=== PATIENT | male | born 1940 | race Hispanic/Latino ===

== ENCOUNTER 2018-02-14 10:58 | Emergency (ER) | payer OTHER ==
--- OUTSIDE RECORDS SUMMARY | 2018-02-14 10:59 | XMS REPORT ---
:1940 Author Organization eClinicalWorks Care Team Providers Name Role Phone Armani Randell Provider Role Unavailable Allergies, Adverse Reactions, Alerts Substance Reaction Event Type N.K.D.A. 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 Problem Benign essential HTN I10 Active Assessment Acute otitis media, right H66.91 Active Problem 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 Active Problem H/O: CVA (cerebrovascular accident) Z86.73 Active Problem Arteriosclerosis I70.90 Active Medications Medication Code Code Instructions Start End Date Status Dosage System Date Losartan [facility] 42027480991 25 MG Orally Active 1 tablet Potassium Once a day Tresiba [facility] 88999218463 200 UNIT/ML Active not defined FlexTouch Subcutaneous Clopidogrel ND 54719193739 75 MG Orally Active 1 tablet Bisulfate Once a day Isosorbide ND 56225531850 30 MG Orally Active 1 tablet in Mononitrate ER Once a day the morning Crestor [facility] 77263263823 20 MG Orally Active 1 tablet Once a day Metoprolol ND 89779550942 50 MG Orally Active 1 tablet Succinate ER Once a day Furosemide ND 31966384136 20 MG Orally Active 1 tablet Once a day Nexium [facility] 20556934538 40 MG Orally Active 1 capsule Once a day Vitamin B [facility] 24744446788 - Orally Active not defined Complex-C Neomycin-Polymy [facility] 82229885785 3.5-64788-8 January Active 4 drops beatrice-HC Otic Three 2017 into times a day affected ear Amoxicillin ND 03261187430 500 MG Orally January Active 1 capsule every 12 hrs 2017 Results No Known Results Summary Purpose eClinicalWorks Submission
--- OUTSIDE RECORDS SUMMARY | 2018-02-14 10:59 | XMS REPORT ---
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 Active Problem H/O: CVA (cerebrovascular accident) Z86.73 Active Assessment Bilateral impacted cerumen H61.23 Active Problem Arteriosclerosis I70.90 Active Medications Medication Code Code Instructions Start End Status Dosage System Date Date Losartan ND 44580010219 25 MG Orally Active 1 tablet Potassium Once a day Tresiba ND 97200577906 200 UNIT/ML Active not defined FlexTouch Subcutaneous Clopidogrel ND 05472021158 75 MG Orally Active 1 tablet Bisulfate Once a day Neomycin-Polymy [facility] 68369360245 3.5-91790-1 January Active 4 drops beatrice-HC Otic Three 2017 into times a day affected ear Crestor ND 39124751593 20 MG Orally Active 1 tablet Once a day Metoprolol ND 41807741662 50 MG Orally Active 1 tablet Succinate ER Once a day Vitamin B ND 93592995361 - Orally Active not defined Complex-C Isosorbide ND 53949324529 30 MG Orally Active 1 tablet in Mononitrate ER Once a day the morning Nexium ND 22647541685 40 MG Orally Active 1 capsule Once a day Furosemide ND 89080340735 20 MG Orally Active 1 tablet Once a day Results No Known Results Summary Purpose eClinicalWorks Submission
--- NOTE | 2018-02-14 12:57 | RAD REPORT ---
EXAM DESCRIPTION: CT - Head Brain Wo Cont - 02/14/2018 12:42 pm CLINICAL HISTORY: Headache COMPARISON: 2016 TECHNIQUE: Computed axial tomography of the head was obtained. IV contrast was not requested. All CT scans are performed using dose optimization technique as appropriate and may include automated exposure control or mA/KV adjustment according to patient size. FINDINGS: An intracranial bleed is not seen . The ventricles are normal in caliber. No extra-axial fluid collection is noted. 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 . Fluid within the sinuses/ mastoids is not seen. IMPRESSION: No acute intracranial abnormality is seen. If patient's symptoms persist MRI of the bra in would be recommended.
[2018-02-14] MEDS ORDERED: LIDOCAINE VISCOUS 2% SOLN 15 ML UDC MM ONE (13:00)
--- NOTE | 2018-02-14 13:32 | EDPHYS ---
Physician Documentation [facility] Name: Sandoval Whitt Jr Age: 78 yrs Sex: Male : 1940 Arrival Date: 02/14/2018 Time: 10:58 Bed 14 Private MD: Randell Lomeli ED Physician Moises Sanchez HPI: 02/14 12:02 This 78 yrs old Male presents to ER via Ambulatory with complaints of Ear Pain.valerie 12:02 The patient presents with pain. The complaints affect the right ear. Onset: The valerie symptoms/episode began/occurred 3 day(s) ago. Modifying factors: The symptoms are alleviated by nothing, the symptoms are aggravated by nothing. Associated signs and symptoms: The patient has no apparent associated signs or symptoms. Severity of symptoms: At their worst the symptoms were mild moderate in the emergency department the symptoms are unchanged. The patient has experienced similar episodes in the past, a few times. Historical: - Allergies: 11:03 NKDA; hb 11:03 shrimp; hb - Home Meds: 11:03 Crestor 20 mg Oral tab 1 tab once daily [Active]; Levemir 100 unit/mL subcutaneous soln hb 42 unit [Active]; metoprolol tartrate 50 mg Oral tab 1 tab once daily [Active]; Plavix 75 mg Oral tab 1 tab once daily [Active]; Tresiba FlexTouch U-100 20 units subcutaneous inpn [Active]; - PMHx: 11:03 CVA; Diabetes - NIDDM; heart disease; Hypertension; hb - PSHx: 11:03 Heart Surgery; Heart stents; hb - Immunization history:: Adult Immunizations up to date. - Social history:: Smoking status: Patient/guardian denies using tobacco. ROS: 12:03 Constitutional: Negative for fever, chills, and weight loss, Eyes: Negative for injury, valerie pain, redness, and discharge, Neck: Negative for injury, pain, and swelling, Cardiovascular: Negative for chest pain, palpitations, and edema, Respiratory: Negative for shortness of breath, cough, wheezing, and pleuritic chest pain, Abdomen/GI: Negative for abdominal pain, nausea, vomiting, diarrhea, and constipation, Back: Negative for injury and pain, : Negative for injury, bleeding, discharge, and swelling, MS/Extremity: Negative for injury and deformity, Skin: Negative for injury, rash, and discoloration, Neuro: Negative for headache, weakness, numbness, tingling, and seizure, Psych: Negative for depression, anxiety, suicide ideation, homicidal ideation, and hallucinations, Allergy/Immunology: Negative for hives, rash, and allergies, Endocrine: Negative for neck swelling, polydipsia, polyuria, polyphagia, and marked weight changes, Hematologic/Lymphatic: Negative for swollen nodes, abnormal bleeding, and unusual bruising. 12:03 ENT: Positive for ear pain. Exam: 12:03 Constitutional: This is a well developed, well nourished patient who is awake, alert, valerie and in no acute distress. Head/Face: Normocephalic, atraumatic. Eyes: Pupils equal round and reactive to light, extra-ocular motions intact. Lids and lashes normal. Conjunctiva and sclera are non-icteric and not injected. Cornea within normal limits. Periorbital areas with no swelling, redness, or edema. Neck: Trachea midline, no thyromegaly or masses palpated, and no cervical lymphadenopathy. Supple, full range of motion without nuchal rigidity, or vertebral point tenderness. No Meningismus. Chest/axilla: Normal chest wall appearance and motion. Nontender with no deformity. No lesions are appreciated. Cardiovascular: Regular rate and rhythm with a normal S1 and S2. No gallops, murmurs, or rubs. Normal PMI, no JVD. No pulse deficits. Respiratory: Lungs have equal breath sounds bilaterally, clear to auscultation and percussion. No rales, rhonchi or wheezes noted. No increased work of breathing, no retractions or nasal flaring. Abdomen/GI: Soft, non-tender, with normal bowel sounds. No distension or tympany. No guarding or rebound. No evidence of tenderness throughout. Back: No spinal tenderness. No costovertebral tenderness. Full range of motion. Male : Normal genitalia with no discharge or lesions. Skin: Warm, dry with normal turgor. Normal color with no rashes, no lesions, and no evidence of cellulitis. MS/ Extremity: Pulses equal, no cyanosis. Neurovascular intact. Full, normal range of motion. Neuro: Awake and alert, GCS 15, oriented to person, place, time, and situation. Cranial nerves II-XII grossly intact. Motor strength 5/5 in all extremities. Sensory grossly intact. Cerebellar exam normal. Normal gait. Psych: Awake, alert, with orientation to person, place and time. Behavior, mood, and affect are within normal limits. 12:03 ENT: Ear canal(s): erythema, that is minimal, TM's: are normal, Posterior pharynx: is normal, no acute changes, Airway: normal, no evidence of obstruction. Vital Signs: 11:04 BP 136 / 59; Pulse 73; Resp 16; Temp 98.6; Pulse Ox 99% ; Weight 67.13 kg; Height 5 ft. hb 8 in. (172.72 cm); Pain 8/10; 12:00 BP 140 / 62; Pulse 64; Resp 17; Pulse Ox 99% on R/A; rb1 13:00 BP 138 / 63; Pulse 66; Resp 16; Pulse Ox 99% on R/A; rb1 14:00 BP 136 / 61; Pulse 69; Resp 17; Pulse Ox 99% on R/A; rb1 11:04 Body Mass Index 22.50 (67.13 kg, 172.72 cm) hb MDM: 11:14 Patient medically screened. [facility] 11:15 Patient medically screened. [facility] 13:33 Data reviewed: vital signs, nurses notes, lab test result(s), radiologic studies, CT valerie scan. 02/14 12:02 Order name: CT Head Brain wo Cont [facility] 02/14 12:58 Order name: CT; Complete Time: 13:31 [facility] 02/14 12:02 Order name: Blood Glucose Level; Complete Time: 12:22 [facility] 02/14 14:11 Order name: EKG; Complete Time: 14:12 [facility] 02/14 14:11 Order name: EKG - Nurse/Tech; Complete Time: 14:20 [facility] Administered Medications: 12:35 Drug: Viscous Lidocaine Liquid (4 %) 5 ml Route: Mucous Membrane; rb1 13:59 Drug: Zofran 4 mg Route: PO; rb1 14:25 Follow up: Response: Nausea is decreased ss Point of Care Testing: Blood Glucose: 12:21 Blood Glucose: 195 mg/dL; rb1 Ranges: Critical Glucose Levels:Adult <50 mg/dl or >400 mg/dl <40 mg/dl or >180 mg/dl Disposition: 02/14/18 13:32 Discharged to Home. Impression: Otitis externa in other diseases classified elsewhere, right ear, Type 2 diabetes mellitus, Vomiting. - Condition is Stable. - Discharge Instructions: Type 2 Diabetes Mellitus, Adult, Ear Drops, Adult, Otitis Externa, Otitis Externa, [id number], Type 2 Diabetes Mellitus, Adult, [id number]. - Prescriptions for Cortisporin- TC 3.3-3-10-0.5 mg/mL Otic Suspension - instill 4 drop by OTIC route every 6 hours; 1 bottle. Neurontin 300 mg Oral Capsule - take 1 capsule by ORAL route At bedtime; 20 capsule. Tylenol- Codeine #3 300-30 mg Oral Tablet - take 1 tablet by ORAL route every 4 hours As needed; 24 tablet. Zofran 4 mg Oral Tablet - take 1 tablet by ORAL route every 12 hours As needed; 14 tablet. - Medication Reconciliation Form, Thank You Letter, Antibiotic Education, Prescription Opioid Use form. - Follow up: Randell Lomeli; When: 2 - 3 days; Reason: Recheck today's complaints, Continuance of care, Re-evaluation by your physician. Follow up: Dyan Bain; When: 1 - 2 days; Reason: Recheck today's complaints, Re-evaluation by your physician. - Problem is new. - Symptoms have improved. Signatures: Dispatcher [employer] Moises Ross MD MD cha Smirch, Shelby, RN RN Josee Avila, ENEDINA RN [facility] Lynda Olivares RN RN
--- NOTE | 2018-02-14 13:32 | ER ---
Nurse's Notes [facility] Name: Sandoval Whitt Jr Age: 78 yrs Sex: Male : 1940 Arrival Date: 02/14/2018 Time: 10:58 Bed 14 Private MD: Randell Lomeli Diagnosis: Otitis externa in other diseases classified elsewhere, right ear;Type 2 diabetes mellitus;Vomiting Presentation: 02/14 11:01 Presenting complaint: Patient states: RIGHT ear pain x 2 weeks, N/V x 3 days. Not hb tolerating liquids. On Penicillin Day 4 for ear infection. Transition of care: patient was not received from another setting of care. Onset of symptoms is unknown. Care prior to arrival: None. 11:01 Method Of Arrival: Ambulatory hb 11: Acuity: FORREST 3 hb Historical: - Allergies: 11: NKDA; hb 11:03 shrimp; hb - Home Meds: 11:03 Crestor 20 mg Oral tab 1 tab once daily [Active]; Levemir 100 unit/mL subcutaneous soln hb 42 unit [Active]; metoprolol tartrate 50 mg Oral tab 1 tab once daily [Active]; Plavix 75 mg Oral tab 1 tab once daily [Active]; Tresiba FlexTouch U-100 20 units subcutaneous inpn [Active]; - PMHx: 11:03 CVA; Diabetes - NIDDM; heart disease; Hypertension; hb - PSHx: 11:03 Heart Surgery; Heart stents; hb - Immunization history:: Adult Immunizations up to date. - Social history:: Smoking status: Patient/guardian denies using tobacco. Screenin:09 Abuse screen: Denies threats or abuse. Nutritional screening: No deficits noted. rb1 Tuberculosis screening: No symptoms or risk factors identified. Fall Risk None identified. Assessment: 11:09 General: Appears uncomfortable, Behavior is calm, cooperative, Denies fever. Pain: rb1 Complains of pain in right ear Pain currently is 10 out of 10 on a pain scale. Pain began x 2 weeks. Pt. is currently taking PCN every 12 hours PO, started 4 days ago. Neuro: Level of Consciousness is awake, alert, obeys commands, Oriented to person, place, time, situation. Cardiovascular: Capillary refill < 3 seconds is brisk in bilateral fingers. Respiratory: Airway is patent Respiratory effort is even, unlabored, Respiratory pattern is regular, symmetrical. GI: Reports nausea, vomiting, since x 3 days. : No signs and/or symptoms were reported regarding the genitourinary system. EENT: Ear canal clear on right ear. Derm: Skin is pink, warm \T\ dry. 12:00 Reassessment: Patient appears in no apparent distress at this time. No changes from [facility] previously documented assessment. 13:00 Reassessment: Patient appears in no apparent distress at this time. Patient and/or rb1 family updated on plan of care and expected duration. Pain level reassessed. Patient is alert, oriented x 3, equal unlabored respirations, skin warm/dry/pink. 13:55 Reassessment: Discharge pending due to waiting for Dr. Bain to call Dr. Sanchez. rb1 14:20 Reassessment: Dr. Sanchez added EKG order. Alba, film technician obtaining test right now. Dr. milan Sanchez orders that after EKG is read by himself and cleared, pt may be discharged home. Vital Signs: 11:04 BP 136 / 59; Pulse 73; Resp 16; Temp 98.6; Pulse Ox 99% ; Weight 67.13 kg; Height 5 ft. hb 8 in. (172.72 cm); Pain 8/10; 12:00 BP 140 / 62; Pulse 64; Resp 17; Pulse Ox 99% on R/A; rb1 13:00 BP 138 / 63; Pulse 66; Resp 16; Pulse Ox 99% on R/A; rb1 14:00 BP 136 / 61; Pulse 69; Resp 17; Pulse Ox 99% on R/A; rb1 11:04 Body Mass Index 22.50 (67.13 kg, 172.72 cm) hb ED Course: 10:58 Patient arrived in ED. as 10:59 Randell Lomeli, is Private Physician. as 11:03 Triage completed. hb 11:04 Arm band placed on left wrist. hb 11:09 Patient has correct armband on for positive identification. Bed in low position. Call rb1 light in reach. Side rails up X 1. Pulse ox on. NIBP on. 11:14 Moises Sanhcez MD is Attending Physician. [facility] 11:26 Josee Avila, RN is Primary Nurse. rb1 12:[address] via wheelchair. 12:40 CT completed. Patient tolerated procedure well. Patient moved back from CT. 13:32 Randell Lomeli DO is Referral Physician. [facility] 13:32 Dyan Bain MD is Referral Physician. [facility] 14:24 No provider procedures requiring assistance completed. Patient did not have IV access ss during this emergency room visit. Administered Medications: 12:35 Drug: Viscous Lidocaine Liquid (4 %) 5 ml Route: Mucous Membrane; rb1 13:59 Drug: Zofran 4 mg Route: PO; rb1 14:25 Follow up: Response: Nausea is decreased Point of Care Testing: Blood Glucose: 12:21 Blood Glucose: 195 mg/dL; rb1 Ranges: Outcome: 13:32 Discharge ordered by MD. [facility] 14:24 Discharged to home ambulatory, with family. 14:24 Condition: good 14:24 Discharge instructions given to patient, family, Instructed on discharge instructions, follow up and referral plans. medication usage, Demonstrated understanding of instructions, follow-up care, medications, Prescriptions given X 4. 14:25 Patient left the ED. ss Signatures: Moises Sanchez MD MD cha Martinez, Amelia as Smirch, Shelby, RN RN Anahy Mijares Josee Avila RN RN [facility] Lynda Olivares RN RN Corrections: (The following items were deleted from the chart) 11:04 11:01 Presenting complaint: Patient states: RIGHT ear pain x 2 weeks, N/V x 3 days. On hb Penicillin Day 4 for ear infection hb
[2018-02-14] MEDS ORDERED: ONDANSETRON 4 MG (ODT) TAB ONE (14:18)
[2018-02-14 14:30] VITALS: TEMP 98.6; O2SAT 99
[2018-02-14 14:31] VITALS: BP 140/62
--- NOTE | 2018-02-15 10:48 | EKG ---
Test Date: 2018-02-14 Test Time: 14:20:28 Accounts Payable Lead: [employer]ACE[employer] MEASUREMENT RESULTS: Intervals: Rate: 66 KS: 144 QRSD: 166 QT: 480 QTc: 503 [place]: P: 79 KS: 144 QRS: -75 T: 87 INTERPRETIVE STATEMENTS: Atrial-sensed ventricular-paced rhythm Abnormal ECG Compared to ECG 08/25/2017 14:47:46 no significant change from previous ECG Electronically Signed On 02-15-18 10:48:11 CDT by Dwayne Aguirre
== END 2018-02-14 14:25 | disposition home or self-care (01) ==
LOC: ER 10:58
DX: H62.41 Otitis externa in other diseases classified elsewhere, right ear (principal); R11.10 Vomiting, unspecified; E11.9 Type 2 diabetes mellitus without complications; I10 Essential (primary) hypertension; Z86.73 Personal history of transient ischemic attack (TIA), and cerebral infarction without residual deficits; Z91.013 Allergy to seafood; Z79.4 Long term (current) use of insulin; Z95.818 Presence of other cardiac implants and grafts
CPT/HCPCS: 70450; 82962; 93005; 99284

== ENCOUNTER 2018-03-15 12:13 | Emergency (ER) | payer OTHER ==
--- OUTSIDE RECORDS SUMMARY | 2018-03-15 12:14 | XMS REPORT ---
[...] Status Dosage System Date Date Losartan ND 74657442562 25 MG Orally Active 1 tablet Potassium Once a day Tresiba ND 29785198957 200 UNIT/ML Active not defined FlexTouch Subcutaneous Clopidogrel ND 21547237013 75 MG Orally Active 1 tablet Bisulfate Once a day Neomycin-Polymy [facility] 95579653976 3.5-80341-0 January Active 4 drops beatrice-HC Otic Three 2017 into times a day affected ear Crestor ND 32980802107 20 MG Orally Active 1 tablet Once a day Metoprolol ND 71295729082 50 MG Orally Active 1 tablet Succinate ER Once a day Vitamin B ND 09262515096 - Orally Active not defined Complex-C Isosorbide ND 36233449719 30 MG Orally Active 1 tablet in Mononitrate ER Once a day the morning Nexium ND 67144179568 40 MG Orally Active 1 capsule Once a day Furosemide ND 77272001036 20 MG Orally Active 1 tablet Once a day Results No Known Results Summary Purpose eClinicalWorks Submission
--- OUTSIDE RECORDS SUMMARY | 2018-03-15 12:15 | XMS REPORT ---
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
--- OUTSIDE RECORDS SUMMARY | 2018-03-15 12:15 | XMS REPORT ---
[...] End Date Status Dosage System Date Losartan [facility] 70816298049 25 MG Orally Active 1 tablet Potassium Once a day Tresiba [facility] 47713578836 200 UNIT/ML Active not defined FlexTouch Subcutaneous Clopidogrel ND 73106356453 75 MG Orally Active 1 tablet Bisulfate Once a day Isosorbide ND 23182003766 30 MG Orally Active 1 tablet in Mononitrate ER Once a day the morning Crestor [facility] 61152303600 20 MG Orally Active 1 tablet Once a day Metoprolol ND 82251514012 50 MG Orally Active 1 tablet Succinate ER Once a day Furosemide ND 23833639740 20 MG Orally Active 1 tablet Once a day Nexium [facility] 33083205318 40 MG Orally Active 1 capsule Once a day Vitamin B [facility] 12511799367 - Orally Active not defined Complex-C Neomycin-Polymy [facility] 22505771749 3.5-37364-1 January Active 4 drops beatrice-HC Otic Three 2017 into times a day affected ear Amoxicillin ND 20960264496 500 MG Orally January Active 1 capsule every 12 hrs 2017 Results No Known Results Summary Purpose eClinicalWorks Submission
--- OUTSIDE RECORDS SUMMARY | 2018-03-15 12:15 | XMS REPORT ---
:1940 Author Organization eClinicalWorks Care Team Providers Name Role Phone Armani [facility] Provider Role Unavailable Allergies No Known Allergies [...] Medications Results No Known Results Summary Purpose [email or web address] Submission
[2018-03-15 13:00] LABS: Absolute Lymphocytes (CBC) 1.4 K/uL (0.7-4.9); Absolute Monocytes 0.5 K/uL (0.1-1.3); Absolute Neutrophil 4.6 K/uL (1.8-8.0); Basophils % 0.6 % (0-1.3); Eosinophils % 2.1 % (0-4.4); Lymphocytes % 20.3 % (15.3-44.8); MCH 32.4 pg (27.0-35.0); MCV 94.3 fL (80-100); MPV 8.8 fL (7.6-11.3); Monocytes % 7.7 % (3.3-12.3); RBC Red Blood Cell Count 3.92 M/uL (4.33-5.43)
[2018-03-15 13:06] LABS: Protime INR 1.08
[2018-03-15 13:14] LABS: Potassium 3.9 mEq/L (3.6-5.0)
[2018-03-15 13:20] LABS: Albumin 4.4 g/dL (3.2-5.5); Bilirubin Direct 0.1 mg/dL (0-0.2); Bilirubin Total 0.7 mg/dL (0.3-1.2); Magnesium 1.9 mg/dL (1.8-2.5); Protein, Total 7.8 g/dL (6.0-8.3)
--- NOTE | 2018-03-15 13:36 | RAD REPORT ---
EXAM DESCRIPTION: RAD - Chest Single View - 03/15/2018 1:15 pm CLINICAL HISTORY: Palpitations COMPARISON: 02/09/2017 FINDINGS: Portable technique limits examination quality. The lungs are grossly clear. The heart is normal in size. No displaced fractures.Postsurgical changes of a CABG are present with dual lead pacer/defibrillator device present. IMPRESSION: No acute intrathoracic process suspected.
--- NOTE | 2018-03-15 15:47 | ER ---
Nurse's Notes [facility] Name: Sandoval Whitt Jr Age: 78 yrs Sex: Male : 1940 Arrival Date: 03/15/2018 Time: 12:14 Bed 5 Private MD: Randell Lomeli; Babak Simons S Diagnosis: Palpitations Presentation: 03/15 12:18 Presenting complaint: Patient states: He has been having palpitations over last week la1 and this morning at 0300 he was woken up by his palpitations. He has a pacemaker/defib but it has not shocked him or anything. Pt reports taking an extra metoprolol this morning. Transition of care: patient was not received from another setting of care. Onset of symptoms was March 15, 2018. Initial Sepsis Screen: Does the patient meet any 2 criteria? No. Patient's initial sepsis screen is negative. Does the patient have a suspected source of infection? No. Patient's initial sepsis screen is negative. Care prior to arrival: None. 12:18 Method Of Arrival: Wheelchair la1 12:18 Acuity: FORREST 3 la1 Historical: - Allergies: 12:17 NKDA; la1 12:17 shrimp; la1 - PMHx: 12:17 CVA; Diabetes - NIDDM; heart disease; Hypertension; la1 - PSHx: 12:17 CABG; heart stents; la1 - Immunization history:: Adult Immunizations up to date. - Social history:: Smoking status: Patient/guardian denies using tobacco. Screenin:30 Abuse screen: Denies threats or abuse. Denies injuries from another. Nutritional sv screening: No deficits noted. Tuberculosis screening: No symptoms or risk factors identified. Fall Risk None identified. Assessment: 12:45 General: Appears in no apparent distress. comfortable, slender, Behavior is calm, sv cooperative, appropriate for age. Pain: Denies pain. Neuro: Level of Consciousness is awake, alert, obeys commands, Oriented to person, place, time, situation, Moves all extremities. Full function Gait is steady, Speech is normal. Cardiovascular: Patient's skin is warm and dry. Pulses are 3+ in right radial artery and left radial artery Rhythm is paced. Respiratory: Respiratory effort is even, unlabored, Respiratory pattern is regular, symmetrical. Derm: Skin is normal. Musculoskeletal: Range of motion: intact in all extremities. 15:39 Reassessment: Patient appears in no apparent distress at this time. No changes from sv previously documented assessment. Patient and/or family updated on plan of care and expected duration. Pain level reassessed. Patient is alert, oriented x 3, equal unlabored respirations, skin warm/dry/pink. 16:05 Reassessment: Patient appears in no apparent distress at this time. No changes from sv previously documented assessment. Patient and/or family updated on plan of care and expected duration. Pain level reassessed. Patient is alert, oriented x 3, equal unlabored respirations, skin warm/dry/pink. Vital Signs: 12:17 BP 131 / 57; Pulse 66; Resp 16; Temp 99.2(TE); Pulse Ox 98% on R/A; la1 13:00 BP 96 / 55; Pulse 61 MON; Resp 17; Pulse Ox 98% ; sv 14:38 BP 115 / 60; Pulse 60; Resp 16; Pulse Ox 98% on R/A; Pain 0/10; ss 15:00 BP 118 / 55; Pulse 60; Resp 16; Pulse Ox 98% on R/A; sv 16:05 BP 117 / 59; Pulse 62; Resp 16; Pulse Ox 98% ; sv 13:00 Paced sv 15:00 Paced sv ED Course: 12:14 Patient arrived in ED. as 12:14 Randell Lomeli DO is Private Physician. as 12:14 Babak Simons MD is Private Physician. as 12:18 Arm band placed on left wrist. la1 12:19 Triage completed. la1 12:30 silver designer on. Pulse ox on. NIBP on. sv 12:30 Patient has correct armband on for positive identification. Placed in gown. Bed in low sv position. Call light in reach. Side rails up X2. Adult w/ patient. Door closed. Warm blanket given. Head of bed elevated. 12:30 Patient maintains SpO2 saturation greater than 95% on room air. sv 12:36 Dyan Smith, ENEDINA is Primary Nurse. sv 12:39 Zeus Peterson PA is PHCP. jr8 12:39 Moises Sanchez MD is Attending Physician. jr8 12:45 Inserted saline lock: 20 gauge in right antecubital area, using aseptic technique. ss Blood collected. 13:07 X-ray completed. Portable x-ray completed in exam room. Patient tolerated procedure kp1 well. 13:15 XRAY Chest (1 view) In Process Unspecified. EDMS 16:05 No provider procedures requiring assistance completed. IV discontinued, intact, sv bleeding controlled, No redness/swelling at site. Pressure dressing applied. Administered Medications: No medications were administered Outcome: 15:45 Discharge ordered by MD. humphrey 16:06 Discharged to home via wheelchair, with family. sv 16:06 Condition: stable 16:06 Discharge instructions given to patient, family, Instructed on discharge instructions, follow up and referral plans. Demonstrated understanding of instructions, follow-up care, Pt's spouse stated that she was calling tomorrow to make a follow up appt. 16:06 Patient left the ED. sv Signatures: Dispatcher [employer] DAX[employer] Dyan Smith RN RN sv Martinez, Amelia as Smirch, Shelby, RN RN Zeus Peterson PA PA jr8 Orlando Kapadia RN RN la1 Haleigh Ribeiro kp1 Corrections: (The following items were deleted from the chart) 15:34 14:38 silver designer on. Pulse ox on. NIBP on. ss sv
--- NOTE | 2018-03-15 15:47 | EDPHYS ---
Physician Documentation [facility] Name: Sandoval Whitt Jr Age: 78 yrs Sex: Male : 1940 Arrival Date: 03/15/2018 Time: 12:14 Bed 5 Private MD: Randell Lomeli; Babak Simons S ED Physician Moises Sanchez HPI: 03/15 15:05 This 78 yrs old Male presents to ER via Wheelchair with complaints of jr8 Irregular Pulse. 15:05 The patient presents with a history of heart racing, heart skipping beats. Context: The jr8 symptoms occur at rest. Onset: The symptoms/episode began/occurred acutely, yesterday. Duration: The patient or guardian reports a single episode, that is still ongoing. Modifying factors: The symptoms are aggravated by light activity, The symptoms are alleviated by remaining still. Associated signs and symptoms: The patient has no apparent associated signs or symptoms. Severity of symptoms: At their worst the symptoms were mild in the emergency department the symptoms are unchanged. It is unknown whether or not the patient has had similar symptoms in the past. The patient has not recently seen a physician. Denies defibrillator going off . Historical: - Allergies: 12:17 NKDA; la1 12:17 shrimp; la1 - PMHx: 12:17 CVA; Diabetes - NIDDM; heart disease; Hypertension; la1 - PSHx: 12:17 CABG; heart stents; la1 - Immunization history:: Adult Immunizations up to date. - Social history:: Smoking status: Patient/guardian denies using tobacco. ROS: 15:05 Eyes: Negative for injury, pain, redness, and discharge, ENT: Negative for injury, jr8 pain, and discharge, Neck: Negative for injury, pain, and swelling, Respiratory: Negative for shortness of breath, cough, wheezing, and pleuritic chest pain, Abdomen/GI: Negative for abdominal pain, nausea, vomiting, diarrhea, and constipation, Back: Negative for injury and pain, MS/Extremity: Negative for injury and deformity, Skin: Negative for injury, rash, and discoloration, Neuro: Negative for headache, weakness, numbness, tingling, and seizure. 15:05 Cardiovascular: Positive for palpitations, Negative for chest pain, edema, orthopnea, paroxysmal nocturnal dyspnea. Exam: 15:05 Eyes: Pupils equal round and reactive to light, extra-ocular motions intact. Lids and jr8 lashes normal. Conjunctiva and sclera are non-icteric and not injected. Cornea within normal limits. Periorbital areas with no swelling, redness, or edema. ENT: Nares patent. No nasal discharge, no septal abnormalities noted. Tympanic membranes are normal and external auditory canals are clear. Oropharynx with no redness, swelling, or masses, exudates, or evidence of obstruction, uvula midline. Mucous membranes moist. Neck: Trachea midline, no thyromegaly or masses palpated, and no cervical lymphadenopathy. Supple, full range of motion without nuchal rigidity, or vertebral point tenderness. No Meningismus. Cardiovascular: Regular rate and rhythm with a normal S1 and S2. No gallops, murmurs, or rubs. Normal PMI, no JVD. No pulse deficits. Respiratory: Lungs have equal breath sounds bilaterally, clear to auscultation and percussion. No rales, rhonchi or wheezes noted. No increased work of breathing, no retractions or nasal flaring. Abdomen/GI: Soft, non-tender, with normal bowel sounds. No distension or tympany. No guarding or rebound. No evidence of tenderness throughout. Back: No spinal tenderness. No costovertebral tenderness. Full range of motion. Skin: Warm, dry with normal turgor. Normal color with no rashes, no lesions, and no evidence of cellulitis. MS/ Extremity: Pulses equal, no cyanosis. Neurovascular intact. Full, normal range of motion. Neuro: Awake and alert, GCS 15, oriented to person, place, time, and situation. Cranial nerves II-XII grossly intact. Motor strength 5/5 in all extremities. Sensory grossly intact. Cerebellar exam normal. Normal gait. Vital Signs: 12:17 BP 131 / 57; Pulse 66; Resp 16; Temp 99.2(TE); Pulse Ox 98% on R/A; la1 13:00 BP 96 / 55; Pulse 61 MON; Resp 17; Pulse Ox 98% ; sv 14:38 BP 115 / 60; Pulse 60; Resp 16; Pulse Ox 98% on R/A; Pain 0/10; ss 15:00 BP 118 / 55; Pulse 60; Resp 16; Pulse Ox 98% on R/A; sv 16:05 BP 117 / 59; Pulse 62; Resp 16; Pulse Ox 98% ; sv 13:00 Paced sv 15:00 Paced sv MDM: 12:39 Patient medically screened. [facility] 15:43 Data reviewed: vital signs, nurses notes, lab test result(s), EKG, radiologic studies, jr8 plain films, and as a result, I will discharge patient. Data interpreted: Pulse oximetry: on room air is 98 %. Interpretation: normal. 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 ED course: Called Patients EP physician. Will see him on Friday for evaluation for the palpitation like feeling. Patient has been stable here without any arrhythmia. Pacer spikes noted on ECG. No wire displacement noted on imaging. Family good to f/u tomorrow. If worse would come back . 03/15 12:39 Order name: Basic Metabolic Panel; Complete Time: 14: 03/15 12:39 Order name: BNP; Complete Time: 14: 03/15 12:39 Order name: CBC with Diff; Complete Time: 14:03/15 12:39 Order name: LFT's; Complete Time: 14:03/15 12:39 Order name: Magnesium; Complete Time: 14:29 03/15 12:39 Order name: PT-INR; Complete Time: 14: 03/15 12:39 Order name: Troponin (emerg Dept Use Only); Complete Time: 14:29 03/15 12:39 Order name: XRAY Chest (1 view); Complete Time: 14:29 03/15 12:39 Order name: EKG; Complete Time: 12:40 03/15 12:39 Order name: Cardiac monitoring; Complete Time: 14:03/15 12:39 Order name: EKG - Nurse/Tech; Complete Time: 14:03/15 12:39 Order name: IV Saline Lock; Complete Time: 14:03/15 12:39 Order name: Labs collected and sent; Complete Time: 14:03/15 12:39 Order name: O2 Per Protocol; Complete Time: 03/15 12:39 Order name: O2 Sat Monitoring; Complete Time: : Administered Medications: No medications were administered Disposition: 03/16 09:19 Co-signature as Attending Physician, Moises Sanchez MD I agree with the assessment and valerie plan of care. Disposition: 03/15/18 15:45 Discharged to Home. Impression: Palpitations. - Condition is Stable. - Discharge Instructions: Palpitations. - Medication Reconciliation Form, Thank You Letter, Antibiotic Education, Prescription Opioid Use form. - Follow up: Private Physician; When: Tomorrow; Reason: Recheck today's complaints, Continuance of care, Re-evaluation by your physician. - Problem is new. - Symptoms have improved. Signatures: Dispatcher [employer] Dyan Connors, Moises Amaro RN, MD MD cha Roszak, Josh, PA PA jr8 Orlando Kapadia RN RN la1
[2018-03-15 16:13] VITALS: TEMP 99.2; O2SAT 98
[2018-03-15 16:18] VITALS: BP 117/59
--- NOTE | 2018-03-15 18:26 | EKG ---
Test Date: 2018-03-15 Test Time: 12:47:22 Tree Farmer: TIA MEASUREMENT RESULTS: Intervals: Rate: 63 MD: 142 QRSD: 164 QT: 474 QTc: 485 [place]: P: 61 MD: 142 QRS: -83 T: 78 INTERPRETIVE STATEMENTS: Atrial-sensed ventricular-paced rhythm Abnormal ECG Compared to ECG 02/14/2018 14:20:28 No significant changes Electronically Signed On 03-15-18 18:25:54 CDT by Dwayne Aguirre
== END 2018-03-15 16:06 | disposition home or self-care (01) ==
LOC: ER 12:13
DX: R00.2 Palpitations (principal); E11.9 Type 2 diabetes mellitus without complications; I10 Essential (primary) hypertension; Z86.73 Personal history of transient ischemic attack (TIA), and cerebral infarction without residual deficits; Z95.0 Presence of cardiac pacemaker
CPT/HCPCS: 36415; 71045; 80048; 80076; 83735; 83880; 84484; 85025; 85610; 93005; 99285

== ENCOUNTER 2018-05-09 11:50 | Emergency (ER) | payer OTHER ==
--- OUTSIDE RECORDS SUMMARY | 2018-05-09 11:52 | XMS REPORT ---
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 Problem Venous insufficiency I87.2 Active Problem Diabetes type 2, controlled E11.9 Active Problem 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 Problem Benign essential HTN I10 Active Assessment Venous insufficiency I87.2 Active Assessment H/O: CVA (cerebrovascular accident) Z86.73 Active Assessment Gastro-esophageal reflux disease K21.9 Active without esophagitis Assessment 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 Assessment Diabetes type 2, controlled E11.9 Active Problem 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 Active Assessment Hyperlipidemia, mixed E78.2 Active Problem H/O: CVA (cerebrovascular accident) Z86.73 Active Assessment Benign essential HTN I10 Active Problem Arteriosclerosis I70.90 Active Medications Medication Code Code Instructions Start End Status Dosage System Date Crestor [facility] 95287606489 20 MG Orally Active 1 tablet Once a day Jardiance [facility] 99355075827 10 MG Orally April 06, Jul 05, Active 1 tablet Once a day 2017 2017 Clopidogrel ND 59297023217 75 MG Orally Active 1 tablet Bisulfate Once a day Nexium ND 77525496169 40 MG Orally Active 1 capsule Once a day Metoprolol ND 10175209517 50 MG Orally Active 1 tablet Succinate ER Once a day Losartan ND 14451071166 25 MG Orally Active 1 tablet Potassium Once a day Isosorbide ND 87906622366 30 MG Orally Active 1 tablet in Mononitrate ER Once a day the morning Neomycin-Polymy [facility] 17793069003 3.5-36176-2 January Active 4 drops beatrice-HC Otic Three 2017 into times a day affected ear Furosemide [facility] 17085737954 20 MG Orally Active 1 tablet Once a day Tresiba [facility] 93066307570 200 UNIT/ML Active not defined FlexTouch Subcutaneous Vitamin B [facility] 64921023938 - Orally Active not defined Complex-C Results No Known Results Summary Purpose eClinicalWorks Submission
--- OUTSIDE RECORDS SUMMARY | 2018-05-09 11:52 | XMS REPORT ---
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 Active Problem Pain in left wrist M25.532 Active Problem Constipation, unspecified K59.00 Active constipation type Problem Benign essential HTN I10 Active Problem Venous insufficiency I87.2 Active Problem Pain in left hand M79.642 Active Problem 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 Assessment Gastro-esophageal reflux disease K21.9 Active without esophagitis Problem 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 Active Problem H/O: CVA (cerebrovascular accident) Z86.73 Active Assessment Constipation, unspecified K59.00 Active constipation type Problem Arteriosclerosis I70.90 Active Assessment Nausea and vomiting, intractability R11.2 Active of vomiting not specified, unspecified vomiting type Problem History of fall Z91.81 Active Medications Medication Code Code Instructions Start End Status Dosage System Date Date Ondansetron HCl ND 60754074900 4 MG Orally April 23, Active Take 1 tab every 8 hours 2018 PRN Nausea/Vomiting Clopidogrel ND 22588171878 75 MG Orally Active 1 tablet Bisulfate Once a day Losartan ND 87833679963 25 MG Orally Active 1 tablet Potassium Once a day Metoprolol ND 77398817254 50 MG Orally Active 1 tablet Succinate ER Once a day Crestor ND 97312417479 20 MG Orally Active 1 tablet Once a day Isosorbide ND 31381533001 30 MG Orally Active 1 tablet in Mononitrate ER Once a day the morning Tresiba ND 55341039832 200 UNIT/ML Active not defined FlexTouch Subcutaneous Vitamin B ND 53878021742 - Orally Active not defined Complex-C Neomycin-Polymy [facility] 05325874281 3.5-31959-6 January Active 4 drops beatrice- Otic Three 2017 into times a day affected ear Nexium [facility] 16458619154 40 MG Orally Active 1 capsule Once a day Furosemide [facility] 85136099191 20 MG Orally Active 1 tablet Once a day Jardiance [facility] 08396405945 10 MG Orally April 06, Jul 05, Active 1 tablet Once a day 2017 2017 Results No Known Results Summary Purpose eClinicalWorks Submission
--- OUTSIDE RECORDS SUMMARY | 2018-05-09 11:52 | XMS REPORT ---
[...] End Date Status Dosage System Date Losartan [facility] 88374370484 25 MG Orally Active 1 tablet Potassium Once a day Tresiba [facility] 05472644443 200 UNIT/ML Active not defined FlexTouch Subcutaneous Clopidogrel ND 66491155056 75 MG Orally Active 1 tablet Bisulfate Once a day Isosorbide ND 02865306289 30 MG Orally Active 1 tablet in Mononitrate ER Once a day the morning Crestor [facility] 49089260646 20 MG Orally Active 1 tablet Once a day Metoprolol ND 09405533414 50 MG Orally Active 1 tablet Succinate ER Once a day Furosemide ND 52613827357 20 MG Orally Active 1 tablet Once a day Nexium [facility] 15574427552 40 MG Orally Active 1 capsule Once a day Vitamin B [facility] 90495684735 - Orally Active not defined Complex-C Neomycin-Polymy [facility] 77641919734 3.5-35664-5 January Active 4 drops beatrice-HC Otic Three 2017 into times a day affected ear Amoxicillin ND 98276006182 500 MG Orally January Active 1 capsule every 12 hrs 2017 Results No Known Results Summary Purpose eClinicalWorks Submission
--- OUTSIDE RECORDS SUMMARY | 2018-05-09 11:52 | XMS REPORT ---
:1940 Author Organization eClinicalWorks Care Team Providers Name Role Phone Armani [facility] Provider Role Unavailable Allergies No Known Allergies [...] Medications Results No Known Results Summary Purpose [employer] Submission
--- OUTSIDE RECORDS SUMMARY | 2018-05-09 11:52 | XMS REPORT ---
[...] Medications Results No Known Results Summary Purpose eClinicalWorks Submission
--- OUTSIDE RECORDS SUMMARY | 2018-05-09 11:52 | XMS REPORT ---
[...] Status Dosage System Date Date Losartan ND 58207697676 25 MG Orally Active 1 tablet Potassium Once a day Tresiba ND 29952047764 200 UNIT/ML Active not defined FlexTouch Subcutaneous Clopidogrel ND 24434905587 75 MG Orally Active 1 tablet Bisulfate Once a day Neomycin-Polymy [facility] 36441860861 3.5-43060-9 January Active 4 drops beatrice-HC Otic Three 2017 into times a day affected ear Crestor ND 87924481074 20 MG Orally Active 1 tablet Once a day Metoprolol ND 01191349744 50 MG Orally Active 1 tablet Succinate ER Once a day Vitamin B ND 70405767732 - Orally Active not defined Complex-C Isosorbide ND 84776972325 30 MG Orally Active 1 tablet in Mononitrate ER Once a day the morning Nexium ND 90543212148 40 MG Orally Active 1 capsule Once a day Furosemide ND 04642839687 20 MG Orally Active 1 tablet Once a day Results No Known Results Summary Purpose eClinicalWorks Submission
--- OUTSIDE RECORDS SUMMARY | 2018-05-09 11:52 | XMS REPORT ---
:1940 Author Organization eClinicalWorks Care Team Providers Name Role Phone Armani [facility] Provider Role Unavailable Allergies No Known Allergies [...] Medications Results No Known Results Summary Purpose [employer] Submission
--- OUTSIDE RECORDS SUMMARY | 2018-05-09 11:53 | XMS REPORT ---
[...] coronary artery bypass Z95.1 Active graft Problem 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 Active Problem H/O: CVA (cerebrovascular accident) Z86.73 Active Problem Arteriosclerosis I70.90 Active Assessment Gastro-esophageal reflux disease K21.9 Active without esophagitis Problem History of fall Z91.81 Active Medications Medication Code Code Instructions Start End Date Status Dosage System Date Omeprazole NDC 92866995471 40 MG Orally April 24, Active 1 capsule Once a day 2017 Nexium ND 86536475541 40 MG Orally Inactive 1 capsule Once a day Results No Known Results Summary Purpose eClinicalWorks Submission
[2018-05-09] MEDS ORDERED: NA CHLORIDE 0.9% 1,000 ML ONE (14:04)
[2018-05-09 14:31] LABS: Absolute Lymphocytes (CBC) 1.4 K/uL (0.7-4.9); Absolute Monocytes 0.5 K/uL (0.1-1.3); Absolute Neutrophil 4.4 K/uL (1.8-8.0); Basophils % 0.3 % (0-1.3); Eosinophils % 2.5 % (0-4.4); Hematocrit 34.2 % (39.6-49.0); Lymphocytes % 22.1 % (15.3-44.8); MCH 33.7 pg (27.0-35.0); MCV 94.9 fL (80-100); MPV 8.6 fL (7.6-11.3); Monocytes % 7.2 % (3.3-12.3)
[2018-05-09 14:41] LABS: Potassium 4.6 mEq/L (3.6-5.0)
--- NOTE | 2018-05-09 15:27 | ER ---
Nurse's Notes [facility] Name: Sandoval Whitt Jr Age: 78 yrs Sex: Male : 1940 Arrival Date: 05/09/2018 Time: 11:52 Bed 8 Private MD: Nando Linares H Diagnosis: Weakness;Dehydration Presentation: 05/09 11:58 Presenting complaint: states: Pt recently had an EGD on and was sent here to get a CT with contrast. Pt went home and started having diarrhea and diarrhea hasn't stopped since then. Pt is now weaker than normal. Transition of care: patient was not received from another setting of care. Onset of symptoms was May 07, 2018. Risk Assessment: Do you want to hurt yourself or someone else? Patient reports no desire to harm self or others. Care prior to arrival: None. 11:58 Method Of Arrival: Wheelchair sv 11:58 Acuity: FORREST 3 sv 14:00 Initial Sepsis Screen: Does the patient meet any 2 criteria? No. Patient's initial sg sepsis screen is negative. Does the patient have a suspected source of infection? No. Patient's initial sepsis screen is negative. Triage Assessment: 11:58 General: Appears in no apparent distress. uncomfortable, Behavior is calm, cooperative, sv appropriate for age. EENT: No signs and/or symptoms were reported regarding the EENT system. Neuro: Level of Consciousness is awake, alert, obeys commands, Oriented to person, place, time, situation, Moves all extremities. Full function Speech is normal, Reports weakness in "all over". Respiratory: Respiratory effort is even, unlabored, Respiratory pattern is regular, symmetrical. Derm: Skin is normal. Historical: - Allergies: 12:00 shrimp; sv - Home Meds: 12:00 Crestor 20 mg Oral tab 1 tab once daily [Active]; Levemir 100 unit/mL subcutaneous soln sv 42 unit [Active]; metoprolol tartrate 50 mg Oral tab 1 tab once daily [Active]; Plavix 75 mg Oral tab 1 tab once daily [Active]; Tresiba FlexTouch U-100 20 units subcutaneous inpn [Active]; - PMHx: 12:00 CVA; Diabetes - NIDDM; heart disease; Hypertension; sv - PSHx: 12:00 CABG; Heart stents; sv - Immunization history:: Adult Immunizations up to date. - Social history:: Smoking status: Patient/guardian denies using tobacco. - Ebola Screening: : No symptoms or risks identified at this time. Screenin:00 Abuse screen: Denies threats or abuse. Denies injuries from another. Nutritional sg screening: No deficits noted. Tuberculosis screening: No symptoms or risk factors identified. Never had TB. Fall Risk None identified. Assessment: 14:00 General: Appears in no apparent distress. comfortable, slender, well groomed, well sg developed, well nourished, Behavior is calm, cooperative, appropriate for age. Pain: Denies pain. Neuro: Level of Consciousness is awake, alert, obeys commands, Oriented to person, place, time, situation, Appropriate for age Scada Operator are equal bilaterally Speech is normal, Facial symmetry appears normal. Cardiovascular: Heart tones S1 S2 present Capillary refill is brisk in bilateral fingers Patient's skin is warm and dry. Chest pain is denied. Cardiovascular: Reports fatigue. Respiratory: Airway is patent Respiratory effort is even, unlabored, Respiratory pattern is regular, symmetrical, Breath sounds are clear. GI: No signs and/or symptoms were reported involving the gastrointestinal system. : No deficits noted. No signs and/or symptoms were reported regarding the genitourinary system. EENT: No signs and/or symptoms were reported regarding the EENT system. Derm: Skin is intact, is healthy with good turgor, Skin is pale. Musculoskeletal: No signs and/or symptoms reported regarding the musculoskeletal system. 15:30 Reassessment: orders to infuse bolus as ordered prior to d/c to home. sg Vital Signs: 12:00 BP 100 / 45; Pulse 60; Resp 18; Pulse Ox 98% ; Weight 65.32 kg; Height 5 ft. 8 in. sv (172.72 cm); 16:00 BP 141 / 59; Pulse 60; Resp 16; Pulse Ox 100% on R/A; sg 12:00 Body Mass Index 21.89 (65.32 kg, 172.72 cm) sv ED Course: 11:52 Patient arrived in ED. sb2 11:52 Nando Linares MD is Private Physician. sb2 11:59 Triage completed. sv 12:01 Arm band placed on right wrist. sv 13:32 Venkata Corbin MD is Attending Physician. gs 13:35 Patient placed in an exam room, on a stretcher. 14:00 Patient has correct armband on for positive identification. Bed in low position. Call sg light in reach. Side rails up X2. pipe caulker on. Pulse ox on. NIBP on. Door closed. Warm blanket given. Pillow given. Verbal reassurance given. Head of bed elevated. 14:08 Ezequiel Downey, RN is Primary Nurse. 14:22 Initial lab(s) drawn, by me, sent to lab. Inserted saline lock: 22 gauge in left dh3 forearm, using aseptic technique. Blood collected. 16:30 No provider procedures requiring assistance completed. IV discontinued, intact, sg bleeding controlled, No redness/swelling at site. Pressure dressing applied. Administered Medications: 14:35 Drug: NS 0.9% 750 ml Route: IV; Rate: 1 bolus; Site: left forearm; sg Outcome: 15:27 Discharge ordered by MD. 16:30 Discharged to home via wheelchair, with family. 16:30 Condition: good 16:30 Discharge instructions given to patient, Instructed on discharge instructions, follow up and referral plans. Demonstrated understanding of instructions, follow-up care. 16:31 Patient left the ED. Signatures: Dyan Smith RN RN Ezequiel Downey RN RN Dari Bain [facility] Venkata Corbin MD MD Lety Goff sb2
--- NOTE | 2018-05-09 15:27 | EDPHYS ---
Physician Documentation [facility] Name: Sandoval Whitt Jr Age: 78 yrs Sex: Male : 1940 Arrival Date: 05/09/2018 Time: 11:52 Bed 8 Private MD: Nando Linares H ED Physician Venkata Corbin HPI: 05/09 15:21 This 78 yrs old Male presents to ER via Wheelchair with complaints of General gs Weakness. 15:21 The patient presents to the emergency department with weakness of the entire body, gs generalized weakness. Onset: The symptoms/episode began/occurred 3 month(s) ago, and became persistent. Context: occurred at home. Associated signs and symptoms: Pertinent negatives: altered mental status, dizziness, fever, headache. Severity of symptoms: At their worst the symptoms were moderate in the emergency department the symptoms are unchanged. The patient has experienced similar episodes in the past, several times. The patient has been recently seen by a physician:. Historical: - Allergies: 12:00 shrimp; sv - Home Meds: 12:00 Crestor 20 mg Oral tab 1 tab once daily [Active]; Levemir 100 unit/mL subcutaneous soln sv 42 unit [Active]; metoprolol tartrate 50 mg Oral tab 1 tab once daily [Active]; Plavix 75 mg Oral tab 1 tab once daily [Active]; Tresiba FlexTouch U-100 20 units subcutaneous inpn [Active]; - PMHx: 12:00 CVA; Diabetes - NIDDM; heart disease; Hypertension; sv - PSHx: 12:00 CABG; Heart stents; sv - Immunization history:: Adult Immunizations up to date. - Social history:: Smoking status: Patient/guardian denies using tobacco. - Ebola Screening: : No symptoms or risks identified at this time. ROS: 15:21 Constitutional: Negative for fever. gs 15:21 Cardiovascular: Negative for chest pain. 15:21 Respiratory: Negative for shortness of breath. 15:21 Abdomen/GI: Negative for vomiting. 15:21 All other systems are negative. Exam: 15:21 Head/Face: Normocephalic, atraumatic. Eyes: Pupils equal round and reactive to light, gs extra-ocular motions intact. Lids and lashes normal. Conjunctiva and sclera are non-icteric and not injected. Cornea within normal limits. Periorbital areas with no swelling, redness, or edema. ENT: Nares patent. No nasal discharge, no septal abnormalities noted. Tympanic membranes are normal and external auditory canals are clear. Oropharynx with no redness, swelling, or masses, exudates, or evidence of obstruction, uvula midline. Mucous membranes moist. Neck: Trachea midline, no thyromegaly or masses palpated, and no cervical lymphadenopathy. Supple, full range of motion without nuchal rigidity, or vertebral point tenderness. No Meningismus. Chest/axilla: Normal chest wall appearance and motion. Nontender with no deformity. No lesions are appreciated. Cardiovascular: Regular rate and rhythm with a normal S1 and S2. No gallops, murmurs, or rubs. Normal PMI, no JVD. No pulse deficits. Respiratory: Lungs have equal breath sounds bilaterally, clear to auscultation and percussion. No rales, rhonchi or wheezes noted. No increased work of breathing, no retractions or nasal flaring. Abdomen/GI: Soft, non-tender, with normal bowel sounds. No distension or tympany. No guarding or rebound. No evidence of tenderness throughout. Back: No spinal tenderness. No costovertebral tenderness. Full range of motion. Skin: Warm, dry with normal turgor. Normal color with no rashes, no lesions, and no evidence of cellulitis. MS/ Extremity: Pulses equal, no cyanosis. Neurovascular intact. Full, normal range of motion. Neuro: Awake and alert, GCS 15, oriented to person, place, time, and situation. Cranial nerves II-XII grossly intact. Motor strength 5/5 in all extremities. Sensory grossly intact. Cerebellar exam normal. Normal gait. 15:21 Constitutional: The patient appears alert, awake, frail, pale. 15:21 ECG was reviewed by the Attending Physician. Vital Signs: 12:00 BP 100 / 45; Pulse 60; Resp 18; Pulse Ox 98% ; Weight 65.32 kg; Height 5 ft. 8 in. sv (172.72 cm); 16:00 BP 141 / 59; Pulse 60; Resp 16; Pulse Ox 100% on R/A; sg 12:00 Body Mass Index 21.89 (65.32 kg, 172.72 cm) sv MDM: 14:04 Patient medically screened. gs 15:21 Data reviewed: vital signs, nurses notes. Counseling: I had a detailed discussion with the patient and/or guardian regarding: the historical points, exam findings, and any diagnostic results supporting the discharge/admit diagnosis, lab results. Response to treatment: the patient's symptoms have markedly improved after treatment, and as a result, I will discharge patient. 05/09 13:58 Order name: CBC with Diff; Complete Time: 15:01 05/09 13:58 Order name: Basic Metabolic Panel; Complete Time: 15: 05/09 14:02 Order name: Troponin (emerg Dept Use Only); Complete Time: 15: 05/09 14:02 Order name: EKG - Nurse/Tech; Complete Time: 14:55 EC:21 Rate is 60 beats/min. Rhythm is regular, Paced. NC interval is normal. QRS interval is gs prolonged. T waves are Normal. No ST changes noted. Clinical impression: Abnormal EKG without significant change. Interpreted by me. Administered Medications: 14:35 Drug: NS 0.9% 750 ml Route: IV; Rate: 1 bolus; Site: left forearm; sg Disposition: 05/09/18 15:27 Discharged to Home. Impression: Weakness, Dehydration. - Condition is Stable. - Discharge Instructions: Dehydration, Elderly, Weakness, Fatigue. - Medication Reconciliation Form, Thank You Letter, Antibiotic Education, Prescription Opioid Use form. - Follow up: Private Physician; When: 2 - 3 days; Reason: Re-evaluation by your physician. Signatures: Dispatcher [employer] Dyan Connors RN RN Ezequiel Downey RN RN sg Starr, Gregory, MD MD Corrections: (The following items were deleted from the chart) 16:31 15:27 05/09/2018 15:27 Discharged to Home. Impression: Weakness; Dehydration. Condition sg is Stable. Forms are Medication Reconciliation Form, Thank You Letter, Antibiotic Education, Prescription Opioid Use. Follow up: Private Physician; When: 2 - 3 days; Reason: Re-evaluation by your physician.
[2018-05-09 17:03] VITALS: BP 141/59; O2SAT 100
--- NOTE | 2018-05-10 09:12 | EKG ---
Test Date: 2018-05-09 Test Time: 14:23:39 Medical Office Representative: SWG MEASUREMENT RESULTS: Intervals: Rate: 60 UT: 186 QRSD: 164 QT: 488 QTc: 488 [place]: P: 52 UT: 186 QRS: -82 T: 73 INTERPRETIVE STATEMENTS: AV dual-paced rhythm Abnormal ECG Compared to ECG 03/15/2018 12:47:22 Atrial-sensed ventricular-paced complex(es) or rhythm no longer present Electronically Signed On 05-10-18 09:11:47 CDT by Dwayne Aguirre
== END 2018-05-09 16:31 | disposition home or self-care (01) ==
LOC: ER 11:50
DX: E86.0 Dehydration (principal); I10 Essential (primary) hypertension; E11.9 Type 2 diabetes mellitus without complications; Z86.73 Personal history of transient ischemic attack (TIA), and cerebral infarction without residual deficits; Z79.4 Long term (current) use of insulin; Z95.1 Presence of aortocoronary bypass graft; Z91.013 Allergy to seafood; Z95.818 Presence of other cardiac implants and grafts
CPT/HCPCS: 36415; 80048; 84484; 85025; 93005; 99284; J7030

== ENCOUNTER 2018-05-19 06:56 | Day surgery (SDC) | payer OTHER ==
--- OUTSIDE RECORDS SUMMARY | 2018-05-19 06:59 | XMS REPORT ---
[...] Dosage System Date Date Ondansetron HCl ND 61361849247 4 MG Orally April 23, Active Take 1 tab every 8 hours 2018 PRN Nausea/Vomiting Clopidogrel ND 52892808311 75 MG Orally Active 1 tablet Bisulfate Once a day Losartan ND 41933928014 25 MG Orally Active 1 tablet Potassium Once a day Metoprolol ND 28400254616 50 MG Orally Active 1 tablet Succinate ER Once a day Crestor ND 82763828819 20 MG Orally Active 1 tablet Once a day Isosorbide ND 39170687166 30 MG Orally Active 1 tablet in Mononitrate ER Once a day the morning Tresiba ND 55886329525 200 UNIT/ML Active not defined FlexTouch Subcutaneous Vitamin B ND 11303389236 - Orally Active not defined Complex-C Neomycin-Polymy [facility] 34032695471 3.5-41326-2 January Active 4 drops beatrice- Otic Three 2017 into times a day affected ear Nexium [facility] 39490980551 40 MG Orally Active 1 capsule Once a day Furosemide [facility] 60137495055 20 MG Orally Active 1 tablet Once a day Jardiance [facility] 97131385833 10 MG Orally April 06, Jul 05, Active 1 tablet Once a day 2017 2017 Results No Known Results Summary Purpose eClinicalWorks Submission
--- OUTSIDE RECORDS SUMMARY | 2018-05-19 06:59 | XMS REPORT ---
[...] End Date Status Dosage System Date Losartan [facility] 87619290792 25 MG Orally Active 1 tablet Potassium Once a day Tresiba [facility] 50173670732 200 UNIT/ML Active not defined FlexTouch Subcutaneous Clopidogrel ND 31881032095 75 MG Orally Active 1 tablet Bisulfate Once a day Isosorbide ND 81917341814 30 MG Orally Active 1 tablet in Mononitrate ER Once a day the morning Crestor [facility] 86692432380 20 MG Orally Active 1 tablet Once a day Metoprolol ND 45579209914 50 MG Orally Active 1 tablet Succinate ER Once a day Furosemide ND 78910055095 20 MG Orally Active 1 tablet Once a day Nexium [facility] 71457745409 40 MG Orally Active 1 capsule Once a day Vitamin B [facility] 68979677758 - Orally Active not defined Complex-C Neomycin-Polymy [facility] 43302765832 3.5-42909-9 January Active 4 drops beatrice-HC Otic Three 2017 into times a day affected ear Amoxicillin ND 94152492172 500 MG Orally January Active 1 capsule every 12 hrs 2017 Results No Known Results Summary Purpose eClinicalWorks Submission
--- OUTSIDE RECORDS SUMMARY | 2018-05-19 06:59 | XMS REPORT ---
[...] Date Status Dosage System Date Omeprazole NDC 45126547035 40 MG Orally April 24, Active 1 capsule Once a day 2017 Nexium ND 53491776420 40 MG Orally Inactive 1 capsule Once a day Results No Known Results Summary Purpose eClinicalWorks Submission
--- OUTSIDE RECORDS SUMMARY | 2018-05-19 06:59 | XMS REPORT ---
[...] Start End Status Dosage System Date Crestor [facility] 95634438469 20 MG Orally Active 1 tablet Once a day Jardiance [facility] 03800876086 10 MG Orally April 06, Jul 05, Active 1 tablet Once a day 2017 2017 Clopidogrel ND 42704374855 75 MG Orally Active 1 tablet Bisulfate Once a day Nexium ND 13181170324 40 MG Orally Active 1 capsule Once a day Metoprolol ND 53453830700 50 MG Orally Active 1 tablet Succinate ER Once a day Losartan ND 12831261410 25 MG Orally Active 1 tablet Potassium Once a day Isosorbide ND 01000619886 30 MG Orally Active 1 tablet in Mononitrate ER Once a day the morning Neomycin-Polymy [facility] 11044142434 3.5-84794-4 January Active 4 drops beatrice-HC Otic Three 2017 into times a day affected ear Furosemide [facility] 71448000986 20 MG Orally Active 1 tablet Once a day Tresiba [facility] 81088173239 200 UNIT/ML Active not defined FlexTouch Subcutaneous Vitamin B [facility] 65514011151 - Orally Active not defined Complex-C Results No Known Results Summary Purpose eClinicalWorks Submission
--- OUTSIDE RECORDS SUMMARY | 2018-05-19 06:59 | XMS REPORT ---
:1940 Author Organization eClinicalWorks Care Team Providers Name Role Phone Armani [facility] Provider Role Unavailable Allergies No Known Allergies [...] Medications Results No Known Results Summary Purpose [employer] Submission
--- OUTSIDE RECORDS SUMMARY | 2018-05-19 06:59 | XMS REPORT ---
[...] Status Dosage System Date Date Losartan ND 33537152948 25 MG Orally Active 1 tablet Potassium Once a day Tresiba ND 10245431545 200 UNIT/ML Active not defined FlexTouch Subcutaneous Clopidogrel ND 79432824301 75 MG Orally Active 1 tablet Bisulfate Once a day Neomycin-Polymy [facility] 55782884941 3.5-52684-0 January Active 4 drops beatrice-HC Otic Three 2017 into times a day affected ear Crestor ND 39721271324 20 MG Orally Active 1 tablet Once a day Metoprolol ND 17592306274 50 MG Orally Active 1 tablet Succinate ER Once a day Vitamin B ND 91027330227 - Orally Active not defined Complex-C Isosorbide ND 96906165860 30 MG Orally Active 1 tablet in Mononitrate ER Once a day the morning Nexium ND 80634071958 40 MG Orally Active 1 capsule Once a day Furosemide ND 64883318107 20 MG Orally Active 1 tablet Once a day Results No Known Results Summary Purpose eClinicalWorks Submission
--- OUTSIDE RECORDS SUMMARY | 2018-05-19 06:59 | XMS REPORT ---
:1940 Author Organization eClinicalWorks Care Team Providers Name Role Phone Armani [facility] Provider Role Unavailable Allergies No Known Allergies [...] Medications Results No Known Results Summary Purpose [email or web address] Submission
--- OUTSIDE RECORDS SUMMARY | 2018-05-19 07:00 | XMS REPORT ---
:1940 Author Organization [employer] Care Team Providers Name Role Phone Randell [...] accident) Z86.73 Active Problem Arteriosclerosis I70.90 Active Problem History of fall Z91.81 Active Medications No Known Medications Results No Known Results Summary Purpose Ploonge Submission
[2018-05-19] MEDS ORDERED: NA CHLORIDE 0.9% 1,000 ML ONE (07:02)
[2018-05-19] MEDS ORDERED: PROPOFOL 200 MG/20 ML VIAL IV ONE ×3 (08:34→08:35)
[2018-05-19] MEDS ORDERED: LIDOCAINE 1% MPF 2 ML AMPULE ONE (08:35)
[2018-05-19 10:33] VITALS: TEMP 97.9; O2SAT 100
[2018-05-19 10:34] VITALS: BP 136/58
--- NOTE | 2018-05-19 11:26 | RAD REPORT ---
EXAM DESCRIPTION: RAD - Small Bowel Series - 05/19/2018 11:20 am CLINICAL HISTORY: Anemia, weakness, recent colonoscopy COMPARISON: CT study June 2016 FINDINGS: Typing Element Machine Operator film shows a nonspecific bowel gas pattern. No obstruction or free air. No suspiciou s calcifications. Mild to moderate bony degenerative change in the lumbar spine. Patient was not able to sit up during the examination during ingestion. Patient was semi-upright in s upine and right lateral positioning. No gastric dilatation, gastric wall thickening or mass identifiable. Reflux occurred during the exami nation. No delay in transit of contrast into the small bowel. Small bowel is normal in diameter with no mucosal fold thickening. No intrinsic or extrinsic mass identifiable. Terminal ileum has normal ap pearance. Transit time to the colon is 1 hour. IMPRESSION: Normal small bowel series. Transit time was 1 hour Reflux was observed during the examination. Patient was only semi upright during contrast ingestion.
== END 2018-05-19 11:21 | disposition home or self-care (01) ==
LOC: ENDO 06:56
PROVIDERS: ATTEND Internal Medicine Gastroenterology
PROC: 0DBM8ZX Excision of Descending Colon, Via Natural or Artificial Opening Endoscopic, Diagnostic (ICD-10-PCS; principal; 2018-05-19 09:30)
DX: D12.4 Benign neoplasm of descending colon (principal); D50.8 Other iron deficiency anemias; E11.9 Type 2 diabetes mellitus without complications; Z79.4 Long term (current) use of insulin; I25.2 Old myocardial infarction; I10 Essential (primary) hypertension; K21.9 Gastro-esophageal reflux disease without esophagitis; M19.90 Unspecified osteoarthritis, unspecified site; Z86.73 Personal history of transient ischemic attack (TIA), and cerebral infarction without residual deficits; Z95.810 Presence of automatic (implantable) cardiac defibrillator; E78.5 Hyperlipidemia, unspecified; I25.10 Atherosclerotic heart disease of native coronary artery without angina pectoris; Z79.02 Long term (current) use of antithrombotics/antiplatelets; R63.4 Abnormal weight loss; K59.00 Constipation, unspecified
CPT/HCPCS: 45385; 74250; 82962; 88305; J2001; J7030

== ENCOUNTER 2020-03-12 10:33 | Emergency (ER) | payer OTHER ==
--- OUTSIDE RECORDS SUMMARY | 2020-03-12 10:37 | XMS REPORT ---
:1940 Author Organization Formerly [facility] t Address [address] [place] [address] Care Team Providers Name Role Phone Unavailable Unavailable Unavailable Problems Condition Condition Condition Status Onset Resolution Last Treatin g Comments Name Details Category Date Date Treatment Clinician Date History of History of Problem Active fall fall Gastro-esop Gastro-esop Problem Active hageal hageal reflux reflux disease disease without without esophagitis esophagitis Hyperlipide Hyperlipide Problem Active bonnie, mixed bonnie, mixed Pain in Pain in Problem Active left wrist left wrist Pain in Pain in Problem Active left hand left hand Nevus, Nevus, Problem Active non-neoplas non-neoplas tic tic Venous Venous Problem Active insufficien insufficien cy cy Diabetes Diabetes Problem Active type 2, type 2, controlled controlled History of History of Problem 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 Benign Benign Problem Active essential essential HTN HTN Cardiac Cardiac Problem Active defibrillat defibrillat or in place or in place H/O: CVA H/O: CVA Problem Active (cerebrovas (cerebrovas cular cular accident) accident) Arterioscle Arterioscle Problem Active rosis rosis Constipatio Constipatio Problem Active n, n, unspecified unspecified constipatio constipatio n type n type Lung Lung Problem Active nodule, nodule, solitary solitary Anemia, Anemia, Problem Active unspecified unspecified type type 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 Generalized Generalized Problem Active weakness weakness Dementia Dementia Problem Active without without behavioral behavioral disturbance disturbance , , unspecified unspecified dementia dementia type type Alzheimer'' Alzheimer'' Problem Active s disease, s disease, unspecified unspecified Dementia in Dementia in Problem Active other other diseases diseases classified classified elsewhere elsewhere without without behavioral behavioral disturbance disturbance Current Current Problem Active 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 disorder without without prior prior episode episode Left knee Left knee Diagnosis Active pain, pain, unspecified unspecified chronicity chronicity Type 2 Type 2 Problem Active diabetes diabetes mellitus mellitus with other with other circulatory circulatory complicatio complicatio ns ns Peripheral Peripheral Problem Active polyneuropa 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 Medications Ordered Filled Start Stop Current Ordering Indication Dosage Frequency Signature Comments Components Medication Medication Date Date Medication? Clinician (SIG) Name Name Ondansetron Ondansetron Yes Randell Take 1 tab HCl HCl 5-31 Lomeli 00:00: 00 Metoprolol Metoprolol Yes Randell 1 tablet Succinate Succinate Lomeli ER ER Clopidogrel Clopidogrel Yes Randell 1 table t Bisulfate Bisulfate Lomeli Aspirin Aspirin Yes Randlel 1 tablet Lomeli BD Pen BD Pen Yes Randell USE Needle Mini Needle Mini Lomeli DIRECTED U/F U/F Tresiba Tresiba Yes Randell not FlexTouch FlexTouch Lomeli defined Crestor Crestor Yes Randell 1 tablet Lomeli Lumigan Lumigan Yes Randell 1 drop Lomeli into both eyes Vitamin B Vitamin B Yes Randell not Complex-C Complex-C Lomeli defined Vitamin D-3 Vitamin D-3 Yes Randell 1 table t Lomeli Melatonin Melatonin Yes Randell 1 tablet Lomeli at bedtime as needed with food Furosemide Furosemide Yes Randell 1 tablet Lomeli Losartan Losartan Yes Randell 1 tablet Potassium Potassium Lomeli Isosorbide Isosorbide Yes Randell 1 tablet Mononitrate Mononitrate Lomeli in the ER ER morning Omeprazole Omeprazole Yes Randell 1 capsule Lomeli Immunizations Ordered Immunization Name Filled Immunization Name Date Sta tus Comments FluAD FluAD 2019-09-06 Completed 00:00:00 Encounters Start End Encounter Admission Attending Care Care Encounter Date/Time Date/Time Type Type Clinicians Facility Department ID 2019-11-15 2019-11-15 Outpatient Jaclyn Florest 2 [id number] 13:51:00 13:51:00 [facility] [employer] [facility] 2019-11-11 2019-11-11 Outpatient Braz[facility]ot Markt 2 [id number] 08:30:00 08:30:00 [facility] [place] [facility] Medicine 2019-11-05 2019-11-05 Outpatient [facility] Markt 2 [id number] 15:43:00 15:43:[address] [facility] 2019-10-19 2019-10-19 [place] [place] [facility] [id number] 11:04:00 11:04:00 [facility] 2019-09-06 2019-09-06 [facility] [place] [id number] 13:45:00 13:45:00 [facility] [employer] [facility] [employer] 2019-08-05 2019-08-05 [facility] [place] [facility] [id number] 13:45:00 13:45:00 [facility] [employer] [facility] [employer] 2019-06-11 2019-06-11 [facility] [place] [facility] [id number] 10:30:00 10:30:00 [facility] [employer] [facility] 2019-05-31 2019-05-31 [facility] [place] [facility] [id number] 14:01:00 14:01:00 [facility] [employer] [facility] 2019-05-21 2019-05-21 [facility] [place] [facility] 2 [id number] 13:23:00 13:23:00 [facility] [employer] [facility] [employer] 2019-05-11 2019-05-11 [facility] [place] [id number] 09:44:00 09:44:00 [facility] [employer] [facility] 2019-03-16 2019-03-16 [facility] [place] [facility] 2 [id number] 10:45:00 10:45:00 [facility] [employer] [facility] [employer] 2019-02-18 2019-02-18 [facility] [place] [facility] [id number] 09:05:00 09:05:00 [facility] [employer] [facility] [employer] [employer] 2019-01-08 2019-01-08 [facility] [place] [facility] [id number] 14:40:00 14:40:00 [facility] [employer] [facility] [employer] [employer] 2018-12-16 2018-12-16 [facility] [place] [id number] 14:45:00 14:45:00 [facility] [employer] [facility] [employer] [employer] 2018-11-30 2018-11-30 [facility] [place] [facility] [id number] 09:04:00 09:04:00 [facility] [employer] [facility] [employer] [employer] 2018-11-25 2018-11-25 [facility] [id number] 08:37:00 08:37:[address] [facility] [facility] [employer] 2018-09-08 2018-09-08 [facility] [facility] [id number] 11:38:00 11:38:[address] [facility] [facility] [employer] 2018-07-28 2018-07-28 [facility] [facility] 1 [id number] 13:59:00 13:59:[address] [facility] [employer] [facility] [employer] 2018-07-20 2018-07-20 [facility] 1 [id number] 11:52:00 11:52:[address] [facility] [employer] 2018-07-08 2018-07-08 [facility] [id number] 09:26:00 09:26:00 [facility] [employer] [facility] [employer] [employer] 2018-07-07 2018-07-07 [facility] [id number] 10:35:00 10:35:00 [facility] [employer] [facility] [employer] [employer] 2018-06-29 2018-06-29 [facility] [id number] 09:15:00 09:15:[address] [facility] [employer] [facility] [employer] 2018-06-23 2018-06-23 [facility] 1 [id number] 10:28:00 10:28:[address] [facility] [employer] [facility] [employer] 2018-05-21 2018-05-21 [facility] [facility] 1 [id number] 08:21:00 08:21:00 [facility] [employer] [facility] [employer] [employer] 2018-05-20 2018-05-20 [facility] [id number] 08:00:00 08:00:[address] [facility] [employer] 2018-05-19 2018-05-19 [facility] [facility] [id number] 10:26:00 10:26:[address] [facility] [facility] [employer] 2018-05-09 2018-05-09 [facility] 1 [id number] 10:46:00 10:46:00 [facility] [employer] [facility] [employer] [employer] 2018-04-24 2018-04-24 [facility] [id number] 11:50:00 11:50:[address] [facility] [facility] [employer] 2018-04-23 2018-04-23 [facility] [id number] 13:00:00 13:00:[address] [facility] [employer] [facility] [employer] 2018-04-06 2018-04-06 [facility] 1 [id number] 10:00:00 10:00:00 [facility] [employer] [facility] [employer] [employer] 2018-03-30 2018-03-30 [facility] 1 [id number] 16:08:00 16:08:00 [facility] [employer] [facility] 2018-03-12 2018-03-12 [facility] 1 [id number] 12:11:00 12:11:00 [facility] [employer] [facility] [employer] [employer] 2018-02-13 2018-02-13 [facility] 1 [id number] 15:10:00 15:10:00 [facility] [employer] [facility] [employer] [employer] 2018-02-11 2018-02-11 [facility] [id number] 11:00:00 11:00:00 [facility] [employer] [facility] 2018-02-09 2018-02-09 [facility] [id number] 14:45:00 14:45:00 [facility] [employer] [facility] [employer] [employer]
--- OUTSIDE RECORDS SUMMARY | 2020-03-12 10:38 | XMS REPORT ---
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 Active Problem Alzheimer''s disease, unspecified G30.9 Active Problem H/O: CVA (cerebrovascular accident) Z86.73 Active Problem Dementia without behavioral F03.90 Active disturbance, unspecified dementia type Problem Dementia in other diseases F02.80 A ctive classified elsewhere without behavioral disturbance Problem Anemia, unspecified type D64.9 Act tevin Problem Starr''s esophagus without K22.70 Active dysplasia Problem Constipation, unspecified K59.00 Ac tive constipation type Problem Generalized weakness R53.1 Active Problem Hyperlipidemia, mixed E78.2 Active Problem Gastro-esophageal reflux disease K21.9 Active without esophagitis Problem Arteriosclerosis I70.90 Active Problem History of fall Z91.81 Active Problem Benign essential HTN I10 Active Problem 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 Problem Diabetes type 2, controlled E11.9 Active Problem 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 Active Problem Venous insufficiency I87.2 Active Problem Pain in left hand M79.642 Active Medications No Known Medications Results No Known Results Summary Purpose [employer]ClinicalWorks Submission
--- OUTSIDE RECORDS SUMMARY | 2020-03-12 10:38 | XMS REPORT ---
:1940 Author Organization [employer] Care Team Providers Name Role Phone Randell Lomeli Provider Role Unavailable Allergies, Adverse Reactions, Alerts Substance Reaction Event Type N.K.D.A. Info Not Available Non Drug Allergy Problems Problem Type Condition Code Onset Dates Condition Statu s Assessment Anemia, unspecified type D64.9 Act tevin Assessment Lung nodule, solitary R91.1 Active Assessment Benign essential HTN I10 Active Assessment Starr''s esophagus without K22.70 Active dysplasia Assessment Generalized weakness R53.1 Active Assessment Dementia without behavioral F03.90 Active disturbance, unspecified dementia type Assessment Left knee pain, unspecified M25.562 Active chronicity Assessment Current moderate episode of major F32.1 Active depressive disorder without prior episode Assessment Type 2 diabetes mellitus with other E11.59 Active circulatory complications Problem 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 Problem Generalized weakness R53.1 Active Problem Lung nodule, solitary R91.1 Active Problem H/O: CVA (cerebrovascular accident) Z86.73 Active Problem Starr''s esophagus without K22.70 Active dysplasia Problem Constipation, unspecified K59.00 Ac tive constipation type Problem Anemia, unspecified type D64.9 Act tevin Problem Peripheral polyneuropathy G62.9 Ac tive Problem Type 2 diabetes mellitus with other E11.59 Active circulatory complications Problem Hyperlipidemia, mixed E78.2 Active Problem History of fall Z91.81 Active Assessment 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 Active Problem Current moderate episode of major F32.1 Active depressive disorder without prior episode Problem Arteriosclerosis I70.90 Active Assessment History of fall Z91.81 Active Problem Alzheimer''s disease, unspecified G30.9 Active Assessment BMI 21.0-21.9, adult Z68.21 Active Problem Dementia without behavioral F03.90 Active disturbance, unspecified dementia type Assessment 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 Problem longterm (current) use of insulin Z79.4 Active Assessment Peripheral polyneuropathy G62.9 Ac tive Problem Dementia in other diseases F02.80 A ctive classified elsewhere without behavioral disturbance Assessment H/O: CVA (cerebrovascular accident) Z86.73 Active Problem Venous insufficiency I87.2 Active Assessment Hyperlipidemia, mixed E78.2 Active Problem Benign essential HTN I10 Active Assessment Venous insufficiency I87.2 Active Problem Gastro-esophageal reflux disease K21.9 Active without esophagitis Assessment Alzheimer''s disease, unspecified G30.9 Active Problem Diabetes type 2, controlled E11.9 Active Assessment Gastro-esophageal reflux disease K21.9 Active without esophagitis Problem Pain in left wrist M25.532 Active Assessment 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 Problem Nevus, 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 Active Problem 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 Active Problem Pain in left hand M79.642 Active Medications Medication Code Code Instructions Start End Status Dosage System Date Date Vitamin B [facility] 28284265741 - Orally Active not defin ed Complex-C Crestor [facility] 89191601368 20 MG Orally Active 1 table t Once a day Ondansetron HCl [facility] 44844537652 4 MG Orally April 23, Active Take 1 tab every 8 hours 2017 PRN Nausea/Vomiting Melatonin [facility] 27772329131 5 MG Orally Active 1 tabl et at Once a day bedtime as needed with food Omeprazole [facility] 88889644025 40 MG Orally Active 1 ca psule Once a day Losartan ND 23143352785 25 MG Orally Active 1 tabl et Potassium Once a day Lumigan [facility] 12641786460 0.01 % Active 1 drop into Ophthalmic Once both eye s a day at night Clopidogrel [facility] 62211858632 75 MG Orally Active 1 t ablet Bisulfate Once a day Aspirin [facility] 82039128654 81 MG Orally Active 1 table t Once a day BD Pen Needle [facility] 84445068855 31G X 5 MM Active USE Mini U/F DIRECTED Vitamin D-3 [facility] 87001432846 5000 UNIT Active 1 tabl et Orally Once a day Furosemide [facility] 37812216073 20 MG Orally Active 1 ta blet Once a day Metoprolol [facility] 32541890145 50 MG Orally Active 1 ta blet Succinate ER Once a day Tresiba [facility] 40546945714 200 UNIT/ML Active not defi nikkie FlexTouch Subcutaneous Isosorbide [facility] 40589304090 30 MG Orally Active 1 ta blet in Mononitrate ER Once a day the mo rning Results No Known Results Summary Purpose eClinicalWorks Submission
--- OUTSIDE RECORDS SUMMARY | 2020-03-12 10:38 | XMS REPORT ---
:1940 Author Organization [employer] Care Team Providers Name Role Phone Randell Lomeli Provider Role Unavailable Allergies No Known Allergies Problems Problem Type Condition Code Onset Dates Condition Statu s Assessment Pain of left hip joint M25.552 Activ e Assessment Left knee pain, unspecified M25.562 Active chronicity Problem History of coronary artery bypass Z95.1 [...] Problem History of fall Z91.81 Active Problem Current moderate episode of major F32.1 Active depressive disorder without prior episode Problem Arteriosclerosis I70.90 Active Problem Alzheimer''s disease, unspecified G30.9 Active Problem Dementia without behavioral F03.90 Active disturbance, unspecified dementia type 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
--- OUTSIDE RECORDS SUMMARY | 2020-03-12 10:38 | XMS REPORT ---
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 Active Problem Starr''s esophagus without K22.70 Active dysplasia Problem Lung nodule, solitary R91.1 Active Problem Alzheimer''s disease, unspecified G30.9 Active Problem Dementia in other diseases F02.80 A ctive classified elsewhere without behavioral disturbance Problem Arteriosclerosis I70.90 Active Problem H/O: CVA (cerebrovascular accident) Z86.73 Active Problem Current moderate episode of major F32.1 Active depressive disorder without prior episode Problem Generalized weakness R53.1 Active Problem Anemia, unspecified type D64.9 Act tevin Problem Dementia without behavioral F03.90 Active disturbance, unspecified dementia type Problem Constipation, unspecified K59.00 Ac tive constipation type Problem Gastro-esophageal reflux disease K21.9 Active without esophagitis Problem Diabetes type 2, controlled E11.9 Active Problem History of fall Z91.81 Active Problem Hyperlipidemia, mixed E78.2 Active Problem 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 Problem 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 Active Problem Venous insufficiency I87.2 Active Problem Benign essential HTN I10 Active Medications No Known Medications Results No Known Results Summary Purpose eClinicalWorks Submission
--- OUTSIDE RECORDS SUMMARY | 2020-03-12 10:38 | XMS REPORT ---
[...] F03.90 Active disturbance, unspecified dementia type Assessment Need for influenza vaccination Z23 Active Problem Dementia in other diseases F02.80 [...] Start End Status Dosage System Date Date BD Pen Needle [facility] 67089611711 31G X 5 MM Active USE DIRECTED Mini U/F Melatonin ND 66151762140 5 MG Orally Active 1 tabl et at Once a day bedtime as needed with food Clopidogrel ND 94272422435 75 MG Orally Active 1 t ablet Bisulfate Once a day Tresiba ND 63873163621 200 UNIT/ML Active INJECT 1 5 UNITS FlexTouch SUBCUTANOESLY EVERY MORNING Furosemide ND 89758581795 20 MG Orally Active 1 ta blet Once a day Metoprolol ND 99774959920 50 MG Orally Active 1 ta blet Succinate ER Once a day Vitamin B ND 11919578005 - Orally Active not defin ed Complex-C Vitamin D-3 ND 69609286201 5000 UNIT Active 1 tabl et Orally Once a day Aspirin ND 84760751107 81 MG Orally Active 1 table t Once a day Isosorbide ND 82316342012 30 MG Orally Active 1 ta blet in the Mononitrate ER Once a day mornin g Omeprazole ND 97373108586 40 MG Orally Active 1 ca psule Once a day Losartan ND 19674596054 25 MG Orally Active 1 tabl et Potassium Once a day Crestor ND 84338979648 20 MG Orally Active 1 table t Once a day Tresiba ND 69103554478 200 UNIT/ML Active not defi nikkie FlexTouch Subcutaneous Lumigan [facility] 68862375095 0.01 % Active 1 drop into Ophthalmic Once both eye s a day at night Ondansetron [facility] 34765693079 4 MG Orally April 23, Active Take 1 tab HCl every 8 hours 2018 PRN Nausea/Vomiting Results No Known Results Immunizations Vaccine Administration Date FluAD Sep 06, 2019 Summary Purpose eClinicalWorks Submission
[2020-03-12] MEDS ORDERED: NA CHLORIDE 0.9% 1,000 ML ONE (11:07)
[2020-03-12 11:16] LABS: Absolute Lymphocytes (CBC) 1.4 K/uL (0.7-4.9); Basophils % 0.7 % (0-1.3); Hematocrit 35.4 % (39.6-49.0); Lymphocytes % 19.7 % (15.3-44.8)
[2020-03-12 11:33] LABS: Albumin 3.6 g/dL (3.4-5.0); Bilirubin Direct 0.1 mg/dL (0-0.2); Bilirubin Total 0.5 mg/dL (0.2-1.0); Protein, Total 7.5 g/dL (6.4-8.2)
[2020-03-12] MEDS ORDERED: CIPROFLOXACIN 400mg IV 400 MG/200 ML BAG IV ONE (13:48)
--- NOTE | 2020-03-12 14:13 | ER ---
Nurse's Notes [facility] Name: Sandvoal Whitt Jr Age: 80 yrs Sex: Male : 1940 Arrival Date: 03/12/2020 Time: 10:37 Bed 5 Private MD: Randell Lomeli Diagnosis: Infectious gastroenteritis and colitis, unspecified Presentation: 03/12 10:56 Chief complaint: Patient states: Diarrhea 2 days ago then it stopped and started back jl7 up again at 0800 this morning. Denies N/V. Coronavirus screen: Proceed with normal triage. Patient denies a cough. Patient denies shortness of breath or difficulty breathing. Patient denies measured and/or subjective temperature greater than 100.4F prior to today's visit. Patient denies travel on a cruise ship or to a country the [facility] currently lists as an affected area. Patient denies contact with known and/or suspected case of COVID-19. Ebola Screen: No symptoms or risks identified at this time. Initial Sepsis Screen: Does the patient meet any 2 criteria? No. Patient's initial sepsis screen is negative. Does the patient have a suspected source of infection? No. Patient's initial sepsis screen is negative. Risk Assessment: Do you want to hurt yourself or someone else? Patient reports no desire to harm self or others. Onset of symptoms was March 12, 2020. Care prior to arrival: None. 10:56 Method Of Arrival: Ambulatory jl7 10:56 Acuity: FORREST 3 jl7 Triage Assessment: 10:40 General: Appears in no apparent distress. uncomfortable, Behavior is calm, cooperative, jl7 appropriate for age. Pain: Denies pain. Neuro: Level of Consciousness is awake, alert, obeys commands, Oriented to person, place, time, situation. Cardiovascular: Patient's skin is warm and dry. Respiratory: Airway is patent Respiratory effort is even, unlabored, Respiratory pattern is regular, symmetrical. GI: Abdomen is flat, non-distended, Reports diarrhea, Patient currently denies nausea, vomiting. : No signs and/or symptoms were reported regarding the genitourinary system. Derm: Skin is pink, warm \T\ dry. Historical: - Allergies: 10:58 NKDA; aa5 10:58 shrimp; aa5 - Home Meds: 12:14 Crestor 20 mg Oral tab 1 tab once daily [Active]; Levemir 100 unit/mL subcutaneous soln jl7 42 unit [Active]; metoprolol tartrate 50 mg Oral tab 1 tab once daily [Active]; Plavix 75 mg Oral tab 1 tab once daily [Active]; Tresiba FlexTouch U-100 20 units subcutaneous inpn [Active]; - PMHx: 10:58 CVA; Diabetes - NIDDM; heart disease; Hypertension; aa5 - PSHx: 10:58 CABG; Heart stents; aa5 10:59 Pacemaker; Tonsillectomy; aa5 - Immunization history:: Adult Immunizations up to date, Pneumococcal vaccine is up to date, Flu vaccine is up to date. - Social history:: Smoking status: Patient denies any tobacco usage or history of. Screenin:10 Abuse screen: Denies threats or abuse. Denies injuries from another. Nutritional [facility] screening: No deficits noted. Tuberculosis screening: No symptoms or risk factors identified. Fall Risk IV access (20 points). Total [place] Fall Scale indicates No Risk (0-24 pts). Assessment: 10:45 General: See triage assessment. [facility] 12:00 Reassessment: Patient appears in no apparent distress at this time. No changes from [facility] previously documented assessment. Patient and/or family updated on plan of care and expected duration. Pain level reassessed. Patient is alert, oriented x 3, equal unlabored respirations, skin warm/dry/pink. 13:15 Reassessment: Patient appears in no apparent distress at this time. No changes from [facility] previously documented assessment. Patient and/or family updated on plan of care and expected duration. Pain level reassessed. Patient is alert, oriented x 3, equal unlabored respirations, skin warm/dry/pink. 13:58 Reassessment: Pt reports he needs to have a BM, medication paused for pt to go to the [facility] bathroom. 14:07 Reassessment: Pt back in room and medication restarted. [facility] 14:13 Reassessment: Pt will be discharged once medication is done infusing. [facility] Vital Signs: 10:55 BP 136 / 68; Pulse 65; Resp 19 S; Temp 98.2(O); Pulse Ox 99% on R/A; Pain 0/10; jl7 12:05 BP 118 / 57; Pulse 64; Resp 15; Pulse Ox 100% ; jl7 13:15 BP 134 / 59; Pulse 64; Resp 19; Pulse Ox 100% ; jl7 14:18 BP 140 / 64; Pulse 60; Resp 17; Pulse Ox 100% ; Pain 0/10; jl7 15:15 BP 141 / 63; Pulse 65; Resp 16; Pulse Ox 100% ; jl7 ED Course: 10:37 Patient arrived in ED. ag5 10:37 Randell Lomeli DO is Private Physician. ag5 10:38 Patient placed in an exam room, on a stretcher. aa5 10:43 Sandy Rodriguez FNP-C is [facility]. snw 10:43 Joseph Brewer MD is Attending Physician. snw 10:49 Tara Trinidad RN is Primary Nurse. jl7 10:55 Arm band placed on right wrist. jl7 10:57 Triage completed. jl7 11:09 Initial lab(s) drawn, by nm, sent to lab. Inserted saline lock: 20 gauge in right jl7 forearm, using aseptic technique. Blood collected. 11:10 Patient has correct armband on for positive identification. Bed in low position. Call [facility] light in reach. Side rails up X 1. Pulse ox on. NIBP on. Warm blanket given. 12:15 stool sample collected. jp3 12:57 Fecal Leukocyte Stain Sent. jp3 12:57 Occult Blood Sent. jp3 12:57 Stool Culture Sent. jp3 14:13 Randell Lomeli DO is Referral Physician. snw 15:16 No provider procedures requiring assistance completed. IV discontinued, intact, jl7 bleeding controlled, No redness/swelling at site. Pressure dressing applied. Administered Medications: 11:09 Drug: NS 0.9% 500 ml Route: IV; Rate: bolus; Site: right forearm; jl7 11:45 Follow up: Response: No adverse reaction; IV Status: Completed infusion; IV Intake: jl7 500ml 13:15 Drug: NS 0.9% 1000 ml Route: IV; Rate: 125 ml/hr; Site: right forearm; jl7 15:16 Follow up: Response: No adverse reaction; IV Status: Completed infusion jl7 13:48 Drug: Cipro 400 mg Volume: 200 ml; Route: IVPB; Infused Over: 60 mins; Site: right jl7 forearm; 15:16 Follow up: Response: No adverse reaction; IV Status: Completed infusion 7 Intake: 11:45 IV: 500ml; Total: 500ml. jl7 Outcome: 14:13 Discharge ordered by MD. olivia 15:16 Discharged to home ambulatory. [facility] 15:16 Condition: stable 15:16 Discharge instructions given to patient, Instructed on discharge instructions, follow up and referral plans. medication usage, Demonstrated understanding of instructions, follow-up care, medications, Prescriptions given X 1. 15:17 Patient left the ED. jl7 Signatures: Sandy Rodriguez, TAR POT MAN-C TAR POT MAN-Csnw Kim Concepcion, RN RN aa5 Tara Trinidad RN RN jl7 Abhilash Laws jp3 Dionna Mullins5
--- NOTE | 2020-03-12 14:13 | EDPHYS ---
Physician Documentation [facility] Name: Sandoval Whitt Jr Age: 80 yrs Sex: Male : 1940 Arrival Date: 03/12/2020 Time: 10:37 Bed 5 Private MD: Randell Lomeli ED Physician Joseph Brewer HPI: 03/12 10:50 This 80 yrs old Male presents to ER via Unassigned with complaints of snw Abdominal Problem. 10:50 The patient presents with diarrhea, happened 3 days ago, resolved and then started snw again today. Onset: The symptoms/episode began/occurred suddenly. The symptoms do not radiate. Associated signs and symptoms: none. Pertinent negatives: blood in stools, fever, nausea, vomiting, denies abd pain. The symptoms are described as none. Severity of pain: At its worst the pain was none. The patient has not experienced similar symptoms in the past. The patient has not recently seen a physician. Historical: - Allergies: 10:58 NKDA; aa5 10:58 shrimp; aa5 - Home Meds: 12:14 Crestor 20 mg Oral tab 1 tab once daily [Active]; Levemir 100 unit/mL subcutaneous soln jl7 42 unit [Active]; metoprolol tartrate 50 mg Oral tab 1 tab once daily [Active]; Plavix 75 mg Oral tab 1 tab once daily [Active]; Tresiba FlexTouch U-100 20 units subcutaneous inpn [Active]; - PMHx: 10:58 CVA; Diabetes - NIDDM; heart disease; Hypertension; aa5 - PSHx: 10:58 CABG; Heart stents; aa5 10:59 Pacemaker; Tonsillectomy; aa5 - Immunization history:: Adult Immunizations up to date, Pneumococcal vaccine is up to date, Flu vaccine is up to date. - Social history:: Smoking status: Patient denies any tobacco usage or history of. ROS: 10:49 Constitutional: Negative for fever, chills, and weight loss, Eyes: Negative for injury, snw pain, redness, and discharge, ENT: Negative for injury, pain, and discharge, Neck: Negative for injury, pain, and swelling, Cardiovascular: Negative for chest pain, palpitations, and edema, Respiratory: Negative for shortness of breath, cough, wheezing, and pleuritic chest pain, Back: Negative for injury and pain, : Negative for injury, bleeding, discharge, and swelling, MS/Extremity: Negative for injury and deformity, Skin: Negative for injury, rash, and discoloration, Neuro: Negative for headache, weakness, numbness, tingling, and seizure, Psych: Negative for depression, anxiety, suicide ideation, homicidal ideation, and hallucinations. 10:49 Abdomen/GI: Positive for diarrhea, Negative for abdominal pain, nausea and vomiting. Exam: 10:49 Constitutional: This is a well developed, well nourished patient who is awake, alert, snw and in no acute distress. Head/Face: Normocephalic, atraumatic. Eyes: Pupils equal round and reactive to light, extra-ocular motions intact. Lids and lashes normal. Conjunctiva and sclera are non-icteric and not injected. Cornea within normal limits. Periorbital areas with no swelling, redness, or edema. ENT: Nares patent. No nasal discharge, no septal abnormalities noted. Tympanic membranes are normal and external auditory canals are clear. Oropharynx with no redness, swelling, or masses, exudates, or evidence of obstruction, uvula midline. Mucous membranes moist. Neck: Trachea midline, no thyromegaly or masses palpated, and no cervical lymphadenopathy. Supple, full range of motion without nuchal rigidity, or vertebral point tenderness. No Meningismus. Chest/axilla: Normal chest wall appearance and motion. Nontender with no deformity. No lesions are appreciated. Cardiovascular: Regular rate and rhythm with a normal S1 and S2. No gallops, murmurs, or rubs. Normal PMI, no JVD. No pulse deficits. Respiratory: Lungs have equal breath sounds bilaterally, clear to auscultation and percussion. No rales, rhonchi or wheezes noted. No increased work of breathing, no retractions or nasal flaring. Abdomen/GI: Soft, non-tender, with normal bowel sounds. No distension or tympany. No guarding or rebound. No evidence of tenderness throughout. Back: No spinal tenderness. No costovertebral tenderness. Full range of motion. Skin: Warm, dry with normal turgor. Normal color with no rashes, no lesions, and no evidence of cellulitis. MS/ Extremity: Pulses equal, no cyanosis. Neurovascular intact. Full, normal range of motion. Neuro: Awake and alert, GCS 15, oriented to person, place, time, and situation. Cranial nerves II-XII grossly intact. Motor strength 5/5 in all extremities. Sensory grossly intact. Cerebellar exam normal. Normal gait. Psych: Awake, alert, with orientation to person, place and time. Behavior, mood, and affect are within normal limits. Vital Signs: 10:55 BP 136 / 68; Pulse 65; Resp 19 S; Temp 98.2(O); Pulse Ox 99% on R/A; Pain 0/10; jl7 12:05 BP 118 / 57; Pulse 64; Resp 15; Pulse Ox 100% ; jl7 13:15 BP 134 / 59; Pulse 64; Resp 19; Pulse Ox 100% ; jl7 14:18 BP 140 / 64; Pulse 60; Resp 17; Pulse Ox 100% ; Pain 0/10; jl7 15:15 BP 141 / 63; Pulse 65; Resp 16; Pulse Ox 100% ; jl7 MDM: 10:43 Patient medically screened. snw 12:58 Data reviewed: vital signs, nurses notes. Data interpreted: Pulse oximetry: on room air snw is 100 %. Interpretation: normal. Counseling: I had a detailed discussion with the patient and/or guardian regarding: the historical points, exam findings, and any diagnostic results supporting the discharge/admit diagnosis, lab results. Response to treatment: the patient's symptoms have mildly improved after treatment, pt states he still feels a little weak, Pt with one mucoid stool. Sent to lab for occult blood, fecal leukocytes, culture. 13:57 Special discussion: Based on the patient's Hx, exam, and Dx evaluation, there is no snw indication for emergent surgery or inpatient Tx. It is understood by the patient/guardian that if the Sx's persist or worsen they need to return immediately for re-evaluation. Based on the history and exam findings, there is no indication for further emergent testing or inpatient evaluation. I discussed with the patient/guardian the need to see the process consultant for further evaluation of the symptoms. I discussed with the patient/guardian the need to see the primary care provider for further evaluation of the symptoms. 14:24 ED course: pt had second BM in dept. Occult blood +, no gross blood, denies abd pain, snw denies N/V, distention. CT deferred at this time as pt exhibits above. Stool culture pending. Pt instructed to return for fever, pain, vomiting. Pt understands discharge instructions and will return prn. 15:04 ED course: Pt has tolerated second glass of water, continues to deny pain, IV cipro snw infusing. Pt without c/o and agrees with plan of care.. 03/12 11:00 Order name: Basic Metabolic Panel; Complete Time: 11:37 snw 03/12 11:00 Order name: CBC with Diff; Complete Time: 11:22 snw 03/12 11:00 Order name: Creatinine for Radiology; Complete Time: 11:37 [facility] 03/12 11:00 Order name: Hepatic Function; Complete Time: 11:37 sn 03/12 11:00 Order name: Lipase; Complete Time: 11:37 sn 03/12 12:46 Order name: Fecal Leukocyte Stain [facility] 03/12 12:46 Order name: Occult Blood [facility] 03/12 12:46 Order name: Stool Culture [facility] 03/12 12:47 Order name: Fecal Leukocyte Stain [facility] 03/12 12:47 Order name: Occult Blood; Complete Time: 13:19 [facility] 03/12 12:47 Order name: Stool Culture [facility] 03/12 11:00 Order name: IV Saline Lock; Complete Time: 11:09 [facility] 03/12 11:00 Order name: Labs collected and sent; Complete Time: 11:09 [facility] 03/12 14:58 Order name: FSBS; Complete Time: 15:07 snw Administered Medications: 11:09 Drug: NS 0.9% 500 ml Route: IV; Rate: bolus; Site: right forearm; jl7 11:45 Follow up: Response: No adverse reaction; IV Status: Completed infusion; IV Intake: jl7 500ml 13:15 Drug: NS 0.9% 1000 ml Route: IV; Rate: 125 ml/hr; Site: right forearm; jl7 15:16 Follow up: Response: No adverse reaction; IV Status: Completed infusion jl7 13:48 Drug: Cipro 400 mg Volume: 200 ml; Route: IVPB; Infused Over: 60 mins; Site: right jl7 forearm; 15:16 Follow up: Response: No adverse reaction; IV Status: Completed infusion jl7 Disposition: 15:26 Co-signature as Attending Physician, Joseph Brewer MD. rn Disposition: 03/12/20 14:13 Discharged to Home. Impression: Infectious gastroenteritis and colitis, unspecified. - Condition is Stable. - Discharge Instructions: Food Choices to Help Relieve Diarrhea, Adult, Diarrhea, Adult, Rehydration, Elderly, Colitis. - Prescriptions for Cipro 500 mg Oral Tablet - take 1 tablet by ORAL route every 12 hours for 7 days; 14 tablet. - Medication Reconciliation Form, Thank You Letter, Antibiotic Education, Prescription Opioid Use form. - Follow up: Randell Lomeli; When: 2 - 3 days; Reason: Recheck today's complaints, Continuance of care, Re-evaluation by your physician. Follow up: Emergency Department; When: As needed; Reason: Worsening of condition. Signatures: Dispatcher [employer] EDMS Sandy Rodriguez, ACUTE CARE ASSISTANT-C ACUTE CARE ASSISTANT-Csnw Joseph Brewer MD MD rn Calderon, Audri, RN RN aa5 Tara Trinidad RN RN jl7 Corrections: (The following items were deleted from the chart) 15:17 14:13 03/12/2020 14:13 Discharged to Home. Impression: Infectious gastroenteritis and jl7 colitis, unspecified. Condition is Stable. Discharge Instructions: Food Choices to Help Relieve Diarrhea, Adult, Diarrhea, Adult, Rehydration, Elderly, Colitis. Prescriptions for Cipro 500 mg Oral Tablet - take 1 tablet by ORAL route every 12 hours for 7 days; 14 tablet. and Forms are Medication Reconciliation Form, Thank You Letter, Antibiotic Education, Prescription Opioid Use. Follow up: Randell Armani; When: 2 - 3 days; Reason: Recheck today's complaints, Continuance of care, Re-evaluation by your physician. Follow up: Emergency Department; When: As needed; Reason: Worsening of condition. snw
[2020-03-12 15:29] VITALS: TEMP 98.2
[2020-03-12 15:30] VITALS: O2SAT 100
[2020-03-12 15:34] VITALS: BP 141/63
== END 2020-03-12 15:17 | disposition home or self-care (01) ==
LOC: ER 10:33
DX: A09 Infectious gastroenteritis and colitis, unspecified (principal); I10 Essential (primary) hypertension; E11.9 Type 2 diabetes mellitus without complications; I51.9 Heart disease, unspecified; Z79.01 Long term (current) use of anticoagulants; Z86.73 Personal history of transient ischemic attack (TIA), and cerebral infarction without residual deficits; Z95.0 Presence of cardiac pacemaker; Z95.1 Presence of aortocoronary bypass graft; Z95.818 Presence of other cardiac implants and grafts; Z91.013 Allergy to seafood
CPT/HCPCS: 87045; 85025; 80048; 36415; 89055; 82274; 82947; 80076; 87046; 83690; J7030; J0744; 96361; 96365; 99284

== ENCOUNTER 2021-02-13 13:18 | Emergency (ER) | payer OTHER ==
--- OUTSIDE RECORDS SUMMARY | 2021-02-13 13:22 | XMS REPORT | Continuity of Care Document ---
:1940 Author Organization [facility] t Address [address] [place] [address] Dr. Alarcon. [address] [place] [address] Care Team Providers Name Role Phone Lomeli Sukhwinder NDIAYEh Pierce Primary Care Physician [phone] PACO Attending Clinician Unavailable Mitch WARD Attending Clinician Nestor Cummins MD Attending Clinician Doug WARD S Attending Clinician MITCH Attending Clinician Unavailable Melony WARD Attending Clinician PACO Admitting Clinician Unavailable NESTOR CUMMINS Admitting Clinician Unavailable Payers Payer Name Policy Type Policy Effective Date Expiration Date Sour ce Number [facility] - [id number] 2020 ROSALINDA Benitez MEDICARE MGD 00:00:00 - Medical CAREUNITED MEDICARE Cente r [id number] 2020-P resent MEDICAIDMEDICAID OF [id number] ROSALINDA Benitez [id number] 2020 00:00:00 [facility] Condition Condition Condition Status Onset Resolution Last Treating Co mments Source Name Details Category Date Date Treatment Clinician Date Left-sided Left-sided Disease Active [facility] chest pain chest pain - Jacqueline kes - 00:00: Medical 00 Center Allergies, Adverse Reactions, Alerts This patient has no known allergies or adverse reactions. Social History Social Habit Start Date Stop Date Quantity Comments Source Sex Assigned At [facility] Alcohol intake 2020-12-19 2020-12-19 Ex-drinker [facility] es - 00:00:00 00:00:00 (finding) [facility] Tobacco use and 2020-12-19 2020-12-19 Never used [facility] - exposure 00:00:00 00:00:00 [facility] Smoking Status Start Date Stop Date Source Never smoker [facility] edical [place] Medications Ordered Filled Start Stop Current Ordering Indication Dosage Frequency Signature Comments Components Source Medication Medication Date Date Medication? Clinician (SIG) Name Name isosorbide 2021- Yes 30mg QD Take [address] [facility] mononitrate 12-18 tablet (30 L ukes - (IMDUR) 30 00:00: 23:59 mg total) M edical MG 24 hr 00 :00 by mouth Center tablet daily. clopidogreL Yes 75mg QD Take [address] [facility] (PLAVIX) 75 -24 by mouth Luke s - mg tablet 11:51: daily. Medica l [address] [place] rosuvastati Yes 20mg QD Take [address] n (CRESTOR) 1-24 by mouth Luke s - 20 MG 11:51: daily. Medical tablet [address] [place] [address] omeprazole Yes 40mg QD Take [address] (PriLOSEC) 1-24 by mouth [facility] - 40 MG 11:51: daily. Medical capsule [address] [place] insulin Yes diabetes 10U Inject [address] degludec -24 mellitus Units [facility] - (TRESIBA 11:51: subcutaneo Med ical U-100 [facility] [place] INSULIN SUBQ) metoprolol 2020- No 50mg Q.5D Take [address] [address] tartrate -24 -24 by mouth 2 Luke s - (LOPRESSOR) 10:02: 00:00 (two) Medi kaylen 50 MG 15 :00 times Center tablet daily. bumetanide 2020- No 1mg QD Take [address] (BUMEX) 1 -24 by mouth [facility] - MG tablet 10:02: 00:00 daily. Medic al 15 :00 Center traZODone 2020- No 100mg QD Take [address] (DESYREL) -24 -24 mg by [facility] - 100 MG 10:02: 00:00 mouth Medical tablet 15 :00 nightly. Center traZODone Yes 50mg QD Take 0.[address] [facility] [facility] (DESYREL) -24 tablets [facility] - 100 MG 00:00: (50 mg Medical tablet 00 total) by Center mouth nightly. metoprolol Yes 25mg Q.5D Take 0.[address] [facility] tartrate -24 tablets [facility] - (LOPRESSOR) 00:00: (25 mg Medi kaylen 50 MG 00 total) by Center tablet mouth 2 (two) times daily. bumetanide Yes 1mg QD Take 1 [facility] (BUMEX) 1 12-17 tablet (1 [facility] - MG tablet 00:00: mg total) Med ical 00 by mouth Center daily Resume on 12/18. ranolazine 2021- Yes 500mg Q.5D Take [address] [facility] (RANEXA) 12-1724 tablet [facility]ukes - 500 MG 12 00:00: 23:59 (500 mg Medi kaylen hr tablet 00 :00 total) by Cente r mouth 2 (two) times daily. aspirin 81 2020- No 81mg QD Take [address] [facility] MG chewable 12-17 tablet (81 L ukes - tablet 00:00: 23:59 mg total) Medic al 00 :00 by mouth Center daily for 30 days. Ondansetron Ondansetron Yes Randell Take [address] [facility] HCl HCl 5-31 Lomeli [facility] - 00:00: [facility] Clopidogrel Clopidogrel Yes Randell [address] [facility] Bisulfate Bisulfate Lomeli Luke [facility] - [facility] Aspirin Aspirin Yes Randell [address] [facility] Lomeli [facility] BD Pen BD Pen Yes Randell USE [facility] Needle Mini Needle Mini Lomeli DIRECTED [facility]ukes - U/F U/F Memoria l [facility] Tresiba Tresiba Yes Randell not [facility] FlexTouch FlexTouch [facility]omeli defined [facility] Crestor Crestor Yes Randell [address] [facility] Lomeli [facility] - [facility] Lumigan Lumigan Yes Randell 1 drop [facility] Lomeli into both [facility] - eyes Memoria l [facility] Vitamin B Vitamin B Yes Randell not [facility] Complex-C Complex-C Lomeli defined [facility] l [facility] Vitamin D-3 Vitamin D-3 Yes Randell [address] [facility] Lomeli [facility] - [facility] l [facility] Melatonin Melatonin Yes Randell [address] [facility] Lomeli at bedtime Lukes - as needed Memoria with food l [facility] Furosemide Furosemide Yes Randell [address] [facility] [address] Lomeli [facility] - [facility] l [facility] Losartan Losartan Yes Randell [address] Potassium Potassium [place] - [facility] l [facility] Isosorbide Isosorbide Yes Randell [address] Mononitrate Mononitrate Lomeli in the [facility]ukes - ER ER morning [facility] l [facility] Rosuvastati Rosuvastati Yes Randell TAKE [address] [facility] n Calcium n Calcium Lomeli TABLET BY Lukes - MOUTH [facility] EVERY DAY l [facility] Metoprolol Metoprolol Yes Randell [address] Succinate Succinate Lomeli Luke s - ER ER [facility] Omeprazole Omeprazole Yes Randell TAKE [address] [facility] Lomeli CAPSULE BY Lukes - MOUTH [facility] EVERY DAY l [facility] Metoprolol Metoprolol Yes Randell [address] Succinate Succinate Lomeli Luke s - ER ER Memoria l [facility] Clinics Immunizations Ordered Filled Immunization Date Status Comments [facility] e Immunization Name Name Ketty Hdez 2019-09-[address] [facility] 00:[facility]00 [facility] Outpatient [facility] Vital Signs Vital Name Observation Time Observation Value Comments Source Systolic blood 2020-12-17 07:00:00 117 mm[Hg] [facility] Diastolic blood 2020-12-17 07:00:00 57 mm[Hg] [facility] Heart rate 2020-12-17 07:00:00 61 /min [facility] Body temperature 2020-12-17 07:00:00 36 Emmanuelle [facility] Respiratory rate 2020-12-17 07:00:00 18 /min [facility] Oxygen saturation in 2020-12-17 07:00:00 97 /min [facility] - Arterial blood by Medical Ce nter Pulse oximetry Body weight 2020-12-17 04:37:00 64.184 kg [facility] BMI 2020-12-17 04:37:00 21.52 kg/m2 [facility] Body height 2020-12-14 13:33:00 172.7 cm [facility] Procedures Procedure Date / Time Performing Clinician Source Performed POCT-GLUCOSE METER 2020-12-17 07:38:00 Laura Cummins [facility] BASIC METABOLIC PANEL (7) 2020-12-17 04:41:00 [facility] CBC (HEMOGRAM ONLY) 2020-12-17 04:41:00 Doug [facility] POCT-GLUCOSE METER 2020-12-16 22:02:00 Placido [facility] POCT-GLUCOSE METER 2020-12-16 17:24:00 Placido [facility] L CATH & PCI 2020-12-16 10:21:00 [facility] POCT-GLUCOSE METER 2020-12-16 07:41:00 Laura Cummins [facility] BASIC METABOLIC PANEL (7) 2020-12-16 04:38:00 [facility] CBC (HEMOGRAM ONLY) 2020-12-16 04:38:00 [facility] VITAMIN B12 AND FOLATE 2020-12-16 04:38:00 Eric Forbes [facility] TSH/FREE T4 IF INDICATED 2020-12-16 04:38:00 Eric Forbes [facility] VITAMIN D, 25-HYDROXY 2020-12-16 04:38:00 Ulisses Urias [facility] POCT-GLUCOSE METER 2020-12-15 21:32:00 Placido [facility] POCT-GLUCOSE METER 2020-12-15 17:35:00 Placido [facility] POCT-GLUCOSE METER 2020-12-15 12:53:00 Placido [facility] NM MYOCARDIAL PERFUSION 2020-12-15 10:04:00 Laura Cummins [facility] PET/CT (REST & STRESS) Medical C enter ECG 12-LEAD 2020-12-15 09:55:05 Unknown, Hl7 Doctor [facility] TREADMILL 2020-12-15 09:55:01 Unknown, Hl7 Doctor [facility](NON-NUCLEAR Medical Ce nter TREADMILL) POCT-GLUCOSE METER 2020-12-15 08:13:00 Placido [facility] TROPONIN I 2020-12-15 04:31:00 Placido [facility] BASIC METABOLIC PANEL (7) 2020-12-15 04:31:00 Kassy Camacho [facility] HEMOGLOBIN A1C 2020-12-15 04:31:00 Placido [facility] HEPATIC FUNCTION PANEL 2020-12-15 04:31:00 Placido [facility] LIPID PANEL 2020-12-15 04:31:00 Placido [facility] CBC (HEMOGRAM ONLY) 2020-12-15 04:31:00 Kassy Camacho [facility] 2D ECHO W/ DOPPLER 2020-12-14 23:13:46 Laura Cummins [facility] (CW/PW/COLOR) [facility] TROPONIN I 2020-12-14 23:10:00 Laura Cummins [facility] POCT-GLUCOSE METER 2020-12-14 20:40:00 Placido Laura [facility] SARS-COV2/RT-PCR ([facility] & 2020-12-14 14:22:00 Kassy Camacho [facility] - REF LABS) [facility] CBC W/PLT COUNT & AUTO 2020-12-14 14:21:00 Mitch, [facility] DIFFERENTIAL [facility] BASIC METABOLIC PANEL (7) 2020-12-14 14:21:00 Mitch, [facility] PT/APTT 2020-12-14 14:21:00 [facility] TROPONIN I 2020-12-14 14:21:00 [facility] B-TYPE NATRIURETIC FACTOR 2020-12-14 14:21:00 Mitch, [facility] (BNP) [facility] XR CHEST 2 VIEWS 2020-12-14 13:40:00 Mitch, [facility] ECG 12-LEAD 2020-12-14 13:25:46 Unknown, Hl7 Doctor [facility] ED ECG INTERPRETATION 2020-12-14 13:14:06 Mitch, [facility] CARDIAC CATH REPORT - SCAN 2020-12-14 00:00:00 Provider [facility] ARRYTHMIA IMPLANT REPORT - 2020-12-14 00:00:00 Provider, [facility] Plan of Care Planned Activity Planned Date Details Comments Source Future Scheduled Test 2020-11-24 [facility] (WELCOME TO [facility] MEDICARE) [code = Medicare IPPE (WELCOME TO MEDICARE)] Future Scheduled Test 1990-01-[address] [facility] - 00:00:00 (1 of 2) [code = Medical [place] ter SHINGLES VACCINES (1 of 2)] Future Scheduled Test 1959-01-24 DTAP/TDAP/TD [facility] - 00:[facility]00 VACCINES (1 - Tdap) [facility] [code = DTAP/TDAP/TD VACCINES (1 - Tdap)] Encounters Start End Encounter Admission Attending Care Care Encounter Source Date/Time Date/Time Type Type Clinicians Facility Department ID 2021-02-05 2021[facility]02-05 [id number] 2021-01-22 2021-01-22 Outpatient [place] [id number] [place] 00:00:00 00:00:00 PRAKASH [address] 2021-01-17 2021-01-[address] [facility] [id number] [place] 00:00:00 00:00:00 PRAKASH [address] 2020-12-19 2020-12-19 [facility] [id number] [facility] 2020-12-18 2020-12-18 [facility] [id number] [facility] 2020-12-15 2020-12-15 [facility] [id number] [facility] 2020-11-13 2020-11-13 Out[facility] [id number] [facility] 2020-10-30 2020-10-30 Outpatient [facility] [id number] [facility] 2020-10-24 2020-10-24 Out[facility] [id number] [facility] 2020-10-16 2020-10-16 Outpatient [facility] [id number] [facility] 2020-10-12 2020-10-12 Outpatient [facility]SE MHSE [id number] MH 06:00:00 06:00:00 Leslee lundberg [facility] 2020-09-25 2020-09-25 [facility] [id number] 2020-09-18 2020-09-18 [facility] [id number] [facility] 2020-09-05 2020-09-05 [facility] [id number] [facility] 2020-08-11 2020-08-11 [facility] [id number] 08:30:00 08:30:00 t [employer] [facility] Medicine l Medicine Outpati ent Clinics 2020-08-03 2020-08-03 [facility] [id number] 11:18:00 11:18:00 t [employer] [facility] l Medicine Outpati ent Clinics 2020-07-11 2020-07-11 [facility] [id number] 15:00:00 15:00:00 t [employer] [facility] Medicine l Medicine Outpati ent Clinics 2020-05-11 2020-05-11 [facility] [id number] 10:00:00 10:00:00 t [employer] [facility] l Medicine Outpati ent Clinics 2020-05-11 2020-05-11 [facility] [id number] 10:00:00 10:00:00 t [employer] [facility] Medicine l Medicine Outpati ent Clinics 2020-05-03 2020-05-03 [facility] [id number] 10:38:00 10:38:00 t [employer] [facility] l Medicine Outpati ent Clinics 2020-04-06 2020-04-06 [facility] [id number] 08:42:00 08:42:[address] [facility] [address] [employer] [facility] l Medicine Outpati ent Clinics 2020-03-15 2020-03-15 [facility] [id number] 08:38:00 08:38:00 t [employer] Luke s - Drive [facility] Medicine Outpati ent Clinics 2019-11-15 2019-11-15 [facility] [id number] 13:51:00 13:51:00 t [employer] Luke s - Drive [facility] Medicine Outpati ent Clinics 2019-11-11 2019-11-11 [facility] [id number] 08:30:00 08:30:00 t [employer] Luke s - Drive [facility] Medicine Outpati ent Clinics 2019-11-05 2019-11-05 [facility] [id number] 15:43:00 15:43:00 t [employer] s - Drive [facility] Medicine Outpati ent Clinics 2019-10-19 2019-10-19 [facility] [id number] 11:04:00 11:04:00 t [email or web address] s - Drive [facility] Medicine Outpati ent Clinics 2019-09-06 2019-09-06 [facility] [id number] 13:45:00 13:45:00 t [email or web address] s - Drive [facility] Medicine Outpati ent Clinics 2019-08-05 2019-08-05 [facility] [id number] 13:45:00 13:45:00 t [employer] [facility] Medicine Outpati ent Clinics 2019-07-12 2019-07-12 Office TyJulia [facility] [id number] 11:01:23 11:49:13 Visit AMBULATOR [id number] 2019-06-11 2019-06-11 [facility] [id number] 10:30:00 10:30:00 t [email or web address] s - Drive [facility] Medicine Outpati ent Clinics 2019-05-31 2019-05-31 [facility] [id number] 14:01:00 14:01:00 t [employer] [facility] Medicine Medicine Outpati ent Clinics 2019-05-21 2019-05-21 [facility] [id number] 13:23:00 13:23:[address] Luke s - Drive [facility] Medicine Outpati ent Clinics 2019-05-11 2019-05-11 [facility] [id number] 09:44:00 09:44:[address] Luke s - Drive [facility] Medicine Outpati ent Clinics 2019-03-16 2019-03-16 [facility] [id number] 10:45:00 10:45:00 t [employer] Luke s - Drive [facility] Medicine Outpati ent Clinics 2019-02-18 2019-02-18 [facility] [id number] 09:05:00 09:05:00 t [employer] Luke s - Drive [facility] Medicine Outpati ent Clinics 2019-01-08 2019-01-08 [facility] [id number] 14:40:00 14:40:00 t [employer] Luke s - Drive [facility] Medicine Outpati ent Clinics 2018-12-16 2018-12-16 [facility] [id number] 14:45:00 14:45:00 t [employer] Luke s - Drive [facility] Medicine Outpati ent Clinics 2018-11-30 2018-11-30 [facility] [id number] 09:04:00 09:04:00 t [employer] Luke s - Drive [facility] Medicine Outpati ent Clinics 2018-11-25 2018-11-25 [facility] [id number] 08:37:00 08:37:[address] Luke s - Drive [facility] Medicine Outpati ent Clinics 2018-09-08 2018-09-08 [facility] [id number] 11:38:00 11:38:[address] Luke s - Drive [facility] Medicine Outpati ent Clinics 2018-07-28 2018-07-28 [facility] [id number] 13:59:00 13:59:[address] Luke s - Drive [facility] Medicine l Medicine Outpati ent Clinics 2018-07-20 2018-07-20 [facility] [id number] 11:52:00 11:52:[address] Luke s - Drive [facility] Medicine l Medicine Outpati ent Clinics 2018-07-08 2018-07-08 [facility] [id number] 09:26:00 09:26:[address] Luke s - Drive [facility] Medicine l Medicine Outpati ent Clinics 2018-07-07 2018-07-07 [facility] [id number] 10:35:00 10:35:[address] Luke s - Drive [facility] l Medicine Outpati ent Clinics 2018-06-29 2018-06-29 [facility] [id number] 09:15:00 09:15:[address] Luke s - Drive [facility] Medicine Outpati ent Clinics 2018-06-23 2018-06-23 [facility] [id number] 10:28:00 10:28:[address] Luke s - Drive [facility] Medicine l Medicine Outpati ent Clinics 2018-05-21 2018-05-21 [facility] [id number] 08:21:00 08:21:[address] Luke s - Drive [facility] Medicine l Medicine Outpati ent Clinics 2018-05-20 2018-05-20 [facility] [id number] 08:00:00 08:00:[address] Luke s - Drive [facility] Medicine l Medicine Outpati ent Clinics 2018-05-19 2018-05-19 [facility] [id number] 10:26:00 10:26:[address] Luke s - Drive [facility] l Medicine Outpati ent Clinics 2018-05-09 2018-05-09 [facility] [id number] 10:46:00 10:46:[address] Luke s - Drive [facility] Medicine l Medicine Outpati ent Clinics 2018-04-24 2018-04-24 [facility] [id number] 11:50:00 11:50:00 t W[facility]ons [email or web address] s - Drive [facility] Medicine Medicine Outpati ent Clinics 2018-04-23 2018-04-23 [facility] [id number] 13:00:00 13:00:00 t [place] [employer] s - Drive [facility] Medicine Outpati ent Clinics 2018-04-06 2018-04-06 [facility] [id number] 10:00:00 10:00:00 t [place]ons [employer] s - Drive [facility] Medicine Outpati ent Clinics 2018-03-30 2018-03-30 [facility] [id number] 16:08:00 16:08:00 t [employer] s - Drive [facility] Medicine Outpati ent Clinics 2018-03-12 2018-03-12 [facility] [id number] 12:11:00 12:11:00 t [place] [employer] s - Drive [facility] Medicine Medicine Outpati ent Clinics 2018-02-13 2018-02-13 [facility] [id number] 15:10:00 15:10:00 t [employer] [employer] s - Drive [facility] Medicine Outpati ent Clinics 2018-02-11 2018-02-11 [facility] [id number] 11:00:00 11:00:00 t [employer] [employer] s - Drive [facility] Medicine Outpati ent Clinics 2018-02-09 2018-02-09 [facility] [id number] 14:45:00 14:45:00 t [place] [employer] s - Drive [facility] Medicine Outpati ent Clinics Results Test Description Test Time Test Comments Results Result Sour e Comments ARRYTHMIA IMPLANT 2020-12-25 Ordered by an ROSALINDA Villafana REPORT - SCAN 13:34:39 unspecified - Medical provider. Center CARDIAC CATH 2020-12-25 Ordered by an ROSALINDA Lundberg Jacqueline luiss REPORT - SCAN 13:34:38 unspecified - Medical provider. Center Treadmill 2020-12-18 Interface, External ROSALINDA Benitez tolerance(Non-Nuc 13:25:38 Ris In - 12/18/2020 - Medical lear Treadmill) 1:25 PM CSTProtocol Center Name Ronaldo Time In Exercise Phase 00:01:00 Max. Systolic BP 85 mmHgMax Diastolic BP 32 mmHgMax Heart Rate 60 BPMMax Predicted Heart Rate 140 BPMReason For Termination Predetermined end point Reason for Test Chest pain,generalized weakness,dizziness Target HR Formula (220 - Age)*100% Arrhythmias ventricular premature beats Resting ECG AV Pacing ST Changes No Significant Changes Overall Impression Indeterminate due to pharmacological stress Chest Pain none HR Response To Exercise BP Response To Exercise crestor,plavix,love noxmetoprolol,ranexa Confirmed by fellow Viot Mortensen ([id number]) on 12/15/2020 1:30:39 PMConfirmed by MD GARDUNO YOCHAI ([id number]) on 12/18/2020 1:25:19 PM POC-Glucose meter 2020-12-17 08:41:00 Test Item Value Reference Range Interpretation Comme nts POC-Glucose Meter (test code = 139 mg/dL 70-110 H : TESTED AT [facility] [address] [facility] 1538) [facility], [address]: Electric Melt Operator/Techni geraldo ID = [id number] for ANAM PIPER Lab Interpretation (test code = Abnormal 40588-5) [facility] [id number] 08:41:00 Test Item Value Reference Range Interpretation Comments POC-GLUCOSE METER 139 mg/dL 70-110 H : TESTED A T [facility] [address] (BEAKER) (test code = BERTNE R [facility], 1538) [address]: Electric Melt Operator/Techni geraldo ID = [id number] for ANAM COHEN Basic metabolic [id number] 06:25:00 Test Item Value Reference Range Interpretation Comments Sodium (test code = 139 meq/L 321-153 6057-2) Potassium (test code 4.5 meq/L 3.5-5.1 = 2823-3) Chloride (test code = 109 meq/L 98-107 H 2074-0) CO2 (test code = 26 meq/L 22-29 2027-9) BUN (test code = 26 mg/dL 7-21 H 3094-0) Creatinine (test code 0.93 mg/dL 0.57-1.25 = 2160-0) Glucose (test code = 140 mg/dL 70-105 H 2345-7) Calcium (test code = 8.3 mg/dL 8.4-10.2 L 09644-7) EGFR (test code = [place] [address]-2) CLINICAL DATA T O CALCULATE ESTIMATED GFR. ELVIN (test code = ELVIN) Electric Melt Operator ID - [id number] Lab Interpretation Abnormal (test code = 74512-7) [facility] METABOLIC [id number] 06:25:00 Test Item Value Reference Range Interpretation Comments SODIUM (BEAKER) (test 139 meq/L 136-145 code = 381) POTASSIUM (BEAKER) 4.5 meq/L 3.5-5.1 (test code = 379) CHLORIDE (BEAKER) 109 meq/L 98-107 H (test code = 382) CO2 (BEAKER) (test 26 meq/L 22-29 code = 355) BLOOD UREA NITROGEN 26 mg/dL 7-21 H (BEAKER) (test code = 354) CREATININE (BEAKER) 0.93 mg/dL 0.57-1.25 (test code = 358) GLUCOSE RANDOM 140 mg/dL 70-105 H (BEAKER) (test code = 652) CALCIUM (BEAKER) 8.3 mg/dL 8.4-10.2 L (test code = 697) EGFR (BEAKER) (test INSUFFIC IENT CLINICAL code = 1092) DATA TO CALCULA TE ESTIMATED GFR. Electric Melt Operator ID - [id number] (Hemogram only)2020-12-17 05:39:00 Test Item Value Reference Range Interpretation Comments WBC (test code = 6690-2) 5.7 See_Comment [A utomated message] The system [employer] generated this result transmitted ref erence range: 3.5 - 10 .5 K/L. The refe rence range was not u sed to interpret this result as normal/abnor mal. RBC (test code = 789-8) 3.18 See_Comment L [Au tomated message] The system [employer] generated this result transmitted ref erence range: 4.63 - 6 .08 M/L. The refe rence range was not u sed to interpret this result as normal/abnor mal. MCHC (test code = 786-4) 33.0 See_Comment L [A utomated message] The system [employer] generated this result transmitted ref erence range: 32.3 - 3 6.5 GM/DL. The refe rence range was not u sed to interpret this result as normal/abnor mal. Hematocrit (test code = 30.9 % 40.1-51 L 4544-3) MCV (test code = 787-2) 97.2 fL 79-92.2 H MCH (test code = 785-6) 32.1 pg 25.7-32.2 RDW (test code = 788-0) 11.8 % 11.6-14.4 Platelets (test code = 159 See_Comment [Aut omated message] 777-3) The system [employer] generated this result transmitted ref erence range: 150 - 45 0 K/CU MM. The referen ce range was not u sed to interpret this result as normal/abnor mal. MPV (test code = 10.3 fL 9.4-12.4 45757-3) nRBC (test code = 413) 0 See_Comment [Aut omated message] The system [employer] generated this result transmitted ref erence range: 0 - 0 /1 00 WBC. The refere nce range was not u sed to interpret this result as normal/abnor mal. Lab Interpretation (test Abnormal code = 53577-2) [facility] (HEMOGRAM ONLY)2020-12-17 05:39:00 Test Item Value Reference Range Interpretation Comments WHITE BLOOD CELL COUNT (BEAKER) 5.7 K/ L 3.5-10.5 (test code = 775) RED BLOOD CELL COUNT (BEAKER) 3.18 M/ L 4.63-6.08 L (test code = 761) HEMOGLOBIN (BEAKER) (test code = 10.2 GM/DL 13.7-17.5 L 410) HEMATOCRIT (BEAKER) (test code = 30.9 % 40.1-51.0 L 411) MEAN CORPUSCULAR VOLUME (BEAKER) 97.2 fL 79.0-92.2 H (test code = 753) MEAN CORPUSCULAR HEMOGLOBIN 32.1 pg 25.7-32.2 (BEAKER) (test code = 751) MEAN CORPUSCULAR HEMOGLOBIN CONC 33.0 GM/DL 32.3-36.5 (BEAKER) (test code = 752) RED CELL DISTRIBUTION WIDTH 11.8 % 11.6-14.4 (BEAKER) (test code = 412) PLATELET COUNT (BEAKER) (test 159 K/CU MM 150-450 code = 756) MEAN PLATELET VOLUME (BEAKER) 10.3 fL 9.4-12.4 (test code = 754) NUCLEATED RED BLOOD CELLS 0 /100 WBC 0-0 (BEAKER) (test code = 413) POCT-GLUCOSE [id number] 22:13:00 Test Item Value Reference Range Interpretation Comments POC-GLUCOSE METER 119 mg/dL 70-110 H : TESTED A T [facility] [address] (BEAKER) (test code = [facility], 1538) [address]: Electric Melt Operator/Techni geraldo ID = [id number] for Re antolin Nuria POCT-GLUCOSE [id number] 17:36:00 Test Item Value Reference Range Interpretation Comments POC-GLUCOSE METER 251 mg/dL 70-110 H : TESTED A T [facility] [address] (BEAKER) (test code = [facility], 1538) [address]: Electric Melt Operator/Techni geraldo ID = [id number] for ANAM COHEN Vitamin D, [id number] 09:24:00 Test Item Value Reference Range Interpretation Comments Vitamin D 25-Hydroxy 21.5 ng/mL 6.6-49.9 (test code = 2764) ELVIN (test code = ELVIN) Effective 09/03/2017: Reference Range ChangeNew: 6.6-49.9 ng/mL Previous: 13.0-47.8 ng/mL Recommended Vitamin D Target Range: 30.0-40.0 ng/mLOperator ID - CARINA Escalante Lab Interpretation (test Normal code = 42069-3) [facility]IT[facility]IN D, [id number] 09:24:00 Test Item Value Reference Range Interpretation Comments VITAMIN D 25-OH (BEAKER) (test 21.5 ng/mL 6.6-49.9 code = 2764) Effective 09/03/2017: Reference Range ChangeNew: 6.6-49.9 ng/mL Previous: 13.0-47.8 ng/mLRecommended Vitamin D Target Range: 30.0-40.0 ng/mLOperator ID - CARINA MPOCT-GLUCOSE [id number] 07:53:00 Test Item Value Reference Range Interpretation Comments POC-GLUCOSE METER 180 mg/dL 70-110 H : TESTED A T [facility] [address] (BEAKER) (test code = [place], 1538) [address]: Electric Melt Operator/Techni geraldo ID = [id number] for ANAM COHEN TSH/Free T4 If [id number] 06:58:00 Test Item Value Reference Range Interpretation Comments TSH (test code = 1.669 See_Comment [Automated 62568-5) message] The system which generated this result transmit bimal reference range : 0.350 - 4.940 uIU/mL. The reference range was not used to interpret this result as normal/abnormal . ELVIN (test code = ELVIN) Electric Melt Operator ID - ADMIN Lab Interpretation Normal (test code = 00978-2) [facility] HospitalVitamin B12 and [id number] 06:58:00 Test Item Value Reference Range Interpretation Comments Vitamin B12 (test 811 pg/mL 213-816 code = 2132-9) Folate (test code = 15.60 ng/mL See_Comment [Automa bimal 2284-8) message] The system which generated this result transmit bimal reference range : >=7.00. The reference range was not used to interpret this result as normal/abnormal . ELVIN (test code = ELVIN) Electric Melt Operator ID - ADMIN Lab Interpretation Normal (test code = 86508-8) [facility] HospitalTSH/FREE T4 IF [id number] 06:58:00 Test Item Value Reference Range Interpretation Comments THYROID STIMULATING HORMONE 1.669 uIU/mL 0.350-4.940 (BEAKER) (test code = 772) Electric Melt Operator ID - ADMINVITAMIN B12 AND [id number] 06:58:00 Test Item Value Reference Range Interpretation Comments VITAMIN B12 (BEAKER) (test code = 811 pg/mL 213-816 774) FOLATE (BEAKER) (test code = 362) 15.60 ng/mL >=7.00 Electric Melt Operator ID - ADMINBASIC METABOLIC [id number] 06:21:00 Test Item Value Reference Range Interpretation Comments SODIUM (BEAKER) (test 139 meq/L 136-145 code = 381) POTASSIUM (BEAKER) 3.9 meq/L 3.5-5.1 (test code = 379) CHLORIDE (BEAKER) 106 meq/L 98-107 (test code = 382) CO2 (BEAKER) (test 27 meq/L 22-29 code = 355) BLOOD UREA NITROGEN 32 mg/dL 7-21 H (BEAKER) (test code = 354) CREATININE (BEAKER) 1.07 mg/dL 0.57-1.25 (test code = 358) GLUCOSE RANDOM 203 mg/dL 70-105 H (BEAKER) (test code = 652) CALCIUM (BEAKER) 8.6 mg/dL 8.4-10.2 (test code = 697) EGFR (BEAKER) (test INSUFFIC IENT CLINICAL code = 1092) DATA TO CALCULA TE ESTIMATED GFR. Electric Melt Operator ID - ADMINCBC (HEMOGRAM ONLY)2020-12-16 05:30:00 Test Item Value Reference Range Interpretation Comments WHITE BLOOD CELL COUNT (BEAKER) 5.0 K/ L 3.5-10.5 (test code = 775) RED BLOOD CELL COUNT (BEAKER) 3.32 M/ L 4.63-6.08 L (test code = 761) HEMOGLOBIN (BEAKER) (test code = 10.7 GM/DL 13.7-17.5 L 410) HEMATOCRIT (BEAKER) (test code = 31.5 % 40.1-51.0 L 411) MEAN CORPUSCULAR VOLUME (BEAKER) 94.9 fL 79.0-92.2 H (test code = 753) MEAN CORPUSCULAR HEMOGLOBIN 32.2 pg 25.7-32.2 (BEAKER) (test code = 751) MEAN CORPUSCULAR HEMOGLOBIN CONC 34.0 GM/DL 32.3-36.5 (BEAKER) (test code = 752) RED CELL DISTRIBUTION WIDTH 11.7 % 11.6-14.4 (BEAKER) (test code = 412) PLATELET COUNT (BEAKER) (test 161 K/CU MM 150-450 code = 756) MEAN PLATELET VOLUME (BEAKER) 10.3 fL 9.4-12.4 (test code = 754) NUCLEATED RED BLOOD CELLS 0 /100 WBC 0-0 (BEAKER) (test code = 413) POCT-GLUCOSE [id number] 21:44:00 Test Item Value Reference Range Interpretation Comments POC-GLUCOSE METER 295 mg/dL 70-110 H : TESTED A T [facility] 6720 (NEFTALI) (test code [facility], = 1538) [address]: Electric Melt Operator/Techni geraldo ID = [id number] for Drea Bragg POCT-GLUCOSE [id number] 17:47:00 Test Item Value Reference Range Interpretation Comments POC-GLUCOSE METER 276 mg/dL 70-110 H : TESTED A T [facility] 67[address] (NEFTALI) (test code = ROYAL Olivera [facility], 1538) [address]: Electric Melt Operator/Techni geraldo ID = [id number] for Kristina Ayala ECG 12 [id number] 16:40:14Interface, External Ris In - 12/15/2020 4:40 PM CSTVentricular Rate 62 BPMAtrial Rate 62 BPMP-R Interval 152 msQRS Duration 168 msQ-T Interval 510 msQTC Calculation(Bazett) 517 msP [place] 93 degreesR [place] -80 degreesT [place] 84 degreesSinus rhythm with occasional Premature ventricular complexeslbbb with left axis versus electronic ventricular pacingProlonged QTAbnormal ECG Novtrial and ventricular electronic pacemaker spikes now seen.QRS axis has shifted from right superiorPVCs now seenNo significant change in the precordial leadsConfirmed by MD LAUREEN, BLANCA ([id number]) on 12/15/2020 4:40:09 [facility] PERF REST AND STRESS 2020-12-15 16:04:00Reason for exam:->GENERALIZED WEAKNESS, NOT ASSOCIATED WITH EXTREMITIESReason for exam:->DIZZINESSReason for exam:->CHEST PAIN [facility] : 1940 Sex: MAddendum BeginsREPORT STATUS:A 2. Abnormal myocardial perfusion. There is a large partially reversible perfusion defect involving the apex, apical inferior and basal anterolateral as well as basal inferolateral segments. Signed: Preston Hicks MDReport Verified Date/Time: 12/15/2020 16:04:49 Reading Location: [address] Reading RoomAddendum EndsFINAL REPORT PROCEDURE: MYOCARDIAL PERFUSION PET/CT IMAGING (Rest/Stress)CPT CODE: 62429WMPZGXOKVV: Evaluate chest pain CARDIOVASCULAR PROFILE:CAD History: Known CADSymptoms: Chest painRisk Factors: Diabetes, hypertension, hyperlipidemia, strokeBMI: 22.1Medications: Crestor, Plavix, metoprolol STRESS PROTOCOL:Pharmacologic stress was achieved with a 10-second intravenous infusion of regadenoson 0.4 mg. The radiopharmaceutical was administered 30 seconds after the start of the regadenoson infusion. IMAGING PROTOCOL:Limited low-dose CT imaging was performed for attenuation correction. 40.0 mCi of Rb-82 chloride was injected intravenously at rest, and gated PET images were obtained. Then, 40.2 mCi of Rb-82 chloride was injected intravenously at peak stress, and gated PET images were obtained. Image quality is good. REST FINDINGS:HR: 61/minBP: 90/72 mmHgPrelim. EKG: AV paced rhythm.Perfusion: There is a moderate severity perfusion defect of the basal infero-- lateral, basal anterolateral, apex and apical inferior segment(s).Wall Motion: Normal (LVEF 58%).LV Volume: Normal.RV Volume: Normal. STRESS FINDINGS:HR: 60/min (42% of MPHR)BP: 85/32 mmHgPrelim. EKG: No ischemic changes.Symptoms: None (treatment not required).Perfusion: There is a mild to moderate severity perfusion defect of the basal infero lateral, basal anterolateral, apex and apical inferior segment(s).Wall Motion: Normal (LVEF 64%).LV Volume: Not significantly changed from rest. IMPRESSION:1. Abnormal study.2. Abnormalmyocardial perfusion. There is a large partially reversible severe perfusion defect involving the apex, apical inferior and basal anterolateral as well as basal inferolateral segments. 3. Normal resting LVEF, which does not deteriorate with pharmacologic stress.4. Normal extracardiac tracer distribution.5. There is no prior study for comparison. Signed: Preston Hicks MDReport Verified Date/Time: 12/15/2020 15:38:59 Reading Location: [address] Med Reading Room [place] Myocardial Perfusion Pet/CT (Rest & Stress)2020-12-15 15:38:00Interface, External Ris In - 12/15/2020 4:07 PM CSTAddendum BeginsREPORT STATUS:A 2. Abnormal myocardial perfusion. There is a large partially reversible perfusion defect involving the apex, apical inferior and basal anterolateral as well as basal inferolateral segments. Signed: Preston Hicks MDReport Verified Date/Time: 12/15/2020 16:04:49 Reading Location: [address] Med Reading RoomAddendum EndsFINAL REPORT PROCEDURE: MYOCARDIAL PERFUSION PET/CT IMAGING (Rest/Stress)CPT CODE: 42318 INDICATION: Evaluate chest pain CARDIOVASCULAR PROFILE:CAD History: Known CADSymptoms: Chest painRisk Factors: Diabetes, hypertension, hyperlipidemia, strokeBMI: 22.1Medications: Crestor, Plavix, metoprolol STRESS PROTOCOL:Pharmacologic stress was achieved with a 10- second intravenous infusion of regadenoson 0.4 mg. The radiopharmaceutical was dczffbixnavh89 seconds after the start of the regadenoson infusion. IMAGING PROTOCOL:Limited low-dose CT imagingwas performed for attenuation correction. 40.0 mCi of Rb-82 chloride was injected intravenously at rest, and gated PET images were obtained. Then, 40.2 mCi of Rb-82 chloride was injected intravenously at peak stress, and gated PET images were obtained. Image quality is good. REST FINDINGS:HR: 61/minBP: 90/72 mmHgPrelim. EKG: AV paced rhythm.Perfusion: There is a moderate severity perfusion defect of the basal infero-- lateral, basal anterolateral, apex and apical inferior segment(s).Wall Motion: Normal (LVEF 58%).LV Volume: Normal.RV Volume: Normal. STRESS FINDINGS:HR: 60/min (42% of MPHR)BP: 85/32mmHgPrelim. EKG: No ischemic changes.Symptoms: None (treatment not required).Perfusion: There is a mild to moderate severity perfusion defect of the basal infero lateral, basal anterolateral, apex and apical inferior segment(s).Wall Motion: Normal (LVEF 64%).LV Volume: Not significantly changed from rest. IMPRESSION:1. Abnormal study.2. Abnormal myocardial perfusion. There is a large partially reversible severe perfusion defect involving the apex, apical inferior and basal anterolateral as well as basal inferolateral segments. 3. Normal resting LVEF, which does not deteriorate with pharmacologic stress.4. Normal extracardiac tracer distribution.5. There is no prior study for comparison. Signed: Preston Hicks MDReport Verified Date/Time: 12/15/2020 15:38:59 Reading Location: [address] Reading Room [facility] 2020-12-15 13:05:00 Test Item Value Reference Range Interpretation Comments POC-GLUCOSE METER 232 mg/dL 70-110 H : TESTED A T [facility] [address] ([facility] (test code = [place], 1538) [address]: Electric Melt Operator/Techni geraldo ID = [id number] for Kristina Ayala 2D Echo W/Doppler(CW/PW/Color)2020-12-15 10:59:43Ejection FractionSLEH ECHO HEARTLAB MKCKESSON CPACSInterface, External Ris In - 12/15/2020 11:00 AM C STTransthoracic Echocardiography Report (TTE) Demographics Patient Name SANDOVAL NEELY Date ofStudy 12/14/2020 Gender Male Visit Number [id number] Race Unknown RoomNumber 1161 Number Date of 1940 Referring Physician Doug Bailey Age 80 year(s) Data Entry Representative Yuniel Howell [employer] Engineering Manager Tonya Jose, Interpreting Sky Coyle [facility] Physician Procedure Type of Study TTE procedure:2DECHO W DOPPLER(CW/PW/COLOR) (Routine) Indications:Acute Chest Pain/ Suspected CAD.Clinical HistoryHGB 12.2HCT 34.9 %PPM/ICD, CAD, S/P SVG TO LAD (1999), UNSTABLE ANGINAHeight: 68 inches Weight: 65.77 kg (145 lbs) BSA: 1.78 m^2 BMI: 22.05 kg/m^2HR: 61 bpm BP: 131/60 mmHg Summary The left ventricle is chamber size (by vol index) is normal (male - LVED vol - 34-74ml/m2). All of the LV segments contract normally . Global LV systolic function normal . LVEF by Leach's method of disk assessment is normal (>60%) . Grade 1 diastolic dysfunction (impaired relaxation and low-normal LA pressure). Estimated peak systolic PA pressure is 16 mmHg + RA pressure. (RA pressure indeterminate on this exam) Previous Study No prior studies available for comparison. Signature Findings Technical Quality: Technically adequate exam. Left Ventricle The left ventricle is chamber size (by vol index) is normal (male - LVED vol - 34-74ml/m2). No evidence of LV hypertrophy. All of the LV segments contract normally . Global LV systolic function normal . LVEF by Leach's method of disk assessment is normal (>60%) . Grade 1 diastolic dysfunction (impaired relaxation and low-normal LA press ure). Left Atrium LA size is normal (16-34 ml/m2) . Right Ventricle RV pacing wire is visualized . Global RV systolic function is depressed . Right Atrium RA pacing wire is visualized . Aortic Valve Mild AoV cusp calcification. AoV calcification primarily involves the non- coronary cusp(s). No evidence of aortic regurgitation. No evidence of aortic stenosis. Mitral Valve Mild MV leaflet thickening. Trace mitralregurgitation. Tricuspid Valve TV structure is normal. Mild tricuspidregurgitation. Estimated peak systolic PA pressure is 16 mmHg + RA pressure. (RA pressure indeterminate on this exam) Pulmonic Valve Normal PV structure and function by limited views and Doppler. Aorta Aortic root size (SInus of Valsalva diameter) is normal . Pericardium No pericardial effusion is visualized. IVC/SVC/PA/PV/Pleural The inferior vena cava is not visualized. Chambers/Structures Left Atrium LA Volume: 52.04 ml LA Area: 14.19 cm^2 LA Vol. Index: 29 ml/m^2 Left Ventricle LVIDd: 4.59 cm LV Septum Diastolic: 1.03 cm LV PW Diastolic: 0.69 cm LVEDV Leach's:66.4 ml LVESV Leach's:24.88 ml LVEF Leach's: 62.5 % LVEDVI: 37 ml/m^2 LVESVI: 14 ml/m^2 LVOT Diameter: 2 cm Right Ventricle TAPSE: 1.14 cm Aorta Ao Root S of Viviane.: 2.97 cm Doppler/Quantitative Measurements Mitral Valve MV Peak E-Wave: 0.54 m/s MV Peak A-Wave: 0.56 m/s E/A Ratio: 0.96 Peak Gradient: 1.17 mmHg Deceleration Time: 248.4 msec MV Feroz. Peak: Tissue Doppler E' Lateral Velocity: 0.06 m/s E/E': 9.02 Aortic Valve Peak Velocity: 0.98 m/s Mean Velocity: 0.66 m/s Peak Gradient: 3.8 mmHg Mean Gradient: 2.02 mmHg AV Area (continuity): 2.52 cm^2 AV VTI: 22.28 cm AV DVI: 0.8 LVOT Peak Velocity: 0.7 m/s Peak Gradient: 1.97 mmHg Mean Velocity: 0.47 m/s Mean Gradient: 1.01 mmHg LVOT Diameter: 2 cm LVOT VTI: 17.89 cm LVOT Area: 3.14 cm^2 LVOT SV:56.17 ml LVOTCO: 3.43 l/min LVOT CI: 1.93 l/min/m^2 RVOT RVOT VTI (PW): 10.6 cm Tricuspid Valve TR Velocity: 2 m/s TR Gradient: 16.07 mmHgBarstow [facility] HospitalPOCT-GLUCOSE [id number] 08:26:00 Test Item Value Reference Range Interpretation Comments POC-GLUCOSE METER 155 mg/dL 70-110 H : TESTED A T [facility] 6720 (BEAKER) (test code = [place], 1538) [address]: Electric Melt Operator/Techni geraldo ID = [id number] for OR SELENE JHAVERI Hemoglobin [id number] 08:15:00 Test Item Value Reference Range Interpretation Comments Hemoglobin A1C (test code = 4548-4) 9.0 % 4.3-6.1 H Lab Interpretation (test code = Abnormal 52575-6) [facility] HospitalHEMOGLOBIN [id number] 08:15:00 Test Item Value Reference Range Interpretation Comments HEMOGLOBIN A1C (BEAKER) (test code = 9.0 % 4.3-6.1 H 368) SARS-CoV2/RT-PCR (Asymptomatic ONLY)2020-12-15 07:09:00 Test Item Value Reference Range Interpretation Comments SARS-COV2/RT-PCR Negative Not Detected, (test code = Negative, See 58982-8) external report for linked test SARS-COV-2 [facility] PERFORMING LAB (test code = 37846-1) ELVIN (test code = Negative result for this ELVIN) test determines that SARS-CoV-2 RNA was not present in the specimen above the Limit of Detection (LOD). However, Negative results do not preclude SARS-CoV-2 infection and should not be used as the sole basis for treatment or patient management decisions. Negative results must be combined with clinical observations, patient history, and epidemiological information. A false negative result may occur if a specimen is improperly collected, transported or handled. A false negative result should be considered if patient's recent exposures or clinical presentation indicate that COVID-19 (SARS-CoV-2) is likely and diagnostic tests for other causes of illness are negative. Re-testing should be considered in cases of suspected false negatives. The limit of detection for this assay is 100 copies/mL. This SARS CoV-2 test is a real-time RT-PCR test intended for the qualitative detection of nucleic acid from SARS-CoV-2 in a nasopharyngeal swab specimen collected from individuals suspected of COVID-19 by their healthcare provider. This test has not been Food and Drug Administration (FDA) cleared or approved. This is a modified version of an approved Emergency Use Authorization (EUA) and is in the process of review by the FDA. Once authorized by the FDA, the issued EUA will be effective until the declaration that circumstances exist justifying the authorization of the emergency use of in vitro diagnostic tests for detection and/or diagnosis of COVID-19 is terminated under Section 564(b)(2) of the Act or the EUA is revoked under Section 564(g) of the Act. Testing was performed using the Askem SARS-CoV-2 assay. Fact Sheet for Healthcare Providers:https://www.Athos/do/RT_SA KG-IhT-1_SUA_Namf_Qscne_ 51-794419.pdf Fact Sheet for Healthcare Patients:https://www.Grows Up/do/RT_SAR M-WpR-2_Dkjccvt_Nahk_Wpq et_EN_51-654215Y3.pdf Performing Laboratory:[place] [address] [address]ARS-COV2/RT-PCR ([facility])2020-12-15 07:09:00 Test Item Value Reference Range Interpretation Comments SARS-COV2/RT-PCR (test Negative Not Detected, Negative, code = 0235369) See external report for linked test SARS-COV-2 PERFORMING LAB [facility] (test code = 6885009) Negative result for this test determines that SARS-CoV-2 RNA was not present in the specimen above the Limit of Detection (LOD). However, Negative results do not preclude SARS-CoV-2 infection and should not be used as the sole basis for treatment or patient management decisions. Negative results mustbe combined with clinical observations, patient history, and epidemiological information. A false negative result may occur if a specimen is improperly collected, transported or handled. A false negative result should be considered if patient's recent exposures or clinical presentation indicate that COVID-19 (SARS-CoV-2) is likely and diagnostic tests for other causes of illness are negative. Re-testing should be considered in cases of suspected false negatives.The limit of detection for this assay is 100 copies/mL.This SARS CoV-2 test is a real-time RT-PCR test intended for the qualitative detection of nucleic acid from SARS-CoV-2 in a nasopharyngeal swab specimen collected from individuals susp ected of COVID-19 by their healthcare provider.This test has not been Food and Drug Administration (FDA) cleared or approved. This is a modified version of an approved Emergency Use Authorization (EUA) and is in the process of review by the FDA. Once authorized by the FDA, the issued EUA will be effective until the declaration that circumstances exist justifying the authorization of the emergency use of in vitro diagnostic tests for detection and/or diagnosis of COVID-19 is terminated under Section 564(b)(2) of the Act or the EUA is revoked under Section 564(g) of the Act.Testing was performed using the [employer] SARS-CoV-2 assay.Fact Sheet for Healthcare Providers:https://www.[employer].mancia/do/ GK_ZLAS-GzK-6_YYW_Nfqq_Uhipe_95-923080.pdfFact Sheet for Healthcare Patients:https://www.[employer] jayda/do/PK_EPPE-ZyO-1_Cianfpr_Ryfh_Qphrs_IG_54-256895G9.pdfPerforming Laboratory:[address] [place] [address] BASIC METABOLIC [id number] 05:58:00 Test Item Value Reference Range Interpretation Comments SODIUM (BEAKER) (test 137 meq/L 136-145 code = 381) POTASSIUM (BEAKER) 4.4 meq/L 3.5-5.1 (test code = 379) CHLORIDE (BEAKER) 100 meq/L 98-107 (test code = 382) CO2 (BEAKER) (test 30 meq/L 22-29 H code = 355) BLOOD UREA NITROGEN 35 mg/dL 7-21 H (BEAKER) (test code = 354) CREATININE (BEAKER) 1.19 mg/dL 0.57-1.25 (test code = 358) GLUCOSE RANDOM 179 mg/dL 70-105 H (MAGALIEAKER) (test code = 652) CALCIUM (MAGALIEAKER) 9.1 mg/dL 8.4-10.2 (test code = 697) EGFR (MAGALIEAKER) (test INSUFFIC IENT CLINICAL code = 1092) DATA TO CALCULA TE ESTIMATED GFR. Electric Melt Operator ROCKY GAMBOAipid [id number] 05:56:00 Test Item Value Reference Range Interpretation Comments Triglycerides (test 165 mg/dL code = 2571-8) Cholesterol (test code 154 mg/dL = 2093-3) HDL (test code = 38 mg/dL 2084-9) LDL Calculated (test 83 mg/dL code = 75293-3) ELVIN (test code = ELVIN) Triglyceride Reference Range: Low Risk <150 Borderline 150-199 High Risk 200-499 Very High Risk >=500 Cholesterol Reference Range: Low Risk <200 Borderline 200-239 High Risk >240 HDL Cholesterol Reference Range: Low Risk >=60 High Risk <40 LDL Cholesterol Reference Range: Optimal <100 Near Optimal 100-129 Borderline 130-159 High 160-189 Very High >=190 Electric Melt Operator ID Eve Jennings [facility] [id number] 05:56:00 Test Item Value Reference Range Interpretation Comments Protein, Total (test 6.6 See_Comment [Autom ated code = 2885-2) message] The system which generated this result transmit bimal reference range : 6.0 - 8.3 gm/dL . The reference range was not u sed to interpret th is result as normal/abnormal . Albumin (test code = 3.6 g/dL 3.5-5 04800-3) Total Bilirubin (test 0.4 mg/dL 0.2-1.2 code = 1974-2) Bilirubin, Direct 0.2 mg/dL 0.1-0.5 (test code = 1967-7) Alkaline Phosphatase 79 U/L 40-150 (test code = 6768-6) AST (test code = 21 U/L 5-34 1920-8) ALT (test code = 12 U/L 6-55 1742-6) ELVIN (test code = ELVIN) Electric Melt Operator ROCKY Jennings Lab Interpretation Normal (test code = 10093-8) [facility] HospitalLIP[facility] [id number] 05:56:00 Test Item Value Reference Range Interpretation Comments TRIGLYCERIDES (BEAKER) (test code = 165 mg/dL 540) CHOLESTEROL (BEAKER) (test code = 154 mg/dL 631) HDL CHOLESTEROL (BEAKER) (test code 38 mg/dL = 976) LDL CHOLESTEROL CALCULATED (BEAKER) 83 mg/dL (test code = 633) Triglyceride Reference Range: Low Risk <150 Borderline 150-199 High Risk 200-499 Very High Risk >=500Cholesterol Reference Range: Low Risk <200 Borderline 200-239 High Risk >240HDL Cholesterol Reference Range: Low Risk >=60 High Risk <40LDL Cholesterol Reference Range: Optimal <100 Near Optimal 100-129 Borderline 130-159 High 160-189 Very High >=190 Electric Melt Operator ID - PIAYALHEPATIC FUNCTION [id number] 05:56:00 Test Item Value Reference Range Interpretation Comments TOTAL PROTEIN (BEAKER) (test code = 6.6 gm/dL 6.0-8.3 770) ALBUMIN (BEAKER) (test code = 1145) 3.6 g/dL 3.5-5.0 BILIRUBIN TOTAL (BEAKER) (test code 0.4 mg/dL 0.2-1.2 = 377) BILIRUBIN DIRECT (BEAKER) (test 0.2 mg/dL 0.1-0.5 code = 706) ALKALINE PHOSPHATASE (BEAKER) (test 79 U/L 40-150 code = 346) AST (SGOT) (BEAKER) (test code = 21 U/L 5-34 353) ALT (SGPT) (BEAKER) (test code = 12 U/L 6-55 347) Electric Melt Operator ID - PIAYA Felisha [id number] 05:19:00 Test Item Value Reference Range Interpretation Comments Troponin I (test code = <0.01 0-0.03 37587-1) ELVIN (test code = ELVIN) Troponin I (TnI) levels must be interpreted in the context of the presenting symptoms and the clinical findings. Elevated TnI levels indicate myocardial damage, but are not specific for ischemic heart disease. Elevated TnI levels are seen in patients with other cardiac conditions (including myocarditis and congestive heart failure), and slight TnI elevations occur in patients with other conditions, including sepsis, renal failure, acidosis, acute neurological disease, and persistent tachyarrhythmia.Opera tor ID - PIAYA L Lab Interpretation (test Normal code = 12246-2) [facility] [id number] 05:19:00 Test Item Value Reference Range Interpretation Comments TROPONIN I (BEAKER) (test code = 397) < ng/mL 0.00-0.03 Troponin I (TnI) levels must be interpreted in the context of the presenting symptoms and the clinical findings. Elevated TnI levels indicate myocardial damage, but are not specific for ischemic heart disease. Elevated TnI levels are seen in patients with other cardiac conditions (including myocarditis and congestive heart failure), and slight TnI elevations occur in patients with other conditions, including sepsis, renal failure, acidosis, acute neurological disease, and persistent tachyarrhythmia.Electric Melt Operator ID - PIAYA LCBC (HEMOGRAM ONLY) 2020-12-15 04:55:00 Test Item Value Reference Range Interpretation Comments WHITE BLOOD CELL COUNT (BEAKER) 6.4 K/ L 3.5-10.5 (test code = 775) RED BLOOD CELL COUNT (BEAKER) 3.55 M/ L 4.63-6.08 L (test code = 761) HEMOGLOBIN (BEAKER) (test code = 11.5 GM/DL 13.7-17.5 L 410) HEMATOCRIT (BEAKER) (test code = 32.9 % 40.1-51.0 L 411) MEAN CORPUSCULAR VOLUME (BEAKER) 92.7 fL 79.0-92.2 H (test code = 753) MEAN CORPUSCULAR HEMOGLOBIN 32.4 pg 25.7-32.2 H (BEAKER) (test code = 751) MEAN CORPUSCULAR HEMOGLOBIN CONC 35.0 GM/DL 32.3-36.5 (BEAKER) (test code = 752) RED CELL DISTRIBUTION WIDTH 11.7 % 11.6-14.4 (BEAKER) (test code = 412) PLATELET COUNT (BEAKER) (test 177 K/CU MM 150-450 code = 756) MEAN PLATELET VOLUME (BEAKER) 10.2 fL 9.4-12.4 (test code = 754) NUCLEATED RED BLOOD CELLS 0 /100 WBC 0-0 (BEAKER) (test code = 413) TROPONIN [id number] 23:58:00 Test Item Value Reference Range Interpretation Comments TROPONIN I (BEAKER) (test code = 397) < ng/mL 0.00-0.03 Troponin I (TnI) levels must be interpreted in the context of the presenting symptoms and the clinical findings. Elevated TnI levels indicate myocardial damage, but are not specific for ischemic heart disease. Elevated TnI levels are seen in patients with other cardiac conditions (including myocarditis and congestive heart failure), and slight TnI elevations occur in patients with other conditions, including sepsis, renal failure, acidosis, acute neurological disease, and persistent tachyarrhythmia.Electric Melt Operator ID - KUNAL LPOCT-GLUCOSE METER 2020-12-14 20:52:00 Test Item Value Reference Range Interpretation Comments POC-GLUCOSE METER 312 mg/dL 70-110 H : TESTED A T [facility] 6720 (BEAKER) (test code = ROYAL Jarod QUINTEROS MS, 1538) [address]: Electric Melt Operator/Techni geraldo ID = [id number] for FABIO MARIN B-type Natriuretic Factor (BNP)2020-12-14 15:03:00 Test Item Value Reference Range Interpretation Comments BNP (test code = 06379-7) 128 pg/mL 0-100 H ELVIN (test code = ELVIN) Electric Melt Operator ID - CARINA M Lab Interpretation (test Abnormal code = 53943-4) [facility] HospitalB-[facility] NATRIURETIC FACTOR (BNP)2020-12-14 15:03:00 Test Item Value Reference Range Interpretation Comments B-TYPE NATRIURETIC PEPTIDE (BEAKER) 128 pg/mL 0-100 H (test code = 700) Electric Melt Operator ID - CARINA MTROPONIN [id number] 15:02:00 Test Item Value Reference Range Interpretation Comments TROPONIN I (BEAKER) (test code = 397) < ng/mL 0.00-0.03 Troponin I (TnI) levels must be interpreted in the context of the presenting symptoms and the clinical findings. Elevated TnI levels indicate myocardial damage, but are not specific for ischemic heart disease. Elevated TnI levels are seen in patients with other cardiac conditions (including myocarditis and congestive heart failure), and slight TnI elevations occur in patients with other conditions, including sepsis, renal failure, acidosis, acute neurological disease, and persistent tachyarrhythmia.Electric Melt Operator ID - CARINA MBASIC METABOLIC [id number] 14:56:00 Test Item Value Reference Range Interpretation Comments SODIUM (BEAKER) (test 136 meq/L 136-145 code = 381) POTASSIUM (BEAKER) 4.2 meq/L 3.5-5.1 (test code = 379) CHLORIDE (BEAKER) 97 meq/L 98-107 L (test code = 382) CO2 (BEAKER) (test 33 meq/L 22-29 H code = 355) BLOOD UREA NITROGEN 33 mg/dL 7-21 H (BEAKER) (test code = 354) CREATININE (BEAKER) 1.36 mg/dL 0.57-1.25 H (test code = 358) GLUCOSE RANDOM 261 mg/dL 70-105 H (BEAKER) (test code = 652) CALCIUM (BEAKER) 9.8 mg/dL 8.4-10.2 (test code = 697) EGFR (BEAKER) (test INSUFFIC IENT CLINICAL code = 1092) DATA TO CALCULA TE ESTIMATED GFR. Electric Melt Operator ID - CARINA MPT/[id number] 14:40:00 Test Item Value Reference Interpretation Comments Range Protime (test code = 13.5 See_Comment [Autom ated 5902-2) message] The system which generated this result transmitted reference range : 11.9 - 14.2 seconds. The reference range was not used to interpret this result as normal/abnormal . INR (test code = 1.06 See_Comment [Automated 6601-6) message] The system which generated this result transmitted reference range : <=5.90. The reference range was not used to interpret this result as normal/abnormal . PTT (test code = 28.6 See_Comment [Automated 88289-7) message] The system which generated this result transmitted reference range : 22.5 - 36.0 seconds. The reference range was not used to interpret this result as normal/abnormal . ELVIN (test code = Effective 04/21/2019: ELVIN) PT Reference Range ChangeNew: 11.9-14.2 Previous: 11.7-14.7 RECOMMENDED COUMADIN/WARFARIN INR THERAPY RANGESSTANDARD DOSE: 2.0-3.0 Includes: PROPHYLAXIS for venous thrombosis, systemic embolization; TREATMENT for venous thrombosis and/or pulmonary embolus.HIGH RISK: Target INR is 2.5-3.5 for patients wiht mechanical heart valves. Lab Interpretation Normal (test code = 50349-6) [facility] HospitalPT/[id number] 14:40:00 Test Item Value Reference Range Interpretation Comments PROTIME (BEAKER) (test code = 13.5 seconds 11.9-14.2 759) INR (BEAKER) (test code = 370) 1.06 <=5.90 PARTIAL THROMBOPLASTIN TIME 28.6 seconds 22.5-36.0 (BEAKER) (test code = 760) Effective 04/21/2019: PT Reference Range ChangeNew: 11.9-14.2 Previous: 11.7- 14.7RECOMMENDED COUMADIN/WARFARIN INR THERAPY RANGESSTANDARD DOSE: 2.0-3.0 Includes: PROPHYLAXIS for venous thrombosis, systemic embolization; TREATMENT for venous thrombosis and/or pulmonary embolus.HIGH RISK: Target INR is2.5-3.5 for patients wiht mechanical heart valves.CBC with platelet count + automated [id number] 14:35:00 Test Item Value Reference Range Interpretation Comments WBC (test code = 6690-2) 8.3 See_Comment [A utomated message] The system [employer] generated this result transmitted ref erence range: 3.5 - 10 .5 K/L. The refe rence range was not u sed to interpret this result as normal/abnor mal. RBC (test code = 789-8) 3.74 See_Comment L [Au tomated message] The system [employer] generated this result transmitted ref erence range: 4.63 - 6 .08 M/L. The refe rence range was not u sed to interpret this result as normal/abnor mal. MCHC (test code = 786-4) 35.0 See_Comment L [A utomated message] The system [employer] generated this result transmitted ref erence range: 32.3 - 3 6.5 GM/DL. The refe rence range was not u sed to interpret this result as normal/abnor mal. Hematocrit (test code = 34.9 % 40.1-51 L 4544-3) MCV (test code = 787-2) 93.3 fL 79-92.2 H MCH (test code = 785-6) 32.6 pg 25.7-32.2 H RDW (test code = 788-0) 11.9 % 11.6-14.4 Platelets (test code = 184 See_Comment [Aut omated message] 777-3) The system [employer] generated this result transmitted ref erence range: 150 - 45 0 K/CU MM. The referen ce range was not u sed to interpret this result as normal/abnor mal. MPV (test code = 9.9 fL 9.4-12.4 86665-7) nRBC (test code = 413) 0 See_Comment [Aut omated message] The system [employer] generated this result transmitted ref erence range: 0 - 0 /1 00 WBC. The refere nce range was not u sed to interpret this result as normal/abnor mal. % Neutros (test code = 72 % 429) % Lymphs (test code = 18 % 430) % Monos (test code = 7 % 431) % Eos (test code = 432) 2 % % Baso (test code = 437) 1 % # Neutros (test code = 5.96 See_Comment H [Aut omated message] 670) The system [employer] generated this result transmitted ref erence range: 1.78 - 5 .38 K/L. The refe rence range was not u sed to interpret this result as normal/abnor mal. # Lymphs (test code = 1.52 See_Comment [Auto mated message] 414) The system [employer] generated this result transmitted ref erence range: 1.32 - 3 .57 K/L. The refe rence range was not u sed to interpret this result as normal/abnor mal. # Monos (test code = 0.59 See_Comment [Autom ated message] 415) The system [employer] generated this result transmitted ref erence range: 0.30 - 0 .82 K/L. The refe rence range was not u sed to interpret this result as normal/abnor mal. # Eos (test code = 416) 0.13 See_Comment [Au tomated message] The system [employer] generated this result transmitted ref erence range: 0.04 - 0 .54 K/L. The refe rence range was not u sed to interpret this result as normal/abnor mal. # Baso (test code = 417) 0.05 See_Comment [A utomated message] The system [employer] generated this result transmitted ref erence range: 0.01 - 0 .08 K/L. The refe rence range was not u sed to interpret this result as normal/abnor mal. Immature 0 % 0-1 Granulocytes-Relative (test code = 2801) Lab Interpretation (test Abnormal code = 17663-6) [facility] W/PLT COUNT & AUTO [id number] 14:35:00 Test Item Value Reference Range Interpretation Comments WHITE BLOOD CELL COUNT (BEAKER) 8.3 K/ L 3.5-10.5 (test code = 775) RED BLOOD CELL COUNT (BEAKER) 3.74 M/ L 4.63-6.08 L (test code = 761) HEMOGLOBIN (BEAKER) (test code = 12.2 GM/DL 13.7-17.5 L 410) HEMATOCRIT (BEAKER) (test code = 34.9 % 40.1-51.0 L 411) MEAN CORPUSCULAR VOLUME (BEAKER) 93.3 fL 79.0-92.2 H (test code = 753) MEAN CORPUSCULAR HEMOGLOBIN 32.6 pg 25.7-32.2 H (BEAKER) (test code = 751) MEAN CORPUSCULAR HEMOGLOBIN CONC 35.0 GM/DL 32.3-36.5 (BEAKER) (test code = 752) RED CELL DISTRIBUTION WIDTH 11.9 % 11.6-14.4 (BEAKER) (test code = 412) PLATELET COUNT (BEAKER) (test 184 K/CU MM 150-450 code = 756) MEAN PLATELET VOLUME (BEAKER) 9.9 fL 9.4-12.4 (test code = 754) NUCLEATED RED BLOOD CELLS 0 /100 WBC 0-0 (BEAKER) (test code = 413) NEUTROPHILS RELATIVE PERCENT 72 % (BEAKER) (test code = 429) LYMPHOCYTES RELATIVE PERCENT 18 % (BEAKER) (test code = 430) MONOCYTES RELATIVE PERCENT 7 % (BEAKER) (test code = 431) EOSINOPHILS RELATIVE PERCENT 2 % (BEAKER) (test code = 432) BASOPHILS RELATIVE PERCENT 1 % (BEAKER) (test code = 437) NEUTROPHILS ABSOLUTE COUNT 5.96 K/ L 1.78-5.38 H (BEAKER) (test code = 670) LYMPHOCYTES ABSOLUTE COUNT 1.52 K/ L 1.32-3.57 (BEAKER) (test code = 414) MONOCYTES ABSOLUTE COUNT (BEAKER) 0.59 K/ L 0.30-0.82 (test code = 415) EOSINOPHILS ABSOLUTE COUNT 0.13 K/ L 0.04-0.54 (BEAKER) (test code = 416) BASOPHILS ABSOLUTE COUNT (BEAKER) 0.05 K/ L 0.01-0.08 (test code = 417) IMMATURE GRANULOCYTES-RELATIVE 0 % 0-1 PERCENT (BEAKER) (test code = 2801) RAD, CHEST, 2 [id number] 13:56:00Reason for exam:->chest pain [facility] CENTERName: CHIN ANDREWS : 1940 Sex: MFINAL REPORT RAD, CHEST, 2 VIEWS INDICATION: chest pain COMPARISON: None FINDINGS: Portable frontal view of the chest. IMPRESSION: Support Lines: Pacer device. Lungs and pleura: Lungs are clear No pneumothorax.Heart and mediastinum: Normal contours.Additional findings:None. Signed: Alma Bonds MDReport Verified Date/Time: 12/14/2020 13:56:48 Reading Location: [facility] Reading Room XR chest 2 [id number] 13:56:00Interface, External Ris In - 12/14/2020 1:59 PM CSTFINAL REPORT RAD, CHEST, 2 VIEWS INDICATION: chest pain COMPARISON: None FINDINGS: Portable frontal view of the chest. IMPRESSION: Support Lines: Pacer device. Lungs and pleura: Lungs are clear No pneumothorax.Heart and mediastinum: Normal contours.Additional findings: None. Signed: Alma Bonds Verified Date/Time: 12/14/2020 13:56:48 Reading Location: [facility] Reading [facility] [id number] 13:14:06Xavi Meyer MD 12/14/2020 3:46 PMECG/EKG Interpretation Date/Time: 12/14/2020 1:30 PMPerformed by: Xavi Meyer MDAuthorized by: Xavi Meyer MD The ECG was interpreted by ED physician. The ECG is interpreted as paced. Rate is normal rate. Heart rate is 60 BPM.ST segments normal. T waves normal. Clinical Impression: non-specific ECGECG reviewed and does not meet STEMI criteria. Patient tolerance: patient tolerated the procedure well with no immediate complicationsCHI [facility]
--- NOTE | 2021-02-13 15:42 | ER ---
Nurse's Notes [facility] Name: Sandoval Hoffman Jr Age: 81 yrs Sex: Male : 1940 Arrival Date: 02/13/2021 Time: :23 Bed Waiting Private MD: Diagnosis: Presentation: 02/13 13:30 Chief complaint: Patient states: Abrasion to Left leg for 1 week. Site is red, swollen, ll1 and painful now. <1 cm area of redness. No drainage at this time. No fever. Coronavirus screen: Client denies travel out of the [place] in the last 14 days. At this time, the client does not indicate any symptoms associated with coronavirus-19. Ebola Screen: Patient denies travel to an Ebola-affected area in the 21 days before illness onset. Initial Sepsis Screen: Does the patient meet any 2 criteria? No. Patient's initial sepsis screen is negative. Does the patient have a suspected source of infection? Yes: Skin breakdown/wound. Risk Assessment: Do you want to hurt yourself or someone else? Patient reports no desire to harm self or others. Onset of symptoms was February 06, 2021. 13:30 Method Of Arrival: Ambulatory ll1 13:30 Acuity: FORREST 4 ll1 Historical: - Allergies: 13:33 shrimp; ll1 - PMHx: 13:33 CVA; Diabetes - NIDDM; heart disease; Hypertension; GERD; ll1 - PSHx: 13:33 CABG; Heart stents; Pacemaker; Tonsillectomy; ll1 - Immunization history:: Client reports receiving the 2nd dose of the Covid vaccine, Flu vaccine is up to date. - Social history:: Smoking status: Patient denies any tobacco usage or history of. Vital Signs: 13:30 BP 137 / 64; Pulse 60; Resp 17; Temp 97.9; Pulse Ox 100% ; Weight 60.78 kg; Height 5 ll1 ft. 6 in. (167.64 cm); Pain 8/10; 13:30 Body Mass Index 21.63 (60.78 kg, 167.64 cm) ll1 ED Course: :23 Patient arrived in ED. am2 13:32 Triage completed. ll1 13:34 Arm band placed on. ll1 Administered Medications: No medications were administered Outcome: 15:41 Patient left the ED. ll1 Signatures: Lili Deleon am2 Blake Hinds, RN RN ll1
[2021-02-13 15:54] VITALS: BP 137/64; TEMP 97.9; O2SAT 100
== END 2021-02-13 15:41 | disposition left against medical advice (07) ==
LOC: ER 13:18
DX: Z02.9 Encounter for administrative examinations, unspecified (principal)
CPT/HCPCS: 99281

== ENCOUNTER 2021-05-02 14:16 | Emergency (ER) | payer OTHER ==
--- OUTSIDE RECORDS SUMMARY | 2021-05-02 14:21 | XMS REPORT | Continuity of Care Document ---
:1940 Author Organization [facility] t Address [address] [place] [address] Dr. Alarcon. [address] [place] [address] Care Team Providers Name Role Phone Armani Sukhwinder NDIAYECitizens Memorial HealthcarePierce Primary Care Physician [phone] Tom Mackey MD Attending Clinician Mitch WARD Attending Clinician Bladimir Cummins MD Attending Clinician Leo Camacho MD Attending Clinician MITCH Attending Clinician Unavailable Mychal Camacho MD Attending Clinician Melony WARD Attending Clinician PACO Admitting Clinician Unavailable BLADIMIR CUMMINS Admitting Clinician Unavailable Payers Payer Name Policy Type Policy Effective Date Expiration Date Sour ce Number UHC MEDICAREUHC DUAL [id number] 2020 [place] COMPLETE MCR 00:00:00 [place] [id number] 2020- PresentO MEDICAIDMEDICAIDxxxxx [id number] 2020 Cirilo srinath [id number] 2020-PresentM 00:00:00 Met elisabet paredesicaid [facility] - [id number] 2020 ROSALINDA Benitez MEDICARE MGD 00:00:00 - Medical CAREUNITED MEDICARE Rey gomez [id number] 2020- Present MEDICAIDMEDICAID OF [id number] 2020 ROSALINDA Benitez [id number] 00:00:00 - M edical 1-PresentMedicaid Center Problems Condition Condition Condition Status Onset Resolution Last Treating Co mments Source Name Details Category Date Date Treatment Clinician Date Status Status Disease Active [place] post post 01-22 [facility]i aorto-mack aorto-mack 00:00: st nary nary 00 artery artery bypass bypass graft graft History of History of Disease Active H sandip CVA CVA 01-22 Methodi (cerebrova (cerebrova 00:00: st scular scular 00 accident) accident) 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 01-22 Method i mellitus mellitus 00:00: st without without 00 complicati complicati on, on, without without long-term long-term current current use of use of insulin insulin Automatic Automatic Disease Active Cirilo ston implantabl implantabl 01-22 Me thodi e e 00:00: st cardiovert cardiovert 00 er-defibri er-defibri llator in llator in situ situ Left-sided Left-sided Disease Active C HI [facility] chest pain chest pain 12-14 Jacqueline kes - 00:00: Medical 00 [place] Other Other Disease Active [place] fatigue fatigue 7-10 Methodi 00:00: st 00 Lung Lung Disease Active [place] nodule nodule 7 Methodi 00:00: st 00 Allergies, Adverse Reactions, Alerts This patient has no known allergies or adverse reactions. Family History Family Member Diagnosis Comments Start Date Stop Date Source Natural brother Heart attack [place] Natural mother Lung cancer Fernandes Ava ethodist Social History Social Habit Start Date Stop Date Quantity Comments Source History [facility] Meth odist Alcohol Std Drinks History [facility] Meth odist Alcohol Binge Sex Assigned At [facility] History SDOH 2021-01-22 2021-01-22 1 [place] Meth odist Alcohol Frequency 00:00:00 00:00:00 Alcohol intake 2020-12-19 2020-12-19 Ex-drinker ROSALINDA Miller es - 00:00:00 00:00:00 (finding) [facility] Tobacco use and 2020-12-19 2020-12-19 Never used ROSALINDA Jacome kes - exposure 00:00:00 00:00:00 [facility] Smoking Status Start Date Stop Date Source Former smoker 2021-04-12 00:00:00 2021-04-12 00:00:00 Dom Mijares Never smoker [facility] Medications Ordered Filled Start Stop Current Ordering Indication Dosage Frequency Signature Comments Components Source Medication Medication Date Date Medication? Clinician (SIG) Name Name insulin Yes 10U QD Inject 10 [place] degludec 01-22 Units Methodi (Tresiba 13:45: under the st FlexTouch 59 skin U-100) 100 nightly. unit/mL (3 mL) insulin pen metoprolol Yes 25mg Q.5D Take 25 mg [place] succinate 01-22 by mouth 2 Meth franny XL 13:45: (two) st (TOPROL-XL) 59 times a 25 mg 24 hr day. tablet rosuvastati Yes 20mg QD Take 20 mg Fern[place]es n (CRESTOR) 01-22 by mouth Meth franny 20 mg 13:45: nightly. st tablet 59 clopidogreL Yes 75mg QD Take 75 mg [place] (PLAVIX) 75 01-22 by mouth Meth franny mg tablet 13:45: daily. st 59 omeprazole Yes 40mg QD Take 40 mg [place] (PriLOSEC) 01-22 by mouth Metho di 40 MG 13:45: daily. st capsule 59 BUMETanide Yes 1mg QD Take 1 mg [place] (BUMEX) 1 01-22 by mouth Method i MG tablet 13:45: daily. st 59 traZODone Yes 100mg QD Take 100 Cirilo ston (DESYREL) 3-01 mg by Methodi 100 MG 13:45: mouth st tablet 59 nightly. ranolazine Yes 500mg Q.5D Take 500 [place] (RANEXA) 3-01 mg by Methodi 500 MG 12 13:45: mouth 2 st hr ER 59 (two) tablet times a day. isosorbide Yes 30mg QD Take 30 mg [place] mononitrate 01-22 by mouth Meth franny (IMDUR) 30 13:45: daily. st MG 24 hr 59 tablet aspirin Yes 81mg QD Take 81 mg [place] (ECOTRIN) 01-22 by mouth Method i 81 MG 13:45: daily. st enteric 59 coated tablet UNABLE TO Yes Memories [place] FIND 01-22 with Methodi 13:45: FenolTakin st 57 g 2 with every meal minocycline 2020- No 100mg Q.5D Take 1 [place] (Minocin) 01-22 0308 capsule Method i 100 MG 00:00: 23:59 ([address] capsule 00 :00 total) by mouth 2 (two) times a day for 7 days. isosorbide 2021- No 30mg QD Take [address] mononitrate 125 tablet (30 L ukes - (IMDUR) 30 00:00: 23:59 mg total) M edical MG 24 hr 00 :00 by mouth Center tablet daily. clopidogreL Yes 75mg QD Take [address] (PLAVIX) 75 1-24 by mouth Luke s - mg tablet 11:51: daily. Medica l [address] [place] [address] rosuvastati Yes 20mg QD Take [address] n (CRESTOR) 1-24 by mouth Luke s - 20 MG 11:51: daily. Medical tablet [address] [place] [address] omeprazole Yes 40mg QD Take [address] (PriLOSEC) 1-24 by mouth [facility]ukes - 40 MG 11:51: daily. Medical capsule 51 [place] insulin Yes diabetes 10U Inject [address] degludec 1-24 mellitus Units Lukes - (TRESIBA 11:51: subcutaneo Med ical U-100 51 [facility]. Ayer INSULIN SUBQ) metoprolol 2020- No 50mg Q.5D Take [address] tartrate -24 -24 by mouth 2 Luke s - (LOPRESSOR) 10:02: 00:00 (two) Medi kaylen 50 MG 15 :00 times Center tablet daily. bumetanide 2020- No 1mg QD Take [address] (BUMEX) 1 12-1724 by mouth [facility]ukes - MG tablet 10:02: 00:00 daily. Medic al 15 :00 Center traZODone 2020- No 100mg QD Take [address] (DESYREL) 12-17-24 mg by [facility]ukes - 100 MG 10:02: [...] Center daily Resume on 12/18. ranolazine 2021- No 500mg Q.5D Take [address] (RANEXA) 12-17 tablet Lukes - 500 MG 12 00:00: 23:59 (500 mg Medi kaylen hr tablet 00 :00 total) by [facility] mouth 2 (two) times daily. aspirin 81 2020- No 81mg QD Take [address] MG chewable 12-17 tablet (81 L ukes - tablet 00:00: 23:59 mg total) Medic al 00 :00 by mouth Center daily for 30 days. omeprazole Yes 40mg QD Take 40 mg [place] (PriLOSEC) 1-10 by mouth Metho di 40 MG 14:21: daily. st capsule 39 losartan Yes 50mg QD Take 50 mg Cirilo ston (COZAAR) 50 1-10 by mouth Meth franny MG tablet 14:21: daily. st 39 potassium 2019-0 Yes 20meq Q.5D Take 20 [place] chloride 1-10 mEq by Methodi (KLOR-CON) 14:21: mouth 2 st 20 mEq 39 (two) packet times a day. metoprolol 20190 Yes 50mg Q.5D Take 50 mg [place] tartrate 1-10 by mouth 2 Metho di (LOPRESSOR) 14:21: (two) st 50 mg 39 times a tablet day. furosemide Yes 20mg Q.5D Take 20 mg [place] (LASIX) 20 1-10 by mouth 2 Met hodi mg tablet 14:21: (two) st 39 times a day. clopidogrel Yes 75mg QD Take 75 mg Fern[place]es (PLAVIX) 75 1-10 by mouth Meth franny mg tablet 14:21: daily. st 39 insulin Yes Inject Fernandes degludec 1-10 under the Method i (TRESIBA 14:21: skin. st FLEXTOUCH 39 U-100 SUBQ) bimatoprost Yes 1[drp] QD 1 drop [place] (LUMIGAN) 1-10 nightly. Method i 0.01 % 14:21: st ophthalmic 39 drops Ondansetron Ondansetron Yes Randell Take [address] HCl HCl 5-31 Lomeli [facility] - 00[facility] l [facility] ent Clinics Clopidogrel Clopidogrel Yes Randell [address] Bisulfate Bisulfate Lomeli [facility] Aspirin Aspirin Yes Randell [address] Lomeli [facility] BD Pen BD Pen Yes Randell USE [facility] Needle Mini Needle Mini Lomeli DIRECTED [facility] - U/F U/F [facility] Tresiba Tresiba Yes Randell not [facility] FlexTouch FlexTouch Lomeli defined L [facility]kes - [facility] Crestor Crestor Yes Randell [address] L[facility]eli [facility] Lumigan Lumigan Yes Randell 1 drop [facility] Lomeli into both [facility]ukes - eyes [facility] Clinics Vitamin B Vitamin B Yes Randell not [facility] Complex-C Complex-C Lomeli defined L ukes - [facility] Clinics Vitamin D-3 Vitamin D-3 Yes Randell [address] Lomeli [facility] l [facility] ent [facility] Melatonin Melatonin Yes Randell [address] Lomeli at bedtime Lukes - as needed Memoria with food l [facility] Furosemide Furosemide Yes Randell [address] Lomeli [facility] Losartan Losartan Yes Randell [address] Potassium Potassium Lomeli Luke s - Memoria l [facility] Isosorbide Isosorbide Yes Randell [address] Mononitrate Mononitrate Lomeli in the [facility] Rosuvastati Rosuvastati Yes Randell TAKE [address] [facility] n Calcium n Calcium Lomeli TABLET BY Lukes - MOUTH Memoria EVERY DAY l [facility] Metoprolol Metoprolol Yes Randell [address] Succinate Succinate Lomeli Luke s - ER ER Memoria l [facility] Omeprazole Omeprazole Yes Randell TAKE [address] [facility] Lomeli CAPSULE BY Lukes - MOUTH Memoria EVERY DAY l [facility] Metoprolol Metoprolol Yes Randell [address] Succinate Succinate Lomeli [facility] Immunizations Ordered Filled Immunization Date Status Comments Sour e Immunization Name Name FluAD FluAD 2019-09-[address] [facility] 00:[facility]00 [facility] Vital Signs Vital Name Observation Time Observation Value Comments Source Systolic blood 2021-01-22 11:15:00 122 mm[Hg] Michelle barrientos [facility] pressure Diastolic blood 2021-01-22 11:15:00 60 mm[Hg] Luan bagley [facility] pressure Heart rate 2021-01-22 11:15:00 71 /min Dom Mijares Respiratory rate 2021-01-22 11:15:00 18 /min Bryan Hendersonist Oxygen saturation in 2021-01-22 11:15:00 99 /min Dom Mijares Arterial blood by Pulse oximetry Body temperature 2021-01-22 05:31:00 36 Emmanuelle Bryan Mijares Body height 2021-01-22 05:31:00 167.6 cm Dom Mijares Body weight 2021-01-22 05:31:00 61.689 kg Dom Mijares BMI 2021-01-22 05:31:00 21.95 kg/m2 Dom Mijares Systolic blood 2020-12-17 07:00:00 117 mm[Hg] [facility] Diastolic blood 2020-12-17 07:00:00 57 mm[Hg] [facility] Heart rate 2020-12-17 07:00:00 61 /min [facility] Body temperature 2020-12-17 07:00:00 36 Emmanuelle [facility] Respiratory rate 2020-12-17 07:00:00 18 /min [facility] Oxygen saturation in 2020-12-17 07:00:00 97 /min [facility] - Arterial blood by Medical Ce nter Pulse oximetry Body weight 2020-12-17 04:37:00 64.184 kg [facility] BMI 2020-12-17 04:37:00 21.52 kg/m2 [facility] Body height 2020-12-14 13:33:00 172.7 cm [facility] Procedures Procedure Date / Time Performing Clinician Source Performed POC GLUCOSE 2021-01-22 09:33:00 Prakash Mackey EP PACEMAKER INSERTION 2021-01-22 08:53:26 Prakash Mackey NEW OR REPLACEMENT EP PPI GENERATOR CHANGE 2021-01-22 08:53:26 Prakash Mackey ECG PRE/POST OP 2021-01-22 05:46:22 Prakash Mackey POC GLUCOSE 2021-01-22 05:31:00 Prakash Mackey COVID-19 QUALITATIVE PCR 2021-01-17 11:57:00 Prakash Mackey COMPREHENSIVE METABOLIC 2021-01-17 11:55:00 Prakash Mackey PANEL HC COMPLETE BLD COUNT 2021-01-17 11:55:00 Prakash Mackey W/AUTO DIFF TYPE AND SCREEN 2021-01-17 11:55:00 Prakash Mackey ESTIMATED GFR 2021-01-17 11:55:00 Prakash Mackey POCT-GLUCOSE METER 2020-12-17 07:38:00 Placido, [facility] BASIC METABOLIC PANEL (7) 2020-12-17 04:41:00 [facility] CBC (HEMOGRAM ONLY) 2020-12-17 04:41:00 [facility] POCT-GLUCOSE METER 2020-12-16 22:02:00 Placido [facility] POCT-GLUCOSE METER 2020-12-16 17:24:00 Placido [facility] L CATH & PCI 2020-12-16 10:21:[address] [facility] POCT-GLUCOSE METER 2020-12-16 07:41:00 [facility] BASIC METABOLIC PANEL (7) 2020-12-16 04:38:00 [facility] CBC (HEMOGRAM ONLY) 2020-12-16 04:38:00 [facility] VITAMIN B12 AND FOLATE 2020-12-16 04:38:00 [facility] TSH/FREE T4 IF INDICATED 2020-12-16 04:38:00 [facility] VITAMIN D, 25-HYDROXY 2020-12-16 04:38:00 Ulisses Urias [facility] POCT-GLUCOSE METER 2020-12-15 21:32:00 [facility] POCT-GLUCOSE METER 2020-12-15 17:35:00 [facility] POCT-GLUCOSE METER 2020-12-15 12:53:00 [facility] NM MYOCARDIAL PERFUSION 2020-12-15 10:04:00 Placido [facility] - PET/CT (REST & STRESS) Medical C enter ECG 12-LEAD 2020-12-15 09:55:05 Unknown, Hl7 Doctor [facility] TREADMILL 2020-12-15 09:55:01 Unknown, Hl7 Doctor [facility] - TOLERANCE(NON-NUCLEAR Medical Ce nter TREADMILL) POCT-GLUCOSE METER 2020-12-15 08:13:00 [facility] 2020-12-15 04:31[facility]OLIC PANEL (7) 2020-12-15 04:31:00 Kassy Camacho [facility] HEMOGLOBIN A1C 2020-12-15 04:31:00 [facility] [place] [facility] HE[facility]IC FUNCTION PANEL 2020-12-15 04:31:00 Placido [facility] LIPID PANEL 2020-12-15 04:31:00 Placido [facility] CBC (HEMOGRAM ONLY) 2020-12-15 04:31:00 Kassy Camacho [facility] 2D ECHO W/ DOPPLER 2020-12-14 23:13:46 Placido [facility] (CW/PW/COLOR) [facility] TROPONIN I 2020-12-14 23:10:00 Placido [facility] POCT-GLUCOSE METER 2020-12-14 20:40:00 [facility] SARS-COV2/RT-PCR ([facility] & 2020-12-14 14:22:00 [facility] CBC W/PLT COUNT & AUTO 2020-12-14 14:21:00 Mitch [facility] BASIC METABOLIC PANEL (7) 2020-12-14 14:21:00 Mitch [facility] PT/APTT 2020-12-14 14:21:[facility] 2020-12-14 14:21:00 [facility] B-TYPE NATRIURETIC FACTOR 2020-12-14 14:21:[address] [facility] XR CHEST 2 VIEWS 2020-12-14 13:40:[address] [facility] ECG 12-LEAD 2020-12-14 13:25:46 Unknown, Hl7 [facility] ED ECG INTERPRETATION 2020-12-14 13:14:[address] [facility] - 2020-12-14 00:00:00 Provider, Default [facility] - SCAN Scanning [facility] ARRYTHMIA IMPLANT REPORT 2020-12-14 00:00:00 Provider, Default [facility] - SCAN Scanning [facility] VASCULAR DIAGRAM -SCAN 2020-12-14 00:00:00 Provider, Default [facility] - Scanning [facility] Plan of Care Planned Activity Planned Date Details Comments Source Future Scheduled 2021-06-24 INFLUENZA VACCINE [place] [facility] 00:00:00 [code = INFLUENZA VACCINE] Future Scheduled 2020-11-24 Medicare IPPE (WELCOME [facility] - Test 00[facility]00:00 TO MEDICARE) [code = Medical Center Medicare IPPE (WELCOME TO MEDICARE)] Future Scheduled 1990-01-24 SHINGLES VACCINES (#1) [place] [facility] Test 00:00:00 [code = SHINGLES VACCINES (#1)] Future Scheduled 1990-01-24 SHINGLES VACCINES ([address] [facility] - Test 00:00:00 of 2) [code = SHINGLES Medic al Center VACCINES (1 of 2)] Future Scheduled 1959-01-24 DTAP/TDAP/TD VACCINES [facility] Test 00:00:00 (1 - Tdap) [code = Medical C enter DTAP/TDAP/TD VACCINES (1 - Tdap)] Future Scheduled 1952 COVID-19 VACCINE (1) Cirilomicky yo [facility] Test 00:00:00 [code = COVID-19 VACCINE (1)] Future Scheduled 1950-01-24 DIABETES: RETINAL EYE [place] [facility] Test 00:00:00 EXAM [code = DIABETES: RETINAL EYE EXAM] Future Scheduled 1950-01-24 DIABETIC FOOT EXAM [place] [facility] Test 00:00:00 [code = DIABETIC FOOT EXAM] Future Scheduled 1950-01-24 URINE MICROALBUMIN [place] [facility] Test 00:00:00 [code = URINE MICROALBUMIN] Encounters Start End Encounter Admission Attending Care Care Encounter Source Date/Time Date/Time Type Type Clinicians Facility Department ID 2021-05-01 2021-05-01 Outpatient STLMLC [facility] [id number] [facility] 2021-04-20 2021-04-20 Outpatient STLMLC STLC [id number] [facility] 2021-04-18 2021-04-18 Outpatient [facility]LMLC ST[facility] [id number] [facility] 2021-02-27 2021-02-27 Outpatient STLMLC ST[facility] [id number] [facility] 2021-02-13 2021-02-13 Outpatient STLC ST[facility] [id number] [facility] 2021-02-05 2021-02-05 Outpatient [facility]LC [facility]LC [id number] [facility] 2021-01-22 2021-01-22 Outpatient [facility] [id number] [place] 00:00:00 00:00:00 PRAKASH [address] 2021-01-17 2021-01-17 Outpatient [facility] [id number] [place] 00:00:00 00:00:00 PRAKASH [address] 2020-12-19 2020-12-19 Outpatient [facility]LC [facility]LC [id number] [facility] 2020-12-18 2020-12-18 Outpatient [facility]LMLC ST[facility] [id number] [facility] 2020-12-15 2020-12-15 Outpatient [facility]LMLC [facility] [id number] [facility] 2020-11-13 2020-11-13 Outpatient STLMLC STLMLC [id number] [facility] 2020-10-30 2020-10-30 Outpatient STLMLC STLMLC [id number] [facility] 2020-10-24 2020-10-24 Outpatient STLMLC STLMLC [id number] [facility] 2020-10-16 2020-10-16 Outpatient STLMLC STLC [id number] [facility] 2020-10-12 2020-10-12 Outpatient MHSE [id number] 06:00:00 06:00:[address] [facility] 2020-09-25 2020-09-25 Outpatient STLMLC STLC [id number] [facility] 2020-09-18 2020-09-18 Outpatient STLMLC STLC [id number] [facility] 2020-09-05 2020-09-05 Outpatient STLMLC STLMLC [id number] [facility] 2020-08-11 2020-08-11 [facility] [id number] 08:30:00 08:30:00 [place] [employer] s - Drive [facility] l Medicine Outpati ent Clinics 2020-08-03 2020-08-03 [facility] [id number] 11:18:00 11:18:00 [place] [employer] s - Drive [facility] Medicine l Medicine Outpati ent Clinics 2020-07-11 2020-07-11 [facility] [id number] 15:00:00 15:00:[address] Luke s - [address] [facility] Medicine Medicine Outpati ent Clinics 2020-05-11 2020-05-11 [facility] [id number] 10:00:00 10:00:00 [place] [employer] Luke s - Drive [facility] l Medicine Outpati ent Clinics 2020-05-11 2020-05-11 [facility] [id number] 10:00:00 10:00:00 t [place] [employer] s - Drive [facility] l Medicine Outpati ent Clinics 2020-05-03 2020-05-03 [facility] [id number] 10:38:00 10:38:00 t [place] [employer] s - Drive [facility] Medicine Outpati ent Clinics 2020-04-06 2020-04-06 [facility] [id number] 08:42:00 08:42:00 t [place] [facility] Road [facility] Medicine Outpati ent Clinics 2020-03-15 2020-03-15 [facility] [id number] 08:38:00 08:38:00 [place] [employer] [facility] - Drive [facility] Medicine Outpati ent Clinics 2019-11-15 2019-11-15 [facility] [id number] 13:51:00 13:51:00 [place] [employer] s - Drive [facility] Medicine Outpati ent Clinics 2019-11-11 2019-11-11 [facility] [id number] 08:30:00 08:30:00 [place] [employer] Luke s - Drive [facility] Medicine Medicine Outpati ent Clinics 2019-11-05 2019-11-05 [facility] [id number] 15:43:00 15:43:00 t [place] [employer] s - Drive [facility] Medicine Outpati ent Clinics 2019-10-19 2019-10-19 [facility] [id number] 11:04:00 11:04:00 t [place] [employer] s - Drive [facility] Medicine Outpati ent Clinics 2019-09-06 2019-09-06 [facility] [id number] 13:45:00 13:45:[address] Luke [facility] - [address] [facility] Medicine Medicine Outpati ent Clinics 2019-08-05 2019-08-05 [facility] [id number] 13:45:00 13:45:[address] Luke s - [address] [facility] Medicine l Medicine Outpati ent Clinics 2019-07-12 2019-07-12 Office Julia Ty [facility] [id number] 11:01:23 11:49:13 Visit AMBULATOR [id number] 2019-06-11 2019-06-11 [facility] [id number] 10:30:00 10:30:00 t [place] [employer] Luke s - Drive [facility] Medicine Outpati ent Clinics 2019-05-31 2019-05-31 [facility] [id number] 14:01:00 14:01:00 [place] [employer] Luke s - Drive [facility] Medicine Outpati ent Clinics 2019-05-21 2019-05-21 [facility] [id number] 13:23:00 13:23:00 [place] [employer] Luke s - Drive [facility] Medicine Outpati ent Clinics 2019-05-11 2019-05-11 [facility] [id number] 09:44:00 09:44:00 [place] [employer] Luke s - Drive [facility] Medicine Medicine Outpati ent Clinics 2019-03-16 2019-03-16 [facility] [id number] 10:45:00 10:45:00 [place] [employer] Luke s - Drive [facility] Medicine Medicine Outpati ent Clinics 2019-02-18 2019-02-18 [facility] [id number] 09:05:00 09:05:00 [place] [employer] Luke s - Drive [facility] Medicine Outpati ent Clinics 2019-01-08 2019-01-08 [facility] [id number] 14:40:00 14:40:00 [place] [employer] Luke s - Drive [facility] Medicine Outpati ent Clinics 2018-12-16 2018-12-16 [facility] [id number] 14:45:00 14:45:[address] Luke s - [address] [facility] l Medicine Outpati ent Clinics 2018-11-30 2018-11-30 [facility] [id number] 09:04:00 09:04:[address] [facility] Medicine l Medicine Outpati ent Clinics 2018-11-25 2018-11-25 [facility] [id number] [address] 08:37:00 08:37:[address] [facility] Medicine l Medicine Outpati ent Clinics 2018-09-08 2018-09-08 [facility] [id number] 11:38:00 11:38:[address] [facility] Medicine l Medicine Outpati ent Clinics 2018-07-28 2018-07-28 [facility] [id number] [facility] 13:59:00 13:59:[address] [facility] Medicine l Medicine Outpati ent Clinics 2018-07-20 2018-07-20 [facility] [id number] 11:52:00 11:52:[address] [facility] Medicine l Medicine Outpati ent Clinics 2018-07-08 2018-07-08 [facility] [id number] [address] 09:26:00 09:26:[address] [facility] Medicine l Medicine Outpati ent Clinics 2018-07-07 2018-07-07 [facility] [id number] 10:35:00 10:35:[address] [facility] Medicine l Medicine Outpati ent Clinics 2018-06-29 2018-06-29 [facility] [id number] 09:15:00 09:15:[address] [facility] Medicine l Medicine Outpati ent Clinics 2018-06-23 2018-06-23 [facility] [id number] 10:28:00 10:28:[address] [facility] Medicine Outpati ent Clinics 2018-05-21 2018-05-21 [facility] [id number] 08:21:00 08:21:[address] [facility] Medicine l Medicine Outpati ent Clinics 2018-05-20 2018-05-20 [facility] [id number] 08:00:00 08:00:[address] [facility] Medicine l Medicine Outpati ent Clinics 2018-05-19 2018-05-19 [facility] [id number] 10:26:00 10:26:[address] [facility] Medicine l Medicine Outpati ent Clinics 2018-05-09 2018-05-09 [facility] [id number] 10:46:00 10:46:[address] [place] [address] [facility] Medicine l Medicine Outpati ent Clinics 2018-04-24 2018-04-24 [facility] [id number] 11:50:00 11:50:[address] [place] [address] [facility] Medicine l Medicine Outpati ent Clinics 2018-04-23 2018-04-23 [facility] [id number] 13:00:00 13:00:[address] [facility] Medicine l Medicine Outpati ent Clinics 2018-04-06 2018-04-06 [facility] [id number] 10:00:00 10:00:[address] [place] [address] [facility] Medicine l Medicine Outpati ent Clinics 2018-03-30 2018-03-30 [facility] [id number] 16:08:00 16:08:[address] [facility] Medicine Medicine Outpati ent Clinics 2018-03-12 2018-03-12 [facility] [id number] 12:11:00 12:11:[address] [facility] Medicine l Medicine Outpati ent Clinics 2018-02-13 2018-02-13 [facility] [id number] 15:10:00 15:10:00 [facility] 2018-02-11 2018-02-11 Outpatient Mark Anaya [id number] 11:00:00 11:00:00 [facility] 2018-02-09 2018-02-09 Outpatient Mark Anaya [id number] 14:45:00 14:45:00 [facility] Results Test Description Test Test Results Result Source Time Comments Comments Electrophysiology Device Generator Change [place] procedure 04-11 Procedure Note [place] 22:17: Red Cap: Prakash Mackey MD Referring Physician: Carlos Camacho MD Date of Procedure: 01/22/21Procedure Start Time: 0800Procedure End Time: 0845 Patient Name: Juliana Rogers Date of : 1940 Facility: [facility] Brief Clinical History: This is a 80yo M with h/o CAD s/p ACB 1999, CHB s/p DC-ICD 2016, now with significant mechanical irritation from ICD, no prior appropriate ICD tachytherapies, presenting for downgrade to DC-PPM. Implant Indication: Third Degree AV Block (I44.2)Ischemic Cardiomyopathy (I25.5) Procedure Performed:Removal of ICD generator without replacement (73750)Dual Chamber PPM Generator Replacement (28577) Procedure was performed utilizing moderate sedation with split doses of IV Versed and fentanyl administered by a nurse trained in conscious sedation under the direct supervision of the performing physician. TOTAL INTRA SERVICE TIME: 45 minutes.Throughout the procedure, the patient was monitored by radiology nurse. The patient's vital signs were stable throughout procedure, including cardiac rhythm and oxygen saturation. Neurological checks were also performed during the procedure. Anesthesia: versed/fentanyl, local lidocaine 2% Complications: NoneSpecimens Removed: NoneGrafts or Implants: NoneEstimated blood loss: MinimalBlood Administered: NoneCondition: Stable Procedure Details: The patient was brought to the electrophysiology suite in the fasting state and was prepped and draped in the usual sterile fashion. A Time Out was held and the following information was confirmed/verified: Patient NamePatient Date of BirthMedical Record NumberProcedure TypeLateralityPertinent Medical ComorbiditiesAllergiesRecent Laboratory ValuesRecent Imaging Results Following local anesthesia, an incision was made in this area inferior to the clavicle over the prior scar. Using a combination of sharp and blunt dissection with electrocautery the incision was carried down to the level pre-existing pocket. The device was freed from its chronic leads and scar tissue was removed. The pocket was irrigated with copious amount of antibiotics. The old generator was then disconnected and the new pacemaker generator was connected to the leads DF-1 RV pacing lead. The remaining high voltage leads were capped Adequate connections of all leads to the generator were confirmed. Appropriate sensing, pacing impedance, and pacing thresholds were tested and verified through the device. TYRX used in pocket. The pocket was revised medially, and closed with 2.0 Stratafix on the lateral aspect. Adequate hemostasis and lead placement were verified once again and then the pocket was closed with two layers of continuous 2.0 Vicryl sutures and 4.0 monocryl at the surface with dermabond at skin level. The patient tolerated the procedure well. A sterile pressure dressing was applied. The patient was transferred from the lab in stable condition to the holding area. Minocycline 100mg PO x 7dDischarge today after bedrest completeFollow-up in 2 weeks for site check Prakash Mackey, [facility]UM[facility] Electrophysiology VASCULAR DIAGRAM Ordered by an unspecified [facility] St -SCAN 4-12 provider. kes - 07:22: [address] ECG Pre/Post Op 2021-01-22 20:39:33 Test Item Value Reference Range Interpretation Comme nts Ventricular rate (test code = 253) 62 Atrial rate (test code = 255) 62 ID interval (test code = 266) 134 QRSD interval (test code = 260) 168 QT interval (test code = 264) 496 QTC interval (test code = 265) 503 P axis 1 (test code = 267) 93 QRS axis 1 (test code = 268) -86 T wave axis (test code = 270) 83 EKG impression (test code = 273) Electronic ventricular pacemaker-N o previous ECGs available- [facility] MethodistCOVID-19 qualitative [id number] 18:16:40 Test Item Value Reference Range Interpretation Comments Interpretation (test Negative results do code = 9441393) not preclude 2019-nCoV infection and should not be used as the sole basis for treatment or other patient management decisions. Negative results must be combined with clinical observations, patient history, and epidemiological information. COVID-19 qualitative Not-Detected Not-Detected PCR result (test code = 61956-3) COVID-19 qualitative See link below for C ase Number: PCR (test code = PDF Lab Report [id number]) [place] MethodistARRYTHMIA IMPLANT REPORT - [id number] 13:34:39Ordered by an unspecified provider.[facility] HospitalCARDI[facility] CATH REPORT - SCAN 2020-12-25 13:34:38Ordered by an unspecified provider.[facility] HospitalTreadmill tolerance(Non-Nuclear Treadmill)2020-12-18 13:25:38Interface, External Ris In - 12/18/2020 1:25 PM CSTProtocol Name Regadenoson Time In Exercise Phase00:01:00 Max. Systolic BP 85 mmHgMax Diastolic BP [...] Response To Exercise BP Response To Exercise crestor,plavix,lovenoxmetoprolol,ranexaConfirmed by fellow Vito Mortensen ([id number]) on 12/15/2020 1:30:39 PMConfirmed by MD GARDUNO YOCHAI ([id number]) on 12/18/2020 1:25:19 [facility]Glucose [id number] 08:41:00 Test Item Value Reference Range Interpretation Comments POC-Glucose Meter (test 139 mg/dL 70-110 H : TE STED AT [facility] code = 1538) [address] [place], [address]: [employer]/Techni geraldo ID = [id number] for ANAM PIPER Lab Interpretation (test Abnormal code = 55403-8) [facility] HospitalPOCT-GLUCOSE [id number] 08:41:00 Test Item Value Reference Range Interpretation Comments POC-GLUCOSE METER 139 mg/dL 70-110 H : TESTED A T [facility] 6720 (BEAKER) (test code = [place], 1538) [address]: [employer]/Techni geraldo ID = [id number] for ANAM COHEN Basic metabolic [id number] 06:25:00 Test Item Value Reference Range Interpretation Comments Sodium (test code = 139 meq/L 664-571 8681-2) Potassium (test code 4.5 meq/L 3.5-5.1 = 2823-3) Chloride (test code = 109 meq/L 98-107 H 2075-0) CO2 (test code = 26 meq/L 22-29 2028-9) BUN (test code = 26 mg/dL 7-21 H 3094-0) Creatinine (test code 0.93 mg/dL 0.57-1.25 = 2160-0) Glucose (test code = 140 mg/dL 70-105 H 2345-7) Calcium (test code = 8.3 mg/dL 8.4-10.2 L 80078-3) EGFR (test code = [place] [address]-4) CLINICAL DATA T O CALCULATE ESTIMATED GFR. ELVIN (test code = ELVIN) [employer] ID - EDASI Lab Interpretation Abnormal (test code = 27499-5) [facility] HospitalBASIC METABOLIC [id number] 06:25:00 Test Item Value Reference Range Interpretation [...] 1092) DATA TO CALCULA TE ESTIMATED GFR. [employer] ID - [id number] (Hemogram only)2020-12-17 05:39:00 Test Item Value Reference Range Interpretation Comments WBC (test code = 6690-2) 5.7 See_Comment [A utomated message] The system Absio generated this result transmitted ref erence range: 3.5 - 10 .5 K/L. The refe rence range was not u sed to interpret this result as normal/abnor mal. RBC (test code = 789-8) 3.18 See_Comment L [Au tomated message] The system Absio generated this result transmitted ref erence range: 4.63 - 6 .08 M/L. The refe rence range was not u sed to interpret this result as normal/abnor mal. MCHC (test code = 786-4) 33.0 See_Comment L [A utomated message] The system Absio generated this result transmitted ref erence range: [...] See_Comment [Aut omated message] 777-3) The system Absio generated this result transmitted ref erence range: 150 - 45 0 K/CU MM. The referen ce range was not u sed to interpret this result as normal/abnor mal. MPV (test code = 10.3 fL 9.4-12.4 86816-4) nRBC (test code = 413) 0 See_Comment [Aut omated message] The system Absio generated this result transmitted ref erence range: 0 - 0 /1 00 WBC. The refere nce range was not u sed to interpret this result as normal/abnor mal. Lab Interpretation (test Abnormal code = 30247-4) [facility] (HEMOGRAM ONLY)2020-12-17 05:39:00 Test Item Value [...] 0-0 (BEAKER) (test code = 413) POCT-GLUCOSE [id number] 22:13:00 Test Item Value Reference Range Interpretation Comments POC-GLUCOSE METER 119 mg/dL 70-110 H : TESTED A T [facility] 6720 (BEAKER) (test code = [address], 1538) [address]: [employer]/Techni geraldo ID = [id number] for Re yes, Sairy POCT-GLUCOSE [id number] 17:36:00 Test Item Value Reference Range Interpretation Comments POC-GLUCOSE METER 251 mg/dL 70-110 H : TESTED A T [facility] 6720 (BEAKER) (test code = [address] [place], 1538) [address]: [employer]/Techni geraldo ID = [id number] for ANAM COHEN Vitamin D, [id number] 09:24:00 Test Item Value Reference Range Interpretation Comments Vitamin D 25-Hydroxy 21.5 ng/mL 6.6-49.9 (test code = 2764) ELVIN (test code = ELVIN) Effective 09/03/2017: Reference Range ChangeNew: 6.6-49.9 ng/mL Previous: 13.0-47.8 ng/mL Recommended Vitamin D Target Range: 30.0-40.0 ng/mLOperator ID - CARINA M Lab Interpretation (test Normal code = 77295-1) [facility] HospitalVITAMIN D, [id number] 09:24:00 Test Item Value Reference Range Interpretation Comments VITAMIN D 25-OH (NEFTALI) (test 21.5 ng/mL 6.6-49.9 code = 2764) Effective 09/03/2017: Reference Range ChangeNew: 6.6-49.9 ng/mL Previous: 13.0-47.8 ng/mLRecommended Vitamin D Target Range: 30.0-40.0 ng/mLOperator ID - CARINA MPOCT-GLUCOSE [id number] 07:53:00 Test Item Value Reference Range Interpretation Comments POC-GLUCOSE METER 180 mg/dL 70-110 H : TESTED A T [facility] 6720 (NEFTALI) (test code = [place], [address]38) [address]: [employer]/Techni geraldo ID = [id number] for ANAM COHEN TSH/Free T4 If [id number] 06:58:00 Test Item Value Reference Range Interpretation Comments TSH (test code = 1.669 See_Comment [Automated 74434-5) message] The system which generated this result transmit bimal reference range : 0.350 - 4.940 uIU/mL. The reference range was not used to interpret this result as normal/abnormal . ELVIN (test code = ELVIN) [employer] ID - ADMIN Lab Interpretation Normal (test code = 08888-7) [facility] HospitalVitamin B12 and [id number] 06:58:00 Test Item Value Reference Range Interpretation Comments Vitamin B12 (test 811 pg/mL 213-816 code = 2132-9) Folate (test code = 15.60 ng/mL See_Comment [Automa bimal 2284-8) message] The system which generated this result transmit bimal reference range : >=7.00. The reference range was not used to interpret this result as normal/abnormal . ELVIN (test code = ELVIN) [employer] ID - ADMIN Lab Interpretation Normal (test code = 71984-9) [facility] HospitalTS/FREE T4 IF [id number] 06:58:00 Test Item Value Reference Range Interpretation Comments THYROID STIMULATING HORMONE 1.669 uIU/mL 0.350-4.940 (BEAKER) (test code = 772) [employer] ID - ADMINVITAMIN B12 AND [id number] 06:58:00 Test Item Value Reference Range Interpretation Comments VITAMIN B12 (BEAKER) (test code = 811 pg/mL 213-816 774) FOLATE (BEAKER) (test code = 362) 15.60 ng/mL >=7.00 [employer] ID - ADMINBASIC METABOLIC [id number] 06:21:00 Test Item Value Reference Range Interpretation [...] 1092) DATA TO CALCULA TE ESTIMATED GFR. [employer] ID - ADMINCBC (HEMOGRAM ONLY)2020-12-16 05:30:00 Test [...] 0-0 (BEAKER) (test code = 413) POCT-GLUCOSE [id number] 21:44:00 Test Item Value Reference Range Interpretation Comments POC-GLUCOSE METER 295 mg/dL 70-110 H : TESTED A T [facility] 6720 (BEAKER) (test code [facility], = 1538) [address]: [employer]/Techni geraldo ID = [id number] for Drea Bragg POCT-GLUCOSE [id number] 17:47:00 Test Item Value Reference Range Interpretation Comments POC-GLUCOSE METER 276 mg/dL 70-110 H : TESTED A T [facility] 6720 (BEAKER) (test code = [facility]) [address]: [employer]oom/Techni geraldo ID = [id number] for Kristina Ayala ECG 12 [id number] 16:40:14Interface, External Ris In - 12/15/2020 4:40 PM CSTVentricular Rate 62 BPMAtrial Rate 62 BPMP-R Interval 152 msQRS Duration 168 msQ-T Interval 510 msQTC Calculation(Bazett) 517 msP Crane 93 degreesR Crane -80 degreesT Crane 84 degreesSinus rhythm with occasional Premature ventricular complexeslbbb with left axis versus electronic ventricular pacingProlonged QTAbnormal ECG Novtrial and ventricular electronic pacemaker spikes now seen.QRS axis has shifted from right superiorPVCs now seenNo significant change in the precordial leadsConfirmed by MD LAUREEN, BLANCA ([id number]) on 12/15/2020 4:40:09 [facility] HospitalPET/CT, CARDIAC PERF REST AND STRESS 2020-12-15 16:04:00Reason for exam:->GENERALIZED WEAKNESS, NOT ASSOCIATED WITH EXTREMITIESReason for exam:->DIZZINESSReason for exam:->CHEST PAIN [facility] : 1940 Sex: MAddendum BeginsREPORT STATUS:A 2. Abnormal myocardial perfusion. There is a large partially reversible perfusion defect involving the apex, apical inferior and basal anterolateral as well as basal inferolateral segments. Signed: Faustino Hicks MDReport Verified Date/Time: 12/15/2020 16:04:49 Reading Location: [address] Reading RoomAddendum EndsFINAL REPORT PROCEDURE: MYOCARDIAL PERFUSION PET/CT IMAGING (Rest/Stress)CPT CODE: 20840QNDGMBMUOR: Evaluate chest pain CARDIOVASCULAR PROFILE:CAD History: Known [...] is no prior study for comparison. Signed: Faustino Hicksort Verified Date/Time: 12/15/2020 15:38:59 Reading Location: [address] Reading Room NM Myocardial Perfusion Pet/CT (Rest & Stress)2020-12-15 15:38:00Interface, External Ris In - 12/15/2020 4:07 PM CSTAddendum BeginsREPORT STATUS:A 2. Abnormal myocardial perfusion. There is a large partially reversible perfusion defect involving the apex, apical inferior and basal anterolateral as well as basal inferolateral segments. Signed: Faustino Hicks Verified Date/Time: 12/15/2020 16:04:49 Reading Location: [address] Reading RoomAddendum EndsFINAL REPORT PROCEDURE: MYOCARDIAL PERFUSION PET/CT IMAGING (Rest/Stress)CPT CODE: 00082 INDICATION: Evaluate chest pain CARDIOVASCULAR PROFILE:CAD History: Known CADSymptoms: Chest painRisk Factors: Diabetes, hypertension, hyperlipidemia, strokeBMI: 22.1Medications: Crestor, Plavix, metoprolol STRESS PROTOCOL:Pharmacologic stress was achieved with a 10- second intravenous infusion of regadenoson 0.4 mg. The radiopharmaceutical was uvmwvmfbiadp92 seconds after the start of the regadenoson [...] is no prior study for comparison. Signed: Faustino Hicks MDReport Verified Date/Time: 12/15/2020 15:38:59 Reading Location: [address] Reading Room [facility]PO[facility] METER 2020-12-15 13:05:00 Test Item Value Reference Range Interpretation Comments POC-GLUCOSE METER 232 mg/dL 70-110 H : TESTED A T [facility] 6720 (NEFTALI) (test code = [place], [address]38) [address]: [employer]oom/Techni geraldo ID = [id number] for Kristina Ayala 2D Echo W/Doppler(CW/PW/Color)2020-12-15 10:59:43Ejection FractionSLEH ECHO HEARTLAB MKCKESSON CPACSInterface, External Ris In - 12/15/2020 11:00 AM C STTransthoracic Echocardiography Report (TTE) Demographics Patient Name JULIANA NEELY Date ofStudy 12/14/2020 Gender Male Visit Number [id number] Race Unknown RoomNumber 1161 Number Date of 1940 Referring Physician Doug Bailey Age 80 year(s) Market Asset Protection Manager Yuniel Howell It Technical Specialist Tonya Garcia, Interpreting Sky Coyle [facility] Physician Procedure Type of Study TTE procedure:2DECHO [...] TR Velocity: 2 m/s TR Gradient: 16.07 mmHgEmanate Health/Inter-community HospitalPOCT-GLUCOSE [id number] 08:26:00 Test Item Value Reference Range Interpretation Comments POC-GLUCOSE METER 155 mg/dL 70-110 H : TESTED A T [facility] 6720 (WiWide) (test code = [place], 1538) [address]: [employer]/Techni geraldo ID = [id number] for OR SELENE JHAVERI Hemoglobin [id number] 08:15:00 Test Item Value Reference Range Interpretation Comments Hemoglobin A1C (test code = 4548-4) 9.0 % 4.3-6.1 H Lab Interpretation (test code = Abnormal 18717-1) [facility] HospitalHEMOGLOBIN [id number] 08:15:00 Test Item Value Reference Range Interpretation Comments HEMOGLOBIN A1C ([facility]) (test code = 9.0 % 4.3-6.1 H 368) SARS-CoV2/RT-PCR (Asymptomatic ONLY)2020-12-15 07:09:00 Test Item Value Reference Range Interpretation Comments SARS-COV2/RT-PCR Negative Not Detected, (test code = Negative, See 16062-6) external report for linked test SARS-COV-2 [facility] PERFORMING LAB (test code = 87162-8) ELVIN (test code = Negative result for [...] the Act. Testing was performed using the WITOI SARS-CoV-2 assay. Fact Sheet for Healthcare Providers:https://www.serena guevara.chun/do/RT_SA YG-QaM-5_XTX_Fnau_Csmnv_ 51-922228.pdf Fact Sheet for Healthcare Patients:https://www.melecio castro.chun/do/RT_SAR M-VpD-5_Wyvtsup_Pxkz_Mkq et_EN_51-615164Q2.pdf Performing Laboratory:[facility] [place] [address] [facility]ARS-COV2/[facility] ([facility])2020-12-15 07:09:00 Test Item Value Reference Range Interpretation Comments SARS-COV2/RT-PCR (test Negative Not Detected, Negative, code = 8928678) See external report for linked test SARS-COV-[address] [facility] (test code = 0027768) Negative result for this test determines that [...] of the Act.Testing was performed using the WITOI SARS-CoV-2 assay.Fact Sheet for Healthcare Providers:https://www.Actix.Studio Whale/do/ GB_WSUK-EsV-1_WQN_Gvao_Ungzv_00-700255.pdfFact Sheet for Healthcare Patients:https://www.Actix.ab jayda/do/XP_UCUY-CaB-4_Awatctv_Rfto_Fiqww_GQ_81-930856I8.pdfPerforming Laboratory:[facility] [place] [address] BASIC METABOLIC [id number] 05:58:00 Test Item Value Reference Range Interpretation [...] 358) GLUCOSE RANDOM 179 mg/dL 70-105 H (BEAKER) (test code = 652) CALCIUM (BEAKER) 9.1 mg/dL 8.4-10.2 (test code = 697) EGFR (BEAKER) (test INSUFFIC IENT CLINICAL code = 1092) DATA TO CALCULA TE ESTIMATED GFR. [employer] ROCKY Fortuneid [id number] 05:56:00 Test Item Value Reference Range Interpretation Comments Triglycerides (test 165 mg/dL code = 2571-8) Cholesterol (test code 154 mg/dL = 2093-3) HDL (test code = 38 mg/dL 2084-9) LDL Calculated (test 83 mg/dL code = 04859-1) ELVIN (test code = ELVIN) Triglyceride Reference Range: Low Risk <150 Borderline 150-199 High Risk 200-499 Very High Risk >=500 Cholesterol Reference Range: Low Risk <200 Borderline 200-239 High Risk >240 HDL Cholesterol Reference Range: Low Risk >=60 High Risk <40 LDL Cholesterol Reference Range: Optimal <100 Near Optimal 100-129 Borderline 130-159 High 160-189 Very High >=190 [employer] ROCKY Jennings [facility] HospitalHepatic function [id number] 05:56:00 Test Item Value Reference Range Interpretation Comments Protein, Total (test 6.6 See_Comment [Autom ated code = 2885-2) message] The system which generated this result transmit bimal reference range : 6.0 - 8.3 gm/dL . The reference range was not u sed to interpret th is result as normal/abnormal . Albumin (test code = 3.6 g/dL 3.5-5 38062-3) Total Bilirubin (test 0.4 mg/dL 0.2-1.2 code = 1975-2) Bilirubin, Direct 0.2 mg/dL 0.1-0.5 (test code = 1968-7) Alkaline Phosphatase 79 U/L 40-150 (test code = 6768-6) AST (test code = 21 U/L 5-34 1920-8) ALT (test code = 12 U/L 6-55 1742-6) ELVIN (test code = ELVIN) [employer] ID - PIAYA L Lab Interpretation Normal (test code = 02588-7) [facility] HospitalLIPID [id number] 05:56:00 Test Item Value Reference Range Interpretation [...] Borderline 130-159 High 160-189 Very High >=190 [employer] ID - PIAYALHEPATIC FUNCTION [id number] 05:56:00 Test Item Value Reference Range Interpretation [...] (test code = 12 U/L 6-55 347) [employer] ID - PIAYA LTroponin [id number] 05:19:00 Test Item Value Reference Range Interpretation Comments Troponin I (test code = <0.01 0-0.03 83335-3) ELVIN (test code = ELVIN) Troponin I [...] L Lab Interpretation (test Normal code = 99706-2) [facility] [id number] 05:19:00 Test Item Value Reference Range Interpretation [...] failure, acidosis, acute neurological disease, and persistent tachyarrhythmia.[employer] ID - PIAYA LCBC (HEMOGRAM ONLY) 2020-12-15 [...] 0-0 (BEAKER) (test code = 413) TROPONIN [id number] 23:58:00 Test Item Value Reference Range Interpretation [...] failure, acidosis, acute neurological disease, and persistent tachyarrhythmia.[employer] ID - PIAYA LPOCT-GLUCOSE METER 2020-12-14 20:52:00 Test Item Value Reference Range Interpretation Comments POC-GLUCOSE METER 312 mg/dL 70-110 H : TESTED A T BSC 6720 (BEAKER) (test code = [place], 1538) [address]: [employer]/Techni geraldo ID = [id number] for FABIO MARIN B-type Natriuretic Factor (BNP)2020-12-14 15:03:00 Test Item Value Reference Range Interpretation Comments BNP (test code = 38365-7) 128 pg/mL 0-100 H ELVIN (test code = ELVIN) [employer] ID - CARINA M Lab Interpretation (test Abnormal code = 34309-9) [facility] (BNP)2020-12-14 15:03:00 Test Item Value Reference Range Interpretation Comments B-TYPE NATRIURETIC PEPTIDE (BEAKER) 128 pg/mL 0-100 H (test code = 700) [employer] ID - CARINA MTROPONIN [id number] 15:02:00 Test Item Value Reference Range Interpretation [...] failure, acidosis, acute neurological disease, and persistent tachyarrhythmia.[employer] ID - CARINA MBASIC METABOLIC [id number] 14:56:00 Test Item Value Reference Range Interpretation [...] 1092) DATA TO CALCULA TE ESTIMATED GFR. [employer] ID - CARINA MPT/[id number] 14:40:00 Test Item Value Reference Interpretation Comments Range Protime (test code = 13.5 See_Comment [Autom ated 4952-2) message] The system which generated this result transmitted reference range : 11.9 - 14.2 seconds. The reference range was not used to interpret this result as normal/abnormal . INR (test code = 1.06 See_Comment [Automated 2882-6) message] The system which generated this result transmitted reference range : <=5.90. The reference range was not used to interpret this result as normal/abnormal . PTT (test code = 28.6 See_Comment [Automated 45903-4) message] The system which generated this result [...] valves. Lab Interpretation Normal (test code = 05322-8) [id number] 14:40:00 Test Item Value Reference Range Interpretation [...] heart valves.CBC with platelet count + automated [id number] 14:35:00 Test Item Value Reference Range Interpretation Comments WBC (test code = 6690-2) 8.3 See_Comment [A utomated message] The system [employer] generated this result transmitted ref erence range: 3.5 - 10 .5 K/L. The refe rence range was not u sed to interpret this result as normal/abnor mal. RBC (test code = 789-8) 3.74 See_Comment L [Au tomated message] The system [employer] generated this result transmitted ref erence range: 4.63 - 6 .08 M/L. The refe rence range was not u sed to interpret this result as normal/abnor mal. MCHC (test code = 786-4) 35.0 See_Comment L [A utomated message] The system [employer] generated this result transmitted ref erence range: [...] See_Comment [Aut omated message] 777-3) The system [employer] generated this result transmitted ref erence range: 150 - 45 0 K/CU MM. The referen ce range was not u sed to interpret this result as normal/abnor mal. MPV (test code = 9.9 fL 9.4-12.4 29040-5) nRBC (test code = 413) 0 See_Comment [Aut omated message] The system [employer] generated this result transmitted ref erence range: [...] H [Aut omated message] 670) The system [employer] generated this result transmitted ref erence range: 1.78 - 5 .38 K/L. The refe rence range was not u sed to interpret this result as normal/abnor mal. # Lymphs (test code = 1.52 See_Comment [Auto mated message] 414) The system [employer] generated this result transmitted ref erence range: 1.32 - 3 .57 K/L. The refe rence range was not u sed to interpret this result as normal/abnor mal. # Monos (test code = 0.59 See_Comment [Autom ated message] 415) The system [employer] generated this result transmitted ref erence range: 0.30 - 0 .82 K/L. The refe rence range was not u sed to interpret this result as normal/abnor mal. # Eos (test code = 416) 0.13 See_Comment [Au tomated message] The system [employer] generated this result transmitted ref erence range: 0.04 - 0 .54 K/L. The refe rence range was not u sed to interpret this result as normal/abnor mal. # Baso (test code = 417) 0.05 See_Comment [A utomated message] The system [employer] generated this result transmitted ref erence range: 0.01 - 0 .08 K/L. The refe rence range was not u sed to interpret this result as normal/abnor mal. Immature 0 % 0-1 Granulocytes-Relative (test code = 2801) Lab Interpretation (test Abnormal code = 23053-1) [facility] W/PLT COUNT & AUTO [id number] 14:35:00 Test Item Value Reference Range Interpretation [...] (test code = 2801) RAD, CHEST, 2 [id number] 13:56:00Reason for exam:->chest pain [facility] : 1940 Sex: MFINAL REPORT RAD, CHEST, 2 VIEWS INDICATION: chest pain COMPARISON: None FINDINGS: Portable frontal view of the chest. IMPRESSION: Support Lines: Pacer device. Lungs and pleura: Lungs are clear No pneumothorax.Heart and mediastinum: Normal contours.Additional findings:None. Signed: Herminia Bonds Verified Date/Time: 12/14/2020 13:56:48 Reading Location: [facility] Radiology Reading Room XR chest 2 [id number] 13:56:00Interface, External Ris In - 12/14/2020 1:59 PM CSTFINAL REPORT RAD, CHEST, 2 VIEWS INDICATION: chest pain COMPARISON: None FINDINGS: Portable frontal view of the chest. IMPRESSION: Support Lines: Pacer device. Lungs and pleura: Lungs are clear No pneumothorax.Heart and mediastinum: Normal contours.Additional findings: None. Signed: Herminia Bonds Verified Date/Time: 12/14/2020 13:56:48 Reading Location: [facility] Radiology Reading [facility] [id number] 13:14:06Xavi Meyer MD 12/14/2020 3:46 PMECG/EKG Interpretation [...] the procedure well with no immediate complications[facility]
[2021-05-02] MEDS ORDERED: NA CHLORIDE 0.9% 1,000 ML ONE (15:19)
[2021-05-02 15:25] LABS: Absolute Lymphocytes (CBC) 1.6 K/uL (0.7-4.9); Basophils % 0.6 % (0-1.3); Hematocrit 35.3 % (39.6-49.0); Lymphocytes % 23.7 % (15.3-44.8); MPV 8.6 fL (7.6-11.3); RBC Red Blood Cell Count 3.69 M/uL (4.33-5.43)
[2021-05-02 15:33] LABS: Albumin 3.7 g/dL (3.4-5.0); Bilirubin Direct 0.1 mg/dL (0-0.2); Bilirubin Total 0.5 mg/dL (0.2-1.0); Potassium 3.8 mmol/L (3.5-5.1); Protein, Total 7.5 g/dL (6.4-8.2)
[2021-05-02 15:53] LABS: Urine Blood Negative (Negative); Urine Glucose Negative (Negative); Urine Protein Negative (Negative); Urine pH 6.5 (5.0-7.0)
--- NOTE | 2021-05-02 15:59 | RAD REPORT ---
EXAM DESCRIPTION: CTAbdomen Pelvis W Contrast - 05/02/2021 3:52 pm CLINICAL HISTORY: Abdominal pain. RLQ abd pain/right groin pain COMPARISON: Abdomen Pelvis W Contrast dated 06/28/2016; CT ABD PELVIS W CONTRAST dated 08/18/2015 TECHNIQUE: Biphasic CT imaging of the abdomen and pelvis was performed with 100 ml non-ionic IV cont rast. All CT scans are performed using dose optimization technique as appropriate and may include automated exposure control or mA/KV adjustment according to patient size. FINDINGS: The lung bases are clear.Cholelithiasis The liver, spleen, pancreas, adrenal glands and kidneys are within normal limits. No bowel obstruction, free air, free fluid or abscess. Mild colonic diverticulosis. The appendix is n ormal. No evidence of significant lymphadenopathy. No suspicious bony findings. Small fat containing bilateral inguinal hernias. IMPRESSION: Cholelithiasis. Small fat containing bilateral inguinal hernias. Colonic diverticulosis.
--- NOTE | 2021-05-02 16:33 | ER ---
Nurse's Notes [facility] Name: Sandoval Hoffman Jr Age: 81 yrs Sex: Male : 1940 Arrival Date: 05/02/2021 Time: 14:24 Bed 18 Private MD: Diagnosis: Adjustment disorder with depressed mood;Dehydration Presentation: 05/02 14:35 Chief complaint: Patient's son or daughter states: Daughter reports he's been feeling jl7 weak for about a week now and reports RLQ abdominal pain, his doctor is out of town so I brought him here. Denies N/V/D, denies cough/congestion/fever. Coronavirus screen: Client denies travel out of the [place] in the last 14 days. At this time, the client does not indicate any symptoms associated with coronavirus-19. Ebola Screen: No symptoms or risks identified at this time. Initial Sepsis Screen: Does the patient meet any 2 criteria? No. Patient's initial sepsis screen is negative. Does the patient have a suspected source of infection? No. Patient's initial sepsis screen is negative. Risk Assessment: Do you want to hurt yourself or someone else? Patient reports no desire to harm self or others. Onset of symptoms was April 25, 2021. Care prior to arrival: None. 14:35 Method Of Arrival: Wheelchair [facility] 14:35 Acuity: FORREST 3 jl7 Historical: - Allergies: 14:38 NKDA; jl7 14:38 shrimp; jl7 - Home Meds: 14:40 Tresiba FlexTouch U-100 20 units subcutaneous inpn [Active]; metoprolol tartrate 50 mg jl7 Oral tab 1 tab once daily [Active]; Crestor 20 mg Oral tab 1 tab once daily [Active]; Omeprazole Oral [Active]; bumetanide 1 mg Oral tab [Active]; aspirin 81 mg oral TbEC [Active]; Ranexa 500 mg oral Tb12 1 tab 2 times per day [Active]; Imdur 30 mg Oral Tb24 1 tab once daily [Active]; Januvia oral oral [Active]; - PMHx: 14:38 CVA; Diabetes - NIDDM; GERD; heart disease; Hypertension; jl7 - PSHx: 14:38 CABG; Heart stents; Pacemaker; Tonsillectomy; jl7 - Immunization history:: Adult Immunizations up to date, Client reports receiving the 2nd dose of the Covid vaccine. - Social history:: Smoking status: Patient denies any tobacco usage or history of. - Family history:: not pertinent. - Hospitalizations: : No recent hospitalization is reported. Screenin:06 Abuse screen: Denies threats or abuse. Nutritional screening: No deficits noted. jd3 Tuberculosis screening: No symptoms or risk factors identified. Fall Risk Ambulatory Aid- None/Bed Rest/Nurse Assist (0 pts). Gait- Normal/Bed Rest/Wheelchair (0 pts) Mental Status- Oriented to own ability (0 pts). Total [place] Fall Scale indicates No Risk (0-24 pts). Assessment: 15:04 General: Appears in no apparent distress. comfortable, Behavior is calm, cooperative, jd3 appropriate for age, Reports fatigue for >3 days. Pain: Complains of pain in right lower quadrant Quality of pain is described as aching, tender. Neuro: Level of Consciousness is awake, alert, obeys commands, Oriented to person, place, time, situation. Cardiovascular: Capillary refill < 3 seconds Patient's skin is warm and dry. Respiratory: Airway is patent Respiratory effort is even, unlabored, Respiratory pattern is regular, symmetrical, Denies cough, shortness of breath. GI: Reports lower abdominal pain, constipation, loss of appetite. : No signs and/or symptoms were reported regarding the genitourinary system. EENT: No signs and/or symptoms were reported regarding the EENT system. Derm: Skin is intact, Skin is dry, Skin is normal, Skin temperature is warm. Musculoskeletal: Circulation, motion, and sensation intact. Range of motion: intact in all extremities. 16:08 Reassessment: Patient appears in no apparent distress at this time. No changes from jd3 previously documented assessment. Patient and/or family updated on plan of care and expected duration. Pain level reassessed. Patient is alert, oriented x 3, equal unlabored respirations, skin warm/dry/pink. 16:53 Reassessment: Patient appears in no apparent distress at this time. Patient and/or jd3 family updated on plan of care and expected duration. Pain level reassessed. Patient is alert, oriented x 3, equal unlabored respirations, skin warm/dry/pink. Patient states feeling better. Vital Signs: 14:35 BP 99 / 58; Pulse 60; Resp 17 S; Temp 98.6(O); Pulse Ox 99% on R/A; Weight 63.05 kg (R);jl7 16:09 BP 118 / 53; Pulse 60; Resp 16 S; Pulse Ox 100% on R/A; jd3 ED Course: 14:24 Patient arrived in ED. ds1 14:37 Triage completed. jl7 14:38 Arm band placed on right wrist. jl7 14:45 Joseph Brewer MD is Attending Physician. rn 14:54 Moo Abarca, ENEDINA is Primary Nurse. jd3 15:05 Inserted saline lock: 20 gauge in right forearm, using aseptic technique. Blood tw2 collected. 15:06 Patient has correct armband on for positive identification. Placed in gown. Bed in low jd3 position. Call light in reach. Side rails up X 1. Adult w/ patient. Pulse ox on. NIBP on. 15:52 CT Abd/Pelvis - IV Contrast Only In Process Unspecified. EDMS 16:53 No provider procedures requiring assistance completed. IV discontinued, intact, jd3 bleeding controlled, No redness/swelling at site. Pressure dressing applied. Administered Medications: 15:06 Drug: NS 0.9% 1000 ml Route: IV; Rate: 1000 ml; Site: right antecubital; jd3 16:00 Follow up: Response: No adverse reaction; IV Status: Completed infusion; IV Intake: jd3 1000ml Intake: 16:00 IV: 1000ml; Total: 1000ml. jd3 Outcome: 16:33 Discharge ordered by . rn 16:53 Discharged to home via wheelchair, with family. jd3 16:53 Condition: stable 16:53 Discharge instructions given to patient, Instructed on discharge instructions, follow up and referral plans. Demonstrated understanding of instructions, follow-up care. 16:53 Patient left the ED. jd3 Signatures: Dispatcher [employer] EDTX Sandra Goodman ds1 Joseph Brewer MD MD rn Wise, Tara, RN RN tw2 Tara Trinidad RN RN jl7 Moo Abarca, ENEDINA RN jd3 Corrections: (The following items were deleted from the chart) 16:10 16:09 BP 118 / 63; Pulse 60bpm; Resp 16bpm; Spontaneous; Pulse Ox 100% RA; jd3 jd3 17:40 16:09 BP 118 / 43; Pulse 60bpm; Resp 16bpm; Spontaneous; Pulse Ox 100% RA; jd3 jd3
--- NOTE | 2021-05-02 16:34 | EDPHYS ---
Physician Documentation [facility] Name: Sandoval Hoffman Jr Age: 81 yrs Sex: Male : 1940 Arrival Date: 05/02/2021 Time: 14:24 Bed 18 Private MD: ED Physician Joseph Brewer HPI: 05/02 15:11 This 81 yrs old Male presents to ER via Wheelchair with complaints of rn Weakness, Abdominal Pain. 15:11 The patient presents to the emergency department with weakness of the entire body, rn generalized weakness. Onset: The symptoms/episode began/occurred 5 day(s) ago. Context: occurred at home. Associated signs and symptoms: Pertinent positives: weakness, Pertinent negatives: altered mental status, chills, fever, headache, neck stiffness, seizure, syncope, blurred vision, double vision, visual field changes, loss of vision. Severity of symptoms: At their worst the symptoms were moderate in the emergency department the symptoms are unchanged. The patient has experienced a previous episode. Daughter reports 5 days worsening weakness, unable to to get up and walk earlier, not improved with gatorade and water, not eating or drinking much, + decreased appetite and energy since 's 9 months ago. No chest pain/sob. + intermittent RLQ abd pain, no diarrhea or blood in stool. Daughter reports chronic anemia but neg endoscopy and colonoscopy. . Historical: - Allergies: 14:38 NKDA; jl7 14:38 shrimp; jl7 - Home Meds: 14:40 Tresiba FlexTouch U-100 20 units subcutaneous inpn [Active]; metoprolol tartrate 50 mg jl7 Oral tab 1 tab once daily [Active]; Crestor 20 mg Oral tab 1 tab once daily [Active]; Omeprazole Oral [Active]; bumetanide 1 mg Oral tab [Active]; aspirin 81 mg oral TbEC [Active]; Ranexa 500 mg oral Tb12 1 tab 2 times per day [Active]; Imdur 30 mg Oral Tb24 1 tab once daily [Active]; Januvia oral oral [Active]; - PMHx: 14:38 CVA; Diabetes - NIDDM; GERD; heart disease; Hypertension; jl7 - PSHx: 14:38 CABG; Heart stents; Pacemaker; Tonsillectomy; jl7 - Immunization history:: Adult Immunizations up to date, Client reports receiving the 2nd dose of the Covid vaccine. - Social history:: Smoking status: Patient denies any tobacco usage or history of. - Family history:: not pertinent. - Hospitalizations: : No recent hospitalization is reported. ROS: 15:11 Constitutional: Negative for fever, chills Eyes: Negative for injury, pain, redness, rn and discharge, ENT: Negative for injury, pain, and discharge, Neck: Negative for injury, pain, and swelling, Cardiovascular: Negative for chest pain, palpitations, and edema, Respiratory: Negative for shortness of breath, cough, wheezing, and pleuritic chest pain, Abdomen/GI: Negative for nausea, vomiting, diarrhea, and constipation, Back: Negative for injury and pain, : Negative for injury, bleeding, discharge, and swelling, MS/Extremity: Negative for injury and deformity, Skin: Negative for injury, rash, and discoloration, Neuro: Negative for headache, numbness, tingling, and seizure. Exam: 15:11 Constitutional: This is a well developed, well nourished patient who is awake, alert, rn and in no acute distress. Head/Face: Normocephalic, atraumatic. ENT: dry MM Cardiovascular: Regular rate and rhythm. No pulse deficits. Respiratory: No increased work of breathing, no retractions or nasal flaring. Abdomen/GI: Soft, non-tender Skin: Warm, dry MS/ Extremity: Pulses equal, no cyanosis. Neurovascular intact. Full, normal range of motion. Equal circumference. Neuro: Awake and alert, GCS 15, oriented to person, place, time, and situation. Cranial nerves II-XII grossly intact. Motor strength 4/5 in all extremities. Sensory grossly intact. Cerebellar exam normal. Vital Signs: 14:35 BP 99 / 58; Pulse 60; Resp 17 S; Temp 98.6(O); Pulse Ox 99% on R/A; Weight 63.05 kg (R);jl7 16:09 BP 118 / 53; Pulse 60; Resp 16 S; Pulse Ox 100% on R/A; jd3 MDM: 14:45 Patient medically screened. rn 16:32 Data reviewed: vital signs, nurses notes, lab test result(s), radiologic studies, CT rn scan, and as a result, I will discharge patient. Counseling: I had a detailed discussion with the patient and/or guardian regarding: the historical points, exam findings, and any diagnostic results supporting the discharge/admit diagnosis, lab results, radiology results, the need for outpatient follow up, to return to the emergency department if symptoms worsen or persist or if there are any questions or concerns that arise at home. Response to treatment: the patient's symptoms have mildly improved after treatment, and as a result, I will discharge patient. Special discussion: I discussed with the patient/guardian in detail that at this point there is no indication for admission to the hospital. It is understood, however, that if the symptoms persist or worsen the patient needs to return immediately for re-evaluation. Based on the history and exam findings, there is no indication for further emergent testing or inpatient evaluation. I discussed with the patient/guardian the need to see the primary care provider for further evaluation of the symptoms. ED course: No acute findings in blood or urine, most likely depression after loss of and dehydration, will dc home with pcp f/u. feels better with fluids.. 05/02 14:53 Order name: Basic Metabolic Panel; Complete Time: 15:37 05/02 14:53 Order name: CBC with Diff; Complete Time: 15:37 05/02 14:53 Order name: Hepatic Function; Complete Time: 15:37 05/02 14:53 Order name: Lipase; Complete Time: 15:37 05/02 14:53 Order name: Urine Culture 05/02 14:53 Order name: Urine Microscopic Only 05/02 14:53 Order name: IV Saline Lock; Complete Time: 15:04 05/02 14:53 Order name: Labs collected and sent; Complete Time: 15:04 05/02 14:53 Order name: CT Abd/Pelvis - IV Contrast Only; Complete Time: 16:01 05/02 14:53 Order name: Urine Dipstick-Ancillary (obtain specimen); Complete Time: 15:54 05/02 15:53 Order name: Urine Dipstick-Ancillary; Complete Time: 16:01 EDMS Administered Medications: 15:06 Drug: NS 0.9% 1000 ml Route: IV; Rate: 1000 ml; Site: right antecubital; jd3 16:00 Follow up: Response: No adverse reaction; IV Status: Completed infusion; IV Intake: jd3 1000ml Disposition: 05/02/21 16:33 Discharged to Home. Impression: Adjustment disorder with depressed mood, Dehydration. - Condition is Stable. - Discharge Instructions: Adjustment Disorder, Adult, Dehydration, Adult, Major Depressive Disorder. - Medication Reconciliation Form, Thank You Letter, Antibiotic Education, Prescription Opioid Use form. - Follow up: Private Physician; When: As needed; Reason: Recheck today's complaints, Re-evaluation by your physician. - Problem is an ongoing problem. - Symptoms have improved. Signatures: Dispatcher [employer] EDMS Joseph Brewer MD MD rn Tara Trinidad RN RN jl7 Moo Abarca RN RN jd3 Corrections: (The following items were deleted from the chart) 15:18 15:11 Constitutional: This is a well developed, well nourished patient who is awake, rn alert, and in no acute distress. Head/Face: Normocephalic, atraumatic. ENT: dry MM Cardiovascular: Regular rate and rhythm. No pulse deficits. Respiratory: No increased work of breathing, no retractions or nasal flaring. Abdomen/GI: Soft, non-tender Skin: Warm, dry MS/ Extremity: Pulses equal, no cyanosis. Neurovascular intact. Full, normal range of motion. Equal circumference. Neuro: Awake and alert, GCS 15, oriented to person, place, time, and situation. Cranial nerves II-XII grossly intact. Motor strength 5/5 in all extremities. Sensory grossly intact. Cerebellar exam normal. Normal gait. rn 16:53 16:33 05/02/2021 16:33 Discharged to Home. Impression: Adjustment disorder with jd3 depressed mood; Dehydration. Condition is Stable. Forms are Medication Reconciliation Form, Thank You Letter, Antibiotic Education, Prescription Opioid Use. Follow up: Private Physician; When: As needed; Reason: Recheck today's complaints, Re-evaluation by your physician. Problem is an ongoing problem. Symptoms have improved. rn
[2021-05-02 16:40] LABS: Urine Bacteria <20 /HPF (NONE SEEN); Urine RBC <5 /HPF (NONE SEEN)
[2021-05-02 17:00] VITALS: TEMP 98.6
[2021-05-02 17:01] VITALS: BP 118/43; O2SAT 100
== END 2021-05-02 16:53 | disposition home or self-care (01) ==
LOC: ER 14:16
DX: E86.0 Dehydration (principal); I10 Essential (primary) hypertension; E11.9 Type 2 diabetes mellitus without complications; Z79.82 Long term (current) use of aspirin; Z79.4 Long term (current) use of insulin; Z95.1 Presence of aortocoronary bypass graft; Z95.0 Presence of cardiac pacemaker; Z91.013 Allergy to seafood; Z95.818 Presence of other cardiac implants and grafts
CPT/HCPCS: 87088; 85025; 87086; 80048; 36415; 80076; 83690; 74177; Q9967; J7030; 81003; 81015; 96360; 99284

== ENCOUNTER 2021-12-17 06:03 | Emergency (ER) | payer OTHER ==
--- OUTSIDE RECORDS SUMMARY | 2021-12-17 06:08 | XMS REPORT | Continuity of Care Document ---
:1940 Author Organization [facility] t Address [facility] [place] [address] Care Team Providers Name Role Phone DEREK LOMELI Primary Care Physician Unavailable Cassia Mackey Attending Clinician Unavailable UNKNOWN Attending Clinician Unavailable INDRA BARROS Attending Clinician Unavailable ROGELIO TELLEZ Attending Clinician Unavailable PACO Attending Clinician Unavailable TIKA Attending Clinician Unavailable YANIV NOWAK Attending Clinician Unavailable Melony WARD Attending Clinician Armani Admitting Clinician Unavailable INDRA BARROS Admitting Clinician Unavailable PACO Admitting Clinician Unavailable BLADIMIR BAIN Admitting Clinician Unavailable Payers Payer Name Policy Type Policy Number Effective Date Expiration Date S irene UNITED MEDICARE [id number] 2020 O 00:00:00 Problems Condition Condition Condition Status Onset Resolution Last Treating Co mments Source Name Details Category Date Date Treatment Clinician Date 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 12-06 [place] 00:[facility]: [facility] NO KNOWN Allergy [facility] Social History Social Habit Start Date Stop Date Quantity Comments Source History [facility] ge Alcohol Binge of Medicine Sex Assigned At [facility] llege of Medicine Alcohol intake [facility] Col lege of Medicine History [facility] ge Alcohol Std of Medicine Drinks History [facility] 2019-01-20 2019-01-20 1 [facility] Alcohol Frequency 00:00:00 00:00:00 of Medi cine Alcohol Comment 2019-01-20 2019-01-20 quit alcohol 40 [employer] 00:00:00 00:00:00 years ago, of Medicine previously heavy History of 1978-11-24 Current smoker [facility] Col lege tobacco use 00:00:00 of Medicine Smoking Status Start Date Stop Date Source Former smoker 2019-07-12 00:00:00 2019-07-12 00:00:00 [facility] ollege of Medicine Medications Ordered Filled Start Stop Current Ordering Indication Dosage Frequency Signature Comments Components Source Medication Medication Date Date Medication? Clinician (SIG) Name Name Insulin Yes Inject [facility] Degludec 07-12 into the [place] (TRESIBA 16:19: skin. of [place]) 55 Medicin e MELATONIN Yes Take by [employer] [facility] 07-12 mouth. College 16:19: of 55 Medicin e omeprazole Yes 40mg Take 40 mg [facility] (PRILOSEC) 07-12 by mouth. Rafal ege 40 MG 16:11: of capsule 33 Medicin e clopidogrel Yes 75mg Take 75 mg [facility] (PLAVIX) 75 07-12 by mouth. Col lege MG tablet 16:11: of 33 Medicin e losartan Yes 50mg Take 50 mg Climax dylan (COZAAR) 25 8-19 by mouth. Col lege MG tablet 16:11: of 33 Medicin e metoprolol Yes 50mg Take 50 mg [facility] (LOPRESSOR) 8-19 by mouth. Col lege 50 MG 16:11: of tablet 33 Medicin e donepezil Yes 5mg Take 1 Tab [facility] (ARICEPT) 5 8-19 by mouth Rafal ege MG tablet 00:00: nightly. of 00 Medicin e donepezil Yes 10mg Take 1 Tab [facility] (ARICEPT) 8-19 by mouth Colleg e 10 MG 00:00: nightly. of tablet 00 Medicin e B Complex Yes Take by [employer] [facility] (B 2 mouth. Colleg e COMPLEX 1 14:30: of OR) 04 Medicin e furosemide Yes 20mg Take 20 mg [facility] (LASIX) 20 01-20 by mouth Colle ge MG tablet 14:11: as needed. of 33 Medicin e bimatoprost Yes 1[drp] 1 Drop. [facility] (LUMIGAN) 01-20 College 0.01 % 14:11: of ophthalmic 33 Medicin solution e Rosuvastati Yes Take by [facility] n Calcium 2- mouth. College (CRESTOR 14:11: of OR) 33 Medicin e donepezil 2019- No 5mg Take 1 Tab [facility] (ARICEPT) 5 01-20- by mouth Col lege MG tablet 00:00: 00:00 nightly. of 00 :00 Medicin e donepezil 2018- No 10mg Take 1 Tab [facility] (ARICEPT) 2-20 07- by mouth Colle ge 10 MG 00:00: 00:00 nightly. of tablet 00 :00 Medicin e Ondansetron Ondansetron Yes Derek Take [address] [facility] HCl HCl 5-31 [facility] Clopidogrel Clopidogrel Yes Derek [address] [facility] Bisulfate Bisulfate [facility] Aspirin Aspirin Yes Derek [address] [facility] BD Pen BD Pen Yes Derek USE [facility] Needle Mini Needle Mini Lomeli DIRECTED [facility] - U/F U/F [facility]oria l [facility] ent Clinics Tresiba Tresiba Yes Derek not [facility] FlexTouch FlexTouch Lomeli defined L [facility] - Memoria l [facility] ent [facility] Crestor Crestor Yes Derek [address] [facility] Lumigan Lumigan Yes Derek 1 drop [facility] Lomeli into both [facility] - eyes [facility]oria l [facility] ent [facility] Vitamin B Vitamin B Yes Derek not [facility] Complex-C Complex-C Lomeli defined [facility] - [facility] ent [facility] Vitamin D-3 Vitamin D-3 Yes Derek [address] [facility] Melatonin Melatonin Yes Derek [address] [facility] Lomeli at bedtime [facility] - as needed Memoria with food l [facility] ent [facility] Furosemide Furosemide Yes Derek [address] [facility]eli [facility]ics Losartan Losartan Yes Derek [address] Potassium Potassium Lomeli [facility]ics Isosorbide Isosorbide Yes Derek [address] [facility] [facility] Mononitrate Mononitrate Lomeli in the [facility] - ER ER morning [facility] l [facility] ent Clinics Rosuvastati Rosuvastati Yes Derek TAKE [address] [facility] [facility] n Calcium n Calcium Lomeli TABLET BY [facility]ukes - MOUTH Memoria EVERY DAY l [facility] ent [facility] Metoprolol Metoprolol Yes Derek [address] [facility] Succinate Succinate Lomeli [facility] - ER ER Memoria l [facility] ent Clinics Omeprazole Omeprazole Yes Derek TAKE [address] [facility] [facility] Lomeli CAPSULE BY [facility] - MOUTH Memoria EVERY DAY l [facility] ent [facility] Metoprolol Metoprolol Yes Derek [address] [facility] [facility] Succinate Succinate Lomeli [facility] - ER ER [facility]oria l [facility] ent Clinics Immunizations Ordered Filled Immunization Date Status Comments [facility] e Immunization Name Name Ketty Hdez 2019-09-[address] [facility]00 [facility] Outpatient [facility] Vital Signs Vital Name Observation Time Observation Value Comments Source HEIGHT 2021-11-02 13:57:00 172.7 cm WEIGHT 2021-11-02 13:57:00 64.864 kg HEIGHT 2021-11-02 13:57:00 172.7 cm WEIGHT 2021-11-02 13:57:00 64.864 kg WEIGHT 2020-12-17 04:37:00 64.184 kg HEIGHT 2020-12-14 13:33:00 172.7 cm WEIGHT 2020-12-14 13:33:00 65.772 kg WEIGHT 2020-12-17 04:37:00 64.184 kg HEIGHT 2020-12-14 13:33:00 172.7 cm WEIGHT 2020-12-14 13:33:00 65.772 kg Systolic blood 2019-07-12 16:09:00 136 mm[Hg] [facility] pressure Medicine Diastolic blood 2019-07-12 16:09:00 65 mm[Hg] [facility] pressure Medicine Heart rate 2019-07-12 16:09:00 60 /min [facility] ollege of Medicine Body height 2019-07-12 16:06:00 172.7 cm [facility] ollege of [facility] Body weight 2019-07-12 16:06:00 [facility] BMI 2019-07-12 16:06:00 21.90 [facility]m2 [facility] Systolic blood 2019-07-12 16:09:00 136 mm[Hg] [facility] pressure Medicine Diastolic blood 2019-07-12 16:09:00 65 mm[Hg] [facility] pressure Medicine Heart rate 2019-07-12 16:09:00 60 /min [facility] ollege of Medicine Body height 2019-07-12 16:06:00 172.7 cm [facility] ollege of Medicine Body weight 2019-07-12 16:06:00 65.318 kg [facility] ollege of Medicine BMI 2019-07-12 16:06:00 21.90 kg/m2 [facility] Procedures This patient has no known procedures. Plan of Care Planned Activity Planned Date Details Comments Source Future Scheduled Test MEDICARE AWV [code = [facility] MEDICARE AWV] Medicine Future Scheduled Test TETANUS SHOT (ADULT) [facility] [code = TETANUS SHOT Medicin e (ADULT)] Future Scheduled Test FALL SCREEN [code = [facility] FALL SCREEN] Medicine Future Scheduled Test PNEUMOVAX >=65 [facility] (PPSV23) [code = Medicine PNEUMOVAX >=65 (PPSV23)] Future Scheduled Test PREVNAR >= 65 (PCV13) [facility] [code = PREVNAR >= 65 Medici ne (PCV13)] Future Scheduled Test FLU VACCINE > 6 [facility] [code = FLU Medicine VACCINE > 6 MONTHS] Encounters Start End Encounter Admission Attending Care Care Encounter Source Date/Time Date/Time Type Type Clinicians Facility Department ID 2021-12-10 2021-12-[address] [facility] DAYS [id number] [id number] [facility] 00:30:00 00:30:00 Prakash [id number] [facility] 2021-12-10 2021-12-10 Outpatient [facility] [id number] [facility] 00:30:00 00:30:00 Prakash Harrison [facility] 2021-12-06 2021-12-06 Outpatient UNKNOWN [facility] [id number] [facility] 17[facility]44:00 17:44:00 [id number] [facility] 2021-11-05 2021-11-05 [facility] [id number] 2021-11-02 2021-11-04 Inpatient ER BLADIMIR BARROS [facility] Emergency [id number] [facility] 14:01:00 13:27:00 2021-11-02 2021-11-02 Outpatient [facility] [id number] [facility] 00:00:00 23:59:00 Wendyin e 2021-10-31 2021-10-31 ambulatory [facility] [id number] [facility] 2021-09-28 2021-09-28 ambulatory [facility] [id number] [facility] 2021-08-31 2021-08-31 Outpatient [facility] [id number] [facility] 2021-05-25 2021-05-25 Outpatient [facility] [id number] [facility] 2021-05-16 2021-05-16 Outpatient [facility] [id number] [facility] 2021-05-02 2021-05-02 Outpatient [facility] [id number] [facility] 2021-05-01 2021-05-01 Outpatient [facility] [id number] [facility] 2021-04-20 2021-04-20 Outpatient [facility] [id number] [facility] 2021-04-18 2021-04-18 Outpatient [facility] [id number] [facility] 2021-02-27 2021-02-27 Outpatient [facility] [id number] [facility] 2021-02-13 2021-02-13 Outpatient [facility]C [facility] [id number] [facility] 2021-02-05 2021-02-05 Outpatient [facility]C [facility] [id number] [facility] 2021-01-22 2021-01-22 Outpatient [facility] [id number] [place] 00:00:00 00:00:00 PRAKASH [address] 2021-01-17 2021-01-17 Outpatient [facility] [id number] [place] 00:00:00 00:00:00 PRAKASH [address] 2020-12-19 2020-12-19 Outpatient [facility]MLC [facility] [id number] [facility] 2020-12-18 2020-12-18 Outpatient [facility] [id number] [facility] 2020-12-15 2020-12-15 Outpatient [facility] [id number] [facility] 2020-12-14 2020-12-14 Emergency ER [facility] Emergency [id number] [facility] 13:10:00 13:10:00 2020-11-13 2020-11-13 Outpatient [facility] [id number] [facility] 2020-10-30 2020-10-30 Outpatient [facility] [id number] [facility] 2020-10-24 2020-10-24 Outpatient [facility] [id number] [facility] 2020-10-16 2020-10-16 Outpatient [facility] [id number] [facility] 2020-10-12 2020-10-12 Outpatient ELIU, MHSE MHSE [id number] MH 06:00:00 09:08:00 [facility] 2020-09-25 2020-09-25 Outpatient [facility] [id number] [facility] 2020-09-18 2020-09-18 Outpatient [facility] [id number] [facility] 2020-09-05 2020-09-05 Outpatient [facility]LMLC [facility] [id number] [facility] 2020-08-11 2020-08-11 [facility] [id number] 08:30:00 08:30:00 t Anton [employer] Luke [facility] - Drive [facility] Medicine Medicine Outpati ent Clinics 2020-08-03 2020-08-03 [facility] [id number] 11:18:00 11:18:00 t Anton [employer] [facility] l Medicine Outpati ent Clinics 2020-07-11 2020-07-11 [facility] [id number] 15:00:00 15:00:00 t [employer] [facility] l Medicine Outpati ent Clinics 2020-05-11 2020-05-11 [facility] [id number] 10:00:00 10:00:00 t [employer] [facility] Medicine Outpati ent Clinics 2020-05-11 2020-05-11 [facility] [id number] 10:00:00 10:00:00 t [employer] [facility] Medicine Outpati ent Clinics 2020-05-03 2020-05-03 [facility] [id number] 10:38:00 10:38:00 t [employer] [facility] Medicine Outpati ent Clinics 2020-04-06 2020-04-06 [facility] [id number] 08:42:00 08:42:00 [facility] Medicine Outpati ent Clinics 2020-03-15 2020-03-15 [facility] [id number] 08:38:00 08:38:00 t [employer] [facility] Medicine Outpati ent Clinics 2019-11-15 2019-11-15 [facility] [id number] 13:51:00 13:51:00 t [employer] [facility] Medicine Outpati ent Clinics 2019-11-11 2019-11-11 [facility] [id number] 08:30:00 08:30:[address] [employer] [address] [facility] Medicine Outpati ent Clinics 2019-11-05 2019-11-05 [facility] [id number] 15:43:00 15:43:[address] Luke [facility] - [address] [facility] Medicine Outpati ent Clinics 2019-10-19 2019-10-19 [facility] [id number] 11:04:00 11:04:[address] Luke [facility] - [address] [facility] Medicine Outpati ent Clinics 2019-09-06 2019-09-06 [facility] [id number] 13:45:00 13:45:[address] Luke [facility] - [address] [facility] Medicine Outpati ent Clinics 2019-08-05 2019-08-05 [facility] [id number] 13:45:00 13:45:[address] [facility] - [address] [facility] Medicine Outpati ent Clinics 2019-07-12 2019-07-12 Office Julia Ty [id number] [facility] 11:01:23 11:49:13 Visit AMBULATOR [id number] College Y [id number] [facility] 850 e 2019-07-12 2019-07-12 Office Julia Ty [id number] 11:01:23 11:49:13 Visit AMBULATOR [id number] Y [id number] [facility] 2019-06-11 2019-06-11 [facility] [id number] 10:30:00 10:30:[address] [facility] - [address] [facility] Medicine Outpati ent Clinics 2019-05-31 2019-05-31 [facility] [id number] 14:01:00 14:01:[address] [facility] - [address] [facility] Medicine Outpati ent Clinics 2019-05-21 2019-05-21 [facility] [id number] 13:23:00 13:23:[address] [facility] - [address] [facility] Medicine Outpati ent Clinics 2019-05-11 2019-05-11 [facility] [id number] 09:44:00 09:44:[address] Luke [facility] - [address] [facility] Medicine Medicine Outpati ent Clinics 2019-03-16 2019-03-16 [facility] [id number] 10:45:00 10:45:[address] [facility] - Drive [facility] Medicine l Medicine Outpati ent Clinics 2019-02-18 2019-02-18 [facility] [id number] [facility] 09:05:00 09:05:[address] [facility] - Drive [facility] Medicine l Medicine Outpati ent Clinics 2019-01-08 2019-01-08 [facility] [id number] 14:40:00 14:40:[address] [facility] - [address] [facility] Medicine Outpati ent Clinics 2018-12-16 2018-12-16 [facility] [id number] 14:45:00 14:45:[address] [facility] - [address] [facility] Medicine Outpati ent Clinics 2018-11-30 2018-11-30 [facility] [id number] 09:04:00 09:04:[address] [facility] - Drive [facility] Medicine l Medicine Outpati ent Clinics 2018-11-25 2018-11-25 [facility] [id number] [facility] 08:37:00 08:37:00 t Anton [employer] Luke s - Drive [facility] Medicine Medicine Outpati ent Clinics 2018-09-08 2018-09-08 [facility] [id number] 11:38:00 11:38:[address] [facility] - [facility] Medicine Medicine Outpati ent Clinics 2018-07-28 2018-07-28 [facility] [id number] 13:59:00 13:59:[address] [facility] - Drive [facility] Medicine l Medicine Outpati ent Clinics 2018-07-20 2018-07-20 [facility] [id number] 11:52:00 11:52:[address] [facility] - [address] [facility] l Medicine Outpati ent Clinics 2018-07-08 2018-07-08 [facility] [id number] 09:26:00 09:26:[address] Luke [facility] - Drive [facility] Medicine l Medicine Outpati ent Clinics 2018-07-07 2018-07-07 [facility] [id number] 10:35:00 10:35:[address] [facility] - Drive [facility] Medicine l Medicine Outpati ent Clinics 2018-06-29 2018-06-29 [facility] [id number] 09:15:00 09:15:[address] [facility] - Drive [facility] Medicine l Medicine Outpati ent Clinics 2018-06-23 2018-06-23 [facility] [id number] 10:28:00 10:28:[address] [facility] - Drive [facility] Medicine l Medicine Outpati ent Clinics 2018-05-21 2018-05-21 [facility] [id number] 08:21:00 08:21:[address] Luke [facility] - Drive [facility] Medicine l Medicine Outpati ent Clinics 2018-05-20 2018-05-20 [facility] [id number] 08:00:00 08:00:[address] Luke [facility] - Drive [facility] Medicine l Medicine Outpati ent Clinics 2018-05-19 2018-05-19 [facility] [id number] 10:26:00 10:26:[address] [facility] - [facility] Medicine l Medicine Outpati ent Clinics 2018-05-09 2018-05-09 [facility] [id number] 10:46:00 10:46:[address] Luke [facility] - Drive [facility] Medicine l Medicine Outpati ent Clinics 2018-04-24 2018-04-24 [facility] [id number] 11:50:00 11:50:[address] Luke [facility] - Drive [facility] Medicine l Medicine Outpati ent Clinics 2018-04-23 2018-04-23 [facility] [id number] 13:00:00 13:00:[address] [facility] - Drive [facility] Medicine l Medicine Outpati ent Clinics 2018-04-06 2018-04-06 [facility] [id number] 10:00:00 10:00:00 t Anton [employer] [facility] Outpati ent Clinics 2018-03-30 2018-03-30 [facility] [id number] 16:08:00 16:08:00 t [employer] [facility] Outpati ent Clinics 2018-03-12 2018-03-12 [facility] [id number] [facility] 12:11:00 12:11:00 t Anton [employer] s - Drive [facility] Medicine Outpati ent Clinics 2018-02-13 2018-02-13 [facility] [id number] 15:10:00 15:10:00 t [employer] [facility] Medicine Outpati ent Clinics 2018-02-11 2018-02-11 [facility] [id number] 11:00:00 11:00:00 t [employer] [facility] Outpati ent Clinics 2018-02-09 2018-02-09 [facility] [id number] 14:45:00 14:45:00 t [employer] [facility] Outpati ent Clinics Results Test Description Test Time Test Comments Results Result Comments Source GLUBED 2021-12-10 13:47:00 Test Item Value Reference Range Interpretation Comme nts GLUBED (test code = GLUBED) 104 MG/DL 70-105 N [id number] 09:13:00 Test Item Value Reference Range Interpretation Comments GLUBED (test code = GLUBED) 92 MG/DL 70-105 N Novel Coronavirus 2018 [id number] 10:25:00 Test Item Value Reference Range Interpretation Comments Novel Coronavirus Negative Negative Positive r esults are 2019 Inhouse (test indicativ e of the presence code = COVNONPUI) ofSARS-CoV -2 RNA, clinical correlation wit h patient historyand othe r diagnostic info rmation is necessary to determinepatien t infection status. Positiv e results do not rule out bacterial infection or co -infection with other viru ses. Negative result s do not preclude SARS-C oV-2 infection andsh ould not be used as the paula e basis for patient managementdecis ions. Negative result s must be combined with otherclinical observations, p atient history, and epidemiological information . Detection of SARS-CoV-2 RNA may be affe cted bysample collec tion methods, storag e conditions, and /or stageof infection. [place] l RNA mutations, vacc inations, antiviraltherap eutics, antibiotics, chemotherapeuti c orimmunosuppres sae drugs have not been e valuated for effectson d etection. Results are for the identification of SARS-CoV-2 RNA usingreal-time (RT) polymerase moira n reaction (PCR) technolog yfor the qualitative det ection of nucleic acids f rom [id number] v irus and diagnosis of SA RS-CoV-2 virusinfection. It is an Emergency Use Authorization ( EUA) testauthorized by the U.S. FDA. First test? UnknownEmployed in Healthcare? UnknownSymptomatic as defined by CDC? UnknownHospitalizeddue to COVID? UnknownIn ICU due to COVID? UnknownResident in a congregate care setting? Unknown? NoAge at collection: EnriqueRustydora Coronavirus 2019 [id number] 10:24:00 Test Item Value Reference Range Interpretation Comments Novel Coronavirus Negative Negative Positive r esults are 2019 Inhouse (test indicativ e of the presence code = COVNONPUI) ofSARS-CoV -2 RNA, clinical correlation wit h patient historyand othe r diagnostic info rmation is necessary to determinepatien t infection status. Positiv e results do not rule out bacterial infection or co -infection with other viru ses. Negative result s do not preclude SARS-C oV-2 infection andsh ould not be used as the paula e basis for patient managementdecis ions. Negative result s must be combined with otherclinical observations, p atient history, and epidemiological information . Detection of SARS-CoV-2 RNA may be affe cted bysample collec tion methods, storag e conditions, and /or stageof infection. [place] l RNA mutations, vacc inations, antiviraltherap eutics, antibiotics, chemotherapeuti c orimmunosuppres sae drugs have not been e valuated for effectson d etection. Results are for the identification of SARS-CoV-2 RNA usingreal-time (RT) polymerase moira n reaction (PCR) technolog yfor the qualitative det ection of nucleic acids f rom [id number]-3 v irus and diagnosis of SA RS-CoV-2 virusinfection. It is an Emergency Use Authorization ( EUA) testauthorized by the U.S. FDA. First test? UnknownEmployed in Healthcare? UnknownSymptomatic as defined by CDC? UnknownHospitalizeddue to COVID? UnknownIn ICU due to COVID? UnknownResident in a congregate care setting? Unknown? NoAge at collection: YCOMPREHENSIVE METABOLIC [id number] 15:29:00 Test Item Value Reference Range Interpretation Comments SODIUM (test code = 139 mmol/L 136-145 N Please n ote: New NA) Reference Range Dec 2020 POTASSIUM (test 4.4 mmol/L 3.5-5.1 N code = K) CHLORIDE (test code 107 mmol/L 98-107 N Please n ote: New = CL) Reference Range Dec 2020 CARBON DIOXIDE 24 mmol/L 20-31 N Please note: New (test code = CO2) Reference Range Dec 2020 GLUCOSE (test code 134 mg/dL 74-106 H Please no te: New = GLU) Reference Range Dec 2020 BLOOD UREA NITROGEN 19 mg/dL 9-23 N Please n ote: New (test code = BUN) Reference Range Dec 2020 GLOMERULAR >=60 max >60 Units are FILTRATION RATE estimate mL/min mL/min/1. 73m2 The (test code = GFR) estimated glomerular filtration rate is computed usingpatient ra ce, age (>18), sex, and serum creatinin e. If anyof the ne eded data elements a re missing the Laboratory tracey ot compute an estimation of t he glomerular filtration rate . CREATININE (test 1.20 mg/dL 0.70-1.30 N Please note : New code = CREAT) Reference Rang e Dec 2020 TOTAL PROTEIN (test 6.6 g/dL 5.7-8.2 N Please n ote: New code = PROT) Reference Range Dec 2020 ALBUMIN (test code 3.9 g/dL 3.2-4.8 N Please no te: New = ALB) Reference Range Dec 2020 CALCIUM (test code 9.1 mg/dL 8.7-10.4 N Please no te: New = CA) Reference Range Dec 2020 BILIRUBIN TOTAL 0.5 mg/dL 0.3-1.2 N Please note: New (test code = BILT) Reference Range Dec 2020 SGOT/AST (test code 23 U/L <34 N Please n ote: New = AST) Reference Range Dec 2020 SGPT/ALT (test code 16 U/L 10-49 N Please n ote: New = ALT) Reference Range Dec 2020 ALKALINE 86 U/L 46-116 N Please note: Ne w PHOSPHATASE (test Reference Range Feb code = ALKP) 2020 CBC W/AUTO [id number] 15:04:00 Test Item Value Reference Range Interpretation Comments WHITE BLOOD CELL (test code = 6.4 x10 3/uL 4.8-10.8 N WBC) RED BLOOD CELL (test code = 3.49 x10 6/uL 4.70-6.10 L RBC) HEMOGLOBIN (test code = HGB) 11.6 g/dL 14.0-18.0 L HEMATOCRIT (test code = HCT) 34.5 % 42.0-52.0 L MEAN CELL VOLUME (test code = 98.9 fL 80.0-94.0 H MCV) MEAN CELL HGB (test code = MCH) 33.2 pg 27-31 H MEAN CELL HGB CONCENTRATION 33.6 G/DL 33-36.5 N (test code = MCHC) RED CELL DISTRIBUTION WIDTH 13.1 % 12.9-16.9 N (test code = RDW) PLATELET COUNT (test code = 173 x10 3/uL 150-440 N PLT) MEAN PLATELET VOLUME (test code 10.3 fL 8.9-12.4 N = MPV) NEUTROPHIL % (test code = NT%) 70.5 % 42.2-75.2 N LYMPHOCYTE % (test code = LY%) 16.5 % 20.5-51.1 L MONOCYTE % (test code = MO%) 8.0 % 1.7-9.3 N EOSINOPHIL % (test code = EO%) 4.1 % 0.0-7.0 N BASOPHIL % (test code = BA%) 0.6 % 0-2.5 N NEUTROPHIL # (test code = NT#) 4.49 x10 3/uL 1.80-7.70 N LYMPHOCYTE # (test code = LY#) 1.05 x10 3/uL 1.00-4.80 N MONOCYTE # (test code = MO#) 0.51 x10 3/uL 0.00-0.80 N EOSINOPHIL # (test code = EO#) 0.26 x10 3/uL 0.00-0.45 N BASOPHIL # (test code = BA#) 0.04 x10 3/uL 0.0-0.20 N POCT-GLUCOSE [id number] 08:39:09 Test Item Value Reference Range Interpretation Comments POC-GLUCOSE METER 128 mg/dL 70-110 H : Notified RN/MD: (NEFTALI) (test code = TESTED AT [facility] [address] 15[address]) [place], [address]: Chief Console Operator/Techni geraldo ID = [id number] for Gilbert (contract)Jorge L BASIC METABOLIC [id number] 08:35:28 Test Item Value Reference Range Interpretation Comments SODIUM (BEAKER) 136 meq/L 136-145 (test code = 381) POTASSIUM (BEAKER) 4.7 meq/L 3.5-5.1 (test code = 379) CHLORIDE (BEAKER) 108 meq/L 98-107 H (test code = 382) CO2 (BEAKER) (test 22 meq/L 22-29 code = 355) BLOOD UREA NITROGEN 17 mg/dL 7-21 (BEAKER) (test code = 354) CREATININE (BEAKER) 1.01 mg/dL 0.57-1.25 (test code = 358) GLUCOSE RANDOM 137 mg/dL 70-105 H (BEAKER) (test code = 652) CALCIUM (BEAKER) 8.8 mg/dL 8.4-10.2 (test code = 697) EGFR (BEAKER) (test 71 mL/min/1.73 ESTIMA NAOMIE GFR IS code = 1092) sq m NOT ACCURATE CREATININE CLEARANCE IN PREDICTING GLOMERULAR FILTRATION RATE . ESTIMATED GFR I S NOT APPLICABLE FOR DIALYSIS PATIEN TS. Chief Console Operator ID - VELMA WCBC W/PLT COUNT & AUTO [id number] 06:01:57 Test Item Value Reference Range Interpretation Comments WHITE BLOOD CELL COUNT (BEAKER) 6.9 K/ L 3.5-10.5 (test code = 775) RED BLOOD CELL COUNT (BEAKER) 3.05 M/ L 4.63-6.08 L (test code = 761) HEMOGLOBIN (BEAKER) (test code = 10.2 GM/DL 13.7-17.5 L 410) HEMATOCRIT (BEAKER) (test code = 29.7 % 40.1-51.0 L 411) MEAN CORPUSCULAR VOLUME (BEAKER) 97.4 fL 79.0-92.2 H (test code = 753) MEAN CORPUSCULAR HEMOGLOBIN 33.4 pg 25.7-32.2 H (BEAKER) (test code = 751) MEAN CORPUSCULAR HEMOGLOBIN CONC 34.3 GM/DL 32.3-36.5 (BEAKER) (test code = 752) RED CELL DISTRIBUTION WIDTH 12.8 % 11.6-14.4 (BEAKER) (test code = 412) PLATELET COUNT (BEAKER) (test 177 K/CU MM 150-450 code = 756) MEAN PLATELET VOLUME (BEAKER) 10.0 fL 9.4-12.4 (test code = 754) NUCLEATED RED BLOOD CELLS 0 /100 WBC 0-0 (BEAKER) (test code = 413) NEUTROPHILS RELATIVE PERCENT 72 % (BEAKER) (test code = 429) LYMPHOCYTES RELATIVE PERCENT 16 % (BEAKER) (test code = 430) MONOCYTES RELATIVE PERCENT 9 % (BEAKER) (test code = 431) EOSINOPHILS RELATIVE PERCENT 3 % (BEAKER) (test code = 432) BASOPHILS RELATIVE PERCENT 0 % (BEAKER) (test code = 437) NEUTROPHILS ABSOLUTE COUNT 4.96 K/ L 1.78-5.38 (BEAKER) (test code = 670) LYMPHOCYTES ABSOLUTE COUNT 1.09 K/ L 1.32-3.57 L (BEAKER) (test code = 414) MONOCYTES ABSOLUTE COUNT (BEAKER) 0.63 K/ L 0.30-0.82 (test code = 415) EOSINOPHILS ABSOLUTE COUNT 0.17 K/ L 0.04-0.54 (BEAKER) (test code = 416) BASOPHILS ABSOLUTE COUNT (BEAKER) 0.03 K/ L 0.01-0.08 (test code = 417) IMMATURE GRANULOCYTES-RELATIVE 0 % 0-1 PERCENT (BEAKER) (test code = 2801) POCT-GLUCOSE [id number] 20:35:08 Test Item Value Reference Range Interpretation Comments POC-GLUCOSE METER 194 mg/dL 70-110 H : TESTED A T [facility] [address] (BEAKER) (test code = [facility], [employer]) [address]: Chief Console Operator/Techni geraldo ID = [id number] for CR ISWELL, TIA POCT-GLUCOSE [id number] 17:47:33 Test Item Value Reference Range Interpretation Comments POC-GLUCOSE METER 166 mg/dL 70-110 H : TESTED A T [facility] [address] (BEAKER) (test code = [facility], [employer]) [address]: Chief Console Operator/Techni geraldo ID = [id number] for WI LLIS, MICKEY POCT-GLUCOSE [id number] 13:13:06 Test Item Value Reference Range Interpretation Comments POC-GLUCOSE METER 121 mg/dL 70-110 H : TESTED A T [facility] [address] (BEAKER) (test code = [facility], [employer]) [address]: Chief Console Operator/Techni geraldo ID = [id number] for WI LLIS, MICKEY POCT-GLUCOSE [id number] 08:54:04 Test Item Value Reference Range Interpretation Comments POC-GLUCOSE METER 106 mg/dL 70-110 : TESTED A T [facility] [address] (BEAKER) (test code = [facility], [employer]) [address]: Chief Console Operator/Techni geraldo ID = [id number] for WI LLIS, MICKEY CBC W/PLT COUNT & AUTO [id number] 07:33:32 Test Item Value Reference Range Interpretation Comments WHITE BLOOD CELL COUNT 5.9 K/ L 3.5-10.5 (BEAKER) (test code = 775) RED BLOOD CELL COUNT 3.14 M/ L 4.63-6.08 L (BEAKER) (test code = 761) HEMOGLOBIN (BEAKER) 10.5 GM/DL 13.7-17.5 L (test code = 410) HEMATOCRIT (BEAKER) 29.8 % 40.1-51.0 L (test code = 411) MEAN CORPUSCULAR 94.9 fL 79.0-92.2 H Discordant results VOLUME (BEAKER) (test compar ed to code = 753) previous, clini kaylen correlation required. MEAN CORPUSCULAR 33.4 pg 25.7-32.2 H HEMOGLOBIN (BEAKER) (test code = 751) MEAN CORPUSCULAR 35.2 GM/DL 32.3-36.5 HEMOGLOBIN CONC (BEAKER) (test code = 752) RED CELL DISTRIBUTION 12.8 % 11.6-14.4 WIDTH (BEAKER) (test code = 412) PLATELET COUNT 189 K/CU MM 150-450 (BEAKER) (test code = 756) MEAN PLATELET VOLUME 10.4 fL 9.4-12.4 (BEAKER) (test code = 754) NUCLEATED RED BLOOD 0 /100 WBC 0-0 CELLS (BEAKER) (test code = 413) NEUTROPHILS RELATIVE 66 % PERCENT (BEAKER) (test code = 429) LYMPHOCYTES RELATIVE 21 % PERCENT (BEAKER) (test code = 430) MONOCYTES RELATIVE 10 % PERCENT (BEAKER) (test code = 431) EOSINOPHILS RELATIVE 4 % PERCENT (BEAKER) (test code = 432) BASOPHILS RELATIVE 0 % PERCENT (BEAKER) (test code = 437) NEUTROPHILS ABSOLUTE 3.88 K/ L 1.78-5.38 COUNT (BEAKER) (test code = 670) LYMPHOCYTES ABSOLUTE 1.23 K/ L 1.32-3.57 L COUNT (BEAKER) (test code = 414) MONOCYTES ABSOLUTE 0.56 K/ L 0.30-0.82 COUNT (BEAKER) (test code = 415) EOSINOPHILS ABSOLUTE 0.21 K/ L 0.04-0.54 COUNT (BEAKER) (test code = 416) BASOPHILS ABSOLUTE 0.02 K/ L 0.01-0.08 COUNT (BEAKER) (test code = 417) IMMATURE 0 % 0-1 GRANULOCYTES-RELATIVE PERCENT (BEAKER) (test code = 2801) BASIC METABOLIC [id number] 06:54:12 Test Item Value Reference Range Interpretation Comments SODIUM (BEAKER) 136 meq/L 136-145 (test code = 381) POTASSIUM (BEAKER) 3.9 meq/L 3.5-5.1 (test code = 379) CHLORIDE (BEAKER) 106 meq/L 98-107 (test code = 382) CO2 (BEAKER) (test 25 meq/L 22-29 code = 355) BLOOD UREA NITROGEN 19 mg/dL 7-21 (BEAKER) (test code = 354) CREATININE (BEAKER) 1.01 mg/dL 0.57-1.25 (test code = 358) GLUCOSE RANDOM 131 mg/dL 70-105 H (BEAKER) (test code = 652) CALCIUM (BEAKER) 8.9 mg/dL 8.4-10.2 (test code = 697) EGFR (BEAKER) (test 71 mL/min/1.73 ESTIMA NAOMIE GFR IS code = 1092) sq m NOT ACCURATE CREATININE CLEARANCE IN PREDICTING GLOMERULAR FILTRATION RATE . ESTIMATED GFR I S NOT APPLICABLE FOR DIALYSIS PATIEN TS. Chief Console Operator ID - CARINA MPOCT-GLUCOSE [id number] 01:25:30 Test Item Value Reference Range Interpretation Comments POC-GLUCOSE METER 159 mg/dL 70-110 H : TESTED A T [facility] [address] ([facility]) (test code = [facility], 1538) [address]: Chief Console Operator/Techni geraldo ID = [id number] for Vi lla (contract), Cam a CT, BRAIN, WITHOUT [id number] 20:21:00Unlisted Reason for Exam - Click Yes and Enter Reason Below->No [facility] : 1940 Sex: MFINAL REPORT CT, BRAIN, WITHOUT CONTRAST INDICATION: Dizziness, persistent/recurrent, cardiac or vascular cause suspected TECHNIQUE: Noncontrast axial imaging was obtainedfrom the vertex to the skull base. Axial images were reconstructed using a bone algorithm. DOSE REDUCTION: Dose modulation, iterative reconstruction, and/or weight-based adjustment of the mA/kV was utilized to reduce the radiation dose to as low as reasonably achievable. COMPARISON: None. 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 Small focus of encephalomalacia in the left inferior frontal lobe. Mild generalized cerebral volume loss. There is ex vacuo dilatation of the left greater than right lateral ventricles. No intracra nial hemorrhage or abnormal extra-axial collection. No evidence of acute territorial infarct. No mass effect. No hydrocephalus. Osseous structures: No fracture. No suspicious lesion. Paranasal sinuses and mastoid air cells: No evidence of sinusitis. Mastoids are clear. Orbital contents: Globes are intact. 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 If there is persistent clinical concern for intracranial pathology, MR examination is recommended for further characterization. Signed: Beba Campuzano Verified Date/Time: 11/02/2021 20:21:46 SARS-COV2/RT-PCR ([facility])2021-11-02 17:14:44 Test Item Value Reference Range Interpretation Comments SARS-COV2/RT-PCR Negative Negative The SARS-Co V-2 target (test code = nucleic acids a re not 7695725) detected in thi s specimen. Negative result s do not preclude SARS-C oV-2 infection and s hould not be used as the paula e basis for patient managem ent decisions. Nega tive results must be combine d with clinical observ ations, patient history , and epidemiological information. A false negativ e result may occur if a spec imen is improperly rafal ected, transported or handled. This SARS CoV-2 test is a rapid, real-dilshad e RT-PCR test intended for th e qualitative detection of nu cleic acid from SARS-CoV-2 in a nasopharyngeal swab specimen collected from individuals suspected of CO VID-19 by their healthcar e provider. This test has been authorized by FDA under an EUA for use by authorized laboratories. This test is only authorized for the duration of the declaration that circumstances exist justifying the authorization of emergency use of in vitro diagnostic tests for detection and/or diagnosis of COVID-19 under Section 564(b)(1) of the Federal Food, Drug and Cosmetic Act, 21 U.S.C. 360bbb- 3(b)(1), unless the authorization is terminated or revoked sooner. Fact Sheet for Healthcare Providers: https://www.eoSemi/Documents/Xpert%20Xpress%20SARS%20CoV-2/Fact%20Sheets/302-3802%20SARS-COV -2%20HEALTHCARE%20PROVIDERS%20FACT%20SHEET.pdf Fact Sheet for Healthcare Patients: https://www.Hostmonster/Documents/Xpert %20Xpress%20SARS%20CoV-2/Fact%20Sheets/302-3801%73WEUE-FOZ-5%20PATIENT%20FACT%20 SHEET.pdfHIGH SENSITIVITY TROPONIN [id number] 16:26:23 Test Item Value Reference Range Interpretation Comments HIGH SENSITIVITY 5 pg/ml See_Comment [Automated message] TROPONIN I (test code = The system which [id number]) generated this result transmitted ref erence range: <=35. Th e reference range was not used to interpr et this result as normal/abnormal . Chief Console Operator ID - ZOHREH GThe [employer] STAT High Sensitivity Troponin-I results should be used in conjunction with other diagnostic information such as ECG, clinical observations and information, and patient symptoms to aid in the diagnosis of [facility].BASIC METABOLIC [id number] 16:18:56 Test Item Value Reference Range Interpretation Comments SODIUM (BEAKER) 134 meq/L 136-145 L (test code = 381) POTASSIUM (BEAKER) 4.5 meq/L 3.5-5.1 (test code = 379) CHLORIDE (BEAKER) 103 meq/L 98-107 (test code = 382) CO2 (BEAKER) (test 21 meq/L 22-29 L code = 355) BLOOD UREA NITROGEN 22 mg/dL 7-21 H (BEAKER) (test code = 354) CREATININE (BEAKER) 1.20 mg/dL 0.57-1.25 (test code = 358) GLUCOSE RANDOM 134 mg/dL 70-105 H (BEAKER) (test code = 652) CALCIUM (BEAKER) 9.3 mg/dL 8.4-10.2 (test code = 697) EGFR (BEAKER) (test 58 mL/min/1.73 ESTIMA NAOMIE GFR IS code = 1092) sq m NOT ACCURATE CREATININE CLEARANCE IN PREDICTING GLOMERULAR FILTRATION RATE . ESTIMATED GFR I S NOT APPLICABLE FOR DIALYSIS PATIEN TS. Chief Console Operator ID - ZOHREH GCBC W/PLT COUNT & AUTO [id number] 15:59:35 Test Item Value Reference Range Interpretation Comments WHITE BLOOD CELL COUNT (BEAKER) 6.5 K/ L 3.5-10.5 (test code = 775) RED BLOOD CELL COUNT (BEAKER) 3.43 M/ L 4.63-6.08 L (test code = 761) HEMOGLOBIN (BEAKER) (test code = 11.3 GM/DL 13.7-17.5 L 410) HEMATOCRIT (BEAKER) (test code = 34.0 % 40.1-51.0 L 411) MEAN CORPUSCULAR VOLUME (BEAKER) 99.1 fL 79.0-92.2 H (test code = 753) MEAN CORPUSCULAR HEMOGLOBIN 32.9 pg 25.7-32.2 H (BEAKER) (test code = 751) MEAN CORPUSCULAR HEMOGLOBIN CONC 33.2 GM/DL 32.3-36.5 (BEAKER) (test code = 752) RED CELL DISTRIBUTION WIDTH 13.0 % 11.6-14.4 (BEAKER) (test code = 412) PLATELET COUNT (BEAKER) (test 187 K/CU MM 150-450 code = 756) MEAN PLATELET VOLUME (BEAKER) 9.5 fL 9.4-12.4 (test code = 754) NUCLEATED RED BLOOD CELLS 0 /100 WBC 0-0 (BEAKER) (test code = 413) NEUTROPHILS RELATIVE PERCENT 70 % (BEAKER) (test code = 429) LYMPHOCYTES RELATIVE PERCENT 19 % (BEAKER) (test code = 430) MONOCYTES RELATIVE PERCENT 8 % (BEAKER) (test code = 431) EOSINOPHILS RELATIVE PERCENT 2 % (BEAKER) (test code = 432) BASOPHILS RELATIVE PERCENT 1 % (BEAKER) (test code = 437) NEUTROPHILS ABSOLUTE COUNT 4.55 K/ L 1.78-5.38 (BEAKER) (test code = 670) LYMPHOCYTES ABSOLUTE COUNT 1.20 K/ L 1.32-3.57 L (BEAKER) (test code = 414) MONOCYTES ABSOLUTE COUNT (BEAKER) 0.50 K/ L 0.30-0.82 (test code = 415) EOSINOPHILS ABSOLUTE COUNT 0.15 K/ L 0.04-0.54 (BEAKER) (test code = 416) BASOPHILS ABSOLUTE COUNT (BEAKER) 0.04 K/ L 0.01-0.08 (test code = 417) IMMATURE GRANULOCYTES-RELATIVE 1 % 0-1 PERCENT (BEAKER) (test code = 2801) RAD, CHEST, 1 VIEW, NON [id number] 14:38:00Reason for exam:- >DIZZINESSShould this be performed at the bedside?->Yes [facility] : 1940 Sex: MFINAL REPORT INDICATION: DIZZINESS COMPARISON: December 14, 2020 TECHNIQUE: Single frontal view of the chest. FINDINGS: Lungs and pleura: Clear lungs. No effusion.Heart andmediastinum: Normal heart size. Stable surgical changes. Stable pacer apparatus.Osseous structures: No acute abnormality.Other: None. IMPRESSION: No acute intrathoracic abnormality. Signed: JR Newman Robert MDReport Verified Date/Time: 11/02/2021 14:38:09 Reading Location: [facility] Radiology Reading Room POCT-GLUCOSE [id number] 08:41:00 Test Item Value Reference Range Interpretation Comments POC-GLUCOSE METER 139 mg/dL 70-110 H : TESTED A T [facility] [address] (BEAKER) (test code = [facility] [place], 1538) [address]: Chief Console Operator/Techni geraldo ID = [id number] for ANAM COHEN BASIC METABOLIC [id number] 06:25:00 Test Item Value Reference Range Interpretation [...] 1092) DATA TO CALCULA TE ESTIMATED GFR. Chief Console Operator ID - EDASICBC (HEMOGRAM ONLY)2020-12-17 05:39:00 Test Item Value Reference [...] 0-0 (BEAKER) (test code = 413) POCT-GLUCOSE [id number] 22:13:00 Test Item Value Reference Range Interpretation Comments POC-GLUCOSE METER 119 mg/dL 70-110 H : TESTED A T [facility] 67[address] (CanopiAKER) (test code = [facility], 1538) [address]: Chief Console Operator/Techni geraldo ID = [id number] for Re yes, Sairy POCT-GLUCOSE [id number] 17:36:00 Test Item Value Reference Range Interpretation Comments POC-GLUCOSE METER 251 mg/dL 70-110 H : TESTED A T [facility] [address] (CanopiAKER) (test code = [facility], 1538) [address]: Chief Console Operator/Techni geraldo ID = [id number] for SULMA HN, ANAM VITAMIN D, [id number] 09:24:00 Test Item Value Reference Range Interpretation Comments VITAMIN D 25-OH (BEAKER) (test 21.5 ng/mL 6.6-49.9 code = 2764) Effective 09/03/2017: Reference Range ChangeNew: 6.6-49.9 ng/mL Previous: 13.0-47.8 ng/mLRecommended Vitamin D Target Range: 30.0-40.0 ng/mLOperator ID - CARINA MPOCT-GLUCOSE [id number] 07:53:00 Test Item Value Reference Range Interpretation Comments POC-GLUCOSE METER 180 mg/dL 70-110 H : TESTED A T [facility] [address] (BEAKER) (test code = [facility], 1538) [address]: Chief Console Operator/Techni geraldo ID = [id number] for SULMA HN, ANAM TSH/FREE T4 IF [id number] 06:58:00 Test Item Value Reference Range Interpretation Comments THYROID STIMULATING HORMONE 1.669 uIU/mL 0.350-4.940 (BEAKER) (test code = 772) Chief Console Operator ID - ADMINVITAMIN B12 AND [id number] 06:58:00 Test Item Value Reference Range Interpretation Comments VITAMIN B12 (BEAKER) (test code = 811 pg/mL 213-816 774) FOLATE (BEAKER) (test code = 362) 15.60 ng/mL >=7.00 Chief Console Operator ID - ADMINBASIC METABOLIC [id number] 06:21:00 Test Item Value Reference Range Interpretation [...] 1092) DATA TO CALCULA TE ESTIMATED GFR. Chief Console Operator ID - ADMINCBC (HEMOGRAM ONLY)2020-12-16 05:30:00 [...] 0-0 (BEAKER) (test code = 413) POCT-GLUCOSE [id number] 21:44:00 Test Item Value Reference Range Interpretation Comments POC-GLUCOSE METER 295 mg/dL 70-110 H : TESTED A T [facility] 6720 (BEAKER) (test code [place], = 1538) [address]: Chief Console Operator/Techni geraldo ID = [id number] for Drea Bragg POCT-GLUCOSE [id number] 17:47:00 Test Item Value Reference Range Interpretation Comments POC-GLUCOSE METER 276 mg/dL 70-110 H : TESTED A T [facility] 6720 (BEAKER) (test code = [facility], 1538) [address]: Chief Console Operator/Techni geraldo ID = [id number] for Kristina Ayala PET/CT, CARDIAC PERF REST AND [id number] 16:04:00Reason for exam:- >GENERALIZED WEAKNESS, NOT ASSOCIATED WITH EXTREMITIESReason for exam:->DIZZINESSReason for exam:->CHEST PAIN [facility] : 1940 Sex: MAddendum BeginsREPORT STATUS:A 2. Abnormal myocardial perfusion. There is a large partially reversible perfusion defect involving the apex, apical inferior and basal anterolateral as well as basal inferolateral segments. Signed: Preston Hicks MDReport Verified Date/Time: 12/15/2020 16:04:49 Reading Location: [address] [facility] Reading RoomAddendum EndsFINAL REPORT PROCEDURE: MYOCARDIAL PERFUSION PET/CT IMAGING (Rest/Stress)CPT CODE: [id number]: Evaluate chest pain CARDIOVASCULAR PROFILE:CAD History: Known [...] is no prior study for comparison. Signed: KurtPreston MDReport Verified Date/Time: 12/15/2020 15:38:59 Reading Location: [address] [facility] Reading Room POCT-GLUCOSE [id number] 13:05:00 Test Item Value Reference Range Interpretation Comments POC-GLUCOSE METER 232 mg/dL 70-110 H : TESTED A T [facility] (BEAKER) (test code = [facility], 1538) [address]: Chief Console Operator/Techni geraldo ID = [id number] for Kristina Ayala POCT-GLUCOSE [id number] 08:26:00 Test Item Value Reference Range Interpretation Comments POC-GLUCOSE METER 155 mg/dL 70-110 H : TESTED A T [facility] [address] (BEAKER) (test code = [facility], 1538) [address]: Chief Console Operator/Techni geraldo ID = [id number] for SELENE ARRINGTON HEMOGLOBIN [id number] 08:15:00 Test Item Value Reference Range Interpretation Comments HEMOGLOBIN A1C (BEAKER) (test code = 9.0 % 4.3-6.1 H 368) SARS-COV2/RT-PCR ([facility])2020-12-15 07:09:00 Test Item Value Reference Range Interpretation Comments SARS-COV2/RT-PCR (test Negative Not Detected, Negative, code = 9405700) See external report for linked test SARS-COV-2 PERFORMING LAB [facility] (test code = 7356557) Negative result for this test determines that [...] the [place] SARS-CoV-2 assay.Fact Sheet for Healthcare Providers:https://www.[employer].mancia/do/ IB_MEXR-IgN-7_TUB_Kvnz_Hxrgm_49-313089.pdfFact Sheet for Healthcare Patients:https://www.[employer].dough jayda/do/IG_KOGK-BuZ-3_Iplxzqs_Hzzn_Ywfse_FC_20-033535I9.pdfPerforming Laboratory:[address] [address] BASIC METABOLIC [id number] 05:58:00 Test Item Value Reference Range Interpretation [...] 1092) DATA TO CALCULA TE ESTIMATED GFR. Chief Console Operator ID - KUNAL LLIPID [id number] 05:56:00 Test Item Value Reference Range Interpretation [...] Borderline 130-159 High 160-189 Very High >=190 Chief Console Operator ID - IVANHEPATIC FUNCTION [id number] 05:56:00 Test Item Value Reference Range Interpretation [...] (test code = 12 U/L 6-55 347) Chief Console Operator ID - KUNAL LTRERINN [id number] 05:19:00 Test Item Value Reference Range Interpretation [...] failure, acidosis, acute neurological disease, and persistent tachyarrhythmia.Chief Console Operator ID - PIAYA LCBC (HEMOGRAM ONLY) [...] 0-0 (BEAKER) (test code = 413) TROPONIN [id number] 23:58:00 Test Item Value Reference Range Interpretation [...] failure, acidosis, acute neurological disease, and persistent tachyarrhythmia.Chief Console Operator ID - PIAYA LPOCT-GLUCOSE METER 2020-12-14 20:52:00 Test Item Value Reference Range Interpretation Comments POC-GLUCOSE METER 312 mg/dL 70-110 H : TESTED A T BSC 6720 (BEAKER) (test code = [place], 1538) [address]: Chief Console Operator/Techni geraldo ID = [id number] for FABIO MARIN B-TYPE NATRIURETIC FACTOR (BNP)2020-12-14 15:03:00 Test Item Value Reference Range Interpretation Comments B-TYPE NATRIURETIC PEPTIDE (BEAKER) 128 pg/mL 0-100 H (test code = 700) Chief Console Operator ID - CARINA MTROPONIN [id number] 15:02:00 Test Item Value Reference Range Interpretation [...] failure, acidosis, acute neurological disease, and persistent tachyarrhythmia.Chief Console Operator ID - CARINA MBASIC METABOLIC [id number] 14:56:00 Test Item Value Reference Range Interpretation [...] 1092) DATA TO CALCULA TE ESTIMATED GFR. Chief Console Operator ID - CARINA [id number] 14:40:00 Test Item Value Reference Range Interpretation [...] is2.5-3.5 for patients wiht mechanical heart valves.CBC W/PLT COUNT & AUTO [id number] 14:35:00 Test Item Value Reference Range Interpretation [...] (test code = 2801) RAD, CHEST, 2 [id number] 13:56:00Reason for exam:->[facility]st pain [facility] 1940 Sex: MFINAL REPORT RAD, CHEST, 2 VIEWS INDICATION: chest pain COMPARISON: None FINDINGS: Portable frontal view of the chest. IMPRESSION: Support Lines: Pacer device. Lungs and pleura: Lungs are clear No pneumothorax.Heart and mediastinum: Normal contours.Additional findings:None. Signed: Alma Bonds MDReport Verified Date/Time: 12/14/2020 13:56:48 Reading Location: [facility] Radiology Reading Room
[2021-12-17 06:39] LABS: Hematocrit 32.3 % (39.6-49.0); Lymphocytes % 16.2 % (15.3-44.8); MPV 7.6 fL (7.6-11.3); RBC Red Blood Cell Count 3.28 M/uL (4.33-5.43)
[2021-12-17 06:40] LABS: Protime INR 1.82
[2021-12-17 07:02] LABS: Albumin 2.9 g/dL (3.4-5.0); Bilirubin Direct 0.2 mg/dL (0-0.2); Bilirubin Total 0.5 mg/dL (0.2-1.0); Magnesium 2.2 mg/dL (1.8-2.4); Potassium 3.8 mmol/L (3.5-5.1); Protein, Total 6.4 g/dL (6.4-8.2); Troponin High Sensitivity 17.2 pg/mL (<58.9)
[2021-12-17 07:22] LABS: SARS-COV-2 RT PCR NEGATIVE (NEGATIVE)
--- NOTE | 2021-12-17 08:05 | RAD REPORT ---
EXAM DESCRIPTION: RAD - Chest Single View - 12/17/2021 6:33 am CLINICAL HISTORY: weaknes COMPARISON: Chest Pa And Lat (2 Views) dated 04/27/2020; Chest Single View dated 03/15/2018; Chest Sing le View dated 02/09/2017; CHEST SINGLE VIEW dated 01/05/2016 FINDINGS: Lines: Pacemaker/ICD. Lungs: No evidence of edema or pneumonia. Pleural: No significant pleural effusions or pneumothorax. Cardiac: Mild cardiomegaly. Bones: No acute fractures. Other: Sternotomy IMPRESSION: No acute cardiopulmonary disease.
[2021-12-17] MEDS ORDERED: NA CHLORIDE 0.9% 500 ML ONE (08:55)
[2021-12-17 09:01] LABS: Urine Blood Negative (Negative); Urine Glucose Negative (Negative); Urine Protein Negative (Negative)
[2021-12-17 10:36] LABS: Urine Blood 2+ (Negative); Urine Glucose 2+ (Negative); Urine Protein 3+ (Negative); Urine pH 5.5 (5.0-7.0)
--- NOTE | 2021-12-17 11:17 | RAD REPORT ---
EXAM DESCRIPTION: CT - Head Brain Wo Cont - 12/17/2021 11:04 am CLINICAL HISTORY: WEAKNESS COMPARISON: Head Brain Wo Cont dated 08/11/2018; Head Brain Wo Cont dated 05/21/2018 TECHNIQUE: All CT scans are performed using dose optimization technique as appropriate and may inclu de automated exposure control or mA/KV adjustment according to patient size. FINDINGS: No intracranial hemorrhage, hydrocephalus or extra-axial fluid collection.No areas of brai n edema or evidence of midline shift. Left parietooccipital lobe encephalomalacia. Left frontal lobe encephalomalacia. Cerebral atrophy. Mild chronic small vessel ischemic changes. The paranasal sinuses and mastoids are clear. The calvarium is intact. IMPRESSION: No acute intracranial abnormality. No significant change compared with 08/11/2018.
--- NOTE | 2021-12-17 12:11 | EDPHYS ---
Physician Documentation [facility] Name: Sandoval Hoffman Jr Age: 81 yrs Sex: Male : 1940 Arrival Date: 12/17/2021 Time: 06:06 Bed 2 Private MD: ED Physician Forrest Pretty HPI: 12/17 06:11 This 81 yrs old Male presents to ER via EMS with complaints of General jmm Weakness. 06:11 This is an 81-year-old male that presents emerged department with complaints of jmm weakness and fatigue that began early this morning. Patient states that he awoke around 4AM to use the restroom and began to sweat feel really weak. Patient denies chest pain, shortness of breath, abdominal pain, nausea, vomiting, diarrhea.. Onset: The symptoms/episode began/occurred acutely, this morning. The patient has experienced a previous episode, and the symptoms today are exactly the same, when diagnosed with dehydration. Historical: - Allergies: 06:15 NKDA; st1 06:15 shrimp; st1 - Home Meds: 06:15 aspirin 81 mg Oral TbEC [Active]; bumetanide 1 mg Oral tab [Active]; Ranexa 500 mg Oral st1 Tb12 1 tab 2 times per day [Active]; Januvia Oral [Active]; Omeprazole Oral [Active]; metoprolol tartrate 50 mg Oral tab 1 tab once daily [Active]; Eliquis 2.5 mg oral tab 2 times per day [Active]; rosuvastatin 20 mg oral tab once daily [Active]; trazodone 100 mg Oral tab once daily [Active]; - Immunization history:: Adult Immunizations up to date, Last tetanus immunization: up to date Pneumococcal vaccine is up to date, Flu vaccine is up to date. - Social history:: Smoking status: Patient denies any tobacco usage or history of. Patient/guardian denies using alcohol, street drugs, IV drugs. ROS: 06:11 Respiratory: Negative for shortness of breath, cough, wheezing, and pleuritic chest jmm pain, Abdomen/GI: Negative for abdominal pain, nausea, vomiting, diarrhea, and constipation, Back: Negative for injury and pain. 06:11 Constitutional: Positive for fatigue. 06:11 Neuro: Positive for weakness. 06:11 All other systems are negative. Exam: 06:11 Constitutional: This is a well developed, well nourished patient who is awake, alert, jmm and in no acute distress. Head/Face: atraumatic. Eyes: EOMI, no conjunctival erythema appreciated ENT: Moist Mucus Membranes Neck: Trachea midline, Supple Chest/axilla: Normal chest wall appearance and motion. Cardiovascular: Regular rate and rhythm. No edema appreciated Respiratory: Normal respirations, no respiratory distress appreciated Abdomen/GI: Non distended, soft Back: Normal ROM Skin: General appearance color normal MS/ Extremity: Moves all extremities, no obvious deformities appreciated, no edema noted to the lower extremities Neuro: Awake and alert, normal gait Psych: Behavior is normal, Mood is normal, Patient is cooperative and pleasant Vital Signs: 06:20 BP 143 / 67; Pulse 60; Resp 15; Temp 97.7; Pulse Ox 100% on R/A; Weight 56.7 kg; Height st1 5 ft. 8 in. (172.72 cm); Pain 0/10; 07:36 BP 134 / 64; Pulse 60; Resp 18; Pulse Ox 99% on R/A; ph 09:16 BP 139 / 61; Pulse 60; Resp 16; Pulse Ox 99% on R/A; ph 10:16 BP 127 / 58; Pulse 60; Resp 14; Pulse Ox 97% on R/A; ph 11:35 BP 139 / 60; Pulse 60; Resp 18; Pulse Ox 98% on R/A; ph 12:30 BP 138 / 59; Pulse 60; Resp 18; Temp 97.4; Pulse Ox 99% on R/A; ph 06:20 Body Mass Index 19.01 (56.70 kg, 172.72 cm) st1 MDM: 06:26 Patient medically screened. [facility] 11:52 Data reviewed: vital signs, nurses notes. Counseling: I had a detailed discussion with [facility] the patient and/or guardian regarding: the historical points, exam findings, and any diagnostic results supporting the discharge/admit diagnosis. 12:09 Counseling: I had a detailed discussion with the patient and/or guardian regarding: lab [facility] results, radiology results, the need for outpatient follow up, to return to the emergency department if symptoms worsen or persist or if there are any questions or concerns that arise at home. Refusal of service: The patient/guardian displays adequate decision making capability and despite a detailed discussion of alternatives, benefits, risks, and consequences refuses: Admission to the hospital for further work-up and treatment. 12/17 06:11 Order name: Basic Metabolic Panel [facility] 12/17 06:11 Order name: CBC with Diff; Complete Time: 06:44 [facility] 12/17 06:11 Order name: LFT's; Complete Time: 07:53 [facility] 12/17 06:11 Order name: Magnesium; Complete Time: 07:53 [facility] 12/17 06:11 Order name: NT PRO-BNP; Complete Time: 07:53 [facility] 12/17 06:11 Order name: PT-INR; Complete Time: 06:44 [facility] 12/17 06:11 Order name: Troponin HS; Complete Time: 07:53 [facility] 12/17 06:11 Order name: XRAY Chest (1 view); Complete Time: 08:12 [facility] 12/17 06:11 Order name: COVID-19/FLU A+B (Document "Date of Onset" if Symptomatic); Complete Time: [facility] 07:12/17 06:12 Order name: Basic Metabolic Panel; Complete Time: 07:53 [facility] 12/17 06:12 Order name: Urine Culture [facility] 12/17 09:00 Order name: Urine Dipstick-Ancillary; Complete Time: 09:13 [facility] 12/17 10:35 Order name: Urine Dipstick-Ancillary; Complete Time: 10:38 [facility] 12/17 06:11 Order name: Cardiac monitoring; Complete Time: 07:30 [facility] 12/17 06:11 Order name: EKG - Nurse/Tech; Complete Time: 06:25 [facility] 12/17 06:11 Order name: IV Saline Lock; Complete Time: 06:25 [facility] 12/17 06:11 Order name: Labs collected and sent; Complete Time: 07:30 [facility] 12/17 06:11 Order name: O2 Per Protocol; Complete Time: 06:25 [facility] 12/17 06:11 Order name: O2 Sat Monitoring; Complete Time: 06:25 [facility] 12/17 06:12 Order name: Urine Dipstick-Ancillary (obtain specimen); Complete Time: 09:16 [facility] 12/17 10:51 Order name: CT Head Brain wo Cont; Complete Time: 11:29 jm Administered Medications: 09:16 Drug: NS 0.9% 500 ml Route: IV; Rate: bolus; Site: right forearm; ph 11:30 Follow up: Response: No adverse reaction; IV Status: Completed infusion; IV Intake: ph 500ml Disposition Summary: 12/17/21 12:10 Discharge Ordered Location: Home jm Condition: Stable jmm Diagnosis - Weakness jmm - Dysphagia, unspecified jmm Followup: jm - With: Private Physician - When: 2 - 3 days - Reason: Recheck today's complaints, Continuance of care, Re-evaluation by your physician Discharge Instructions: - Discharge Summary Sheet jmm - Dysphagia jmm - Weakness jmm - Fatigue jm Forms: - Medication Reconciliation Form [facility] - Thank You Letter [facility] - Antibiotic Education m - Prescription Opioid Use [facility] Signatures: Dispatcher [employer] EDMS Frandy Pierre PA PA jmm Hall, Patricia, RN RN Rsoalinda Cardoso RN RN st1 Corrections: (The following items were deleted from the chart) 11:45 10:51 Brain Wo Cont+MRI.RAD.BRZ ordered. EDMS EDMS
--- NOTE | 2021-12-17 12:11 | ER ---
Nurse's Notes [facility] Name: Sandoval Hoffman Jr Age: 81 yrs Sex: Male : 1940 Arrival Date: 12/17/2021 Time: 06:06 Bed 2 Private MD: Diagnosis: Weakness;Dysphagia, unspecified Presentation: 12/17 06:13 Chief complaint: EMS states: The patient became weak after going to the bathroom. st1 according to his daughter he has been weak and dehydrated. Coronavirus screen: Vaccine status: Patient reports receiving the 2nd dose of the covid vaccine. patient states his is fully vaccinated for COVID Client denies travel out of the [place] in the last 14 days. Risk Assessment: Do you want to hurt yourself or someone else? Patient reports no desire to harm self or others. Onset of symptoms. Onset of symptoms was December 17, 2021. 06:13 Method Of Arrival: EMS: Animated Speech EMS st1 06:13 Acuity: FORREST 3 st1 07:35 Ebola Screen: No symptoms or risks identified at this time. Initial Sepsis Screen: Does ph the patient meet any 2 criteria? No. Patient's initial sepsis screen is negative. Does the patient have a suspected source of infection? No. Patient's initial sepsis screen is negative. Triage Assessment: 06:20 General: Appears in no apparent distress. comfortable, slender, Behavior is calm, st1 cooperative. Pain: Denies pain. Historical: - Allergies: 06:15 NKDA; st1 06:15 shrimp; st1 - Home Meds: 06:15 aspirin 81 mg Oral TbEC [Active]; bumetanide 1 mg Oral tab [Active]; Ranexa 500 mg Oral st1 Tb12 1 tab 2 times per day [Active]; Januvia Oral [Active]; Omeprazole Oral [Active]; metoprolol tartrate 50 mg Oral tab 1 tab once daily [Active]; Eliquis 2.5 mg oral tab 2 times per day [Active]; rosuvastatin 20 mg oral tab once daily [Active]; trazodone 100 mg Oral tab once daily [Active]; - Immunization history:: Adult Immunizations up to date, Last tetanus immunization: up to date Pneumococcal vaccine is up to date, Flu vaccine is up to date. - Social history:: Smoking status: Patient denies any tobacco usage or history of. Patient/guardian denies using alcohol, street drugs, IV drugs. Screenin:22 Abuse screen: Denies threats or abuse. Nutritional screening: No deficits noted. st1 Tuberculosis screening: No symptoms or risk factors identified. Fall Risk None identified. No fall in past 12 months (0 pts). No secondary diagnosis (0 pts). IV access (20 points). Ambulatory Aid- None/Bed Rest/Nurse Assist (0 pts). Gait- Weak (10 pts.). Mental Status- Oriented to own ability (0 pts). Total [place] Fall Scale indicates Low Risk Score (25-44 pts). Fall prevention measures have been instituted. Side Rails Up X 2 Placed close to Nursing Station Frequent Obs/Assesments occuring As available Patient and Family Educated on Fall Prevention Program and strategies. Assessment: 08:30 General: Appears in no apparent distress. comfortable, Behavior is calm, cooperative, ph appropriate for age, Reports daughter reports frequent "night sweats", denies fever or chills. Pain: Denies pain. Neuro: Level of Consciousness is awake, alert, obeys commands, Oriented to person, place, time, situation. Cardiovascular: Denies chest pain, shortness of breath, Capillary refill < 3 seconds in bilateral fingers Patient's skin is warm and dry. Rhythm is Respiratory: No deficits noted. GI: No signs and/or symptoms were reported involving the gastrointestinal system. : No signs and/or symptoms were reported regarding the genitourinary system. Derm: Skin is intact, is fragile, is thin, Skin is pink, warm \\T\\ dry. Musculoskeletal: Circulation, motion, and sensation intact. Range of motion: intact in all extremities. 11:35 Reassessment: Patient appears in no apparent distress at this time. Patient and/or ph family updated on plan of care and expected duration. Pain level reassessed. Patient is alert, oriented x 3, equal unlabored respirations, skin warm/dry/pink. 12:30 Reassessment: Patient appears in no apparent distress at this time. Patient and/or ph family updated on plan of care and expected duration. Pain level reassessed. Patient is alert, oriented x 3, equal unlabored respirations, skin warm/dry/pink. Vital Signs: 06:20 BP 143 / 67; Pulse 60; Resp 15; Temp 97.7; Pulse Ox 100% on R/A; Weight 56.7 kg; Height st1 5 ft. 8 in. (172.72 cm); Pain 0/10; 07:36 BP 134 / 64; Pulse 60; Resp 18; Pulse Ox 99% on R/A; ph 09:16 BP 139 / 61; Pulse 60; Resp 16; Pulse Ox 99% on R/A; ph 10:16 BP 127 / 58; Pulse 60; Resp 14; Pulse Ox 97% on R/A; ph 11:35 BP 139 / 60; Pulse 60; Resp 18; Pulse Ox 98% on R/A; ph 12:30 BP 138 / 59; Pulse 60; Resp 18; Temp 97.4; Pulse Ox 99% on R/A; ph 06:20 Body Mass Index 19.01 (56.70 kg, 172.72 cm) st1 Vitals: 07:36 Cardiac Rhythm Assessment Paced. ph ED Course: 06:06 Patient arrived in ED. lp1 06:10 Frandy Pierre PA is PHCP. jmm 06:10 Forrest Pretty MD is Attending Physician. jmm 06:15 Triage completed. st1 06:20 EKG completed in triage. Results shown to MD. st1 06:23 Maintain EMS IV. Dressing intact. Site clean \\T\\ dry. Gauge \\T\\ site: 20 ga right forearm . st 1 06:29 CBC with Diff Sent. st1 06:29 LFT's Sent. st1 06:29 Magnesium Sent. st1 06:29 NT PRO-BNP Sent. st1 06:29 PT-INR Sent. st1 06:29 Troponin HS Sent. st1 06:29 Basic Metabolic Panel Sent. st1 06:29 COVID-19/FLU A+B (Document "Date of Onset" if Symptomatic) Sent. st1 06:29 Basic Metabolic Panel Sent. st1 06:33 XRAY Chest (1 view) In Process Unspecified. EDMS 06:56 Patient has correct armband on for positive identification. Placed in gown. Bed in low st1 position. Call light in reach. Side rails up X2. 07:35 Minna Quevedo, RN is Primary Nurse. ph 07:35 Arm band placed on Patient placed in an exam room. ph 11:03 CT Head Brain wo Cont In Process Unspecified. EDMS 13:30 No provider procedures requiring assistance completed. IV discontinued, intact, ph bleeding controlled, No redness/swelling at site. Pressure dressing applied. Administered Medications: 09:16 Drug: NS 0.9% 500 ml Route: IV; Rate: bolus; Site: right forearm; ph 11:30 Follow up: Response: No adverse reaction; IV Status: Completed infusion; IV Intake: ph 500ml Intake: 11:30 IV: 500ml; Total: 500ml. ph Outcome: 12:10 Discharge ordered by MD. jmm 13:29 Patient left the ED. bp 13:29 Discharged to home via wheelchair, with family. ph 13:29 Condition: good 13:29 Discharge instructions given to patient, family, Instructed on discharge instructions, follow up and referral plans. Demonstrated understanding of instructions, follow-up care. Signatures: Dispatcher [employer] EDMS Frandy Pierre PA PA jmm Pena, Laura RN RN lp1 Minna Quevedo RN RN Sunny Storm RN RN bp Rosalinda Smith, RN RN st1
[2021-12-17 21:41] VITALS: TEMP 97.7
[2021-12-17 21:50] VITALS: BP 139/60; O2SAT 98
== END 2021-12-17 13:29 | disposition home or self-care (01) ==
LOC: ER 06:03
DX: R53.1 Weakness (principal); R13.10 Dysphagia, unspecified; Z91.013 Allergy to seafood; Z79.01 Long term (current) use of anticoagulants; Z79.82 Long term (current) use of aspirin; Z20.822 Contact with and (suspected) exposure to COVID-19
CPT/HCPCS: 87088; 85025; 87086; 80048; 36415; 83735; 85610; 80076; 81003 ×2; 84484; 83880; 0240U; 70450; 71045; J7040; 96360; 96361; 99284

== ENCOUNTER 2023-01-15 16:57 | Emergency (ER) | payer OTHER ==
--- OUTSIDE RECORDS SUMMARY | 2023-01-15 17:03 | XMS REPORT | Continuity of Care Document ---
:1940 Author Organization [facility] t Address [address] [place] [address] Care Team Providers Name Role Phone DEREK LOMELI Primary Care Physician Unavailable Derek Lomeli Attending Clinician Unavailable ATILIO BYERS Attending Clinician Unavailable Atilio Byers MD Attending Clinician OSITO CRUZ Attending Clinician Unavailable Osito Cruz DO Attending Clinician ADRIANA Attending Clinician Unavailable Prakash Antonio Attending Clinician Unavailable UNKNOWN Attending Clinician Unavailable BLADIMIR BARROS Attending Clinician Unavailable TYRELL TELLEZ Attending Clinician Unavailable PRAKASH ANTONIO Attending Clinician Unavailable PIERRE VILLELA Attending Clinician Unavailable SHAMA NOWAK Attending Clinician Unavailable Julia Ty MD Attending Clinician ADRIANA Admitting Clinician Unavailable Derek Lomeli Admitting Clinician Unavailable BLADIMIR BARROS Admitting Clinician Unavailable PRAKASH ANTONIO Admitting Clinician Unavailable SHARIF BAIN Admitting Clinician Unavailable Payers Payer Name Policy Type Policy Number Effective Date Expiration Date Leo bonilla [employer] DUAL [id number] 2022 ACCESS OPEN PPO 00:00:00 [place]ICA[place] [id number] 2022 MAINE 00:00:00 [facility] Dual 53 [id number] 2022 Common Complete MCR 00:00:00 [facility] MEDICARE [id number] 2020 HMO 00:00:00 MEDICAID MC [id number] 2020 Common 00:00:00 [place] [id number] [place] [id number] Common [facility] MEDICAID MC [id number] 2020 Common 00:00:00 [place] [id number] Common HEALTHCARE [facility] MEDICAID MC [id number] 2020 Common 00:00:00 [facility] Problems Condition Condition Condition Status Onset Resolution Last Treating Co mments Source Name Details Category Date Date Treatment Clinician Date Dizziness Dizziness Disease Active 2020-11 [facility] 01-03 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 01-22 st mellitus mellitus 00:00: Hospit a without without 00 l complicati complicati on, on, without without long-term long-term current current use of use of insulin insulin Automatic Automatic Disease Active Met hodi implantabl implantabl 01-22 e e 00:00: Hospita cardiovert cardiovert 00 l er-defibri er-defibri llator in llator in situ situ Left-sided Left-sided Disease Active C HI St chest pain chest pain 1-21 Jacqueline kes 00:00: Medical 00 Center 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 Arterioscl Arterioscl Problem Active C ommon erosis erosis [facility] Gastro-eso Gastro-eso Problem Active C ommon phageal phageal Spirit reflux reflux - CHI disease disease [facility] esophagiti esophagiti Me dical s [place] Mixed Hyperlipid Problem Active Commo n hyperlipid emia, Spirit emia mixed [facility] Peripheral Venous Problem Active Commo n venous insufficie Spirit insufficie ncy - CHI ncy [facility] Type II Diabetes Problem Active Common diabetes type 2, Spirit mellitus controlled - CH I well [facility] [id number] Alzheimer' Problem Active Com mon 's Spirit disease, - [facility]I unspecifie [facility] [id number] Dementia Problem Active Comm on in other Spirit diseases - [facility] classified [facility] disturbanc e Non-neopla Nevus, Problem Active Commo n stic nevus non-neopla Sp oralia stic [facility] Pain in Pain in Problem Active Common wrist left wrist Spirit 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 [id number] Anemia, Problem Active Commo n unspecifie Spirit d type - [facility] [id number] Dementia Problem Active Commo n without Spirit behavioral - [facility] disturbanc [facility] unspecifie Medica l d dementia Center type [id number] Constipati Problem Active Com mon on, Spirit unspecifie - CHI d constipati 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 disorder Medical without Center prior episode [id number] Primary Problem Active Common insomnia Spirit - [facility] [id number] Paresthesi Problem Active Com mon a of skin Spirit [facility] [id number] Vascular Problem Active Com mon [id number] Spirit without - CHI behavioral disturbanc [facility] Allergies, Adverse Reactions, Alerts Allergy Allergy Status Severity Reaction(s) Onset Inactive Treating Comm ents Source Name Type Date Date Clinician No Known DA Active U [facility] Allergie 12-06 [facility] 00:00: Health 00 [facility] NEOSPORI DA Active U RASH [facility] N OINT. 12-06 [place] 00:00: [facility] 00 [facility] NO KNOWN Allergy Active [facility] NO KNOWN Drug Active Univers ALLERGIE Class ity of S [facility] Family History Family Member Diagnosis Comments Start Date Stop Date Source Natural brother Heart attack [facility] Natural mother [facility] Social History Social Habit Start Date Stop Date Quantity Comments Source History SDOH [facility] History SDOH [facility] Drinks History of Common Spirit - Tobacco Use [facility] Exposure to 2022-11-07 2022-11-17 Not sure University SARS-CoV-2 00:00:00 11:09:00 [facility] (event) Branch Alcohol intake 2021-11-02 2021-11-02 Ex-drinker ROSALINDA St Lydia es 00:00:00 00:00:00 (finding) Medical Center History SDOH 2021-01-22 2021-01-22 1 [facility] Frequency 00:00:00 00:00:00 Hospita l Tobacco use and 2020-12-14 2020-12-14 Never used [facility] exposure 00:00:00 00:00:00 [facility] Alcohol Comment 2019-01-20 2019-01-20 quit alcohol 40 [facility] or [place] of 00:00:00 00:00:00 years ago, Medicine previously heavy Sex Assigned At [birth year] [facility] 00:00:00 00:00:00 [facility] Smoking Status Start Date Stop Date Source Tobacco smoking [place] consumption unknown Medical Bran ch Never Smoker Common [facility] Ce nter Former smoker 2019-07-12 00:00:00 2019-07-12 [employer] [facility] Colle ge of 00:00:00 Medicine Medications Ordered Filled Start Stop Current Ordering Indication Dosage Frequency Signature Comments Components Source Medication Medication Date Date Medication? Clinician (SIG) Name Name insulin 2021-11 Yes 8U inject 8 Univer s degludec 2-25 Units ity of (TRESIBA 12:41: under the [facility] U-100 27 skin at Medical INSULIN OR) bedtime. Bran ch rosuvastati 2021-11 Yes 20mg Take 20 mg Univers n 20 mg 2-25 by mouth ity of tablet 12:41: at [place] [address] bedtime. Medical Branch omeprazole 2021-11 Yes 40mg Take 40 mg U nivers 40 mg 2-25 by mouth ity of capsule 12:41: in the [place] [address] morning. Medical Branch aspirin 81 2021-11 Yes 81mg Take 81 mg U nivers mg Cap 2-25 by mouth ity of 12:41: daily. [place] [address] Medical Branch bimatoprost 2021-11 Yes 1[drp] Place 1 U nivers (LUMIGAN) 2-25 Drop in ity of 0.01 % 12:41: both eyes [place] ophthalmic 27 at Medical drops bedtime. Branch cycloSPORIN 2021-11 Yes 1[drp] Place 1 U nivers E 2-25 Drop in ity of (RESTASIS) 12:41: [place] 0.05 % 27 every 12 Medical drops (twelve) Branch hours. lactulose 2021-11 Yes 15mL Take 15 mL Un antonella 10 gram/15 2-25 by mouth ity o f mL solution 12:41: [place] 27 morning Medical and 15 mL Branch in the evening. metFORMIN metFORMIN No 1{table QD metFORMIN HCl ER 500 HCl ER 500 05-02 t_with_ HCl ER 500 MG MG 00:00: evening MG 00 _meal} metFORMIN metFORMIN No 1{table QD metFORMIN HCl ER 500 HCl ER 500 - t_with_ HCl ER 500 MG MG 00:00: evening MG 00 _meal} rosuvastati 2020-11 Yes 20mg QD Take [address] n (CRESTOR) 2-12 by mouth Luke s 20 MG 13:27: daily. Medical tablet 11 Center omeprazole 2020-11 Yes 40mg QD Take [address] (PriLOSEC) 2-12 by mouth Lukes 40 MG 13:27: daily. Medical capsule 11 Center insulin 2020-11 Yes diabetes 10U Inject [address] degludec 2-12 mellitus Units Lukes (TRESIBA 13:27: subcutaneo Med ical U-100 11 us. [place] INSULIN SUBQ) aspirin 81 2020-11 Yes 81mg QD Take [address] MG EC 2-12 by mouth Lukes tablet 13:27: daily. Medical 11 Center SITagliptin 2020-11 Yes 50mg QD Take [address] (JANUVIA) 2-12 by mouth Lukes 50 MG 13:27: daily. 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 insulin Yes 10U QD Inject 10 Metho di degludec 3-[address] (Tresiba 13:45: under the Hosp korin FlexTouch 59 skin l U-100) 100 nightly. unit/mL (3 mL) insulin pen metoprolol 0 Yes 25mg Q.5D Take 25 mg M ethodi succinate 3-[address] XL 13:45: (two) Hospita (TOPROL-XL) 59 times a l 25 mg 24 hr day. tablet rosuvastati 0 Yes 20mg QD Take 20 mg Methodi n (CRESTOR) 3-[address] 20 mg 13:45: nightly. Hospita tablet 59 l clopidogreL 2020-0 Yes 75mg QD Take 75 mg Methodi (PLAVIX) 75 3-[address] mg tablet 13:45: daily. Hospit a 59 l omeprazole 0 Yes 40mg QD Take 40 mg M ethodi (PriLOSEC) 3-[address] 40 MG 13:45: daily. Hospita capsule 59 l BUMETanide 0 Yes 1mg QD Take 1 mg Me thodi (BUMEX) 1 01-[address] MG tablet 13:45: daily. Hospit a 59 l traZODone 0 Yes 100mg QD Take 100 Met hodi (DESYREL) 3-[address] 100 MG 13:45: mouth Hospita tablet 59 nightly. l ranolazine 0 Yes 500mg Q.5D Take 500 Me thodi (RANEXA) 3-[address] 500 MG 12 13:45: mouth 2 Hospi ta hr ER 59 (two) l tablet times a day. isosorbide 0 Yes 30mg QD Take 30 mg M ethodi mononitrate 3-[address] (IMDUR) 30 13:45: daily. Hospi ta MG 24 hr 59 l tablet aspirin 0 Yes 81mg QD Take 81 mg Meth franny (ECOTRIN) 3-[address] 81 MG 13:45: daily. Hospita enteric 59 l coated tablet UNABLE TO 2020-0 Yes Memories Meth franny FIND 3-[address] 13:45: FenolTakin Hospita 57 g 2 with l every meal metoprolol 2020-0 Yes 25mg Q.5D Take 0.[address] tartrate 1-24 tablets Lukes (LOPRESSOR) 00:00: (25 mg Medi kaylen 50 MG 00 total) by [place] tablet mouth 2 (two) times daily. Insulin Yes Inject [employer] [facility] Degludec 07-12 into the College (TRESIBA 16:19: skin. of [place]) 55 Medicin e MELATONIN Yes Take by [facility] OR 07-12 mouth. [place] 16:19: of 55 Medicin e omeprazole Yes 40mg Take 40 mg B aylor (PRILOSEC) 07-12 by mouth. Gilda ege 40 MG 16:11: of capsule 33 Medicin e clopidogrel Yes 75mg Take 75 mg [facility] (PLAVIX) 75 07-12 by mouth. Col lege MG tablet 16:11: of 33 Medicin e losartan Yes 50mg Take 50 mg Larue dylan (COZAAR) 25 07-12 by mouth. Col lege MG tablet 16:11: of 33 Medicin e metoprolol Yes 50mg Take 50 mg B [facility] (LOPRESSOR) 07-12 by mouth. Col lege 50 MG 16:11: of tablet 33 Medicin e donepezil Yes 5mg Take 1 Tab Ba ylor (ARICEPT) 5 07-12 by mouth Gilda ege MG tablet 00:00: nightly. of 00 Medicin e donepezil Yes 10mg Take 1 Tab Ba ylor (ARICEPT) 07-12 by mouth Colleg e 10 MG 00:00: nightly. of tablet 00 Medicin e B Complex Yes Take by [facility] Vitamins (B 01-20 mouth. Colleg e COMPLEX 1 14:30: of OR) 04 Medicin e furosemide Yes 20mg Take 20 mg B a[facility] (LASIX) 20 01-20 by mouth Colle ge MG tablet 14:11: as needed. of 33 Medicin e bimatoprost Yes 1[drp] 1 Drop. B a[place]or (LUMIGAN) 01-20 [place] 0.01 % 14:11: of ophthalmic 33 Medicin solution e Rosuvastati Yes Take by Larue dylan n Calcium 01-20 mouth. [place] (CRESTOR 14:11: of OR) 33 Medicin e donepezil 2019- No 5mg Take 1 Tab B a[place] (ARICEPT) 5 01-20 by mouth Col lege MG tablet 00:00: 00:00 nightly. of 00 :00 Medicin e donepezil 2019- No 10mg Take 1 Tab B a[place] (ARICEPT) 01-20 by mouth Colle ge 10 MG 00:00: 00:00 nightly. of tablet 00 :00 Medicin e omeprazole Yes 40mg QD Take 40 mg M ethodi (PriLOSEC) 1-[address] 40 MG 14:21: daily. Hospita capsule 39 l losartan 0 Yes 50mg QD Take 50 mg Met hodi (COZAAR) 50 1-[address] MG tablet 14:21: daily. Hospit a 39 l potassium 2018- Yes 20meq Q.5D Take 20 Meth franny chloride 1-[address] (KLOR-CON) 14:21: mouth 2 Hosp korin 20 mEq 39 (two) l packet times a day. metoprolol Yes 50mg Q.5D Take 50 mg M ethodi tartrate 1-[address] (LOPRESSOR) 14:21: (two) Hospi ta 50 mg 39 times a l tablet day. furosemide Yes 20mg Q.5D Take 20 mg M ethodi (LASIX) 20 1-[address] mg tablet 14:21: (two) Hospita 39 times a l day. clopidogrel 2018- Yes 75mg QD Take 75 mg Methodi (PLAVIX) 75 1-[address] mg tablet 14:21: daily. Hospit a 39 l insulin Yes Inject Methodi degludec 1-[address] (TRESIBA 14:21: skin. Hospita FLEXTOUCH 39 l U-100 SUBQ) bimatoprost Yes 1[drp] QD 1 drop Me thodi (LUMIGAN) 1-[address] 0.01 % 14:21: Hospita ophthalmic 39 l drops Ondansetron Ondansetron Yes Derek Take 1 tab Common HCl HCl 5-31 Lomeli Spirit 00:00: - [facility] 00 [facility] Ondansetron Ondansetron 0 No Ondansetro HCl 4 MG HCl 4 MG 5-31 n HCl 4 MG 00:00: 00 Ondansetron Ondansetron No Ondansetro HCl 4 MG HCl 4 MG 5-31 n HCl 4 MG 00:00: 00 Ondansetron Ondansetron No HCl 4 MG HCl 4 MG 5-31 00:00: 00 Ondansetron Ondansetron No Ondansetro HCl 4 MG HCl 4 MG 5-31 n HCl 4 MG 00:00: 00 Ondansetron Ondansetron No Ondansetro HCl 4 MG HCl 4 MG 5-31 n HCl 4 MG 00:00: 00 Ondansetron Ondansetron No Ondansetro HCl 4 MG HCl 4 MG 5-31 n HCl 4 MG 00:00: 00 Ondansetron Ondansetron No Ondansetro HCl 4 MG HCl 4 MG 5-31 n HCl 4 MG 00:00: 00 Clopidogrel Clopidogrel Yes Derek 1 tablet Common Bisulfate Bisulfate Lomeli [facility] Aspirin Aspirin Yes Derek 1 tablet Com mon Lomeli [facility] BD Pen BD Pen Yes Derek USE Common Needle Mini Needle Mini Lomeli DIRECTED Spirit U/F U/F [facility] Tresiba Tresiba Yes Derek not Common FlexTouch FlexTouch Lomeli defined [facility] Crestor Crestor Yes Derek 1 tablet Com mon Lomeli [facility] Lumigan Lumigan Yes Derek 1 drop Commo n Lomeli into both [facility] eyes [facility] Vitamin B Vitamin B Yes Derek not Com mon Complex-C Complex-C Lomeli defined [facility] Vitamin D-3 Vitamin D-3 Yes Derek 1 tablet Common Lomeli [facility] Melatonin Melatonin Yes Derek 1 tablet Common Lomeli at bedtime [facility] as needed [facility] with food [facility] Furosemide Furosemide Yes Derek 1 tablet Common Lomeli [facility] Losartan Losartan Yes Derek 1 tablet C ommon Potassium Potassium Lomeli [facility] Isosorbide Isosorbide Yes Derek 1 tablet Common Mononitrate Mononitrate Lomeli in the Spirit ER ER morning [facility] Rosuvastati Rosuvastati Yes Derek TAKE 1 Common n Calcium n Calcium Lomeli TABLET BY Spirit MOUTH - CHI EVERY DAY [facility] Metoprolol Metoprolol Yes Derek 1 tablet Common Succinate Succinate Lomeli Spir it ER ER - CHI [facility] Omeprazole Omeprazole Yes Derek TAKE 1 Common Lomeli CAPSULE BY Spirit MOUTH - CHI EVERY DAY [facility] Metoprolol Metoprolol Yes Derek 1 tablet Common Succinate Succinate Lomeli Spir it ER ER - CHI [facility] Vitamin B Vitamin B No Vitamin B Complex-C - Complex-C - Complex-C - Furosemide Furosemide No 1{table QD Furosemide 20 MG 20 MG t} 20 MG Tresiba Tresiba No Tresiba FlexTouch FlexTouch FlexTouch 200 UNIT/ML 200 UNIT/ML 200 UNIT/ML Lumigan Lumigan No Lumigan 0.01 % 0.01 % 0.01 % traZODone traZODone No 1{table QD traZODone HCl 100 MG HCl 100 MG t_at_be HCl 100 MG dtime} Metoprolol Metoprolol No 1{table QD Metoprolol Succinate Succinate t} Succinate ER 50 MG ER 50 MG ER 50 MG Clopidogrel Clopidogrel No 1{table QD Clopidogre Bisulfate Bisulfate t} l 75 MG 75 MG Bisulfate 75 MG Melatonin 5 Melatonin 5 No 1{table QD Melatonin MG MG t_at_be 5 MG dtime_a s_neede d_with_ food} BD Pen BD Pen No BD Pen Needle Mini Needle Mini Needle U/F 31G X 5 U/F 31G X 5 Mini U/F MM MM 31G X 5 MM Tresiba Tresiba No Tresiba FlexTouch FlexTouch FlexTouch 200 UNIT/ML 200 UNIT/ML 200 UNIT/ML Isosorbide Isosorbide No 1{table QD Isosorbide Mononitrate Mononitrate t_in_th Mononitrat ER 30 MG ER 30 MG e_morni e ER 30 MG ng} Vitamin D-3 Vitamin D-3 No 1{table QD Vitamin 5000 UNIT 5000 UNIT t} D-3 5000 UNIT Clopidogrel Clopidogrel No 1{table QD Clopidogre Bisulfate Bisulfate t} l 75 MG 75 MG Bisulfate 75 MG Aspirin 81 Aspirin 81 No 1{table QD Aspirin 81 81 MG 81 MG t} 81 MG Ranexa 500 Ranexa 500 No 1{table BID Ranexa 500 MG MG t} MG Crestor 20 Crestor 20 No 1{table QD Crestor 20 MG MG t} MG Rosuvastati Rosuvastati No Rosuvastat n Calcium n Calcium in Calcium 20 MG 20 MG 20 MG Januvia Januvia No Januvia Omeprazole Omeprazole No Omeprazole 40 MG 40 MG 40 MG Aspirin 81 Aspirin 81 No 1{table QD Aspirin 81 MG MG t} MG Metoprolol Metoprolol No 1{table QD Metoprolol Succinate Succinate t} Succinate ER 100 MG ER 100 MG ER 100 MG Rosuvastati Rosuvastati No Rosuvastat n Calcium n Calcium in Calcium 20 MG 20 MG 20 MG Crestor 20 Crestor 20 No 1{table QD Crestor 20 MG MG t} MG Aspirin 81 Aspirin 81 No 1{table QD Aspirin 81 81 MG 81 MG t} 81 MG Metoprolol Metoprolol No 1{table QD Metoprolol Succinate Succinate t} Succinate ER 50 MG ER 50 MG ER 50 MG Metoprolol Metoprolol No 1{table QD Metoprolol Succinate Succinate t} Succinate ER 100 MG ER 100 MG ER 100 MG Melatonin 5 Melatonin 5 No 1{table QD Melatonin MG MG t_at_be 5 MG dtime_a s_neede d_with_ food} Clopidogrel Clopidogrel No 1{table QD Clopidogre Bisulfate Bisulfate t} l 75 MG 75 MG Bisulfate 75 MG Aspirin 81 Aspirin 81 No 1{table QD Aspirin 81 MG MG t} MG Clopidogrel Clopidogrel No 1{table QD Clopidogre Bisulfate Bisulfate t} l 75 MG 75 MG Bisulfate 75 MG Omeprazole Omeprazole No Omeprazole 40 MG 40 MG 40 MG Lumigan Lumigan No Lumigan 0.01 % 0.01 % 0.01 % Vitamin B Vitamin B No Vitamin B Complex-C - Complex-C - Complex-C - Ranexa 500 Ranexa 500 No 1{table BID Ranexa 500 MG MG t} MG Januvia Januvia No Januvia Isosorbide Isosorbide No 1{table QD Isosorbide Mononitrate Mononitrate t_in_th Mononitrat ER 30 MG ER 30 MG e_morni e ER 30 MG ng} traZODone traZODone No 1{table QD traZODone HCl 100 MG HCl 100 MG t_at_be HCl 100 MG dtime} Tresiba Tresiba No Tresiba FlexTouch FlexTouch FlexTouch 200 UNIT/ML 200 UNIT/ML 200 UNIT/ML Vitamin D-3 Vitamin D-3 No 1{table QD Vitamin 5000 UNIT 5000 UNIT t} D-3 5000 UNIT Tresiba Tresiba No Tresiba FlexTouch FlexTouch FlexTouch 200 UNIT/ML 200 UNIT/ML 200 UNIT/ML BD Pen BD Pen No BD Pen Needle Mini Needle Mini Needle U/F 31G X 5 U/F 31G X 5 Mini U/F MM MM 31G X 5 MM Metoprolol Metoprolol No 1{table QD Succinate Succinate t} ER 100 MG ER 100 MG Januvia Januvia No Isosorbide Isosorbide No 1{table QD Mononitrate Mononitrate t_in_th ER 30 MG ER 30 MG e_morni ng} Rosuvastati Rosuvastati No n Calcium n Calcium 20 MG 20 MG BD Pen BD Pen No Needle Mini Needle Mini U/F 31G X 5 U/F 31G X 5 MM MM Omeprazole Omeprazole No 40 MG 40 MG Clopidogrel Clopidogrel No 1{table QD Bisulfate Bisulfate t} 75 MG 75 MG Metoprolol Metoprolol No 1{table QD Succinate Succinate t} ER 50 MG ER 50 MG Lumigan Lumigan No 0.01 % 0.01 % Tresiba Tresiba No FlexTouch FlexTouch 200 UNIT/ML 200 UNIT/ML Vitamin B Vitamin B No Complex-C - Complex-C - Ranexa 500 Ranexa 500 No 1{table BID MG MG t} Melatonin 5 Melatonin 5 No 1{table QD MG MG t_at_be dtime_a s_neede d_with_ food} Vitamin D-3 Vitamin D-3 No 1{table QD 5000 UNIT 5000 UNIT t} Clopidogrel Clopidogrel No 1{table QD Bisulfate Bisulfate t} 75 MG 75 MG Aspirin 81 Aspirin 81 No 1{table QD 81 MG 81 MG t} traZODone traZODone No 1{table QD HCl 100 MG HCl 100 MG t_at_be dtime} Aspirin 81 Aspirin 81 No 1{table QD MG MG t} Crestor 20 Crestor 20 No 1{table QD MG MG t} Januvia Januvia No Januvia Crestor 20 Crestor 20 No 1{table QD Crestor 20 MG MG t} MG Isosorbide Isosorbide No 1{table QD Isosorbide Mononitrate Mononitrate t_in_th Mononitrat ER 30 MG ER 30 MG e_morni e ER 30 MG ng} Vitamin D-3 Vitamin D-3 No 1{table QD Vitamin 5000 UNIT 5000 UNIT t} D-3 5000 UNIT Metoprolol Metoprolol No 1{table QD Metoprolol Succinate Succinate t} Succinate ER 100 MG ER 100 MG ER 100 MG BD Pen BD Pen No BD Pen Needle Mini Needle Mini Needle U/F 31G X 5 U/F 31G X 5 Mini U/F MM MM 31G X 5 MM Clopidogrel Clopidogrel No 1{table QD Clopidogre Bisulfate Bisulfate t} l 75 MG 75 MG Bisulfate 75 MG Metoprolol Metoprolol No 1{table QD Metoprolol Succinate Succinate t} Succinate ER 50 MG ER 50 MG ER 50 MG traZODone traZODone No 1{table QD traZODone HCl 100 MG HCl 100 MG t_at_be HCl 100 MG dtime} Vitamin B Vitamin B No Vitamin B Complex-C - Complex-C - Complex-C - Rosuvastati Rosuvastati No Rosuvastat n Calcium n Calcium in Calcium 20 MG 20 MG 20 MG Lumigan Lumigan No Lumigan 0.01 % 0.01 % 0.01 % Clopidogrel Clopidogrel No 1{table QD Clopidogre Bisulfate Bisulfate t} l 75 MG 75 MG Bisulfate 75 MG Aspirin 81 Aspirin 81 No 1{table QD Aspirin 81 MG MG t} MG Tresiba Tresiba No Tresiba FlexTouch FlexTouch FlexTouch 200 UNIT/ML 200 UNIT/ML 200 UNIT/ML Aspirin 81 Aspirin 81 No 1{table QD Aspirin 81 81 MG 81 MG t} 81 MG Omeprazole Omeprazole No Omeprazole 40 MG 40 MG 40 MG Ranexa 500 Ranexa 500 No 1{table BID Ranexa 500 MG MG t} MG Melatonin 5 Melatonin 5 No 1{table QD Melatonin MG MG t_at_be 5 MG dtime_a s_neede d_with_ food} Januvia Januvia No Januvia Crestor 20 Crestor 20 No 1{table QD Crestor 20 MG MG t} MG Isosorbide Isosorbide No 1{table QD Isosorbide Mononitrate Mononitrate t_in_th Mononitrat ER 30 MG ER 30 MG e_morni e ER 30 MG ng} Vitamin D-3 Vitamin D-3 No 1{table QD Vitamin 5000 UNIT 5000 UNIT t} D-3 5000 UNIT Metoprolol Metoprolol No 1{table QD Metoprolol Succinate Succinate t} Succinate ER 100 MG ER 100 MG ER 100 MG BD Pen BD Pen No BD Pen Needle Mini Needle Mini Needle U/F 31G X 5 U/F 31G X 5 Mini U/F MM MM 31G X 5 MM Clopidogrel Clopidogrel No 1{table QD Clopidogre Bisulfate Bisulfate t} l 75 MG 75 MG Bisulfate 75 MG Metoprolol Metoprolol No 1{table QD Metoprolol Succinate Succinate t} Succinate ER 50 MG ER 50 MG ER 50 MG traZODone traZODone No 1{table QD traZODone HCl 100 MG HCl 100 MG t_at_be HCl 100 MG dtime} Vitamin B Vitamin B No Vitamin B Complex-C - Complex-C - Complex-C - Rosuvastati Rosuvastati No Rosuvastat n Calcium n Calcium in Calcium 20 MG 20 MG 20 MG Lumigan Lumigan No Lumigan 0.01 % 0.01 % 0.01 % Clopidogrel Clopidogrel No 1{table QD Clopidogre Bisulfate Bisulfate t} l 75 MG 75 MG Bisulfate 75 MG Aspirin 81 Aspirin 81 No 1{table QD Aspirin 81 MG MG t} MG Tresiba Tresiba No Tresiba FlexTouch FlexTouch FlexTouch 200 UNIT/ML 200 UNIT/ML 200 UNIT/ML Aspirin 81 Aspirin 81 No 1{table QD Aspirin 81 81 MG 81 MG t} 81 MG Omeprazole Omeprazole No Omeprazole 40 MG 40 MG 40 MG Ranexa 500 Ranexa 500 No 1{table BID Ranexa 500 MG MG t} MG Melatonin 5 Melatonin 5 No 1{table QD Melatonin MG MG t_at_be 5 MG dtime_a s_neede d_with_ food} Ranexa 500 Ranexa 500 No 1{table BID Ranexa 500 MG MG t} MG BD Pen BD Pen No BD Pen Needle Mini Needle Mini Needle U/F 31G X 5 U/F 31G X 5 Mini U/F MM MM 31G X 5 MM Tresiba Tresiba No Tresiba FlexTouch FlexTouch FlexTouch 200 UNIT/ML 200 UNIT/ML 200 UNIT/ML traZODone traZODone No 1{table QD traZODone HCl 100 MG HCl 100 MG t_at_be HCl 100 MG dtime} Lumigan Lumigan No Lumigan 0.01 % 0.01 % 0.01 % Isosorbide Isosorbide No 1{table QD Isosorbide Mononitrate Mononitrate t_in_th Mononitrat ER 30 MG ER 30 MG e_morni e ER 30 MG ng} Aspirin 81 Aspirin 81 No 1{table QD Aspirin 81 81 MG 81 MG t} 81 MG Januvia Januvia No Januvia Melatonin 5 Melatonin 5 No 1{table QD Melatonin MG MG t_at_be 5 MG dtime_a s_neede d_with_ food} Rosuvastati Rosuvastati No Rosuvastat n Calcium n Calcium in Calcium 20 MG 20 MG 20 MG Vitamin B Vitamin B No Vitamin B Complex-C - Complex-C - Complex-C - Metoprolol Metoprolol No 1{table QD Metoprolol Succinate Succinate t} Succinate ER 50 MG ER 50 MG ER 50 MG Vitamin D-3 Vitamin D-3 No 1{table QD Vitamin 5000 UNIT 5000 UNIT t} D-3 5000 UNIT Crestor 20 Crestor 20 No 1{table QD Crestor 20 MG MG t} MG Aspirin 81 Aspirin 81 No 1{table QD Aspirin 81 MG MG t} MG Tresiba Tresiba No Tresiba FlexTouch FlexTouch FlexTouch 200 UNIT/ML 200 UNIT/ML 200 UNIT/ML Clopidogrel Clopidogrel No 1{table QD Clopidogre Bisulfate Bisulfate t} l 75 MG 75 MG Bisulfate 75 MG Clopidogrel Clopidogrel No 1{table QD Clopidogre Bisulfate Bisulfate t} l 75 MG 75 MG Bisulfate 75 MG Metoprolol Metoprolol No 1{table QD Metoprolol Succinate Succinate t} Succinate ER 100 MG ER 100 MG ER 100 MG Omeprazole Omeprazole No Omeprazole 40 MG 40 MG 40 MG Ranexa 500 Ranexa 500 No 1{table BID Ranexa 500 MG MG t} MG BD Pen BD Pen No BD Pen Needle Mini Needle Mini Needle U/F 31G X 5 U/F 31G X 5 Mini U/F MM MM 31G X 5 MM Tresiba Tresiba No Tresiba FlexTouch FlexTouch FlexTouch 200 UNIT/ML 200 UNIT/ML 200 UNIT/ML traZODone traZODone No 1{table QD traZODone HCl 100 MG HCl 100 MG t_at_be HCl 100 MG dtime} Lumigan Lumigan No Lumigan 0.01 % 0.01 % 0.01 % Isosorbide Isosorbide No 1{table QD Isosorbide Mononitrate Mononitrate t_in_th Mononitrat ER 30 MG ER 30 MG e_morni e ER 30 MG ng} Aspirin 81 Aspirin 81 No 1{table QD Aspirin 81 81 MG 81 MG t} 81 MG Januvia Januvia No Januvia Melatonin 5 Melatonin 5 No 1{table QD Melatonin MG MG t_at_be 5 MG dtime_a s_neede d_with_ food} Rosuvastati Rosuvastati No Rosuvastat n Calcium n Calcium in Calcium 20 MG 20 MG 20 MG Vitamin B Vitamin B No Vitamin B Complex-C - Complex-C - Complex-C - Metoprolol Metoprolol No 1{table QD Metoprolol Succinate Succinate t} Succinate ER 50 MG ER 50 MG ER 50 MG Vitamin D-3 Vitamin D-3 No 1{table QD Vitamin 5000 UNIT 5000 UNIT t} D-3 5000 UNIT Crestor 20 Crestor 20 No 1{table QD Crestor 20 MG MG t} MG Aspirin 81 Aspirin 81 No 1{table QD Aspirin 81 MG MG t} MG Tresiba Tresiba No Tresiba FlexTouch FlexTouch FlexTouch 200 UNIT/ML 200 UNIT/ML 200 UNIT/ML Clopidogrel Clopidogrel No 1{table QD Clopidogre Bisulfate Bisulfate t} l 75 MG 75 MG Bisulfate 75 MG Clopidogrel Clopidogrel No 1{table QD Clopidogre Bisulfate Bisulfate t} l 75 MG 75 MG Bisulfate 75 MG Metoprolol Metoprolol No 1{table QD Metoprolol Succinate Succinate t} Succinate ER 100 MG ER 100 MG ER 100 MG Omeprazole Omeprazole No Omeprazole 40 MG 40 MG 40 MG Lumigan Lumigan No 0.01 % 0.01 % Ranexa 500 Ranexa 500 No 1{table BID MG MG t} Isosorbide Isosorbide No 1{table QD Mononitrate Mononitrate t_in_th ER 30 MG ER 30 MG e_morni ng} Melatonin 5 Melatonin 5 No 1{table QD MG MG t_at_be dtime_a s_neede d_with_ food} Aspirin 81 Aspirin 81 No 1{table QD 81 MG 81 MG t} Januvia Januvia No Metoprolol Metoprolol No 1{table QD Succinate Succinate t} ER 25 MG ER 25 MG Clopidogrel Clopidogrel No 1{table QD Bisulfate Bisulfate t} 75 MG 75 MG BD Pen BD Pen No Needle Mini Needle Mini U/F 31G X 5 U/F 31G X 5 MM MM traZODone traZODone No 1{table QD HCl 100 MG HCl 100 MG t_at_be dtime} Vitamin D-3 Vitamin D-3 No 1{table QD 5000 UNIT 5000 UNIT t} Omeprazole Omeprazole No 40 MG 40 MG Rosuvastati Rosuvastati No n Calcium n Calcium 20 MG 20 MG Crestor 20 Crestor 20 No 1{table QD MG MG t} Eliquis 2.5 Eliquis 2.5 No MG MG Vitamin B Vitamin B No Complex-C - Complex-C - Lumigan Lumigan No Lumigan 0.01 % 0.01 % 0.01 % Ranexa 500 Ranexa 500 No 1{table BID Ranexa 500 MG MG t} MG BD Pen BD Pen No BD Pen Needle Mini Needle Mini Needle U/F 31G X 5 U/F 31G X 5 Mini U/F MM MM 31G X 5 MM Melatonin 5 Melatonin 5 No 1{table QD Melatonin MG MG t_at_be 5 MG dtime_a s_neede d_with_ food} Aspirin 81 Aspirin 81 No 1{table QD Aspirin 81 81 MG 81 MG t} 81 MG Januvia Januvia No Januvia Metoprolol Metoprolol No 1{table QD Metoprolol Succinate Succinate t} Succinate ER 25 MG ER 25 MG ER 25 MG Rosuvastati Rosuvastati No Rosuvastat n Calcium n Calcium in Calcium 20 MG 20 MG 20 MG Clopidogrel Clopidogrel No 1{table QD Clopidogre Bisulfate Bisulfate t} l 75 MG 75 MG Bisulfate 75 MG traZODone traZODone No 1{table QD traZODone HCl 100 MG HCl 100 MG t_at_be HCl 100 MG dtime} Omeprazole Omeprazole No Omeprazole 40 MG 40 MG 40 MG Isosorbide Isosorbide No 1{table QD Isosorbide Mononitrate Mononitrate t_in_th Mononitrat ER 30 MG ER 30 MG e_morni e ER 30 MG ng} Vitamin D-3 Vitamin D-3 No 1{table QD Vitamin 5000 UNIT 5000 UNIT t} D-3 5000 UNIT Crestor 20 Crestor 20 No 1{table QD Crestor 20 MG MG t} MG Eliquis 2.5 Eliquis 2.5 No Eliquis MG MG 2.5 MG Vitamin B Vitamin B No Vitamin B Complex-C - Complex-C - Complex-C - Lumigan Lumigan No Lumigan 0.01 % 0.01 % 0.01 % Ranexa 500 Ranexa 500 No 1{table BID Ranexa 500 MG MG t} MG BD Pen BD Pen No BD Pen Needle Mini Needle Mini Needle U/F 31G X 5 U/F 31G X 5 Mini U/F MM MM 31G X 5 MM Melatonin 5 Melatonin 5 No 1{table QD Melatonin MG MG t_at_be 5 MG dtime_a s_neede d_with_ food} Aspirin 81 Aspirin 81 No 1{table QD Aspirin 81 81 MG 81 MG t} 81 MG Januvia Januvia No Januvia Metoprolol Metoprolol No 1{table QD Metoprolol Succinate Succinate t} Succinate ER 25 MG ER 25 MG ER 25 MG Rosuvastati Rosuvastati No Rosuvastat n Calcium n Calcium in Calcium 20 MG 20 MG 20 MG Clopidogrel Clopidogrel No 1{table QD Clopidogre Bisulfate Bisulfate t} l 75 MG 75 MG Bisulfate 75 MG traZODone traZODone No 1{table QD traZODone HCl 100 MG HCl 100 MG t_at_be HCl 100 MG dtime} Omeprazole Omeprazole No Omeprazole 40 MG 40 MG 40 MG Isosorbide Isosorbide No 1{table QD Isosorbide Mononitrate Mononitrate t_in_th Mononitrat ER 30 MG ER 30 MG e_morni e ER 30 MG ng} Vitamin D-3 Vitamin D-3 No 1{table QD Vitamin 5000 UNIT 5000 UNIT t} D-3 5000 UNIT Crestor 20 Crestor 20 No 1{table QD Crestor 20 MG MG t} MG Eliquis 2.5 Eliquis 2.5 No Eliquis MG MG 2.5 MG Vitamin B Vitamin B No Vitamin B Complex-C - Complex-C - Complex-C - Vitamin B Vitamin B No Vitamin B Complex-C - Complex-C - Complex-C - Sulfamethox Sulfamethox No Sulfametho azole-TMP azole-TMP xazole-TMP DS DS DS Vitamin D-3 Vitamin D-3 No 1{table QD Vitamin 5000 UNIT 5000 UNIT t} D-3 5000 UNIT Aspirin 81 Aspirin 81 No 1{table QD Aspirin 81 81 MG 81 MG t} 81 MG Mupirocin 2 Mupirocin 2 No 1{appli BID Mupirocin % % cation} 2 % BD Pen BD Pen No BD Pen Needle Mini Needle Mini Needle U/F 31G X 5 U/F 31G X 5 Mini U/F MM MM 31G X 5 MM Rosuvastati Rosuvastati No Rosuvastat n Calcium n Calcium in Calcium 20 MG 20 MG 20 MG Isosorbide Isosorbide No 1{table QD Isosorbide Mononitrate Mononitrate t_in_th Mononitrat ER 30 MG ER 30 MG e_morni e ER 30 MG ng} Clopidogrel Clopidogrel No 1{table QD Clopidogre Bisulfate Bisulfate t} l 75 MG 75 MG Bisulfate 75 MG Lumigan Lumigan No Lumigan 0.01 % 0.01 % 0.01 % Eliquis 2.5 Eliquis 2.5 No Eliquis MG MG 2.5 MG Metoprolol Metoprolol No 1{table QD Metoprolol Succinate Succinate t} Succinate ER 25 MG ER 25 MG ER 25 MG Omeprazole Omeprazole No Omeprazole 40 MG 40 MG 40 MG Crestor 20 Crestor 20 No 1{table QD Crestor 20 MG MG t} MG traZODone traZODone No 1{table QD traZODone HCl 100 MG HCl 100 MG t_at_be HCl 100 MG dtime} Melatonin 5 Melatonin 5 No 1{table QD Melatonin MG MG t_at_be 5 MG dtime_a s_neede d_with_ food} Januvia Januvia No Januvia Ranexa 500 Ranexa 500 No 1{table BID Ranexa 500 MG MG t} MG Vitamin B Vitamin B No Vitamin B Complex-C - Complex-C - Complex-C - Sulfamethox Sulfamethox No Sulfametho azole-TMP azole-TMP xazole-TMP DS DS DS Vitamin D-3 Vitamin D-3 No 1{table QD Vitamin 5000 UNIT 5000 UNIT t} D-3 5000 UNIT Aspirin 81 Aspirin 81 No 1{table QD Aspirin 81 81 MG 81 MG t} 81 MG Mupirocin 2 Mupirocin 2 No 1{appli BID Mupirocin % % cation} 2 % BD Pen BD Pen No BD Pen Needle Mini Needle Mini Needle U/F 31G X 5 U/F 31G X 5 Mini U/F MM MM 31G X 5 MM Rosuvastati Rosuvastati No Rosuvastat n Calcium n Calcium in Calcium 20 MG 20 MG 20 MG Isosorbide Isosorbide No 1{table QD Isosorbide Mononitrate Mononitrate t_in_th Mononitrat ER 30 MG ER 30 MG e_morni e ER 30 MG ng} Clopidogrel Clopidogrel No 1{table QD Clopidogre Bisulfate Bisulfate t} l 75 MG 75 MG Bisulfate 75 MG Lumigan Lumigan No Lumigan 0.01 % 0.01 % 0.01 % Eliquis 2.5 Eliquis 2.5 No Eliquis MG MG 2.5 MG Metoprolol Metoprolol No 1{table QD Metoprolol Succinate Succinate t} Succinate ER 25 MG ER 25 MG ER 25 MG Omeprazole Omeprazole No Omeprazole 40 MG 40 MG 40 MG Crestor 20 Crestor 20 No 1{table QD Crestor 20 MG MG t} MG traZODone traZODone No 1{table QD traZODone HCl 100 MG HCl 100 MG t_at_be HCl 100 MG dtime} Melatonin 5 Melatonin 5 No 1{table QD Melatonin MG MG t_at_be 5 MG dtime_a s_neede d_with_ food} Januvia Januvia No Januvia Ranexa 500 Ranexa 500 No 1{table BID Ranexa 500 MG MG t} MG traZODone traZODone No 1{table QD traZODone HCl 100 MG HCl 100 MG t_at_be HCl 100 MG dtime} BD Pen BD Pen No BD Pen Needle Mini Needle Mini Needle U/F 31G X 5 U/F 31G X 5 Mini U/F MM MM 31G X 5 MM Omeprazole Omeprazole No Omeprazole 40 MG 40 MG 40 MG Metoprolol Metoprolol No 1{table QD Metoprolol Succinate Succinate t} Succinate ER 100 MG ER 100 MG ER 100 MG Januvia Januvia No Januvia Lumigan Lumigan No Lumigan 0.01 % 0.01 % 0.01 % Aspirin 81 Aspirin 81 No 1{table QD Aspirin 81 81 MG 81 MG t} 81 MG Sulfamethox Sulfamethox No Sulfametho azole-TMP azole-TMP xazole-TMP DS DS DS Melatonin 5 Melatonin 5 No 1{table QD Melatonin MG MG t_at_be 5 MG dtime_a s_neede d_with_ food} Vitamin D-3 Vitamin D-3 No 1{table QD Vitamin 5000 UNIT 5000 UNIT t} D-3 5000 UNIT Crestor 20 Crestor 20 No 1{table QD Crestor 20 MG MG t} MG Clopidogrel Clopidogrel No 1{table QD Clopidogre Bisulfate Bisulfate t} l 75 MG 75 MG Bisulfate 75 MG Januvia 100 Januvia 100 No Januvia MG MG 100 MG Isosorbide Isosorbide No 1{table QD Isosorbide Mononitrate Mononitrate t_in_th Mononitrat ER 30 MG ER 30 MG e_morni e ER 30 MG ng} Rosuvastati Rosuvastati No Rosuvastat n Calcium n Calcium in Calcium 20 MG 20 MG 20 MG Vitamin B Vitamin B No Vitamin B Complex-C - Complex-C - Complex-C - Tresiba Tresiba No QD Tresiba FlexTouch FlexTouch FlexTouch 200 UNIT/ML 200 UNIT/ML 200 UNIT/ML Eliquis 2.5 Eliquis 2.5 No Eliquis MG MG 2.5 MG Mupirocin 2 Mupirocin 2 No 1{appli BID Mupirocin % % cation} 2 % Vitamin B12 Vitamin B12 No Vitamin B12 Ranexa 500 Ranexa 500 No 1{table BID Ranexa 500 MG MG t} MG Mupirocin 2 Mupirocin 2 No 1{appli BID Mupirocin % % cation} 2 % Sulfamethox Sulfamethox No Sulfametho azole-TMP azole-TMP xazole-TMP DS DS DS Lumigan Lumigan No Lumigan 0.01 % 0.01 % 0.01 % Crestor 20 Crestor 20 No 1{table QD Crestor 20 MG MG t} MG Metoprolol Metoprolol No 1{table QD Metoprolol Succinate Succinate t} Succinate ER 100 MG ER 100 MG ER 100 MG BD Pen BD Pen No BD Pen Needle Mini Needle Mini Needle U/F 31G X 5 U/F 31G X 5 Mini U/F MM MM 31G X 5 MM Eliquis 2.5 Eliquis 2.5 No Eliquis MG MG 2.5 MG Rosuvastati Rosuvastati No Rosuvastat n Calcium n Calcium in Calcium 20 MG 20 MG 20 MG Aspirin 81 Aspirin 81 No 1{table QD Aspirin 81 81 MG 81 MG t} 81 MG Omeprazole Omeprazole No Omeprazole 40 MG 40 MG 40 MG Tresiba Tresiba No QD Tresiba FlexTouch FlexTouch FlexTouch 200 UNIT/ML 200 UNIT/ML 200 UNIT/ML Vitamin B Vitamin B No Vitamin B Complex-C - Complex-C - Complex-C - Januvia 100 Januvia 100 No Januvia MG MG 100 MG Isosorbide Isosorbide No 1{table QD Isosorbide Mononitrate Mononitrate t_in_th Mononitrat ER 30 MG ER 30 MG e_morni e ER 30 MG ng} Vitamin B12 Vitamin B12 No Vitamin B12 Vitamin D-3 Vitamin D-3 No 1{table QD Vitamin 5000 UNIT 5000 UNIT t} D-3 5000 UNIT Januvia Januvia No Januvia traZODone traZODone No 1{table QD traZODone HCl 100 MG HCl 100 MG t_at_be HCl 100 MG dtime} Ranexa 500 Ranexa 500 No 1{table BID Ranexa 500 MG MG t} MG Clopidogrel Clopidogrel No 1{table QD Clopidogre Bisulfate Bisulfate t} l 75 MG 75 MG Bisulfate 75 MG Melatonin 5 Melatonin 5 No 1{table QD Melatonin MG MG t_at_be 5 MG dtime_a s_neede d_with_ food} Mupirocin 2 Mupirocin 2 No 1{appli BID Mupirocin % % cation} 2 % Sulfamethox Sulfamethox No Sulfametho azole-TMP azole-TMP xazole-TMP DS DS DS Lumigan Lumigan No Lumigan 0.01 % 0.01 % 0.01 % Crestor 20 Crestor 20 No 1{table QD Crestor 20 MG MG t} MG Metoprolol Metoprolol No 1{table QD Metoprolol Succinate Succinate t} Succinate ER 100 MG ER 100 MG ER 100 MG BD Pen BD Pen No BD Pen Needle Mini Needle Mini Needle U/F 31G X 5 U/F 31G X 5 Mini U/F MM MM 31G X 5 MM Eliquis 2.5 Eliquis 2.5 No Eliquis MG MG 2.5 MG Rosuvastati Rosuvastati No Rosuvastat n Calcium n Calcium in Calcium 20 MG 20 MG 20 MG Aspirin 81 Aspirin 81 No 1{table QD Aspirin 81 81 MG 81 MG t} 81 MG Omeprazole Omeprazole No Omeprazole 40 MG 40 MG 40 MG Tresiba Tresiba No QD Tresiba FlexTouch FlexTouch FlexTouch 200 UNIT/ML 200 UNIT/ML 200 UNIT/ML Vitamin B Vitamin B No Vitamin B Complex-C - Complex-C - Complex-C - Januvia 100 Januvia 100 No Januvia MG MG 100 MG Isosorbide Isosorbide No 1{table QD Isosorbide Mononitrate Mononitrate t_in_th Mononitrat ER 30 MG ER 30 MG e_morni e ER 30 MG ng} Vitamin B12 Vitamin B12 No Vitamin B12 Vitamin D-3 Vitamin D-3 No 1{table QD Vitamin 5000 UNIT 5000 UNIT t} D-3 5000 UNIT Januvia Januvia No Januvia traZODone traZODone No 1{table QD traZODone HCl 100 MG HCl 100 MG t_at_be HCl 100 MG dtime} Ranexa 500 Ranexa 500 No 1{table BID Ranexa 500 MG MG t} MG Clopidogrel Clopidogrel No 1{table QD Clopidogre Bisulfate Bisulfate t} l 75 MG 75 MG Bisulfate 75 MG Melatonin 5 Melatonin 5 No 1{table QD Melatonin MG MG t_at_be 5 MG dtime_a s_neede d_with_ food} Immunizations Ordered Immunization Filled Immunization Date Status Commen ts Source Name Name Mayur Merchant 2021-11-06 Completed [facility]:15:00 - [facility] 2021-11-06 Completed [facility] 14:15:00 - [facility] 2021-11-06 Completed [facility] 14:15:00 - [facility] 2021-11-06 Completed [facility] 14[facility]15:00 - [facility] 2021-11-06 Completed [facility] 14[facility]15:00 - [facility] 2021-11-06 Completed [facility] 14[facility]15:00 - [facility] Sh[facility] 2021-11-06 Completed [facility] 14[facility]15:00 - [facility] 2021-11-06 Completed [facility] 14[facility]15:00 - [facility] Sh[facility] 2021-11-06 Completed [facility] 14[facility]15:00 - [facility] 2021-11-06 Completed [facility] 14[facility]15:00 - [facility] FluAD FluAD 2021-09-28 Completed [facility] 11[facility]24:00 - [facility] FluAD FluAD 2021-09-28 Completed [facility] 11:24:00 - [facility] FluAD FluAD 2021-09-28 Completed [facility] 11[facility]24:00 - [facility] FluAD FluAD 2021-09-28 Completed [facility] 11:24:00 - [facility] FluAD FluAD 2021-09-28 Completed [facility] 11[facility]24:00 - [facility] FluAD FluAD 2021-09-28 Completed [facility] 11:24:00 - [facility] FluAD FluAD 2021-09-28 Completed [facility] 11:24:00 - [facility] FluAD FluAD 2021-09-28 Completed [facility] 11:24:00 - [facility] FluAD FluAD 2021-09-28 Completed [facility] 11[facility]24:00 - [facility] FluAD FluAD 2021-09-28 Completed [facility] 11:24:00 - [facility] FluAD FluAD 2021-09-28 Completed [facility] 11:24:00 - [facility] FluAD FluAD 2021-09-28 Completed [facility] 11:24:00 - [facility] FluAD FluAD 2021-09-28 Completed [facility] 11:24:00 - [facility] FluAD FluAD 2020-09-05 Completed [facility] 10[facility]19:00 - [facility] FluAD FluAD 2020-09-05 Completed [facility] 10[facility]19:00 - [facility] FluAD FluAD 2020-09-05 Completed [facility] 10[facility]19:00 - [facility] FluAD FluAD 2020-09-05 Completed [facility] 10:19:00 - [facility] FluAD FluAD 2020-09-05 Completed [facility] 10[facility]19:00 - [facility] FluAD FluAD 2020-09-05 Completed [facility] 10:19:00 - [facility] FluAD FluAD 2020-09-05 Completed [facility] 10[facility]19:00 - [facility] FluAD FluAD 2020-09-05 Completed [facility] 10:19:00 - [facility] FluAD FluAD 2020-09-05 Completed [facility] 10[facility]19:00 - [facility] FluAD FluAD 2020-09-05 Completed [facility] 10:19:00 - [facility] FluAD FluAD 2020-09-05 Completed [facility] 10[facility]19:00 - [facility] FluAD FluAD 2020-09-05 Completed [facility] 10:19:00 - [facility] FluAD FluAD 2020-09-05 Completed [facility] 10:19:00 - [facility] FluAD FluAD 2020-09-05 Completed [facility] 10:19:00 - [facility] FluAD FluAD 2020-09-05 Completed [facility] 10[facility]19:00 - [facility] FluAD FluAD 2019-09-06 Completed [facility] 14:00:00 - [facility] FluAD FluAD 2019-09-06 Completed [facility] 14[facility]00:00 - [facility] FluAD FluAD 2019-09-06 Completed [facility] 14[facility]00:00 - [facility] FluAD FluAD 2019-09-06 Completed [facility] 14:00:00 - [facility] FluAD FluAD 2019-09-06 Completed [facility] 14[facility]00:00 - [facility] FluAD FluAD 2019-09-06 Completed [facility] 14:00:00 - [facility] FluAD FluAD 2019-09-06 Completed [facility] 14:00:00 - [facility] FluAD FluAD 2019-09-06 Completed [facility] 14:00:00 - [facility] FluAD FluAD 2019-09-06 Completed [facility] 14[facility]00:00 - [facility] FluAD FluAD 2019-09-06 Completed [facility] 14:00:00 - [facility] FluAD FluAD 2019-09-06 Completed [facility] 14:00:00 - [facility] FluAD FluAD 2019-09-06 Completed [facility] 14:00:00 - [facility] FluAD FluAD 2019-09-06 Completed [facility] 14:00:00 - [facility] FluAD FluAD 2019-09-06 Completed [facility] 14[facility]00:00 - [facility] FluAD FluAD 2019-09-06 Completed [facility] 14:00:00 - [facility] FluAD FluAD 2019-09-06 Completed [facility] 00:00:00 - [facility] Pneumovax (PPSV23) Pneumovax (PPSV23) 2018-09-15 Completed [facility] 11:17:00 - [facility] Pneumovax (PPSV23) Pneumovax (PPSV23) 2018-09-15 Completed [facility] 11:17:00 - [facility] Pneumovax (PPSV23) Pneumovax (PPSV23) 2018-09-15 Completed [facility] 11:17:00 - [facility] Pneumovax (PPSV23) Pneumovax (PPSV23) 2018-09-15 Completed [facility] 11:17:00 - [facility] Pneumovax (PPSV23) Pneumovax (PPSV23) 2018-09-15 Completed [facility] 11:17:00 - [facility] Pneumovax (PPSV23) Pneumovax (PPSV23) 2018-09-15 Completed [facility] 11:17:00 - [facility] Pneumovax (PPSV23) Pneumovax (PPSV23) 2018-09-15 Completed [facility] 11:17:00 - [facility] Pneumovax (PPSV23) Pneumovax (PPSV23) 2018-09-15 Completed [facility] 11:17:00 - [facility] Pneumovax (PPSV23) Pneumovax (PPSV23) 2018-09-15 Completed [facility] 11:17:00 - [facility] Pneumovax (PPSV23) Pneumovax (PPSV23) 2018-09-15 Completed [facility] 11:17:00 - [facility] Pneumovax (PPSV23) Pneumovax (PPSV23) 2018-09-15 Completed [facility] 11:17:00 - [facility] Pneumovax (PPSV23) Pneumovax (PPSV23) 2018-09-15 Completed [facility] 11:17:00 - [facility] Pneumovax (PPSV23) Pneumovax (PPSV23) 2018-09-15 Completed [facility] 11:17:00 - [facility] Pneumovax (PPSV23) Pneumovax (PPSV23) 2018-09-15 Completed [facility] 11:17:00 - [facility] Pneumovax (PPSV23) Pneumovax (PPSV23) 2018-09-15 Completed [facility] 11:17:00 - [facility] FluAD FluAD 2018-09-15 Completed [facility] 11:16:00 - [facility] FluAD FluAD 2018-09-15 Completed [facility] 11:16:00 - [facility] FluAD FluAD 2018-09-15 Completed [facility] 11:16:00 - [facility] FluAD FluAD 2018-09-15 Completed [facility] 11:16:00 - [facility] FluAD FluAD 2018-09-15 Completed [facility] 11:16:00 - [facility] FluAD FluAD 2018-09-15 Completed [facility] 11:16:00 - [facility] FluAD FluAD 2018-09-15 Completed [facility] 11:16:00 - [facility] FluAD FluAD 2018-09-15 Completed [facility] 11:16:00 - [facility] FluAD FluAD 2018-09-15 Completed [facility] 11:16:00 - [facility] FluAD FluAD 2018-09-15 Completed [facility] 11[facility]16:00 - [facility] [facility] FluAD FluAD 2018-09-15 Completed [facility] 11:16:00 - [facility] FluAD FluAD 2018-09-15 Completed [facility] 11[facility]16:00 - [facility] FluAD FluAD 2018-09-15 Completed [facility] 11:16:00 - [facility] FluAD FluAD 2018-09-15 Completed [facility] 11:16:00 - [facility] FluAD FluAD 2018-09-15 Completed [facility] 11:16:00 - [facility] Vital Signs Vital Name Observation Time Observation Value Comments Source Systolic blood 2022-11-17 18:30:00 104 mm[Hg] Univer sity of pressure [facility] Diastolic blood 2022-11-17 18:30:00 79 mm[Hg] [facility] 2022-11-17 18:30:00 71 /min [facility] Respiratory rate 2022-11-17 18:30:00 18 /min [facility] Oxygen saturation in 2022-11-17 18:30:00 99 /min [facility] Arterial blood by [facility] Pulse oximetry Branch Body temperature 2022-11-17 17:04:00 36.89 Emmanuelle [facility] Body weight 2022-11-17 17:04:00 61.236 kg [facility] height 2022-04-18 14:50:00 68 [in_i] [facility] weight 2022-04-18 14:50:00 140.2 [lb_av] [facility] temperature 2022-04-18 14:50:00 98.4 [degF] [facility] bmi 2022-04-18 14:50:00 21.32 kg/m2 [facility] oximetry 2022-04-18 14:50:00 98 % [facility] respiratory rate 2022-04-18 14:50:00 18 /min Comm on [facility] blood pressure 2022-04-18 14:50:00 134 mm[Hg] Common [facility] - systolic [facility] blood pressure 2022-04-18 14:50:00 65 mm[Hg] Common [facility] - diastolic [facility] height 2022-03-14 15:40:00 68 [in_i] [facility] weight 2022-03-14 15:40:00 135.9 [lb_av] [facility] temperature 2022-03-14 15:40:00 98.2 [degF] Common [facility] bmi 2022-03-14 15:40:00 20.66 kg/m2 [facility] oximetry 2022-03-14 15:40:00 99 % Common [facility] respiratory rate 2022-03-14 15:40:00 18 /min Comm on [facility] blood pressure 2022-03-14 15:40:00 135 mm[Hg] Common [facility] - systolic [facility] blood pressure 2022-03-14 15:40:00 67 mm[Hg] Common [facility] - diastolic [facility] height 2021-12-26 13:00:00 68 [in_i] [facility] weight 2021-12-26 13:00:00 137.7 [lb_av] [facility] temperature 2021-12-26 13:00:00 97.0 [degF] [facility] bmi 2021-12-26 13:00:00 20.93 kg/m2 [facility] oximetry 2021-12-26 13:00:00 99 % [facility] respiratory rate 2021-12-26 13:00:00 18 /min Comm on [facility] blood pressure 2021-12-26 13:00:00 132 mm[Hg] Common [facility] - systolic [facility] blood pressure 2021-12-26 13:00:00 67 mm[Hg] [facility] - diastolic [facility] HEIGHT 2021-11-02 13:57:00 172.7 cm WEIGHT 2021-11-02 13:57:00 64.864 kg HEIGHT 2021-11-02 13:57:00 172.7 cm WEIGHT 2021-11-02 13:57:00 64.864 kg height 2021-08-31 10:20:00 68 [in_i] [facility] weight 2021-08-31 10:20:00 131 [lb_av] [facility] temperature 2021-08-31 10:20:00 97.5 [degF] Common [facility] bmi 2021-08-31 10:20:00 19.92 kg/m2 [facility] blood pressure 2021-08-31 10:20:00 121 mm[Hg] Common [facility] - systolic [facility] blood pressure 2021-08-31 10:20:00 70 mm[Hg] Common [facility] - diastolic [facility] height 2021-05-25 08:20:00 68 [in_i] Common [facility] weight 2021-05-25 08:20:00 139.2 [lb_av] Common [facility] temperature 2021-05-25 08:20:00 97.9 [degF] Common [facility] bmi 2021-05-25 08:20:00 21.16 kg/m2 [facility] oximetry 2021-05-25 08:20:00 98 % [facility] respiratory rate 2021-05-25 08:20:00 16 /min Comm on [facility] blood pressure 2021-05-25 08:20:00 117 mm[Hg] [facility] - systolic [facility] blood pressure 2021-05-25 08:20:00 56 mm[Hg] [facility] - diastolic [facility] WEIGHT 2020-12-17 04:37:00 64.184 kg HEIGHT 2020-12-14 13:33:00 172.7 cm WEIGHT 2020-12-14 13:33:00 65.772 kg WEIGHT 2020-12-17 04:37:00 64.184 kg HEIGHT 2020-12-14 13:33:00 172.7 cm WEIGHT 2020-12-14 13:33:00 65.772 kg Systolic blood 2019-07-12 16:09:00 136 mm[Hg] [facility] pressure Medicine Diastolic blood 2019-07-12 16:09:00 65 mm[Hg] [facility] pressure Medicine Heart rate 2019-07-12 16:09:00 60 /min [facility] of Medicine Body height 2019-07-12 16:06:00 172.7 cm [facility] Body weight 2019-07-12 16:06:00 65.318 kg [facility] BMI 2019-07-12 16:06:00 21.90 kg/m2 [facility] Heart Systolic blood 2019-07-12 16:09:00 136 mm[Hg] [facility] of pressure Medicine Diastolic blood 2019-07-12 16:09:00 65 mm[Hg] [facility] pressure Medicine Heart rate 2019-07-12 16:09:00 60 /min [facility] Body height 2019-07-12 16:06:00 172.7 cm [facility] Body weight 2019-07-12 16:06:00 65.318 kg [facility] BMI 2019-07-12 16:06:00 21.90 kg/m2 [facility] Procedures Procedure Date / Time Performing Clinician Source Performed CBC WITH DIFF 2022-11-17 17:41:00 Atilio Byers o [facility] PROTHROMBIN TIME / INR 2022-11-17 17:41:00 Atilio Byers [facility] ACTIVATED PARTIAL THRMPLAS 2022-11-17 17:41:00 Atilio Byers [facility] NOTICE OF PRIVACY 2022-11-17 17:01:38 Doctor Unassigned, [facility] PRACTICES [facility] CONSENT/REFUSAL FOR 2022-11-17 17:00:19 Doctor Jenniferssharper, [facility] DIAGNOSIS AND TREATMENT [facility] XR CHEST 2 VW 2022-09-06 16:50:[address] [facility] NOTICE OF BILLING 2022-09-06 16:32:25 Doctor Unassigned, [facility] PRACTICES FOR MEDICARE [facility] PATIENTS [facility] PATIENT FINANCIAL 2022-09-06 16:31:57 Doctor Unassigned, [facility] POLICY [facility] NO SHOW OR MISSED 2022-09-06 16:31:43 Doctor Unassigned, [facility] APPOINTMENT POLICY [facility] ACKNOWLEDGEMENT CONSENT/REFUSAL FOR 2022-09-06 16:31:24 Doctor Unaezequiel, [facility] DIAGNOSIS AND TREATMENT [facility] ASSIGNMENT OF BENEFITS 2022-09-06 16:31:09 Doctor Unassigned, [facility] Plan of Care Planned Activity Planned Date Details Comments Source Future Scheduled 2023-01-15 COVID-19 VACCINE (#1) [facility] Test 16:59:12 [code = COVID-19 VACCINE (#1)] Future Scheduled 2023-01-15 DIABETES: RETINAL EYE [facility] Test 16:59:12 EXAM [code = DIABETES: RETINAL EYE EXAM] Future Scheduled 2023-01-15 DIABETIC FOOT EXAM [facility] Test 16:59:12 [code = DIABETIC FOOT EXAM] Future Scheduled 2023-01-15 URINE MICROALBUMIN [facility] Test 16:59:12 [code = URINE MICROALBUMIN] Future Scheduled 2023-01-15 SHINGLES VACCINES (1 Met [facility] Test 16:59:12 of 2) [code = SHINGLES VACCINES (1 of 2)] Future Scheduled 2023-01-15 65+ [facility]AL [facility] 16:59:12 VACCINE (2 - PCV) [code = 65+ PNEUMOCOCCAL VACCINE (2 - PCV)] Future Scheduled 2023-01-15 INFLUENZA VACCINE [facility] Test 16:59:12 [code = INFLUENZA VACCINE] Future Scheduled 2022-11-24 FALLS RISK SCREENING [facility] Test 00:00:00 [code = FALLS RISK Medical C enter SCREENING] Future Scheduled 2022-11-[address] [facility] Test 00:00:00 Counseling and Medical Cente r Screening (12+) [code = Tobacco Cessation Counseling and Screening (12+)] Future Scheduled 2022-07-25 INFLUENZA VACCINE (#1) [facility] Test 00:00:00 [code = INFLUENZA Medical Ce nter VACCINE (#1)] Future Scheduled 2021-11-[address] [facility] [facility] Test 00:00:00 WELLNESS (YEAR 2 or Medical Center FIRST YEAR if no IPPE) [code = MEDICARE ANNUAL WELLNESS (YEAR 2 or FIRST YEAR if no IPPE)] Future Scheduled 2019-09-15 PNEUMOCOCCAL 65+ YRS [facility] Test 00:00:00 (2 - PCV) [code = Medical Ce nter PNEUMOCOCCAL 65+ YRS (2 - PCV)] Future Scheduled 1990-01-24 SHINGLES VACCINES ([address] [facility] Test 00:00:00 of 2) [code = SHINGLES Medic al Center VACCINES (1 of 2)] Future Scheduled 1959-01-24 DTAP/TDAP/TD VACCINES [facility] Test 00:00:00 (1 - Tdap) [code = Medical C enter DTAP/TDAP/TD VACCINES (1 - Tdap)] Future Scheduled 1940 COVID-19 VACCINE (#1) [facility] Test 00:00:00 [code = COVID-[address] VACCINE (#1)] Future Scheduled MEDICARE AWV [code = [facility] Test MEDICARE AWV] Medicine Future Scheduled TETANUS SHOT (ADULT) [facility] Test [code = TETANUS SHOT Medicin e (ADULT)] Future Scheduled FALL SCREEN [code = [facility] Test FALL SCREEN] Medicine Future Scheduled P[facility]OVAX >=65 [facility] [code = Medicine PNEUMOVAX >=65 (PPSV23)] Future Scheduled PREVNAR >= 65 (PCV13) [facility] Test [code = PREVNAR >= 65 Medici ne (PCV13)] Future Scheduled FLU VACCINE > 6 MONTHS B [facility] [code = FLU VACCINE > Medici ne 6 MONTHS] Encounters Start End Encounter Admission Attending Care Care Encounter Source Date/Time Date/Time Type Type Clinicians Facility Department ID 2021-12-19 Out[facility] Common 14:25:29 Derek [id number] [facility] 2021-12-19 Outpatient Lomeli, [facility] Common 13:36:19 Derek [id number] [facility] 2021-12-19 [facility] Common 13:12:39 Derek [id number] [facility] 2021-12-19 [facility] Common 12:25:20 Derek [id number] [facility] 2021-12-19 [facility] Common 12:24:42 Derek [id number] [facility] 2021-12-19 Outpatient [facility], [facility] Common 12:16:57 Derek [id number] [facility] 2021-12-19 Outpatient [facility], [facility] Common 12:09:08 Derek [id number] [facility] 2021-12-19 Outpatient Lomeli, [facility] Common 12:08:24 Derek [id number] [facility] 2021-12-19 Outpatient Lomeli, [facility] Common 12:06:02 Derek [id number] [facility] 2021-12-19 [facility] Common 12:04:58 Derek [id number] [facility] 2021-12-19 Outpatient Lomeli, [facility] Common 11:48:11 Derek [id number] [facility] 2021-12-19 Outpatient Lomeli, [facility] Common 11:46:53 Derek [id number] [facility] 2021-12-19 Outpatient Lomeli, [facility] Common 11:44:59 Derek [id number] [facility] 2021-12-19 Outpatient Lomeli, [facility] Common 11:38:59 Derek [id number] [facility] 2021-12-19 Outpatient Lomeli, [facility] Common 11:27:13 Derek [id number] [facility] 2021-12-19 Outpatient Lomeli, [facility] Common 11:25:55 Derek [id number] [facility] 2021-12-19 Outpatient Lomeli, [facility] Common 11:21:49 Derek [id number] [facility] 2021-12-19 Outpatient Lomeli, [facility] Common 11:19:00 Derek [id number] [facility] 2022-11-17 2022-11-17 Emergency [facility] [id number] Univers 11:05:00 12:43:00 [facility] 2022-11-17 2022-11-17 Emergency [facility] [id number] Univers 11:05:00 12:43:00 Atilio HANNA [id number] i ty [facility] [id number] [facility] [id number] [facility] 084 Branch 2022-09-06 2022-09-06 [id number] Univers 11:35:08 23:59:00 [facility] 2022-09-06 2022-09-06 [facility] [id number] Univers 11:31:04 11:34:00 Encounter Osito HANNA [id number] ity [facility] [id number] [facility] [id number] [facility] 807 Branch 2022-09-06 2022-09-06 Outpatient Jarod CRUZ, [facility] RAD [id number] Univers 00:00:00 00:00:00 [facility] 2022-06-04 2022-06-04 Outpatient TAI MENDEZ ARHOP 120 [place] 02:33:00 02:33:00 [place] [id number] da [facility] Outre h Program 2022-05-22 2022-05-22 (TEL) STLMLC STLMLC [id number] Co mmon 00:00:00 00:00:00 [facility] 2022-04-29 2022-04-29 (TEL) STLMLC STLMLC [id number] Co mmon 00:00:00 00:00:00 [facility] 2022-04-18 2022-04-18 OFFICE STLMLC STLMLC [id number] Co mmon 00:00:00 00:00:00 [facility] ESTAB PT - CHI LEVEL 4 [facility] 2022-03-14 2022-03-14 (TEL) STLMLC STLMLC [id number] Co mmon 00:00:00 00:00:00 [facility] 2022-03-14 2022-03-14 OFFICE STLMLC STLMLC [id number] Co mmon 00:00:00 00:00:00 VISIT EST Spir it PT LEVEL 3 - CHI [facility] 2022-03-12 2022-03-12 (TEL) STLMLC STLMLC [id number] Co mmon 00:00:00 00:00:00 [facility] 2022-01-21 2022-01-21 (TEL) STLMLC STLMLC [id number] Co mmon 00:00:00 00:00:00 [facility] 2021-12-26 2021-12-26 (WELLNESS) STLMLC STLMLC [id number] Common 00:00:00 00:00:00 Wellness Spiri t [facility] 2021-12-21 2021-12-21 (TEL) STLMLC STLMLC [id number] Co mmon 00:00:00 00:00:00 [facility] 2021-12-20 2021-12-20 (TEL) STLMLC STLMLC [id number] Co mmon 00:00:00 00:00:00 [facility] 2021-12-10 2021-12-10 Outpatient DORA Antonio, [facility] DAYS [id number] [facility] 00:30:00 00:30:00 Prakash Harrison [facility] 2021-12-06 2021-12-06 Outpatient UNKNOWN HCACL LABO [id number] [facility] 17:44:00 17:44:00 14 [facility] 2021-11-05 2021-11-05 (TEL) STLMLC STLMLC [id number] Co mmon 00:00:00 00:00:00 [facility] 2021-11-02 2021-11-04 Inpatient ER BLADIMIR BARROS [facility] Emergency [id number] SLE 14:01:00 13:27:00 2021-11-02 2021-11-02 Outpatient [facility] [id number] [employer] 00:00:00 23:59:00 [facility] 2021-10-31 2021-10-31 (TEL) STLMLC STLMLC [id number] Co mmon 00:00:00 00:00:00 [facility] 2021-09-28 2021-09-28 (INJ) STLMLC STLMLC [id number] Co mmon 00:00:00 00:00:[address] [facility] 2021-08-31 2021-08-31 OFFICE STLMLC STLMLC [id number] Co mmon 00:00:00 00:00:00 [facility] ESTAB PT - CHI LEVEL 4 [facility] 2021-05-25 2021-05-25 OFFICE STLMLC STLMLC [id number] Co mmon 00:00:00 00:00:00 [facility] ESTAB PT - CHI LEVEL 4 [facility] 2021-05-16 2021-05-16 Outpatient STLMLC STLMLC [id number] Common 00:00:00 00:00:00 [facility] 2021-05-02 2021-05-02 Outpatient STLMLC STLMLC [id number] Common 00:00:00 00:00:00 [facility] 2021-05-01 2021-05-01 Outpatient STLMLC STLMLC [id number] Common 00:00:00 00:00:00 [facility] 2021-04-20 2021-04-20 Outpatient STLMLC STLMLC [id number] Common 00:00:00 00:00:00 [facility] 2021-04-18 2021-04-18 Outpatient STLMLC STLMLC [id number] Common 00:00:00 00:00:00 [facility] 2021-02-27 2021-02-27 Outpatient STLMLC STLMLC [id number] Common 00:00:00 00:00:00 [facility] 2021-02-13 2021-02-13 Outpatient STLMLC STLMLC [id number] Common 00:00:00 00:00:00 [facility] 2021-02-05 2021-02-05 Outpatient STLMLC STLMLC [id number] Common 00:00:00 00:00:00 [facility] 2021-01-22 2021-01-22 Outpatient [facility] [id number] [place] 00:00:00 00:00:00 PRAKASH [address] 2021-01-17 2021-01-17 Outpatient [facility] [id number] [place] 00:00:00 00:00:00 PRAKASH [address] 2020-12-19 2020-12-19 Outpatient STLMLC STLMLC [id number] Common 00:00:00 00:00:00 [facility] 2020-12-18 2020-12-18 Outpatient STLMLC STLMLC [id number] Common 00:00:00 00:00:00 [facility] 2020-12-15 2020-12-15 Outpatient STLMLC STLMLC [id number] Common 00:00:00 00:00:00 [facility] 2020-12-14 2020-12-14 Emergency ER [facility] Emergency [id number] SLE 13:10:00 13:10:00 2020-11-13 2020-11-13 Outpatient STLMLC STLMLC [id number] Common 00:00:00 00:00:00 [facility] 2020-10-30 2020-10-30 Outpatient STLMLC STLMLC [id number] Common 00:00:00 00:00:00 [facility] 2020-10-24 2020-10-24 Outpatient STLMLC STLMLC [id number] Common 00:00:00 00:00:00 [facility] 2020-10-16 2020-10-16 Outpatient STLMLC STLMLC [id number] Common 00:00:00 00:00:00 [facility] 2020-10-12 2020-10-12 Outpatient ELIU, MHSE MHSE [id number] MH 06:00:00 09:08:00 [facility] 2020-09-25 2020-09-25 Outpatient STLMLC STLMLC [id number] Common 00:00:00 00:00:00 [facility] 2020-09-18 2020-09-18 Outpatient STLMLC STLMLC [id number] Common 00:00:00 00:00:00 [facility] 2020-09-05 2020-09-05 Outpatient STLMLC STLMLC [id number] Common 00:00:00 00:00:00 [facility] 2020-08-11 2020-08-11 [facility] [id number] Common 08:30:00 08:30:[address] [facility] 2020-08-03 2020-08-03 Out[facility] [id number] Common 11:18:00 11:18:[address] [facility] 2020-07-11 2020-07-11 Out[facility] [id number] Common 15:00:00 15:00:[address] [facility] 2020-05-11 2020-05-11 [facility] [id number] Common 10:00:00 10:00:[address] [facility] 2020-05-11 2020-05-11 [facility] [id number] Common 10:00:00 10:00:[address] [facility] 2020-05-03 2020-05-03 [facility] [id number] Common 10:38:00 10:38:[address] [facility] 2020-04-06 2020-04-06 Out[facility] [id number] Common 08:42:00 08:42:[address] [facility] [address] [facility] 2020-03-15 2020-03-15 [facility] [id number] Common 08:38:00 08:38:[address] [facility] 2019-11-15 2019-11-15 Out[facility] [id number] Common 13:51:00 13:51:[address] [facility] 2019-11-11 2019-11-11 [facility] [id number] Common 08:30:00 08:30:[address] [facility] 2019-11-05 2019-11-05 [facility] [id number] Common 15:43:00 15:43:[address] [facility] 2019-10-19 2019-10-19 Out[facility] [id number] Common 11:04:00 11:04:[address] [facility] 2019-09-06 2019-09-06 Out[facility] [id number] Common 13:45:00 13:45:[address] [facility] 2019-08-05 2019-08-05 Out[facility] [id number] Common 13:45:00 13:45:[address] [facility] 2019-07-12 2019-07-12 Office Julia Ty [id number] 11:01:23 11:49:13 Visit AMBULATOR [id number] Y [id number] 2019-07-12 2019-07-12 Office Julia Ty [id number] [employer] [facility] [employer] 11:01:23 11:49:13 Visit AMBULATOR [id number] College Y [id number] of [id number] [facility] 850 e 2019-06-11 2019-06-11 [facility] [id number] Common 10:30:00 10:30:[address] [facility] 2019-05-31 2019-05-31 Out[facility] [id number] Common 14:01:00 14:01:[address] [facility] 2019-05-21 2019-05-21 Out[facility] [id number] Common 13:23:00 13:23:[address] [facility] 2019-05-11 2019-05-11 [facility] [id number] Common 09:44:00 09:44:[address] [facility] 2019-03-16 2019-03-16 [facility] [id number] Common 10:45:00 10:45:[address] [facility] 2019-02-18 2019-02-18 Out[facility] [id number] Common 09:05:00 09:05:[address] [facility] 2019-01-08 2019-01-08 Out[facility] [id number] Common 14:40:00 14:40:[address] [facility] 2018-12-16 2018-12-16 [facility] [id number] Common 14:45:00 14:45:[address] [facility] 2018-11-30 2018-11-30 [facility] [id number] Common 09:04:00 09:04:[address] [facility] 2018-11-25 2018-11-25 Out[facility] [id number] Common 08:37:00 08:37:[address] [facility] 2018-09-08 2018-09-08 Out[facility] [id number] Common 11:38:00 11:38:[address] [facility] 2018-07-28 2018-07-28 Out[facility] [id number] Common 13:59:00 13:59:[address] [facility] 2018-07-20 2018-07-20 Out[facility] [id number] Common 11:52:00 11:52:[address] [facility] 2018-07-08 2018-07-08 [facility] [id number] Common 09:26:00 09:26:[address] [facility] 2018-07-07 2018-07-07 [facility] [id number] Common 10:35:00 10:35:[address] [facility] 2018-06-29 2018-06-29 Out[facility] [id number] Common 09:15:00 09:15:[address] [facility] 2018-06-23 2018-06-23 Outpatient [facility] [id number] Common 10:28:00 10:28:[address] [facility] 2018-05-21 2018-05-21 [facility] [id number] Common 08:21:00 08:21:[address] [facility] 2018-05-20 2018-05-20 [facility] 13 [id number] Common 08:00:00 08:00:[address] [facility] 2018-05-19 2018-05-19 [facility] 14 [id number] Common 10:26:00 10:26:[address] [facility] 2018-05-09 2018-05-09 [facility] 14 [id number] Common 10:46:00 10:46:[address] [facility] 2018-04-24 2018-04-24 [facility] 14 [id number] Common 11:50:00 11:50:[address] [facility] 2018-04-23 2018-04-23 [facility] 14 [id number] Common 13:00:00 13:00:[address] [facility] 2018-04-06 2018-04-06 [facility] 12 [id number] Common 10:00:00 10:00:[address] [facility] 2018-03-30 2018-03-30 [facility] 13 [id number] Common 16:08:00 16:08:[address] [facility] 2018-03-12 2018-03-12 [facility] 13 [id number] Common 12:11:00 12:11:[address] [facility] 2018-02-13 2018-02-13 [facility] 13 [id number] Common 15:10:00 15:10:[address] [facility] 2018-02-11 2018-02-11 [facility] 13 [id number] Common 11:00:00 11:00:[address] [facility] 2018-02-09 2018-02-09 Outpatient [facility] 13 [id number] Common 14:45:00 14:45:[address] [facility] 2008-02-04 2008-02-[address] [facility] [id number] [facility] 00:00:00 16:52:01 [facility] Results Test Description Test Time Test Comments Results Result Comments Source ACTIV[facility]IAL [facility]RM[facility] 2022-11-17 18:00:19 Test Item Value Reference Range Interpretation Comme nts APTT Patient (test code = See_Comment [ Automated message] The 3173-2) system which ge nerated this result tra nsmitted reference range : 23 - 38 Seconds. The re ference range was not u sed to interpret this result as normal/abnormal . ELVIN (test code = ELVIN) The [facility] patient population mean normal value for aPTT is 30 seconds. Lab Interpretation (test Normal code = 06013-7) [facility] / [id number] 17:58:18 Test Item Value Reference Range Interpretation Comments PROTIME PATIENT (test See_Comment [Auto mated message] code = 5964-2) The system wh ich generated this result transmitted ref erence range: 12.0 - 1 4.7 Seconds. The re ference range was not u sed to interpret this result as normal/abnor mal. INR (test code = 6301-6) Nor mal INR <1.1; Warfarin Therap eutic range 2.0 to 3. 0 or 2.5 to 3.5, dep ending upon the indica tions. Lab Interpretation (test Normal code = 43777-4) [facility] WITH [id number] 17:49:59 Test Item Value Reference Range Interpretation Comments WBC (test code = See_Comment [Automated 3790-2) message] The sy stem which generated this result transmitted reference range : 4.20 - 10.70 10*3/?L. The reference range was not used to interpret this result as normal/abnormal . RBC (test code = See_Comment L [Automated 379-8) message] The sy stem which generated this result transmitted reference range : 4.26 - 5.52 10*6/?L. The reference range was not used to interpret this result as normal/abnormal . HGB (test code = 11.4 g/dL 12.2-16.4 L 718-7) HCT (test code = 33.0 % 38.4-49.3 L 4544-3) MCV (test code = 93.2 fL 81.7-95.6 787-2) MCH (test code = 32.2 pg 26.1-32.7 785-6) MCHC (test code = 34.5 g/dL 31.2-35.0 786-4) RDW-SD (test code = 40.6 fL 38.5-51.6 82763-9) RDW-CV (test code = 11.8 % 12.1-15.4 L 788-0) PLT (test code = See_Comment [Automated 777-3) message] The sy stem which generated this result transmitted reference range : 150 - 328 10*3/ ?L. The reference r frantz was not used to interpret this result as normal/abnormal . MPV (test code = 9.6 fL 9.8-13.0 L 58097-2) NRBC/100 WBC (test See_Comment [Automat ed code = 7056311348) message] The system which generated this result transmitted reference range : 0.0 - 10.0 /100 WBCs. The refer ence range was not u sed to interpret th is result as normal/abnormal . NRBC x10^3 (test code See_Comment [Auto mated = [id number]) message] The s ystem which generated this result transmitted reference range : 10*3/?L. The reference range was not used to interpret this result as normal/abnormal . GRAN MAT (NEUT) % 66.0 % (test code = 770-8) IMM GRAN % (test code 0.30 % = 3104711219) LYMPH % (test code = 19.7 % 736-9) MONO % (test code = 8.3 % 5905-5) EOS % (test code = 5.0 % 713-8) BASO % (test code = 0.7 % 706-2) GRAN MAT x10^3(ANC) 4.81 10*3/uL 1.99-6.95 (test code = 0312204939) IMM GRAN x10^3 (test 0.00-0.06 code = 4088227616) LYMPH x10^3 (test code 1.43 10*3/uL 1.09-3.23 = 731-0) MONO x10^3 (test code 0.60 10*3/uL 0.36-1.02 = 742-7) EOS x10^3 (test code = 0.36 10*3/uL 0.06-0.53 711-2) BASO x10^3 (test code 0.05 10*3/uL 0.01-0.09 = 704-7) Lab Interpretation Abnormal (test code = 55998-5) [facility] 13:47:00 Test Item Value Reference Range Interpretation Comments GLUBED (test code = GLUBED) 104 MG/DL 70-105 N [id number] 09:13:00 Test Item Value Reference Range Interpretation Comments GLUBED (test code = GLUBED) 92 MG/DL 70-105 N Novel Coronavirus 2018 [id number] 10:25:00 Test Item Value Reference Range Interpretation [...] det ection of nucleic acids f rom ereJDXT-SnP-5 v irus and diagnosis of SA RS-CoV-2 virusinfection. It is an Emergency Use Authorization ( EUA) testauthorized by the U.S. FDA. First test? UnknownEmployed in Healthcare? UnknownSymptomatic as defined by CDC? UnknownHospitalizeddue to COVID? UnknownIn ICU due to COVID? UnknownResident in a congregate care setting? Unknown? NoAge at collection: Kacie Coronavirus 2019 [id number] 10:24:00 Test Item Value Reference Range Interpretation [...] det ection of nucleic acids f rom hnfELYO-RtW-3 v irus and diagnosis of SA RS-CoV-2 virusinfection. It is an Emergency Use Authorization ( EUA) testauthorized by the U.S. FDA. First test? UnknownEmployed in Healthcare? UnknownSymptomatic as defined by CDC? UnknownHospitalizeddue to COVID? UnknownIn ICU due to COVID? UnknownResident in a congregate care setting? Unknown? NoAge at collection: YCOMPREHENSIVE METABOLIC [id number] 15:29:00 Test Item Value Reference Range Interpretation [...] Feb code = ALKP) 2020 CBC W/AUTO [id number] 15:04:00 Test Item Value Reference Range Interpretation [...] BA#) 0.04 x10 3/uL 0.0-0.20 N POCT-GLUCOSE [id number] 08:39:09 Test Item Value Reference Range Interpretation Comments POC-GLUCOSE METER 128 mg/dL 70-110 H : Notified RN/MD: (BEAKER) (test code = TESTED AT [facility] 6696 8973) [place]ISELE [facility], [address]: Statement Services Representative/Techni geraldo ID = [id number] for Gilbert (contract)Jorge L BASIC METABOLIC [id number] 08:35:28 Test Item Value Reference Range Interpretation [...] S NOT APPLICABLE FOR DIALYSIS PATIEN TS. Statement Services Representative ID - VELMA WCBC W/PLT COUNT & AUTO [id number] 06:01:57 Test Item Value Reference Range Interpretation [...] PERCENT (BEAKER) (test code = 2801) POCT-GLUCOSE [id number] 20:35:08 Test Item Value Reference Range Interpretation Comments POC-GLUCOSE METER 194 mg/dL 70-110 H : TESTED A T [facility] 6720 (BEAKER) (test code = [facility], 1538) [address]: Statement Services Representative/Techni geraldo ID = [id number] for WENDI FREEMAN POCT-GLUCOSE [id number] 17:47:33 Test Item Value Reference Range Interpretation Comments POC-GLUCOSE METER 166 mg/dL 70-110 H : TESTED A T [facility] 6720 (BEAKER) (test code = [facility], 1538) 517[address]: Statement Services Representative/Techni geraldo ID = [id number] for [place] LLIS, MICKEY POCT-GLUCOSE [id number] 13:13:06 Test Item Value Reference Range Interpretation Comments POC-GLUCOSE METER 121 mg/dL 70-110 H : TESTED A T [facility] 6720 (BEAKER) (test code = [facility], 1538) 20609: Statement Services Representative/Techni geraldo ID = [id number] for [place] LLIS, MICKEY POCT-GLUCOSE [id number] 08:54:04 Test Item Value Reference Range Interpretation Comments POC-GLUCOSE METER 106 mg/dL 70-110 : TESTED A T [facility] 6720 (BEAKER) (test code = [facility], 1538) 13436: Statement Services Representative/Techni geraldo ID = [id number] for [place] LLIS, MICKEY CBC W/PLT COUNT & AUTO [id number] 07:33:32 Test Item Value Reference Range Interpretation [...] (BEAKER) (test code = 2801) BASIC METABOLIC [id number] 06:54:12 Test Item Value Reference Range Interpretation [...] S NOT APPLICABLE FOR DIALYSIS PATIEN TS. Statement Services Representative ID - CARINA MPOCT-GLUCOSE [id number] 01:25:30 Test Item Value Reference Range Interpretation Comments POC-GLUCOSE METER 159 mg/dL 70-110 H : TESTED A T [facility] 6720 (NEFTALI) (test code = [place], 1538) [address]: Statement Services Representative/Techni geraldo ID = [id number] for Vi lla (contract), Cam a CT, BRAIN, WITHOUT [id number] 20:21:00Unlisted Reason for Exam - Click Yes and Enter Reason Below->No [facility] 1940 Sex: MFINAL REPORT CT, BRAIN, WITHOUT CONTRAST INDICATION: Dizziness, persistent/recurrent, cardiac or vascular cause suspected TECHNIQUE: Noncontrast axial imaging was obtained from the vertex to the skull base. Axial images were reconstructed using a bone algorithm. DOSE REDUCTION: Dose modulation, iterative reconstruction, and/or weight-based adjustment of the mA/kV was utilized to reduce the radiation dose to as low as reasonably achievable. COMPARISON: None. 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 Small focus of encephalomalacia in the left inferior frontal lobe. Mild generalized cerebral volume loss. There is ex vacuo dilatation of the left greater than right lateral ventricles. No intracranial hemorrhage or abnormal extra-axial collection. No evidence [...] examination is recommended for further characterization. Signed: Roslyn Campuzano MDReport Verified Date/Time: 11/02/2021 20:21:46 SARS-COV2/RT-PCR ([facility])2021-11-02 17:14:44 Test Item Value Reference Range Interpretation Comments SARS-COV2/RT-PCR Negative Negative The SARS-Co V-2 target (test code = nucleic acids a re not 8866463) detected in thi s specimen. Negative result s do not preclude SARS-C oV-2 infection and s hould not be used as the paula e basis for patient managem ent decisions. Nega tive results must be combine d with clinical observ ations, patient history , and epidemiological information. A false negativ e result may occur if a spec imen is improperly gilda ected, transported or handled. This SARS CoV-2 test is a rapid, real-time RT-PC R test intended for th e qualitative detection [...] Food, Drug and Cosmetic Act, 21 U.S.C. 360bbb-3(b)(1), unless the authorization is terminated or revoked sooner. Fact Sheet for Healthcare Providers: https://www.Edmodo.co m/Documents/Xpert%20Xpress%20SARS%20CoV-2/Fact%20Sheets/483-6422%19EMCN-CHZ-4%20 HEALTHCARE%20PROVIDERS%20FACT%20SHEET.pdf Fact Sheet for Healthcare Patients: https://www.[employer]/Documents/Xpert%20Xp ress%20SARS%20CoV-2/Fact%20Sheets/302-3801%35NNIX-VWX-4%20PATIENT%20FACT%20SHEET .pdfHIGH SENSITIVITY TROPONIN [id number] 16:26:23 Test Item Value Reference Range Interpretation Comments HIGH SENSITIVITY 5 pg/ml See_Comment [Automated message] TROPONIN I (test code = The system which 5470402) generated this result transmitted ref erence range: <=35. Th e reference range was not used to interpr et this result as normal/abnormal . Statement Services Representative ID - ZOHREH GThe [employer] STAT High Sensitivity Troponin-I results should be used in conjunction with other diagnostic information such as ECG, clinical observations and information, and patient symptoms to aid in the diagnosis of MS.BASIC METABOLIC [id number] 16:18:56 Test Item Value Reference Range Interpretation [...] S NOT APPLICABLE FOR DIALYSIS PATIEN TS. Statement Services Representative ID - ZOHREH GCBC W/PLT COUNT & AUTO [id number] 15:59:35 Test Item Value Reference Range Interpretation [...] = 2801) RAD, CHEST, 1 VIEW, NON [id number] 14:38:00Reason for exam:- >DIZZINESSShould this be performed at the bedside?->Yes [facility] 1940 Sex: MFINAL REPORT INDICATION: DIZZINESS COMPARISON: December 14, 2020 TECHNIQUE: Single frontal view of the chest. FINDINGS: Lungs and pleura: Clear lungs. No effusion.Heart and mediastinum: Normal heart size. Stable surgical changes. Stable pacer apparatus.Osseous structures: No acute abnormality.Other: None. IMPRESSION: No acute intrathoracic abnormality. Signed: JR Newman Robert MDReport Verified Date/Time: 11/02/2021 14:38:09 Reading Location: [facility] Radiology Reading Room POCT-GLUCOSE [id number] 08:41:00 Test Item Value Reference Range Interpretation Comments POC-GLUCOSE METER 139 mg/dL 70-110 H : TESTED A T [facility] 6720 (BEAKER) (test code = ROYAL Olivera [facility], 1538) [address]: Statement Services Representative/Techni geraldo ID = [id number] for SULMA BROWNANAM BASIC METABOLIC [id number] 06:25:00 Test Item Value Reference Range Interpretation [...] 1092) DATA TO CALCULA TE ESTIMATED GFR. Statement Services Representative ID - EDASICBC (HEMOGRAM ONLY)2020-12-17 05:39:00 Test [...] 0-0 (BEAKER) (test code = 413) POCT-GLUCOSE [id number] 22:13:00 Test Item Value Reference Range Interpretation Comments POC-GLUCOSE METER 119 mg/dL 70-110 H : TESTED Gera Hinton [facility] 6720 (BEAKER) (test code = [place], 1538) [address]: Statement Services Representative/Techni geraldo ID = [id number] for Re yes, Sairy POCT-GLUCOSE [id number] 17:36:00 Test Item Value Reference Range Interpretation Comments POC-GLUCOSE METER 251 mg/dL 70-110 H : TESTED A T [facility] 6720 (BEAKER) (test code = ROYAL Olivera [facility], 1538) [address]: Statement Services Representative/Techni geraldo ID = [id number] for ANAM COHEN VITAMIN D, 28-[id number] 09:24:00 Test Item Value Reference Range Interpretation Comments VITAMIN D 25-OH (BEAKER) (test 21.5 ng/mL 6.6-49.9 code = 2764) Effective 09/03/2017: Reference Range ChangeNew: 6.6-49.9 ng/mL Previous: 13.0- 47.8 ng/mLRecommendedVitamin D Target Range: 30.0-40.0 ng/mLOperator ID - CARINA Escalante POCT-GLUCOSE [id number] 07:53:00 Test Item Value Reference Range Interpretation Comments POC-GLUCOSE METER 180 mg/dL 70-110 H : TESTED A T [facility] 6720 (BEAKER) (test code = [facility] Jarod [facility], 1538) [address]: Statement Services Representative/Techni geraldo ID = [id number] for ANAM COHEN TSH/FREE T4 IF [id number] 06:58:00 Test Item Value Reference Range Interpretation Comments THYROID STIMULATING HORMONE 1.669 uIU/mL 0.350-4.940 (BEAKER) (test code = 772) Statement Services Representative ID - ADMINVITAMIN B12 AND [id number] 06:58:00 Test Item Value Reference Range Interpretation Comments VITAMIN B12 (BEAKER) (test code = 811 pg/mL 213-816 774) FOLATE (BEAKER) (test code = 362) 15.60 ng/mL >=7.00 Statement Services Representative ID - ADMINBASIC METABOLIC [id number] 06:21:00 Test Item Value Reference Range Interpretation [...] 1092) DATA TO CALCULA TE ESTIMATED GFR. Statement Services Representative ID - ADMINCBC (HEMOGRAM ONLY)2020-12-16 05:30:00 Test [...] 0-0 (BEAKER) (test code = 413) POCT-GLUCOSE [id number] 21:44:00 Test Item Value Reference Range Interpretation Comments POC-GLUCOSE METER 295 mg/dL 70-110 H : TESTED A T [facility] 6720 (BEAKER) (test code [facility], = 1538) [address]: Statement Services Representative/Techni geraldo ID = [id number] for Drea Bragg POCT-GLUCOSE [id number] 17:47:00 Test Item Value Reference Range Interpretation Comments POC-GLUCOSE METER 276 mg/dL 70-110 H : TESTED Gera Hinton [facility] 6720 (NEFTALI) (test code = [place], 1538) [address]: Statement Services Representative/Techni geraldo ID = [id number] for Kristina Ayala PET/CT, CARDIAC PERF REST AND [id number] 16:04:00Reason for exam:- >GENERALIZED WEAKNESS, NOT ASSOCIATED WITH EXTREMITIESReason for exam:->DIZZINESSReason for exam:->CHEST PAIN [facility] 1940 Sex: MAddendum BeginsREPORT STATUS:A 2. Abnormal myocardial perfusion. There is a large partially reversible perfusion defect involving the apex, apical inferior and basal anterolateral as well as basal inferolateral segments. Signed: Preston Hicks MDReport Verified Date/Time: 12/15/2020 16:04:49 Reading Location: [address] Med Reading RoomAddendum EndsFINAL REPORT PROCEDURE: MYOCARDIAL PERFUSION PET/CT IMAGING (Rest/Stress)CPT CODE: 01554 INDICATION: Evaluatechest pain CARDIOVASCULAR PROFILE:CAD History: Known CADSymptoms: Chest painRisk Factors: Diabetes, h ypertension, hyperlipidemia, strokeBMI: 22.1Medications: Crestor, Plavix, metoprolol STRESS PROTOCOL:Pharmacologic stress was achieved with a 10-second intravenous infusion of regadenoson 0.4 mg. The radiopharmaceutical was administered 30 seconds after the start of the regadenoson infusion. IMAGING [place] OTOCOL:Limited low-dose CT imaging was performed for attenuation [...] (LVEF 58%).LV Volume: Normal.RV Volume: Normal. STRESS FINDINGS :HR: 60/min (42% of MPHR)BP: 85/32 mmHgPrelim. EKG: [...] prior study for comparison. Signed: Preston Hicks Verified Date/Time: 12/15/2020 15:38:59 Reading Location: [address] Reading Room Electronically signed by: Mack GARCIA 12/15/2020 04:04 PMPOCT-GLUCOSE [id number] 13:05:00 Test Item Value Reference Range Interpretation Comments POC-GLUCOSE METER 232 mg/dL 70-110 H : TESTED A T [facility] 6720 ([employer]) (test code = [place], 1538) [address]: Statement Services Representative/Techni geraldo ID = [id number] for Chanell cheung Kristina POCT-GLUCOSE [id number] 08:26:00 Test Item Value Reference Range Interpretation Comments POC-GLUCOSE METER 155 mg/dL 70-110 H : TESTED A T [facility] 6720 (NEFTALI) (test code = ORYAL Olivera [facility], 1538) [address]: Statement Services Representative/Techni geraldo ID = [id number] for OR SELENE JHAVERI HEMOGLOBIN [id number] 08:15:00 Test Item Value Reference Range Interpretation Comments HEMOGLOBIN A1C (NEFTALI) (test code = 9.0 % 4.3-6.1 H 368) SARS-COV2/RT-PCR ([facility])2020-12-15 07:09:00 Test Item Value Reference Range Interpretation Comments SARS-COV2/RT-PCR (test Negative Not Detected, Negative, code = 9418436) See external report for linked test SARS-COV-2 PERFORMING LAB [facility] (test code = 4271400) Negative result for this test determines that [...] individuals suspected of COVID-19 by their healthcare provider.This test [...] justifying the authorization of the emergency use ofin vitro diagnostic tests for detection and/or diagnosis of COVID-19 is terminated under Section 564(b)(2) of the Act or the EUA is revoked under Section 564(g) of the Act.Testing was performed using the Mancia SARS-CoV-2 assay.Fact Sheet for Healthcare Providers:https://www.ZoomTilt.[employer]/do/RT_SAR W-BpS-7_PNT_Uxep_Ncnyj_30-146107.pdfFact Sheet for Healthcare Patients:https://www.ZoomTilt.mancia/s al/SM_XDSP-CdG-0_Xdqfwpo_Zbnv_Uzksn_ZY_33-835825R7.pdfPerforming Laboratory:[place] [address] [place] [address] BASIC METABOLIC [id number] 05:58:00 Test Item Value Reference Range Interpretation [...] 1092) DATA TO CALCULA TE ESTIMATED GFR. Statement Services Representative ID - PIAYA LLIPID [id number] 05:56:00 Test Item Value Reference Range Interpretation Comments TRIGLYCERIDES (BEAKER) (test code = 165 mg/dL 540) CHOLESTEROL (BEAKER) (test code = 154 mg/dL 631) HDL CHOLESTEROL (BEAKER) (test code 38 mg/dL = 976) LDL CHOLESTEROL CALCULATED (BEAKER) 83 mg/dL (test code = 633) Triglyceride Reference Range: Low Risk <150 Borderline 150-199 High Risk 200- 499 Very High Risk >=500Cholesterol Reference Range: Low Risk <200 Borderline 200-239 High Risk >240HDL Cholesterol Reference Range: Low Risk >=60 High Risk <40LDL Cholesterol Reference Range: Optimal <100 Near Optimal 100-129 Borderline 130-159 High 160-189 Very High >=190 Statement Services Representative ID Eve SYED LHEPATIC FUNCTION [id number] 05:56:00 Test Item Value Reference Range Interpretation [...] (test code = 12 U/L 6-55 347) Statement Services Representative ID Eve SYED LTROPONIN [id number] 05:19:00 Test Item Value Reference Range Interpretation [...] failure, acidosis, acute neurological disease, and persistent tachyarrhythmia.Statement Services Representative ID vEe SYED LCBC (HEMOGRAM ONLY) 2020-12-15 04:55:00 Test Item [...] 0-0 (BEAKER) (test code = 413) TROPONIN [id number] 23:58:00 Test Item Value Reference Range Interpretation [...] failure, acidosis, acute neurological disease, and persistent tachyarrhythmia.Statement Services Representative ID - PIAYA LPOCT-GLUCOSE METER 2020-12-14 20:52:00 Test Item Value Reference Range Interpretation Comments POC-GLUCOSE METER 312 mg/dL 70-110 H : TESTED A T [facility] 6720 (BEAKER) (test code = [place], 1538) [address]: Statement Services Representative/Techni geraldo ID = [id number] for FABIO MARIN B-TYPE NATRIURETIC FACTOR (BNP)2020-12-14 15:03:00 Test Item Value Reference Range Interpretation Comments B-TYPE NATRIURETIC PEPTIDE (BEAKER) 128 pg/mL 0-100 H (test code = 700) Statement Services Representative ID - CARINA PATTERSON [id number] 15:02:00 Test Item Value Reference Range Interpretation [...] failure, acidosis, acute neurological disease, and persistent tachyarrhythmia.Statement Services Representative ID - CARINA MBASIC METABOLIC [id number] 14:56:00 Test Item Value Reference Range Interpretation [...] 1092) DATA TO CALCULA TE ESTIMATED GFR. Statement Services Representative ID - CARINA MPT/[id number] 14:40:00 Test Item Value Reference Range Interpretation [...] is 2.5-3.5 for patients wiht mechanical heart valves.CBC W/PLT COUNT & AUTO [id number] 14:35:00 Test Item Value Reference Range Interpretation [...] (test code = 2801) RAD, CHEST, 2 [id number] 13:56:00Reason for exam:->chest pain [facility] : 1940 Sex: MFINAL REPORT RAD, CHEST, 2 VIEWS INDICATION: chest pain COMPARISON: None FINDINGS: Portable frontal view of the chest. IMPRESSION: Support Lines: Pacer device. Lungs and pleura: Lungs are clear No pneumothorax.Heart and mediastinum: Normal contours.Additional findings: None. Signed: Herminia Bonds Verified Date/Time: 12/14/2020 13:56:48 Reading Location[facility] RadiologyReading Room
--- NOTE | 2023-01-15 19:26 | ER ---
Nurse's Notes [facility] Name: Sandoval Hoffman Jr Age: 82 yrs Sex: Male : 1940 Arrival Date: 01/15/2023 Time: 16:58 Bed 12 Private MD: Randell Lomeli Diagnosis: Perianal dermatitis Presentation: 01/15 17:22 Chief complaint: Patient states: Rash since October, went to [facility] and they told us to [facility] get ZINC ointment, we have seen primary care also they said over the counter meds. now he cant sit at all, it hurts so bad and tried to go back to primary care and they said they wont see him till February. Coronavirus screen: Vaccine status: Patient reports receiving the 2nd dose of the covid vaccine. Client denies travel out of the [place] in the last 14 days. Ebola Screen: Patient negative for fever greater than or equal to 101.5 degrees Fahrenheit, and additional compatible Ebola Virus Disease symptoms Patient denies exposure to infectious person. Patient denies travel to an Ebola-affected area in the 21 days before illness onset. Initial Sepsis Screen: Does the patient meet any 2 criteria? No. Patient's initial sepsis screen is negative. Does the patient have a suspected source of infection? No. Patient's initial sepsis screen is negative. Risk Assessment: Do you want to hurt yourself or someone else? Patient reports no desire to harm self or others. 17:22 Method Of Arrival: Ambulatory [facility] 17:22 Acuity: FORREST 3 5 Triage Assessment: 17:26 General: Appears uncomfortable, slender, well groomed, well developed, Behavior is [facility] calm, cooperative, appropriate for age. Pain: Complains of pain in buttocks. Historical: - Allergies: 17:26 NKDA; jh5 17:26 shrimp; jh5 - PMHx: 17:26 CVA; Diabetes - NIDDM; GERD; heart disease; Hypertension; jh5 - Immunization history:: Adult Immunizations up to date. - Social history:: Smoking status: Patient denies any tobacco usage or history of. Vital Signs: 17:22 BP 113 / 68; Pulse 82; Resp 16; Temp 98.2; Pulse Ox 100% ; Weight 47.63 kg; Height 5 jh5 ft. 7 in. (170.18 cm); Pain 8/10; 17:22 Body Mass Index 16.45 (47.63 kg, 170.18 cm) [facility] ED Course: 16:58 Patient arrived in ED. am2 16:58 Randell Lomeli DO is Private Physician. am2 17:15 [facility] 17:15 Moises Sanchez MD is Attending Physician. [facility] 17:26 Triage completed. [facility] 17:26 Arm band placed on right wrist. [facility] 19:25 Randell Lomeli DO is Referral Physician. miki Administered Medications: No medications were administered Outcome: 19:26 Discharge ordered by . [facility] 19:35 Discharged to home ambulatory. [facility] 19:35 Condition: good 19:35 Discharge instructions given to patient, family, Instructed on discharge instructions, follow up and referral plans. medication usage, safety practices, Demonstrated understanding of instructions, follow-up care, medications, Prescriptions given X 2. 19:36 Patient left the ED. [facility] Signatures: Frandy Pierre PA PA jmm Moreno, Amanda am2 Alice Murillo RN RN [facility] Corrections: (The following items were deleted from the chart) 17:28 17:22 Resp 16bpm; Temp 98.2F; 47.63 kg; Height 5 ft. 7 in.; BMI: 16.4; Pain 8/10; [place] [id number]
--- NOTE | 2023-01-15 19:26 | EDPHYS ---
Physician Documentation [facility] Name: Sandoval Hoffman Jr Age: 82 yrs Sex: Male : 1940 Arrival Date: 01/15/2023 Time: 16:58 Bed 12 Private MD: Randell Lomeli ED Physician Moises Sanchez HPI: 01/15 19:22 This 82 yrs old Male presents to ER via Ambulatory with complaints of Rash - jmm on buttocks. 19:22 Is an 82-year-old male with history of CVA, diabetes mellitus, GERD, hypertension the jmm presents emerged department with complaints of a perianal rash beginning this past October. Was advised to apply a barrier ointment. Patient continues to have pain. Denies fever. Patient does take lactulose twice a day for constipation.. Historical: - Allergies: 17:26 NKDA; jh5 17:26 shrimp; jh5 - PMHx: 17:26 CVA; Diabetes - NIDDM; GERD; heart disease; Hypertension; jh5 - Immunization history:: Adult Immunizations up to date. - Social history:: Smoking status: Patient denies any tobacco usage or history of. ROS: 19:22 Constitutional: Negative for fever, chills, and weight loss, Cardiovascular: Negative jmm for chest pain, palpitations, and edema, Respiratory: Negative for shortness of breath, cough, wheezing, and pleuritic chest pain. 19:22 Skin: Positive for rash. 19:22 All other systems are negative. Exam: 19:22 Constitutional: This is a well developed, well nourished patient who is awake, alert, jmm and in no acute distress. Head/Face: atraumatic. Eyes: EOMI, no conjunctival erythema appreciated ENT: Moist Mucus Membranes Neck: Trachea midline, Supple Chest/axilla: Normal chest wall appearance and motion. Cardiovascular: Regular rate and rhythm. No edema appreciated Respiratory: Normal respirations, no respiratory distress appreciated Abdomen/GI: Non distended Back: Normal ROM 19:22 Skin: Perianal erythema noted, nontender to palpation, nonindurated.. 19:22 Neuro: Orientation: is normal, Mentation: is normal, Memory: is normal. 19:22 Psych: Behavior/mood is pleasant, cooperative. Vital Signs: 17:22 BP 113 / 68; Pulse 82; Resp 16; Temp 98.2; Pulse Ox 100% ; Weight 47.63 kg; Height 5 5 ft. 7 in. (170.18 cm); Pain 8/10; 17:22 Body Mass Index 16.45 (47.63 kg, 170.18 cm) [facility] MDM: 17:30 Patient medically screened. [facility] 19:24 Differential diagnosis: Cellulitis, candidiasis, dermatitis. Data reviewed: vital [facility] signs, nurses notes. Historians other than the Patient: Daughter. Counseling: I had a detailed discussion with the patient and/or guardian regarding: the historical points, exam findings, and any diagnostic results supporting the discharge/admit diagnosis, the need for outpatient follow up, to return to the emergency department if symptoms worsen or persist or if there are any questions or concerns that arise at home. ED course: Patient is alert nontoxic in appearance in the ED. Vital signs are normal. Will treat with a antifungal ointment and oral antibiotics. Advised follow-up PCP and otherwise given strict return precautions. Daughter and patient understood and agrees plan of care.. Administered Medications: No medications were administered Disposition: 19:24 Chart complete. [facility] Disposition Summary: 01/15/23 19:26 Discharge Ordered Location: Home [facility] Condition: Stable [facility] Diagnosis - Perianal dermatitis [facility] Followup: [facility] - With: Randell Lomeli, DO - When: 2 - 3 days - Reason: Recheck today's complaints, Continuance of care, Re-evaluation by your physician Discharge Instructions: - Discharge Summary Sheet [facility] - Perianal Dermatitis, Adult [facility] Forms: - Medication Reconciliation Form [facility] - Thank You Letter [facility] - Antibiotic Education [facility] - Prescription Opioid Use [facility] Prescriptions: - Lamisil AT 1 % Topical cream - apply 1 application by TOPICAL route 2 times per day for 14 days; 1 tube; [facility] Refills: 0, Product Selection Permitted - Cephalexin 500 mg Oral Capsule - take 1 capsule by ORAL route every 6 hours for 10 days; 40 capsule; Refills: 0, [facility] Product Selection Permitted Signatures: Moises Sanchez MD MD cha Mickail, Joel, PA PA [facility] Alice Murillo RN RN [facility]
[2023-01-15 20:36] VITALS: BP 113/68; TEMP 98.2; O2SAT 100
== END 2023-01-15 19:36 | disposition home or self-care (01) ==
LOC: ER 16:57
DX: L30.8 Other specified dermatitis (principal); Z91.013 Allergy to seafood
CPT/HCPCS: 99282

== ENCOUNTER 2023-02-09 15:22 | Emergency (ER) | payer OTHER ==
--- OUTSIDE RECORDS SUMMARY | 2023-02-09 15:30 | XMS REPORT | Continuity of Care Document ---
:1940 Author Organization [facility] t Address [address] [place] [address] [place] [id number] Care Team Providers Name Role Phone Randell Lomeli DO [facility] Physician [phone] Randell Lomeli Attending Clinician Unavailable ATILIO BYERS Attending [...] MD Attending Clinician ADRIANA Admitting Clinician Unavailable Randell Lomeli Admitting Clinician Unavailable BLADIMIR BARROS Admitting Clinician Unavailable PRAKASH ANTONIO Admitting Clinician Unavailable SHARIF BAIN Admitting Clinician Unavailable Payers Payer Name Policy Type Policy Number Effective Date Expiration Date Leo bonilla [facility] DUAL [id number] 2022 ACCESS OPEN PPO 00:00:00 [place]ICAID [place] [id number] 2022 [place] 00:[place]:00 [facility] Dual 53 [id number] 2022 Common Complete MCR 00:00:00 [facility] MEDICARE [id number] 2020 HMO 00:00:00 MEDICAID MC [id number] 2020 Common 00:00:00 [place] [id number] [place] [id number] Common [facility] MEDICAID MC [id number] 2020 Common 00:00:00 [place] [id number] Common [facility] MEDICAID MC [id number] 2020 Common 00:00:00 [facility] Problems Condition Condition Condition Status Onset Resolution Last Treating Co mments Source Name Details Category Date Date Treatment Clinician Date Dizziness Dizziness Disease Active 2020-11 [facility] 210 [facility] 00:00: Medical 00 Center Status Status Disease Active Methodi post post 01-22 st aorto-mack aorto-mack 00:00: Ho spita nary nary 00 l artery artery bypass bypass graft graft History of History of Disease Active M ethodi CVA CVA 01-22 st (cerebrova (cerebrova 00:00: Ho spita scular scular 00 l accident) accident) 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 01-22 st mellitus mellitus 00:00: Hospit a without without 00 l complicati complicati on, on, without without long-term long-term current current use of use of insulin insulin Automatic Automatic Disease Active 2021-0 Met hodi implantabl implantabl 01-22 st e e 00:00: Hospita cardiovert cardiovert 00 l er-defibri er-defibri llator in llator in situ situ Left-sided Left-sided Disease Active C [facility] chest pain chest pain - Jacqueline kes 00:00: Medical 00 Center Cerebral Cerebral Disease Active [facility] artery artery 2-27 [facility] occlusion occlusion 00:00: of with with 00 Medicin cerebral cerebral e infarction infarction Other Other Disease Active Methodi fatigue fatigue 06-02 00:00: Hospita 00 l Lung Lung Disease Active Methodi nodule nodule 06-02 00:00: Hospita 00 l History of H/O: CVA Problem Active Com mon cerebrovas (cerebrova Sp oralia cular scular - CHI accident accident) [facility] [id number] History of Problem Active Co mmon fall Spirit [facility] Arterioscl Arterioscl Problem Active C ommon erosis erosis [facility] Gastro-eso Gastro-eso Problem Active C ommon phageal phageal [facility] reflux reflux - CHI disease disease [facility] esophagiti esophagiti Me dical s [place] Mixed Hyperlipid Problem Active Commo n hyperlipid emia, Spirit emia mixed [facility] Peripheral Venous Problem Active Commo n venous insufficie [facility] insufficie ncy - CHI ncy [facility] Type II Diabetes Problem Active Common diabetes type 2, Spirit mellitus controlled - CH I well [facility] [id number] Alzheimer' Problem Active Com mon 's Spirit disease, - CHI unspecifie [facility] [id number] Dementia Problem Active Comm on in other Spirit diseases - CHI classified [facility] behavioral Center disturbanc e Non-neopla Nevus, Problem Active Commo n stic nevus non-neopla Sp oralia stic [facility] Pain in Pain in Problem Active Common wrist left wrist [facility] [id number] 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 [facility] [id number] Generalize Problem Active Com mon d weakness Spirit [facility] [id number] Lung Problem Active Common nodule, Spirit solitary [facility] [id number] Anemia, Problem Active Commo n unspecifie Spirit d type - CHI [facility] [id number] Dementia Problem Active Commo n without Spirit behavioral - CHI disturbanc [facility] unspecifie Medica l d dementia Center type [id number] Constipati Problem Active Com mon on, Spirit unspecifie - CHI d constipati [facility] on type Medical Center [id number] Type 2 Problem Active Common diabetes Spirit mellitus - [facility] with other [facility] y Medical complicati Center ons [id number] longterm Problem Active Com mon (current) Spirit use of - CHI insulin [facility] [id number] 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 athy - [facility] [id number] 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 [facility] bypass Medical graft of Center [place] heart with unstable angina pectoris [id number] Subclinica Problem Active Com mon l Spirit hypothyroi - CHI dism [facility] Essential Benign Problem Active Common hypertensi essential Spi rit on HTN - [facility] Pain in Pain in Problem Active Common limb left hand Spirit - CHI [facility] 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 - CHI , single major St episode depressive [facility] Medical without Center prior episode [id number] Primary Problem Active Common insomnia [facility] [id number] Paresthesi Problem Active Com mon a of skin Spirit - [facility] [id number] Vascular Problem Active Com mon [id number] dementia Spirit without - CHI behavioral disturbanc [facility] Allergies, Adverse Reactions, Alerts Allergy Allergy Status Severity Reaction(s) Onset Inactive Treating Comm ents Source Name Type Date Date Clinician No Known DA Active U [facility] Allergie 12-06 [facility] 00:00: [facility] 00 [facility] NEOSPORI DA Active U RASH [facility] N OINT. 12-06 [place] 00:00: [facility] NO KNOWN Drug Active Univers ALLERGIE Class ity of S [facility] NO KNOWN Allergy Active [facility] Family History Family Member Diagnosis Comments Start Date Stop Date Source Natural brother Heart attack Methodi [facility] Natural mother Lung cancer [facility] Social History Social Habit Start Date Stop Date Quantity Comments Source History SDOH [facility] History SDOH [facility] Drinks History of Common Spirit - Tobacco Use [facility] Exposure to 2022-11-07 2022-11-17 Not sure University of SARS-CoV-2 00:00:00 11:09:00 [facility] (event) Branch Alcohol intake 2021-04-12 2021-04-12 Lifetime [facility] 00:00:00 00:00:00 non-drinker Hospital (finding) History SDOH 2021-01-22 2021-01-22 1 [facility] Frequency 00:00:00 00:00:00 Hospita l Tobacco use and 2020-12-14 2020-12-14 Never used [facility] exposure 00:00:00 00:00:00 [facility] Alcohol Comment 2019-01-20 2019-01-20 quit alcohol 40 [employer] of 00:00:00 00:00:00 years ago, Medicine previously heavy Sex Assigned At [birth year] [facility] 00:00:00 00:00:00 Hospital Smoking Status Start Date Stop Date Source Tobacco smoking [facility] [place] consumption unknown Medical Bran ch Never Smoker Common [facility] Ce nter Former smoker 2019-07-12 00:00:00 2019-07-12 [facility] ge of 00:00:00 Medicine Medications Ordered Filled Start Stop Current Ordering Indication Dosage Frequency Signature Comments Components Source Medication Medication Date Date Medication? Clinician (SIG) Name Name insulin 2021-11 Yes 8U inject 8 Univer s degludec 2-25 Units ity of (TRESIBA 12:41: under the [facility] U-100 27 skin at Medical INSULIN RI) bedtime. Bran ch rosuvastati 2021-11 Yes 20mg Take 20 mg Univers n 20 mg 2-25 by mouth ity of tablet 12:41: at [place] [address] bedtime. Medical Branch omeprazole 2021-11 Yes 40mg Take 40 mg U nivers 40 mg 2-25 by mouth ity of capsule 12:41: in the [place] [address] morning. Medical Branch aspirin 81 2021-11 Yes 81mg Take 81 mg U nivers mg Cap 2-25 by mouth ity of 12:41: daily. [place] [address] Medical Branch bimatoprost 2021-11 Yes 1[drp] Place [...] metFORMIN HCl ER 500 HCl ER 500 6-09 t_with_ HCl ER 500 MG MG 00:00: evening MG 00 _meal} metFORMIN metFORMIN No 1{table QD metFORMIN HCl ER 500 HCl ER 500 6-09 t_with_ HCl ER 500 MG MG 00:00: evening MG 00 _meal} rosuvastati 2020-11 Yes 20mg QD Take [address] n (CRESTOR) 2-12 by mouth Luke s 20 MG 13:27: daily. Medical tablet 11 [place] omeprazole 2020-11 Yes 40mg QD Take [address] (PriLOSEC) 2-12 by mouth Lukes 40 MG 13:27: daily. Medical capsule 11 [place] insulin 2020-11 Yes diabetes 10U Inject [address] degludec 2-12 mellitus Units Lukes (TRESIBA 13:27: subcutaneo Med ical U-100 11 [facility]. [place] INSULIN SUBQ) aspirin 81 2020-11 Yes 81mg [...] Medical 11 nightly Center 0.2 % . rosuvastati 2020-11 Yes 20mg QD Take 20 [...] (TRESIBA 13:27: subcutaneo Med ical U-100 11 usly. Center INSULIN SUBQ) aspirin 81 2020-11 Yes 81mg QD Take [address] MG EC 2-12 by mouth Lukes tablet 13:27: daily. Medical 11 Center SITagliptin 2020-11 Yes 50mg QD Take [address] (JANUVIA) 2-12 by mouth Lukes 50 MG 13:27: daily. 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 insulin Yes 10U QD Inject 10 Metho di degludec 3-[address] (Tresiba 13:45: under the Hosp korin FlexTouch 59 skin l U-100) 100 nightly. unit/mL (3 mL) insulin pen metoprolol Yes 25mg Q.5D Take 25 mg M ethodi succinate 01-[address] XL 13:45: (two) Hospita (TOPROL-XL) 59 times a l 25 mg 24 hr day. tablet rosuvastati Yes 20mg QD Take 20 mg Methodi n (CRESTOR) - by mouth st 20 mg 13:45: nightly. Hospita tablet 59 l clopidogreL Yes 75mg QD Take 75 mg Methodi (PLAVIX) 75 -[address] mg tablet 13:45: daily. Hospit a 59 l omeprazole Yes 40mg QD Take 40 mg M ethodi (PriLOSEC) -[address] 40 MG 13:45: daily. Hospita capsule 59 l BUMETanide Yes 1mg QD Take 1 mg Me [...] (two) l tablet times a day. isosorbide Yes 30mg QD Take 30 mg M ethodi mononitrate 3-[address] (IMDUR) 30 13:45: daily. Hospi ta MG 24 hr 59 l tablet aspirin 0 Yes 81mg QD Take 81 mg Meth franny (ECOTRIN) 3-[address] 81 MG 13:45: daily. Hospita enteric 59 l coated tablet insulin Yes 10U QD Inject 10 Metho di degludec 3-[address] (Tresiba 13:45: under the Hosp korin FlexTouch 59 skin l U-100) 100 nightly. unit/mL (3 mL) insulin pen metoprolol Yes 25mg Q.5D Take 25 mg M ethodi succinate 3-[address] XL 13:45: (two) Hospita (TOPROL-XL) 59 times a l 25 mg 24 hr day. tablet rosuvastati Yes 20mg QD Take 20 mg Methodi n (CRESTOR) 3-[address] 20 mg 13:45: nightly. Hospita tablet 59 l clopidogreL 0 Yes 75mg QD Take 75 mg Methodi (PLAVIX) 75 3-[address] mg tablet 13:45: daily. Hospit a 59 l omeprazole 0 Yes 40mg QD Take 40 mg M ethodi (PriLOSEC) 3-[address] 40 MG 13:45: daily. Hospita capsule 59 l BUMETanide 0 Yes 1mg QD Take 1 mg Me thodi (BUMEX) 1 3-[address] MG tablet 13:45: daily. Hospit a 59 l traZODone 0 Yes 100mg QD Take 100 Met hodi (DESYREL) 3-[address] 100 MG 13:45: mouth Hospita tablet 59 nightly. l ranolazine Yes 500mg Q.5D Take 500 Me thodi (RANEXA) 3-[address] 500 MG 12 13:45: mouth 2 Hospi ta hr ER 59 (two) l tablet times a day. isosorbide Yes 30mg QD Take 30 mg M ethodi mononitrate 3-[address] (IMDUR) 30 13:45: daily. Hospi ta MG 24 hr 59 l tablet aspirin Yes 81mg QD Take 81 mg Meth franny (ECOTRIN) 3-[address] 81 MG 13:45: daily. Hospita enteric 59 l coated tablet UNABLE TO Yes Memories Meth franny FIND - with st 13:45: FenolTakin Hospita 57 g 2 with l every meal UNABLE TO 0 Yes Memories Meth franny FIND - with st 13:45: FenolTakin Hospita 57 g 2 with l every meal metoprolol Yes 25mg Q.5D Take 0.[address] tartrate 1-24 tablets Lukes (LOPRESSOR) 00:00: (25 mg Medi kaylen 50 MG 00 total) by Center tablet mouth 2 (two) times daily. metoprolol Yes 25mg Q.5D Take 0.[address] tartrate 1-24 tablets [facility]ukes (LOPRESSOR) 00:00: (25 mg Medi kaylen 50 MG 00 total) by Center tablet mouth 2 (two) times daily. Insulin Yes Inject Ernst Degludec 07-12 into the [place] (TRESIBA 16:19: skin. of [place]) 55 Medicin e MELATONIN Yes Take by [facility] [place] 07-12 mouth. [place] 16:19: of 55 Medicin e omeprazole Yes 40mg Take 40 mg [place] (PRILOSEC) 07-12 by mouth. Gilda ege 40 MG 16:11: of capsule 33 Medicin e clopidogrel 2018-0 Yes 75mg Take 75 mg Ernst (PLAVIX) 75 07-12 by mouth. Col lege MG tablet 16:11: of 33 Medicin e losartan 2018-0 Yes 50mg Take 50 mg [place] dylan (COZAAR) 25 07-12 by mouth. Col lege MG tablet 16:11: of 33 Medicin e metoprolol Yes 50mg Take 50 mg [place] (LOPRESSOR) 8- by mouth. Col lege 50 MG 16:11: of tablet 33 Medicin e donepezil Yes 5mg Take 1 Tab Ba [place] (ARICEPT) 5 -19 by mouth Gilda ege MG tablet 00:00: [...] Medicin solution e Rosuvastati Yes Take by [place] dylan n Calcium 01-20 mouth. College (CRESTOR 14:11: of [place]) 33 [...] 14:21: daily. Hospita capsule 39 l losartan Yes 50mg QD Take 50 mg Met hodi (COZAAR) 50 1-[address] MG tablet 14:21: daily. Hospit a 39 l potassium Yes 20meq Q.5D Take 20 Meth franny chloride 1-[address] (KLOR-CON) 14:21: mouth 2 Hosp korin 20 mEq 39 (two) l packet times a day. metoprolol 2019-0 Yes 50mg Q.5D Take 50 mg M ethodi tartrate 1-[address] (LOPRESSOR) 14:21: (two) Hospi ta 50 mg 39 times a l tablet day. furosemide 2019-0 Yes 20mg Q.5D Take 20 mg M ethodi (LASIX) 20 1-[address] mg tablet 14:21: (two) Hospita 39 times a l day. clopidogrel 2019-0 Yes 75mg QD Take 75 mg Methodi (PLAVIX) 75 1-[address] mg tablet 14:21: daily. Hospit a 39 l insulin 2019-0 Yes Inject Methodi degludec 1-[address] (TRESIBA 14:21: skin. Hospita FLEXTOUCH 39 l U-100 SUBQ) bimatoprost 2019-0 Yes 1[drp] QD 1 drop Me thodi (LUMIGAN) 1-[address] 0.01 % 14:21: Hospita ophthalmic 39 l drops omeprazole 2019-0 Yes 40mg QD Take 40 mg M ethodi (PriLOSEC) 1-[address] 40 MG 14:21: daily. Hospita capsule 39 l losartan 2019-0 Yes 50mg QD Take 50 mg Met hodi (COZAAR) 50 1-[address] MG tablet 14:21: daily. Hospit a 39 l potassium 2019-0 Yes 20meq Q.5D Take 20 Meth franny chloride 1-[address] (KLOR-CON) 14:21: mouth 2 Hosp korin 20 mEq 39 (two) l packet times a day. metoprolol 2019-0 Yes 50mg Q.5D Take 50 mg M ethodi tartrate 1-[address] (LOPRESSOR) 14:21: (two) Hospi ta 50 mg 39 times a l tablet day. furosemide 2019-0 Yes 20mg Q.5D Take 20 mg M ethodi (LASIX) 20 1-[address] mg tablet 14:21: (two) Hospita 39 times a l day. clopidogrel 2019-0 Yes 75mg QD Take 75 mg Methodi (PLAVIX) 75 1-[address] mg tablet 14:21: daily. Hospit a 39 l insulin 2019-0 Yes Inject Methodi degludec 1-[address] (TRESIBA 14:21: skin. Hospita FLEXTOUCH 39 l U-100 SUBQ) bimatoprost Yes 1[drp] QD 1 drop Me thodi (LUMIGAN) 1-[address] 0.01 % 14:21: Hospita ophthalmic 39 l drops Ondansetron Ondansetron Yes Randell Take 1 tab Common HCl HCl 5-31 Lomeli Spirit 00:00: - [facility]I 00 [facility] Ondansetron Ondansetron No Ondansetro HCl 4 MG [...] HCl 4 MG 00:00: 00 Ondansetron Ondansetron 0 No Ondansetro HCl 4 MG HCl 4 MG 5-31 n HCl 4 MG 00:00: 00 Ondansetron Ondansetron No Ondansetro HCl 4 MG HCl 4 MG 5-31 n HCl 4 MG 00:00: 00 Clopidogrel Clopidogrel Yes Randell 1 tablet Common Bisulfate Bisulfate Lomeli Spir it - [facility] Aspirin Aspirin Yes Randell 1 tablet Com mon Lomeli [facility] BD Pen BD Pen Yes Randell USE Common Needle Mini Needle Mini Lomeli DIRECTED Spirit U/F U/F - [facility] Tresiba Tresiba Yes Randell not Common FlexTouch FlexTouch Lomeli defined S pirit [facility] Crestor Crestor Yes Randell 1 tablet Com mon Lomeli Spirit [facility] Lumigan Lumigan Yes Randell 1 drop Commo n Lomeli into both Spirit eyes [facility] Vitamin B Vitamin B Yes Randell not Com mon Complex-C Complex-C Lomeli defined S pirit [facility] Vitamin D-3 Vitamin D-3 Yes Randell 1 tablet Common Lomeli [facility] Melatonin Melatonin Yes Randell 1 tablet Common Lomeli at bedtime [facility] as needed [facility] with food [facility] Furosemide Furosemide Yes Randell 1 tablet Common Lomeli [facility] Losartan Losartan Yes Randell 1 tablet C ommon Potassium Potassium Lomeli Spir it [facility] Isosorbide Isosorbide Yes Randell 1 tablet Common Mononitrate Mononitrate Lomeli in the [facility] ER ER morning [facility] Rosuvastati Rosuvastati Yes Randell TAKE 1 Common n Calcium n Calcium Lomeli TABLET BY [facility] MOUTH - [facility] EVERY DAY [facility] Metoprolol Metoprolol Yes Randell 1 tablet Common Succinate Succinate Lomeli Spir it ER ER [facility] Omeprazole Omeprazole Yes Randell TAKE 1 Common Lomeli CAPSULE BY [facility] MOUTH - [facility] EVERY DAY [facility] Metoprolol Metoprolol Yes Randell 1 tablet Common Succinate Succinate Lomeli Spir it ER ER [facility] Vitamin B Vitamin B No Vitamin B [...] t} D-3 5000 UN[address] Januvia Januvia No Brianna traZODone traZODone No 1{table QD traZODone HCl [...] Merchant 2021-11-06 Completed [facility] 14:15:00 - [facility] Shingrix Shingrix 2021-11-06 Completed [facility] 14:15:00 - [facility] Shingrix Shingrix 2021-11-06 Completed [facility] 14:15:00 - [facility] Shingrix Shingrix 2021-11-06 Completed [facility] 14:15:00 - [facility] Shingrix Shingrix 2021-11-06 Completed [facility] 14:15:00 - [facility] Shingrix Shingrix 2021-11-06 Completed [facility] 14:15:00 - [facility] Shingrix Shingrix 2021-11-06 Completed [facility] 14:15:00 - [facility] Shingrix Shingrix 2021-11-06 Completed [facility] 14:15:00 - [facility] Shingrix Shingrix 2021-11-06 Completed [facility] 14:15:00 - [facility] Shingrix Shingrix 2021-11-06 Completed [facility] 14:15:00 - [facility] FluAD FluAD 2021-09-28 Completed [facility] 11:24:00 - [facility] FluAD FluAD 2021-09-28 Completed [facility] 11:24:00 - [facility] FluAD FluAD 2021-09-28 Completed [facility] 11:24:00 - [facility] FluAD FluAD 2021-09-28 Completed [facility] 11:24:00 - [facility] FluAD FluAD 2021-09-28 Completed [facility] 11::00 - [facility] FluAD FluAD 2021-09-28 Completed [facility] 11::00 - [facility] FluAD FluAD 2021-09-28 Completed [facility] 11:: - [facility] FluAD FluAD 2021-09-28 Completed [facility] 11::00 - [facility] FluAD FluAD 2021-09-28 Completed [facility] 11:: - [facility] FluAD FluAD 2021-09-28 Completed [facility] 11:: - [facility] FluAD FluAD 2021-09-28 Completed [facility] 11:: - [facility] FluAD FluAD 2021-09-28 Completed [facility] 11:: - [facility] FluAD FluAD 2021-09-28 Completed [facility] 11:: - [facility] FluAD FluAD 2020-09-05 Completed [facility] 10:19:00 - [facility] FluAD FluAD 2020-09-05 Completed [facility] 10:19:00 - [facility] FluAD FluAD 2020-09-05 Completed [facility] 10:19:00 - [facility] FluAD FluAD 2020-09-05 Completed [facility] 10:19:00 - [facility] FluAD FluAD 2020-09-05 Completed [facility] 10:19:00 - [facility] FluAD FluAD 2020-09-05 Completed [facility] 10:19:00 - [facility] FluAD FluAD 2020-09-05 Completed [facility] 10:19:00 - [facility] FluAD FluAD 2020-09-05 Completed [facility] 10:19:00 - [facility] FluAD FluAD 2020-09-05 Completed [facility] 10:19:00 - [facility] FluAD FluAD 2020-09-05 Completed [facility] 10:19:00 - [facility] FluAD FluAD 2020-09-05 Completed [facility] 10:19:00 - [facility] FluAD FluAD 2020-09-05 Completed [facility] 10:19:00 - [facility] FluAD FluAD 2020-09-05 Completed [facility] 10:19:00 - [facility] FluAD FluAD 2020-09-05 Completed [facility] 10:19:00 - [facility] FluAD FluAD 2020-09-05 Completed [facility] 10:19:00 - [facility] FluAD FluAD 2019-09-06 Completed [facility] 14:00:00 - [facility] FluAD FluAD 2019-09-06 Completed [facility] 14:00:00 - [facility] FluAD FluAD 2019-09-06 Completed [facility] 14:00:00 - [facility] FluAD FluAD 2019-09-06 Completed [facility] 14:00:00 - [facility] FluAD FluAD 2019-09-06 Completed [facility] 14:00:00 - [facility] FluAD FluAD 2019-09-06 Completed [facility] 14:00:00 - [facility] FluAD FluAD 2019-09-06 Completed [facility] 14:00:00 - [facility] FluAD FluAD 2019-09-06 Completed [facility] 14:00:00 - [facility] FluAD FluAD 2019-09-06 Completed [facility] 14:00:00 - [facility] FluAD FluAD 2019-09-06 Completed [facility] 14:00:00 - [facility] FluAD FluAD 2019-09-06 Completed [facility] 14:00:00 - [facility] FluAD FluAD 2019-09-06 Completed [facility] 14:00:00 - [facility] FluAD FluAD 2019-09-06 Completed [facility] 14:00:00 - [facility] FluAD FluAD 2019-09-06 Completed [facility] 14:00:00 - [facility] FluAD FluAD 2019-09-06 Completed [facility] 14:00:00 - [facility] FluAD FluAD 2019-09-06 Completed [facility] 00:00:00 - [facility] Pneumovax (PPSV23) Pneumovax (PPSV23) 2018-09-15 Completed [facility] 11:17:00 [facility] Pneumovax (PPSV23) Pneumovax (PPSV23) 2018-09-15 Completed [facility] 11:17:00 [facility] Pneumovax (PPSV23) Pneumovax (PPSV23) 2018-09-15 Completed [facility] 11:17:00 [facility] Pneumovax (PPSV23) Pneumovax (PPSV23) 2018-09-15 Completed [facility] 11:17:00 [facility] Pneumovax (PPSV23) Pneumovax (PPSV23) 2018-09-15 Completed [facility] 11:17:00 [facility] Pneumovax (PPSV23) Pneumovax (PPSV23) 2018-09-15 Completed [facility] 11:17:00 - [facility] Pneumovax (PPSV23) Pneumovax (PPSV23) 2018-09-15 Completed [facility] 11:17:00 - [facility] Pneumovax (PPSV23) Pneumovax (PPSV23) 2018-09-15 Completed [facility] 11:17:00 [facility] Pneumovax (PPSV23) Pneumovax (PPSV23) 2018-09-15 Completed [facility] 11:17:00 [facility] Pneumovax (PPSV23) Pneumovax (PPSV23) 2018-09-15 Completed [facility] 11:17:00 [facility] Pneumovax (PPSV23) Pneumovax (PPSV23) 2018-09-15 Completed [facility] 11:17:00 [facility] Pneumovax (PPSV23) Pneumovax (PPSV23) 2018-09-15 Completed [facility] 11:17:00 [facility] Pneumovax (PPSV23) Pneumovax (PPSV23) 2018-09-15 [facility] 11:17:00 [facility] Pneumovax (PPSV23) Pneumovax (PPSV23) 2018-09-15 [facility]pleted [facility] 11:17:00 [facility] Pneumovax (PPSV23) Pneumovax (PPSV23) 2018-09-15 Completed [facility] 11:17:00 - [facility] FluAD FluAD 2018-09-15 Completed [facility] 11:16:00 - [facility] FluAD FluAD 2018-09-15 Completed [facility] 11:16:00 - [facility] FluAD FluAD 2018-09-15 Completed [facility] 11:16:00 - [facility] FluAD FluAD 2018-09-15 Completed [facility] 11:16:00 - [facility] FluAD FluAD 2018-09-15 Completed [facility] 11:16:00 - [facility] FluAD FluAD 2018-09-15 Completed [facility] 11:16:00 - [facility] FluAD FluAD 2018-09-15 Completed [facility] 11:16:00 - [facility] FluAD FluAD 2018-09-15 Completed [facility] 11:16:00 - [facility] FluAD FluAD 2018-09-15 Completed [facility] 11:16:00 - [facility] FluAD FluAD 2018-09-15 Completed [facility] 11:16:00 - [facility] FluAD FluAD 2018-09-15 Completed [facility] 11:16:00 - [facility] FluAD FluAD 2018-09-15 Completed [facility] 11:16:00 - [facility] FluAD FluAD 2018-09-15 Completed [facility] 11:16:00 - [facility] FluAD FluAD 2018-09-15 Completed [facility] 11:16:00 - [facility] FluAD FluAD 2018-09-15 Completed [facility] 11:16:00 - [facility] Vital Signs Vital Name Observation Time Observation Value Comments Source Systolic blood 2022-11-17 18:30:00 104 mm[Hg] Univer sity of pressure [facility] Diastolic blood 2022-11-17 18:30:00 79 mm[Hg] Unive rsity of pressure [facility] Heart rate 2022-11-17 18:30:00 71 /min [facility] Respiratory rate 2022-11-17 18:30:00 18 /min [facility] in 2022-11-17 18:30:00 99 /min University Arterial blood by [facility] Pulse oximetry Branch Body temperature 2022-11-17 17:04:00 36.89 Emmanuelle Univ ersity of [facility] Body weight 2022-11-17 17:04:00 61.236 kg Universi ty [facility] height 2022-04-18 14:50:00 68 [in_i] Common [facility] weight 2022-04-18 14:50:00 140.2 [lb_av] Common [facility] temperature 2022-04-18 14:50:00 98.4 [degF] Common [facility] bmi 2022-04-18 14:50:00 21.32 kg/m2 [facility] oximetry 2022-04-18 14:50:00 98 % [facility] respiratory rate 2022-04-18 14:50:00 18 /min Comm on [facility] blood pressure 2022-04-18 14:50:00 134 mm[Hg] Common [facility] - systolic [facility] blood pressure 2022-04-18 14:50:00 65 mm[Hg] Common [facility] - diastolic [facility] height 2022-03-14 15:40:00 68 [in_i] Common [facility] weight 2022-03-14 15:40:00 135.9 [lb_av] [facility] temperature 2022-03-14 15:40:00 98.2 [degF] Common [facility] bmi 2022-03-14 15:40:00 20.66 kg/m2 [facility] oximetry 2022-03-14 15:40:00 99 % Common [facility] respiratory rate 2022-03-14 15:40:00 18 /min Comm on [facility] blood pressure 2022-03-14 15:40:00 135 mm[Hg] Common [facility] - systolic [facility] blood pressure 2022-03-14 15:40:00 67 mm[Hg] [facility] - diastolic [facility] height 2021-12-26 13:00:00 68 [in_i] [facility] weight 2021-12-26 13:00:00 137.7 [lb_av] [facility] - [facility] temperature 2021-12-26 13:00:00 97.0 [degF] [facility] bmi 2021-12-26 13:00:00 20.93 kg/m2 [facility] oximetry 2021-12-26 13:00:00 99 % [facility] respiratory rate 2021-12-26 13:00:00 18 /min Comm on [facility] blood pressure 2021-12-26 13:00:00 132 mm[Hg] [facility] - systolic [facility] blood pressure 2021-12-26 13:00:00 67 mm[Hg] [facility] - diastolic [facility] HEIGHT 2021-11-02 13:57:00 172.7 cm WEIGHT 2021-11-02 13:57:00 64.864 kg HEIGHT 2021-11-02 13:57:00 172.7 cm WEIGHT 2021-11-02 13:57:00 64.864 kg height 2021-08-31 10:20:00 68 [in_i] [facility] weight 2021-08-31 10:20:00 131 [lb_av] [facility] temperature 2021-08-31 10:20:00 97.5 [degF] [facility] bmi 2021-08-31 10:20:00 19.92 kg/m2 [facility] blood pressure 2021-08-31 10:20:00 121 mm[Hg] [facility] - systolic [facility] blood pressure 2021-08-31 10:20:00 70 mm[Hg] [facility] - diastolic [facility] height 2021-05-25 08:20:00 68 [in_i] [facility] weight 2021-05-25 08:20:00 139.2 [lb_av] [facility] temperature 2021-05-25 08:20:00 97.9 [degF] [facility] bmi 2021-05-25 08:20:00 21.16 kg/m2 [facility] oximetry 2021-05-25 08:20:00 98 % [facility] respiratory rate 2021-05-25 08:20:00 16 /min Comm on [facility] blood pressure 2021-05-25 08:20:00 117 mm[Hg] [facility] systolic [facility] blood pressure 2021-05-25 08:20:00 56 mm[Hg] [facility] diastolic [facility] WEIGHT 2020-12-17 04:37:00 64.184 kg HEIGHT 2020-12-14 13:33:00 172.7 cm WEIGHT 2020-12-14 13:33:00 65.772 kg WEIGHT 2020-12-17 04:37:00 64.184 kg HEIGHT 2020-12-14 13:33:00 172.7 cm WEIGHT 2020-12-14 13:33:00 65.772 kg Systolic blood 2019-07-12 16:09:00 136 mm[Hg] [facility] Medicine Diastolic blood 2019-07-12 16:09:00 65 mm[Hg] [facility] Medicine Heart rate 2019-07-12 16:09:00 60 /min [facility] Body height 2019-07-12 16:06:00 172.7 cm [facility] Body weight 2019-07-12 16:06:00 65.318 kg [facility] BMI 2019-07-12 16:06:00 21.90 kg/m2 [facility] Systolic blood 2019-07-12 16:09:00 136 mm[Hg] [facility] Medicine Diastolic blood 2019-07-12 16:09:00 65 mm[Hg] [facility] Medicine Heart rate 2019-07-12 16:09:00 60 /min [facility] Body height 2019-07-12 16:06:00 172.7 cm [facility] Body weight 2019-07-12 16:06:00 65.318 kg [facility] BMI 2019-07-12 16:06:00 21.90 kg/m2 [facility] Procedures Procedure Date / Time Performing Clinician Source Performed CBC WITH DIFF 2022-11-17 17:41:00 Atilio Byers [place] [facility] PROTHROMBIN TIME / INR 2022-11-17 17:41:00 Atilio Byers [facility] ACTIVATED PARTIAL THRMPLAS 2022-11-17 17:41:00 Atilio Byers [facility] NOTICE OF PRIVACY 2022-11-17 17:01:38 Doctor Thiago, [facility] PRACTICES [facility] CONSENT/REFUSAL FOR 2022-11-17 17:00:19 Doctor Thiago [facility] DIAGNOSIS AND TREATMENT [facility] [place] XR CHEST 2 VW 2022-09-06 16:50:45 Osito Cruz [facility] NOTICE OF BILLING 2022-09-06 16:32:25 Doctor Thiago, [facility] PRACTICES FOR MEDICARE [facility] PATIENTS [facility] PATIENT FINANCIAL 2022-09-06 16:31:57 Doctor Das [facility] POLICY [facility] NO SHOW OR MISSED 2022-09-06 16:31:43 Doctor Thiago, [facility] APPOINTMENT POLICY [facility] ACKNOWLEDGEMENT CONSENT/REFUSAL FOR 2022-09-06 16:31:24 Doctor Das [facility] DIAGNOSIS AND TREATMENT [facility] ASSIGNMENT OF BENEFITS 2022-09-06 16:31:09 Doctor Das [facility] Name Medical Branch Plan of Care Planned Activity Planned Date Details Comments Source Future Scheduled 2023-01-15 COVID-19 VACCINE (#1) [facility] Test 16:59:12 [code = COVID-19 VACCINE (#1)] Future Scheduled 2023-01-15 DIABETES: RETINAL EYE [facility] Test 16:59:12 EXAM [code = DIABETES: RETINAL EYE EXAM] Future Scheduled 2023-01-15 DIABETIC FOOT EXAM [facility] Test 16:59:12 [code = DIABETIC FOOT EXAM] Future Scheduled 2023-01-15 URINE MICROALBUMIN [facility] Test 16:59:12 [code = URINE MICROALBUMIN] Future Scheduled 2023-01-15 SHINGLES VACCINES (1 [facility] Test 16:59:12 of 2) [code = SHINGLES VACCINES (1 of 2)] Future Scheduled 2023-01-15 65[facility] Test 16:59:12 VACCINE (2 - PCV) [code = 65+ PNEUMOCOCCAL VACCINE (2 - PCV)] Future Scheduled 2023-01-15 [facility] 16:59:12 [code = INFLUENZA VACCINE] Future Scheduled 2023-01-15 COVID-19 VACCINE (#1) [facility] Test 16:59:12 [code = COVID-19 VACCINE (#1)] Future Scheduled 2023-01-15 DIABETES: RETINAL EYE [facility] Test 16:59:12 EXAM [code = DIABETES: RETINAL EYE EXAM] Future Scheduled 2023-01-15 DIABETIC FOOT EXAM [facility] Test 16:59:12 [code = DIABETIC FOOT EXAM] Future Scheduled 2023-01-15 URINE MICROALBUMIN [facility] Test 16:59:12 [code = URINE MICROALBUMIN] Future Scheduled 2023-01-15 SHINGLES VACCINES (1 [facility] Test 16:59:12 of 2) [code = SHINGLES VACCINES (1 of 2)] Future Scheduled 2023-01-15 65+ [facility] 16:59:12 VACCINE (2 - PCV) [code = 65+ PNEUMOCOCCAL VACCINE (2 - PCV)] Future Scheduled 2023-01-15 [facility]INE [facility] 16:59:12 [code = INFLUENZA VACCINE] Future Scheduled 2022-11-24 FALLS RISK SCREENING [facility] Test 00:00:00 [code = FALLS RISK Medical C enter SCREENING] Future Scheduled 2022-11-24 FALLS RISK SCREENING [facility] Test 00:00:00 [code = FALLS RISK Medical C enter SCREENING] Future Scheduled 2022-11-[address] [facility] Test 00:00:00 Counseling and Medical Cente r Screening (12+) [code = Tobacco Cessation Counseling and Screening (12+)] Future Scheduled 2022-11-[address] [facility] Test 00:00:00 [facility]ing [facility] Medical Cente r Screening (12+) [code = Tobacco Cessation Counseling and Screening (12+)] Future Scheduled 2022-07-25 INFLUENZA VACCINE (#1) [facility] Test 00:00:00 [code = INFLUENZA Medical Ce nter VACCINE (#1)] Future Scheduled 2022-07-25 INFLUENZA VACCINE (#1) [facility] Test 00:00:00 [code = INFLUENZA Medical Ce nter VACCINE (#1)] Future Scheduled 2021-11-[address] [facility] [facility] Test 00:00:00 WELLNESS (YEAR 2 or Medical Center FIRST YEAR if no IPPE) [code = MEDICARE ANNUAL WELLNESS (YEAR 2 or FIRST YEAR if no IPPE)] Future Scheduled 2021-11-[address] [...] Center VACCINES (1 of 2)] Future Scheduled 1990-01-24 SHINGLES VACCINES ([address] [facility] Test 00:00:00 of 2) [code = SHINGLES Medic al Center VACCINES (1 of 2)] Future Scheduled 1959-01-24 DTAP/TDAP/TD [facility]ACCINES [facility] Test 00:00:00 (1 - Tdap) [code = Medical C enter DTAP/TDAP/TD VACCINES (1 - Tdap)] Future Scheduled 1959-01-24 DTAP/TDAP/TD [facility]ACCINES [facility] Test 00:00:00 (1 - Tdap) [code = Medical C enter DTAP/TDAP/TD VACCINES (1 - Tdap)] Future Scheduled 1940 COVID-19 VACCINE (#1[facility] Test 00:00:00 [code = COVID-[address] VACCINE (#1)] Future Scheduled 1940 COVID-19 VACCINE (#1[facility] Test 00:00:00 [code = COVID-[address] [place] [address] VACCINE (#1)] Future Scheduled MEDICARE AWV [code = [facility] Test MEDICARE AWV] Medicine Future Scheduled TETANUS SHOT (ADULT) [facility] Test [code = TETANUS SHOT Medicin e (ADULT)] Future Scheduled FALL SCREEN [code = [facility] Test FALL SCREEN] Medicine Future Scheduled PNEUMOVAX >=65 [facility] Test (PPSV23) [code = Medicine PNEUMOVAX >=65 (PPSV23)] Future Scheduled PREVNAR >= 65 (PCV13) [facility] Test [code = PREVNAR >= 65 Medici ne (PCV13)] Future Scheduled FLU VACCINE > 6 MONTHS B [facility] Test [code = FLU VACCINE > Medici ne 6 MONTHS] Encounters Start End Encounter Admission Attending Care Care Encounter Source Date/Time Date/Time Type Type Clinicians Facility Department ID 2021-12-19 [facility] Common 14:25:29 Randell [id number] [facility] 2021-12-19 Out[facility], [facility] Common 13:36:19 Randell [id number] [facility] 2021-12-19 Outpatient Lomeli, [facility] Common 13:12:39 Randell [id number] [facility] 2021-12-19 Outpatient Lomeli, [facility] Common 12:25:20 Randell [id number] [facility] 2021-12-19 Outpatient Lomeli, [facility] Common 12:24:42 Randell [id number] [facility] 2021-12-19 Outpatient Lomeli, [facility] Common 12:16:57 Randell [id number] [facility] 2021-12-19 Outpatient Lomeli, [facility] Common 12:09:08 Randell [id number] [facility] 2021-12-19 Outpatient Lomeli, [facility] ST[facility] [id number] Common 12:08:24 Randell [id number] [facility] 2021-12-19 Outpatient Lomeli, [facility]LMLC ST[facility] Common 12:06:02 Randell [id number] [facility] 2021-12-19 Outpatient Lomeli, [facility]C [facility] Common 12:04:58 Randell [id number] [facility] 2021-12-19 Outpatient Lomeli, [facility]LMLC ST[facility] Common 11:48:11 Randell [id number] [facility] 2021-12-19 Outpatient Lomeli, [facility]LMLC ST[facility] Common 11:46:53 Randell [id number] [facility] 2021-12-19 Outpatient Lomeli, [facility] Common 11:44:59 Randell [id number] [facility] 2021-12-19 Outpatient Lomeli, [facility] ST[facility] Common 11:38:59 Randell [id number] [facility] 2021-12-19 Outpatient Lomeli, [facility] ST[facility] Common 11:27:13 Randell [id number] [facility] 2021-12-19 Outpatient Lomeli, [facility] Common 11:25:55 Randell [id number] [facility] 2021-12-19 Outpatient Lomeli, [facility] Common 11:21:49 Randell [id number] [facility] 2021-12-19 Outpatient Lomeli, [facility] Common 11:19:00 Randell [id number] [facility] 2022-11-17 2022-11-17 Emergency Antoine BYERS, [facility] [id number] Univers 11:05:00 12:43:00 ATILIO antonio [facility] 2022-11-17 2022-11-17 Emergency [facility] [id number] Univers 11:05:00 12:43:00 Atilio HANNA [id number] i ty [facility] [id number] [facility] [id number] [facility] [address] [place] [address] 2022-09-06 2022-09-06 Outpatient [facility] [id number] Univers 11:35:08 23:59:00 [facility] 2022-09-06 2022-09-06 [facility] [id number] Univers 11:31:04 11:34:00 Encounter Osito HANNA [id number] ity [facility] [id number] [facility] [id number] [facility] [address] [place] [address] 2022-09-06 2022-09-06 Outpatient [facility] [id number] Univers 00:00:00 00:00:00 OSITO [facility] 2022-06-04 2022-06-04 Outpatient FERGUSON_SULMA [facility] [id number] [place] 02:33:00 02:33:00 [place] [id number] [facility] Program 2022-05-22 2022-05-22 (TEL) STLMLC STLMLC [id number] Co mmon 00:00:00 00:00:00 [facility] 2022-04-29 2022-04-29 (TEL) STLMLC STLMLC [id number] Co mmon 00:00:00 00:00:00 [facility] - [facility] 2022-04-18 2022-04-18 OFFICE STLMLC STLMLC [id number] [facility] 00:00:00 00:00:00 VISIT [facility] - CHI LEVEL 4 [facility] 2022-03-14 2022-03-14 (TEL) STLMLC STLMLC [id number] [facility] 00:00:00 00:00:00 [facility] 2022-03-14 2022-03-14 OFFICE STLMLC STLMLC [id number] Co mmon 00:00:00 00:00:00 VISIT EST Spir it PT LEVEL 3 [facility] 2022-03-12 2022-03-12 (TEL) STLMLC STLMLC [id number] Co mmon 00:00:00 00:00:00 [facility] 2022-01-21 2022-01-21 (TEL) STLMLC STLMLC [id number] [facility] 00:00:00 00:00:00 [facility] 2021-12-26 2021-12-26 (WELLNESS) STLMLC STLMLC [id number] Common 00:00:00 00:00:00 Wellness Spiri t Visit [facility] 2021-12-21 2021-12-21 (TEL) STLMLC STLMLC [id number] Co mmon 00:00:00 00:00:00 [facility] 2021-12-20 2021-12-20 (TEL) STLMLC STLMLC [id number] Co mmon 00:00:00 00:00:00 [facility] 2021-12-10 2021-12-10 [facility] DAYS [id number] [facility] 00:30:00 00:30:00 Prakash Harrison [facility] 2021-12-06 2021-12-06 Outpatient UNKNOWN HCACL LABO [id number] [facility] 17:44:00 17:44:00 14 [facility] 2021-11-05 2021-11-05 (TEL) STLMLC STLMLC [id number] Co mmon 00:00:00 00:00:00 [facility] 2021-11-02 2021-11-04 Inpatient ER FIORELLA, BLADIMIR [facility] Emergency [id number] [facility] 14:01:00 13:27:00 2021-11-02 2021-11-02 Outpatient [facility] [id number] [facility] 00:00:00 23:59:00 Ekaterina 2021-10-31 2021-10-31 (TEL) STLMLC STLMLC [id number] Co mmon 00:00:00 00:00:00 [facility] 2021-09-28 2021-09-28 (INJ) STLMLC STLMLC [id number] Co mmon 00:00:00 00:00:00 Injection Sp[facility] 2021-08-31 2021-08-31 OFFICE STLMLC STLMLC [id number] Co mmon 00:00:00 00:00:00 VISIT [facility] PT - CHI LEVEL 4 [facility] 2021-05-25 2021-05-25 OFFICE STLMLC STLMLC [id number] Co mmon 00:00:00 00:00:00 VISIT [facility] PT - CHI LEVEL 4 [facility] 2021-05-16 2021-05-16 Outpatient STLMLC STLMLC [id number] Common 00:00:00 00:00:00 [facility] 2021-05-02 2021-05-02 Outpatient STLMLC STLMLC [id number] Common 00:00:00 00:00:00 [facility] 2021-05-01 2021-05-01 Outpatient STLMLC STLMLC [id number] Common 00:00:00 00:00:00 [facility] 2021-04-20 2021-04-20 Outpatient STLMLC STLMLC [id number] Common 00:00:00 00:00:00 [facility] 2021-04-18 2021-04-18 Outpatient STLMLC STLMLC [id number] Common 00:00:00 00:00:00 [facility] 2021-02-27 2021-02-27 Outpatient STLMLC STLMLC [id number] Common 00:00:00 00:00:00 [facility] 2021-02-13 2021-02-13 Outpatient STLMLC STLMLC [id number] Common 00:00:00 00:00:00 [facility] 2021-02-05 2021-02-05 Outpatient STLMLC STLMLC [id number] Common 00:00:00 00:00:00 [facility] 2021-01-22 2021-01-22 Outpatient [facility] [id number] [place] 00:00:00 00:00:00 PRAKASH [address] 2021-01-17 2021-01-17 Outpatient [facility] [id number] [place] 00:00:00 00:00:00 PRAKASH [address] 2020-12-19 2020-12-19 Outpatient STLMLC STLMLC [id number] Common 00:00:00 00:00:00 [facility] 2020-12-18 2020-12-18 Outpatient STLMLC STLMLC [id number] Common 00:00:00 00:00:00 [facility] 2020-12-15 2020-12-15 Outpatient STLMLC STLMLC [id number] Common 00:00:00 00:00:00 [facility] 2020-12-14 2020-12-14 Emergency ER [facility] [id number] [facility] 13:10:00 13:10:2020-11-13 2020-11-13 Outpatient STLMLC STLMLC [id number] Common 00:00:00 00:00:00 [facility] 2020-10-30 2020-10-30 Outpatient STLMLC STLMLC [id number] Common 00:00:00 00:00:00 [facility] 2020-10-24 2020-10-24 Outpatient STLMLC STLMLC [id number] Common 00:00:00 00:00:00 [facility] 2020-10-16 2020-10-16 Outpatient STLMLC STLMLC [id number] Common 00:00:00 00:00:00 [facility] 2020-10-12 2020-10-12 Outpatient ELIU, MHSE MHSE [id number] MH 06:00:00 09:08:00 SHAMA Diego cassia [facility] 2020-09-25 2020-09-25 Outpatient STLMLC STLMLC [id number] Common 00:00:00 00:00:00 [facility] 2020-09-18 2020-09-18 Outpatient STLMLC STLMLC [id number] Common 00:00:00 00:00:00 [facility] 2020-09-05 2020-09-05 Outpatient STLMLC STLMLC [id number] Common 00:00:00 00:00:00 [facility] 2020-08-11 2020-08-11 [facility] [id number] Common 08:30:00 08:30:[address] [facility] 2020-08-03 2020-08-03 Outpatient [facility] [id number] Common 11:18:00 11:18:[address] [facility] 2020-07-11 2020-07-11 Outpatient [facility] [id number] Common 15:00:00 15:00:[address] [facility] 2020-05-11 2020-05-11 Out[facility] [id number] Common 10:00:00 10:00:[address] [facility] 2020-05-11 2020-05-11 Out[facility] [id number] Common 10:00:00 10:00:[address] [facility] 2020-05-03 2020-05-03 Out[facility] [id number] Common 10:38:00 10:38:[address] [facility] 2020-04-06 2020-04-06 Out[facility] [id number] Common 08:42:00 08:42:00 t [facility] [address] [facility] 2020-03-15 2020-03-15 Out[facility] [id number] Common 08:38:00 08:38:[address] [facility] 2019-11-15 2019-11-15 Out[facility] [id number] Common 13:51:00 13:51:[address] [facility] 2019-11-11 2019-11-11 Out[facility] [id number] Common 08:30:00 08:30:[address] [facility] 2019-11-05 2019-11-05 Out[facility] [id number] Common 15:43:00 15:43:[address] [facility] 2019-10-19 2019-10-19 Out[facility] [id number] Common 11:04:00 11:04:[address] [facility] 2019-09-06 2019-09-06 Out[facility] [id number] Common 13:45:00 13:45:[address] [facility] 2019-08-05 2019-08-05 Out[facility] [id number] Common 13:45:00 13:45:[address] [facility] 2019-07-12 2019-07-12 Office Julia Ty [facility] [id number] [facility] 11:01:23 11:49:13 Visit AMBULATOR [id number] College Y [id number] of [id number] [facility] 850 e 2019-07-12 2019-07-12 Office Julia Ty [facility] [id number] 11:01:23 11:49:13 Visit AMBULATOR [id number] Y [id number] [facility] 2019-06-11 2019-06-11 Outpatient [facility] [id number] Common 10:30:00 10:30:[address] [facility] 2019-05-31 2019-05-31 Outpatient [facility] [id number] Common 14:01:00 14:01:[address] [facility] 2019-05-21 2019-05-21 Outpatient [facility] [id number] Common 13:23:00 13:23:[address] [facility] 2019-05-11 2019-05-11 Out[facility] [id number] Common 09:44:00 09:44:[address] [facility] 2019-03-16 2019-03-16 Out[facility] [id number] Common 10:45:00 10:45:[address] [facility] 2019-02-18 2019-02-18 Out[facility] [id number] Common 09:05:00 09:05:[address] [address] [facility] 2019-01-08 2019-01-08 [facility] [id number] Common 14:40:00 14:40:[address] [facility] 2018-12-16 2018-12-16 [facility] 22 [id number] Common 14:45:00 14:45:[address] [facility] 2018-11-30 2018-11-30 [facility] 23 [id number] Common 09:04:00 09:04:[address] [facility] 2018-11-25 2018-11-25 [facility] [id number] Common 08:37:00 08:37:[address] [facility] 2018-09-08 2018-09-08 [facility] [id number] Common 11:38:00 11:38:[address] [facility] 2018-07-28 2018-07-28 [facility] 15 [id number] Common 13:59:00 13:59:[address] [facility] 2018-07-20 2018-07-20 [facility] 15 [id number] Common 11:52:00 11:52:[address] [facility] 2018-07-08 2018-07-08 [facility] 15 [id number] Common 09:26:00 09:26:[address] [facility] 2018-07-07 2018-07-07 [facility] 15 [id number] Common 10:35:00 10:35:[address] [facility] 2018-06-29 2018-06-29 [facility] 15 [id number] Common 09:15:00 09:15:[address] [facility] 2018-06-23 2018-06-23 [facility] 14 [id number] Common 10:28:00 10:28:[address] [facility] 2018-05-21 2018-05-21 [facility] 14 [id number] Common 08:21:00 08:21:[address] [facility] 2018-05-20 2018-05-20 [facility] 13 [id number] Common 08:00:00 08:00:[address] [facility] 2018-05-19 2018-05-19 [facility] 14 [id number] Common 10:26:00 10:26:[address] [facility] 2018-05-09 2018-05-09 [facility] 14 [id number] Common 10:46:00 10:46:[address] [facility] 2018-04-24 2018-04-24 [facility] 14 [id number] Common 11:50:00 11:50:[address] [facility] 2018-04-23 2018-04-23 [facility] 14 [id number] Common 13:00:00 13:00:[address] [facility] 2018-04-06 2018-04-06 [facility] 12 [id number] Common 10:00:00 10:00:[address] [facility] 2018-03-30 2018-03-30 [facility] 13 [id number] Common 16:08:00 16:08:[address] [facility] 2018-03-12 2018-03-12 [facility] 13 [id number] Common 12:11:00 12:11:[address] [facility] 2018-02-13 2018-02-13 [facility] 13 [id number] Common 15:10:00 15:10:[address] [facility] 2018-02-11 2018-02-11 [facility] 13 [id number] Common 11:00:00 11:00:[address] [facility] 2018-02-09 2018-02-09 [facility] 13 [id number] Common 14:45:00 14:45:[address] [facility] 2008-02-04 2008-02-04 Outpatient R [facility] [id number] 00:00:00 16:52:01 2 [facility] Results Test Description Test Time Test Comments Results Result Comments Source ACTIVATED PARTIAL THRMPDAVID REMINGTON 2022-11-17 18:00:19 Test Item Value Reference Range Interpretation Comme nts APTT Patient (test code = See_Comment [ Automated message] The 3173-2) system which ge nerated this result tra nsmitted reference range : 23 - 38 Seconds. The re ference range was not u sed to interpret this result as normal/abnormal . ELVIN (test code = ELVIN) The RUST patient population mean normal value for aPTT is 30 seconds. Lab Interpretation (test Normal code = 17560-8) [facility] [id number] 17:58:18 Test Item Value Reference Range Interpretation Comments PROTIME PATIENT (test See_Comment [Auto mated message] code = 5964-2) The system ich generated this result transmitted ref erence range: 12.0 - 1 4.7 Seconds. The re ference range was not u sed to interpret this result as normal/abnor mal. INR (test code = 6301-6) Nor mal INR <1.1; Warfarin Therap eutic range 2.0 to 3. 0 or 2.5 to 3.5, dep ending upon the indica tions. Lab Interpretation (test Normal code = 77730-5) [facility] WITH [id number] 17:49:59 Test Item Value Reference Range Interpretation Comments WBC (test code = See_Comment [Automated 6690-2) message] The sy stem which generated this result transmitted reference range : 4.20 - 10.70 10*3/?L. The reference range was not used to interpret this result as normal/abnormal . RBC (test code = See_Comment L [Automated 789-8) message] The sy stem which generated this [...] RDW-SD (test code = 40.6 fL 38.5-51.6 14196-6) RDW-CV (test code = 11.8 % 12.1-15.4 L 788-0) PLT (test code = See_Comment [Automated 777-3) message] The sy stem which generated this result transmitted reference range : 150 - 328 10*3/ ?L. The reference r frantz was not used to interpret this result as normal/abnormal . MPV (test code = 9.6 fL 9.8-13.0 L 47666-5) NRBC/100 WBC (test See_Comment [Automat ed code = 7221963770) message] The system which generated this result transmitted reference range : 0.0 - 10.0 /100 WBCs. The refer ence range was not u sed to interpret th is result as normal/abnormal . NRBC x10^3 (test code See_Comment [Auto mated = 0376098945) message] The s ystem which generated this result transmitted reference range : 10*3/?L. The reference range was not used to interpret this result as normal/abnormal . GRAN MAT (NEUT) % 66.0 % (test code = 770-8) IMM GRAN % (test code 0.30 % = 6327962006) LYMPH % (test code = 19.7 % 736-9) MONO % (test code = 8.3 % 5905-5) EOS % (test code = 5.0 % 713-8) BASO % (test code = 0.7 % 706-2) GRAN MAT x10^3(ANC) 4.81 10*3/uL 1.99-6.95 (test code = 1832207006) IMM GRAN x10^3 (test 0.00-0.06 code = 6736080086) LYMPH x10^3 (test code 1.43 10*3/uL 1.09-3.23 = 731-0) MONO x10^3 (test code 0.60 10*3/uL 0.36-1.02 = 742-7) EOS x10^3 (test code = 0.36 10*3/uL 0.06-0.53 711-2) BASO x10^3 (test code 0.05 10*3/uL 0.01-0.09 = 704-7) Lab Interpretation Abnormal (test code = 30319-7) [facility] 13:47:00 Test Item Value Reference Range Interpretation Comments GLUBED (test code = GLUBED) 104 MG/DL 70-105 N [id number] 09:13:00 Test Item Value Reference Range Interpretation Comments GLUBED (test code = GLUBED) 92 MG/DL 70-105 N Novel Coronavirus 2018 [id number] 10:25:00 Test Item Value Reference Range Interpretation [...] det ection of nucleic acids f rom mroQMGY-QtR-5 v irus and diagnosis of SA RS-CoV-2 virusinfection. It is an Emergency Use Authorization ( EUA) testauthorized by the U.S. FDA. First test? UnknownEmployed in Healthcare? UnknownSymptomatic as defined by CDC? UnknownHospitalizeddue to COVID? UnknownIn ICU due to COVID? UnknownResident in a congregate care setting? Unknown? NoAge at collection: EnriqueRustykd Coronavirus 2019 [id number] 10:24:00 Test Item Value Reference Range Interpretation [...] det ection of nucleic acids f rom wifHKNU-HtB-8 v irus and diagnosis of SA RS-CoV-2 virusinfection. It is an Emergency Use Authorization ( EUA) testauthorized by the U.S. FDA. First test? UnknownEmployed in Healthcare? UnknownSymptomatic as defined by CDC? UnknownHospitalizeddue to COVID? UnknownIn ICU due to COVID? UnknownResident in a congregate care setting? Unknown? NoAge at collection: YCOMPREHENSIVE METABOLIC [id number] 15:29:00 Test Item Value Reference Range Interpretation [...] Feb code = ALKP) 2020 CBC W/AUTO [id number] 15:04:00 Test Item Value Reference Range Interpretation [...] BA#) 0.04 x10 3/uL 0.0-0.20 N POCT-GLUCOSE [id number] 08:39:09 Test Item Value Reference Range Interpretation Comments POC-GLUCOSE METER 128 mg/dL 70-110 H : Notified RN/MD: (NEFTALI) (test code = TESTED AT [facility] 6720 0570) [facility], [address]: Billing Checker/Techni geraldo ID = [id number] for Gilbert (contract)Jorge L BASIC METABOLIC [id number] 08:35:28 Test Item Value Reference Range Interpretation [...] S NOT APPLICABLE FOR DIALYSIS PATIEN TS. Billing Checker ID - VELMA WCBC W/PLT COUNT & AUTO [id number] 06:01:57 Test Item Value Reference Range Interpretation [...] PERCENT (BEAKER) (test code = 2801) POCT-GLUCOSE [id number] 20:35:08 Test Item Value Reference Range Interpretation Comments POC-GLUCOSE METER 194 mg/dL 70-110 H : TESTED A T [facility] 6720 (BEAKER) (test code = [facility], 153) [address]: Billing Checker/Techni geraldo ID = [id number] for CR CHAUNCEY TIA POCT-GLUCOSE [id number] 17:47:33 Test Item Value Reference Range Interpretation Comments POC-GLUCOSE METER 166 mg/dL 70-110 H : TESTED A T [facility] 6720 (BEAKER) (test code = [facility], 153) [address]: Billing Checker/Techni geraldo ID = [id number] for WI LLIS, MICKEY POCT-GLUCOSE [id number] 13:13:06 Test Item Value Reference Range Interpretation Comments POC-GLUCOSE METER 121 mg/dL 70-110 H : TESTED A T [facility] 6720 (BEAKER) (test code = [facility], 153) [address]: Billing Checker/Techni geraldo ID = [id number] for WI LLIS, MICKEY POCT-GLUCOSE [id number] 08:54:04 Test Item Value Reference Range Interpretation Comments POC-GLUCOSE METER 106 mg/dL 70-110 : TESTED A T [facility] 6720 (BEAKER) (test code = [facility], 153) [address]: Billing Checker/Techni geraldo ID = [id number] for WI LLIS, MICKEY CBC W/PLT COUNT & AUTO [id number] 07:33:32 Test Item Value Reference Range Interpretation [...] (BEAKER) (test code = 2801) BASIC METABOLIC [id number] 06:54:12 Test Item Value Reference Range Interpretation [...] S NOT APPLICABLE FOR DIALYSIS PATIEN TS. Billing Checker ID - CARINA MPOCT-GLUCOSE [id number] 01:25:30 Test Item Value Reference Range Interpretation Comments POC-GLUCOSE METER 159 mg/dL 70-110 H : TESTED A T [facility] 6720 (BEAKER) (test code = ROYAL Jarod [facility], 1538) [address]: Billing Checker/Techni geraldo ID = [id number] for Vi gordya (contract), Cam a CT, BRAIN, WITHOUT [id number] 20:21:00Unlisted Reason for Exam - Click Yes and Enter Reason Below->No [facility] 1940 Sex: MFINAL [...] temporal occipital lobe in the MCA and APARTMENT LEASING MANAGER distributions. Small focus of encephalomalacia in the [...] is recommended for further characterization. Signed: [facility] Verified Date/Time: 11/02/2021 20:21:46 SARS-COV2/RT-PCR ([facility])2021-11-02 17:14:44 Test Item Value Reference Range Interpretation Comments SARS-COV2/RT-PCR Negative Negative The SARS-Co V-2 target (test code = nucleic acids a re not 5813442) detected in thi s specimen. Negative result [...] revoked sooner. Fact Sheet for Healthcare Providers: https://www.GoSurf Accessories m/Documents/Xpert%20Xpress%20SARS%20CoV-2/Fact%20Sheets/302-3802%94KLLA-WOZ-9%20 HEALTHCARE%20PROVIDERS%20FACT%20SHEET.pdf Fact Sheet for Healthcare Patients: https://www.iCracked/Documents/Xpert%20Xp ress%20SARS%20CoV-2/Fact%20Sheets/302-3801%26POFO-VCY-6%20PATIENT%20FACT%20SHEET .pdfHIGH SENSITIVITY TROPONIN [id number] 16:26:23 Test Item Value Reference Range Interpretation Comments HIGH SENSITIVITY 5 pg/ml See_Comment [Automated message] TROPONIN I (test code = The system which 8871823) generated this result transmitted ref erence range: <=35. Th e reference range was not used to interpr et this result as normal/abnormal . Billing Checker ID - ZOHREH GThe PLATE MAKER ZINC STAT High Sensitivity Troponin-I results should be used in conjunction with other diagnostic information such as ECG, clinical observations and information, and patient symptoms to aid in the diagnosis of AL.BASIC METABOLIC [id number] 16:18:56 Test Item Value Reference Range Interpretation [...] S NOT APPLICABLE FOR DIALYSIS PATIEN TS. Billing Checker ID - ZOHREH GCBC W/PLT COUNT & AUTO [id number] 15:59:35 Test Item Value Reference Range Interpretation [...] = 2801) RAD, CHEST, 1 VIEW, NON [id number] 14:38:00Reason for exam:- >DIZZINESSShould this be performed at the bedside?->Yes [facility] 1940 Sex: MFINAL REPORT INDICATION: DIZZINESS COMPARISON: December 14, 2020 TECHNIQUE: Single frontal view of the chest. FINDINGS: Lungs and pleura: Clear lungs. No effusion.Heart and mediastinum: Normal heart size. Stable surgical changes. Stable pacer apparatus.Osseous structures: No acute abnormality.Other: None. IMPRESSION: No acute intrathoracic abnormality. Signed: JR Newman Robert MDReport Verified Date/Time: 11/02/2021 14:38:09 Reading Location: [facility] Reading Room POCT-GLUCOSE [id number] 08:41:00 Test Item Value Reference Range Interpretation Comments POC-GLUCOSE METER 139 mg/dL 70-110 H : TESTED A T [facility] 6720 (BEAKER) (test code = ROYAL Olivera [place], 1538) [address]: Billing Checker/Techni geraldo ID = [id number] for ANAM COHEN BASIC METABOLIC [id number] 06:25:00 Test Item Value Reference Range Interpretation [...] 1092) DATA TO CALCULA TE ESTIMATED GFR. Billing Checker ID - EDASICBC (HEMOGRAM ONLY)2020-12-17 05:39:00 Test [...] 0-0 (BEAKER) (test code = 413) POCT-GLUCOSE [id number] 22:13:00 Test Item Value Reference Range Interpretation Comments POC-GLUCOSE METER 119 mg/dL 70-110 H : TESTED A T [facility] 6720 (BEAKER) (test code = [facility], 1538) [address]: Billing Checker/Techni geraldo ID = [id number] for Nuria Cisse POCT-GLUCOSE [id number] 17:36:00 Test Item Value Reference Range Interpretation Comments POC-GLUCOSE METER 251 mg/dL 70-110 H : TESTED A T [facility] 6720 (Sano) (test code = [facility], 1538) [address]: Billing Checker/Techni geraldo ID = [id number] for SULMA HN, ANAM VITAMIN D, [id number] 09:24:00 Test Item Value Reference Range Interpretation Comments VITAMIN D 25-OH (BEAKER) (test 21.5 ng/mL 6.6-49.9 code = 2764) Effective 09/03/2017: Reference Range ChangeNew: 6.6-49.9 ng/mL Previous: 13.0- 47.8 ng/mLRecommendedVitamin D Target Range: 30.0-40.0 ng/mLOperator ID - CARINA M POCT-GLUCOSE [id number] 07:53:00 Test Item Value Reference Range Interpretation Comments POC-GLUCOSE METER 180 mg/dL 70-110 H : TESTED A T [facility] 6720 (M2 Digital LimitedAKER) (test code = [facility], 1538) [address]: Billing Checker/Techni geraldo ID = [id number] for SULMA HN, ANAM TSH/FREE T4 IF [id number] 06:58:00 Test Item Value Reference Range Interpretation Comments THYROID STIMULATING HORMONE 1.669 uIU/mL 0.350-4.940 (BEAKER) (test code = 772) Billing Checker ID - ADMINVITAMIN B12 AND [id number] 06:58:00 Test Item Value Reference Range Interpretation Comments VITAMIN B12 (BEAKER) (test code = 811 pg/mL 213-816 774) FOLATE (BEAKER) (test code = 362) 15.60 ng/mL >=7.00 Billing Checker ID - ADMINBASIC METABOLIC [id number] 06:21:00 Test Item Value Reference Range Interpretation [...] 1092) DATA TO CALCULA TE ESTIMATED GFR. Billing Checker ID - ADMINCBC (HEMOGRAM ONLY)2020-12-16 05:30:00 Test [...] 0-0 (BEAKER) (test code = 413) POCT-GLUCOSE [id number] 21:44:00 Test Item Value Reference Range Interpretation Comments POC-GLUCOSE METER 295 mg/dL 70-110 H : TESTED A T [facility] 6720 (BEAKER) (test code [facility], = 1538) [address]: Billing Checker/Techni geraldo ID = [id number] for Drea Bragg POCT-GLUCOSE [id number] 17:47:00 Test Item Value Reference Range Interpretation Comments POC-GLUCOSE METER 276 mg/dL 70-110 H : TESTED A T [facility] 6720 (BEAKER) (test code = ROYAL Jarod [facility], 1538) [address]: Billing Checker/Techni geraldo ID = [id number] for Kristina Ayala PET/CT, CARDIAC PERF REST AND [id number] 16:04:00Reason for exam:- >GENERALIZED WEAKNESS, NOT ASSOCIATED WITH EXTREMITIESReason for exam:->DIZZINESSReason for exam:->CHEST PAIN [facility] 1940 Sex: MAddendum BeginsREPORT STATUS:A 2. Abnormal myocardial perfusion. There is a large partially reversible perfusion defect involving the apex, apical inferior and basal anterolateral as well as basal inferolateral segments. Signed: Preston Hicks MDR[facility]ort Verified Date/Time: 12/15/2020 16:04:49 Reading Location: [address] Reading RoomAddendum EndsFINAL REPORT PROCEDURE: MYOCARDIAL PERFUSION PET/CT IMAGING (Rest/Stress)CPT CODE: 40080 INDICATION: Evaluatechest pain CARDIOVASCULAR PROFILE:CAD History: Known CADSymptoms: Chest painRisk Factors: Diabetes, h ypertension, hyperlipidemia, strokeBMI: 22.1Medications: Crestor, Plavix, metoprolol STRESS PROTOCOL:Pharmacologic stress was achieved with a 10-second intravenous infusion of regadenoson 0.4 mg. The radiopharmaceutical was administered 30 seconds after the start of the regadenoson infusion. IMAGING DC OTOCOL:Limited low-dose CT imaging was performed for [...] MDReport Verified Date/Time: 12/15/2020 15:38:59 Reading Location: [address] Reading Room Electronically signed by: Mack GARCIA 12/15/2020 04:04 PMPOCT-GLUCOSE [id number] 13:05:00 Test Item Value Reference Range Interpretation Comments POC-GLUCOSE METER 232 mg/dL 70-110 H : [facility] ([facility]ER[facility] (test code = [facility] R [facility], 1538) [address]: Billing Checker/Techni geraldo ID = [id number] for Kristina Ayala POCT-GLUCOSE [id number] 08:26:00 Test Item Value Reference Range Interpretation Comments POC-GLUCOSE METER 155 mg/dL 70-110 H : [facility] (BEAKER) (test code = [facility], 1538) [address]: Billing Checker/Techni geraldo ID = [id number] for SELENE ARRINGTON HEMOGLOBIN [id number] 08:15:00 Test Item Value Reference Range Interpretation Comments HEMOGLOBIN A1C (BEAKER) (test code = 9.0 % 4.3-6.1 H 368) SARS-COV2/RT-PCR ([facility])2020-12-15 07:09:00 Test Item Value Reference Range Interpretation Comments SARS-COV2/RT-PCR (test Negative Not Detected, Negative, code = 3702695) See external report for linked test SARS-COV-[address] [facility] (test code = 6034570) Negative result for this test determines that [...] the Mancia SARS-CoV-2 assay.Fact Sheet for Healthcare Providers:https://www.Calligo.[employer]/do/RT_SAR W-AmZ-8_QPG_Inlq_Kihvf_32-456192.pdfFact Sheet for Healthcare Patients:https://www.Calligo.[employer]/s al/OD_TGLD-ZbQ-0_Rdgjtwt_Ween_Xofhy_QN_26-140265C1.pdfPerforming Laboratory:[facility] [place] [address] BASIC METABOLIC [id number] 05:58:00 Test Item Value Reference Range Interpretation [...] 1092) DATA TO CALCULA TE ESTIMATED GFR. Billing Checker ID Eve SYED LLIPID [id number] 05:56:00 Test Item Value Reference Range Interpretation [...] Borderline 130-159 High 160-189 Very High >=190 Billing Checker ID Eve SYED LHEPATIC FUNCTION [id number] 05:56:00 Test Item Value Reference Range Interpretation [...] (test code = 12 U/L 6-55 347) Billing Checker ID - KUNAL LTRBERYLN [id number] 05:19:00 Test Item Value Reference Range Interpretation [...] failure, acidosis, acute neurological disease, and persistent tachyarrhythmia.Billing Checker ID - PIAYA LCBC (HEMOGRAM ONLY) 2020-12-15 [...] 0-0 (BEAKER) (test code = 413) TROPONIN [id number] 23:58:00 Test Item Value Reference Range Interpretation [...] failure, acidosis, acute neurological disease, and persistent tachyarrhythmia.Billing Checker ID - KUNAL LPOCT-GLUCOSE METER 2020-12-14 20:52:00 Test Item Value Reference Range Interpretation Comments POC-GLUCOSE METER 312 mg/dL 70-110 H : TESTED A T [facility] 6720 (BEAKER) (test code = [place], 1538) [address]: Billing Checker/Techni geraldo ID = [id number] for FABIO MARIN B-TYPE NATRIURETIC FACTOR (BNP)2020-12-14 15:03:00 Test Item Value Reference Range Interpretation Comments B-TYPE NATRIURETIC PEPTIDE (BEAKER) 128 pg/mL 0-100 H (test code = 700) Billing Checker ID - CARINA MTROPONIN [id number] 15:02:00 Test Item Value Reference Range Interpretation [...] failure, acidosis, acute neurological disease, and persistent tachyarrhythmia.Billing Checker ID - CARINA MBASIC METABOLIC [id number] 14:56:00 Test Item Value Reference Range Interpretation [...] 1092) DATA TO CALCULA TE ESTIMATED GFR. Billing Checker ID - CARINA MPT/[id number] 14:40:00 Test Item Value Reference Range Interpretation [...] mechanical heart valves.CBC W/PLT COUNT & AUTO [id number] 14:35:00 Test Item Value Reference Range Interpretation [...] (test code = 2801) RAD, CHEST, 2 [id number] 13:56:00Reason for exam:->chest pain [facility] 1940 Sex: MFINAL REPORT RAD, CHEST, 2 VIEWS INDICATION: chest pain COMPARISON: None FINDINGS: Portable frontal view of the chest. IMPRESSION: Support Lines: Pacer device. Lungs and pleura: Lungs are clear No pneumothorax.Heart and mediastinum: Normal contours.Additional findings: None. Signed: Herminia Bondseport Verified Date/Time: 12/14/2020 13:56:48 Reading Location: [facility] RadiologyReading Room
--- NOTE | 2023-02-09 15:51 | EDPHYS ---
Physician Documentation [facility] Name: Sandoval Hoffman Jr Age: 83 yrs Sex: Male : 1940 Arrival Date: 02/09/2023 Time: 15:25 Bed 11 Private MD: Tomer Arizmendi ED Physician Rodrigo June Historical: - Allergies: 02/09 15:31 NKDA; ll1 15:31 shrimp; ll1 - PMHx: 15:31 CVA; Diabetes - NIDDM; GERD; heart disease; Hypertension; ll1 15:35 Alzheimer's disease; ll1 - PSHx: 15:33 open heart; Skin grafting; heart stents; ll1 - Immunization history:: Client reports receiving the 2nd dose of the Covid vaccine. - Social history:: Smoking status: Patient denies any tobacco usage or history of. Vital Signs: 15:31 BP 137 / 60; Pulse 69; Resp 17; Temp 97.3; Pulse Ox 100% ; Weight 60.78 kg; Pain 0/10; ll1 15:31 Pain Scale: Adult ll1 MDM: 15:26 Patient medically screened. kb Administered Medications: No medications were administered Disposition Summary: 02/09/23 15:50 Discharge Ordered Location: Home kb Condition: Stable kb Diagnosis - Candidiasis, unspecified kb Followup: kb - With: Emergency Department - When: As needed - Reason: Worsening of condition Followup: kb - With: Private Physician - When: 2 - 3 days - Reason: Recheck today's complaints, Continuance of care, Re-evaluation by your physician Forms: - Medication Reconciliation Form kb - Thank You Letter kb - Antibiotic Education kb - Prescription Opioid Use kb Signatures: Helen Ledesma FNP-C FNP-Blake Terrell, RN RN ll1
--- NOTE | 2023-02-09 15:51 | ER ---
Nurse's Notes [facility] Name: Sandoval Hoffman Jr Age: 83 yrs Sex: Male : 1940 Arrival Date: 02/09/2023 Time: 15:25 Bed 11 Private MD: Tomer Arizmendi Diagnosis: Candidiasis, unspecified Presentation: 02/09 15:31 Chief complaint: Patient states: Rash to groin area for 3 days. No fever. Coronavirus ll1 screen: Vaccine status: Patient reports receiving the 2nd dose of the covid vaccine. Client denies travel out of the [place] in the last 14 days. At this time, the client does not indicate any symptoms associated with coronavirus-19. Ebola Screen: Patient denies travel to an Ebola-affected area in the 21 days before illness onset. Initial Sepsis Screen: Does the patient meet any 2 criteria? No. Patient's initial sepsis screen is negative. Does the patient have a suspected source of infection? Yes: Skin breakdown/wound. Risk Assessment: Do you want to hurt yourself or someone else? Patient reports no desire to harm self or others. Onset of symptoms was February 07, 2023. 15:31 Method Of Arrival: Ambulatory ll1 15:31 Acuity: FORREST 3 ll1 Triage Assessment: 15:36 General: Appears in no apparent distress. Behavior is calm, cooperative, appropriate ll1 for age. Pain: Denies pain. Derm: Reports rito to groin area. Some itching and pain. No fever. Historical: - Allergies: 15:31 NKDA; ll1 15:31 shrimp; ll1 - PMHx: 15:31 CVA; Diabetes - NIDDM; GERD; heart disease; Hypertension; ll1 15:35 Alzheimer's disease; ll1 - PSHx: 15:33 open heart; Skin grafting; heart stents; ll1 - Immunization history:: Client reports receiving the 2nd dose of the Covid vaccine. - Social history:: Smoking status: Patient denies any tobacco usage or history of. Screenin:40 [facility] ED Fall Risk Assessment (Adult) Confusion or Disorientation Yes (5 pts) ll1 Impaired Gait Yes (1 pt) Mobility Assist Device Used Yes (1 pt) Score/Fall Risk Level 3 or more points = High Risk Oriented to surroundings, Maintained a safe environment, Educated pt \T\ family on fall prevention, incl call for assistance when getting out of bed, Hourly rounding (assess needs \T\ fall precautionary measures) done. Abuse screen: Denies threats or abuse. Nutritional screening: No deficits noted. Tuberculosis screening: No symptoms or risk factors identified. Vital Signs: 15:31 BP 137 / 60; Pulse 69; Resp 17; Temp 97.3; Pulse Ox 100% ; Weight 60.78 kg; Pain 0/10; ll1 15:31 Pain Scale: Adult ll1 ED Course: 15:25 Patient arrived in ED. mr 15:25 Tomer Arizmendi DO is Private Physician. mr 15:26 Hleen Ledesma FNP-C is [facility]. kb 15:26 Rodrigo June MD is Attending Physician. kb 15:33 Triage completed. ll1 15:34 Arm band placed on Patient placed in an exam room, on a stretcher. ll1 15:40 Blake Hinds, ENEDINA is Primary Nurse. ll1 15:40 Patient has correct armband on for positive identification. Bed in low position. Call ll1 light in reach. Cardiac monitoring not applicable on this patient. 15:40 No provider procedures requiring assistance completed. Patient did not have IV access ll1 during this emergency room visit. Administered Medications: No medications were administered Medication: 15:40 VIS not applicable for this client. ll1 Outcome: 15:50 Discharge ordered by . kb Signatures: Helen Ledesma FNP-C FNP-Ckb Padmaja Nicoel mr Blake Hinds, RN RN ll1 Corrections: (The following items were deleted from the chart) 15:36 15:31 Resp 17bpm; 60.78 kg; Pain 0/10, Adult; ll1 ll1 15:36 15:31 Pulse 69bpm; Resp 17bpm; Pulse Ox 100%; Temp 97.3F; 60.78 kg; Pain 0/10, Adult; ll1 ll1
[2023-02-09 17:24] VITALS: BP 137/60; TEMP 97.3; O2SAT 100
== END 2023-02-09 16:01 | disposition home or self-care (01) ==
LOC: ER 15:22
DX: B37.9 Candidiasis, unspecified (principal); Z91.013 Allergy to seafood; I63.9 Cerebral infarction, unspecified; E11.8 Type 2 diabetes mellitus with unspecified complications; K21.9 Gastro-esophageal reflux disease without esophagitis; I10 Essential (primary) hypertension; I51.9 Heart disease, unspecified; G30.9 Alzheimer's disease, unspecified; F02.80 Dementia in other diseases classified elsewhere, unspecified severity, without behavioral disturbance, psychotic disturbance, mood disturbance, and anxiety; Z95.5 Presence of coronary angioplasty implant and graft

== ENCOUNTER 2023-04-23 09:40 | Emergency (ER) | payer OTHER ==
--- OUTSIDE RECORDS SUMMARY | 2023-04-23 09:49 | XMS REPORT | Continuity of Care Document ---
:1940 Author Organization [facility] t Address [address] [place] [address] [place] [id number] Care Team Providers Name Role Phone Randell Lomeli DO Primary Care Physician [phone] Randell Lomeli Attending Clinician Unavailable ATILIO [...] Number Effective Date Expiration Date Leo bonilla [facility] DUAL [id number] 2022 ACCESS OPEN PPO 00:00:00 MEDICAID OF [id number] 2022 [place] 00:[place]:00 [facility] Dual 53 [id number] 2022 Common Complete MCR 00:00:00 [facility] MEDICARE [id number] 2020 HMO 00:00:00 MEDICAID MC [id number] 2020 Common 00:00:00 [place] [id number] [place] [id number] Common [facility] MEDICAID MC [id number] 2020 Common 00:00:00 [place] [id number] Common [facility] MEDICAID MC [id number] 2020 Common 00:00:00 [facility] Problems Condition Condition Condition Status Onset Resolution Last Treating Co mments Source Name Details Category Date Date Treatment Clinician Date Dizziness Dizziness Disease Active 2020-11 [facility] 210 kes 00:00: Medical Center History of History of Disease Active M ethodi CVA CVA 3 st (cerebrova (cerebrova 00:00: Ho spita scular scular 00 l accident) accident) 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 3- st mellitus mellitus 00:00: Hospit a without without 00 l complicati complicati on, on, without without long-term long-term current current use of use of insulin insulin Left-sided Left-sided Disease Active C HI St [...] 00 l History of H/O: CVA Problem Com mon cerebrovas (cerebrova Sp oralia cular scular - CHI accident accident) [facility] residual Medical deficits Center [id number] History of Problem Co mmon fall [facility] - [facility] Arterioscl Arterioscl Problem C ommon erosis erosis [facility] - [facility] Gastro-eso Gastro-eso Problem C ommon phageal phageal Spirit reflux reflux - CHI disease disease [facility] esophagiti esophagiti Me dical s [place] 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, Spirit emia mixed [facility] Peripheral Venous Problem Commo n venous insufficie Spirit insufficie ncy - CHI ncy [facility] Type II Diabetes Problem Common diabetes type 2, Spirit mellitus controlled - CH I well [facility] [id number] Alzheimer' Problem Com mon 's Spirit disease, - CHI unspecifie [facility] [id number] Dementia Problem Comm on in other Spirit diseases - [facility]I classified [facility] Medical behavioral Center disturbanc e History of History 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 [facility] Non-neopla Nevus, Problem Commo n stic nevus non-neopla Sp oralia stic [facility] Pain in Pain in Problem Common wrist left wrist [facility] - [facility] [id number] 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 [facility] [id number] Generalize Problem Com mon d weakness Spirit [facility] [id number] Lung Problem Common nodule, Spirit solitary [facility] [id number] Anemia, Problem Commo n unspecifie Spirit d type - [facility] [id number] Dementia Problem Commo n without Spirit behavioral - [facility]I disturbanc e, [facility] unspecifie Medica l d dementia Center type [id number] Constipati Problem Com mon on, Spirit unspecifie - [facility] on type [facility] Center [id number] Type 2 Problem Common diabetes Spirit mellitus - [facility] with other [facility] y Medical complicati Center ons [id number] FPC Problem Com mon (current) Spirit use of - [facility]I insulin [facility] [id number] Peripheral Problem Com mon polyneurop Spirit athy - [facility] [id number] 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[facility] involving coronary [facility] bypass Medical graft of [facility] [place] heart with unstable angina pectoris Automatic Cardiac Problem Commo n implantabl defibrilla Sp oralia e cardiac tor in - [facility] defibrilla place St tor in [facility] [id number] Subclinica Problem Com mon l Spirit hypothyroi - [facility]I dism [facility] Essential Benign Problem Common hypertensi essential Spi rit on HTN - [facility] Pain in Pain in Problem Common limb left hand [facility] 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 - CHI , single major St episode depressive [facility] disorder Medical without Center prior episode [id number] Primary Problem Common insomnia [facility] - [facility] [id number] Paresthesi Problem Com mon a of skin [facility] [id number] Vascular Problem Com mon [id number] Spirit without - [facility] behavioral [facility] Allergies, Adverse Reactions, Alerts Allergy Allergy Status Severity Reaction(s) Onset Inactive Treating Comm ents Source Name Type Date Date Clinician No Known DA Active U [facility] Allergie 12-06 [facility] 00:00: [facility] [place] [place] NEOSPORI DA Active U RASH [facility] N OINT. 12-06 [facility] 00:00: [address] [facility] NO KNOWN Drug Active Univers ALLERGIE Class ity of [facility] NO KNOWN Allergy Active [facility] Family History Family Member Diagnosis Comments Start Date Stop Date Source Natural brother Heart attack [facility] Natural mother [facility] Social History Social Habit Start Date Stop Date Quantity Comments Source History of Tobacco [facility] - Use [facility] History SDOH [facility] Std Drinks Hospit al History SDOH [facility] Gender identity [facility] Sexual orientation [facility] History of Social 2023-01-28 2023-01-[address] function 00:00:00 00:00:00 Hospital Exposure to 2022-11-07 2022-11-17 Not sure [facility] SARS-CoV-2 (event) 00:00:00 11:09:00 [facility] Alcohol intake 2021-11-02 2021-11-02 Ex-drinker ROSALINDA Miller es 00:00:00 00:00:00 (finding) Medical Center History SDOH 2021-01-22 2021-01-22 1 [facility] Alcohol Frequency 00:00:00 00:00:00 Hospita l Tobacco use and 2020-12-14 2020-12-14 Smokeless tobacco [facility] exposure 00:[facility]00 [facility]:00:00 non-user Medical Center Alcohol Comment 2019-01-20 2019-01-20 quit alcohol 40 [facility] 00:00:00 00:00:00 years ago, Medicine previously heavy Sex Assigned At [birth year] ROSALINDA [place] 00:00:00 00:00:00 Medical Center Smoking Status Start Date Stop Date Source Tobacco smoking [facility] xa consumption unknown Medical Bran ch Never Smoker [facility] Medical Ce nter Former smoker 2019-07-12 00:00:00 2019-07-12 [facility] Colle ge of 00:00:00 Medicine Medications Ordered Filled Start Stop Current Ordering Indication Dosage Frequency Signature Comments Components Source Medication Medication Date Date Medication? Clinician (SIG) Name Name insulin 2021-11 Yes 8U inject 8 Univer s degludec 2-25 Units ity of (TRESIBA 12:41: under the [facility] U-100 27 skin at Medical INSULIN [place]) bedtime. Bran ch rosuvastati 2021-11 Yes 20mg Take 20 mg Univers n 20 mg 2-25 by mouth ity of tablet 12:41: at [place] [address] bedtime. Medical Branch omeprazole 2021-11 Yes 40mg Take 40 mg U nivers 40 mg 2-25 by mouth ity of capsule 12:41: in the [place] [address] morning. Medical Branch aspirin 81 2021-11 Yes 81mg Take 81 mg U nivers mg Cap 2-25 by mouth ity of 12:41: daily. [place] [address] Medical Branch bimatoprost 2021-11 Yes 1[drp] Place [...] 20 MG 13:27: daily. Medical tablet 11 [place] omeprazole 2020-11 Yes 40mg QD Take [address] (PriLOSEC) 2-12 by mouth Lukes 40 MG 13:27: daily. Medical capsule 11 [place] insulin 2020-11 Yes diabetes 10U Inject [address] degludec 2-12 mellitus Units Lukes (TRESIBA 13:27: subcutaneo Med ical U-[address] [place] [address]. [place] INSULIN SUBQ) aspirin 81 2020-11 Yes 81mg QD Take [address] MG EC 2-12 by mouth Lukes tablet 13:27: daily. Medical 11 [place] SITagliptin 2020-11 Yes 50mg QD Take [address] (JANUVIA) 2-12 by mouth Lukes 50 MG 13:27: daily. Medical tablet 11 [place] BIMATOPROST 2020-11 Yes open angle 1[drp] QD Place [address] OPHT 2-12 glaucoma drop into Lukes 13:27: both eyes Medical 11 nightly Center 0.2 % . rosuvastati 2020-11 Yes 20mg QD Take [address] n (CRESTOR) 2-12 by mouth Luke s 20 MG 13:27: daily. Medical tablet 11 [place] omeprazole 2020-11 Yes 40mg QD Take [address] (PriLOSEC) 2-12 by mouth Lukes 40 MG 13:27: daily. Medical capsule 11 [place] insulin 2020-11 Yes diabetes 10U Inject [address] degludec 2-12 mellitus Units Lukes (TRESIBA 13:27: subcutaneo Med ical U-100 11 [facility]. [place] INSULIN SUBQ) aspirin 81 2020-11 Yes 81mg QD Take [address] MG EC 2-12 by mouth Lukes tablet 13:27: daily. [address] SITagliptin 2020-11 Yes 50mg QD Take [address] (JANUVIA) 2-12 by mouth Lukes 50 MG 13:27: daily. Medical tablet 11 [place] BIMATOPROST 2020-11 Yes open angle 1[drp] QD Place [address] OPHT 2-12 glaucoma drop into Lukes 13:27: both eyes Medical 11 nightly Center 0.2 % . rosuvastati 2020-11 Yes 20mg QD Take [address] n (CRESTOR) 2-12 by mouth Luke s 20 MG 13:27: daily. Medical tablet 11 [place] omeprazole 2020-11 Yes 40mg QD Take [address] (PriLOSEC) 2-12 by mouth Lukes 40 MG 13:27: daily. Medical capsule 11 [place] insulin 2020-11 Yes diabetes 10U Inject [address] degludec 2-12 mellitus Units Lukes (TRESIBA 13:27: subcutaneo Med ical U-100 11 [facility]. [place] INSULIN SUBQ) aspirin 81 2020-11 Yes 81mg QD Take [address] MG EC 2-12 by mouth Lukes tablet 13:27: daily. Medical [address] [place] [address] SITagliptin 2020-11 Yes 50mg QD Take [address] (JANUVIA) 2-12 by mouth Lukes 50 MG 13:27: daily. Medical tablet 11 [place] BIMATOPROST 2020-11 Yes open angle 1[drp] QD Place [address] OPHT 2-12 glaucoma drop into Lukes 13:27: both eyes Medical 11 nightly Center 0.2 % . traZODone 0 Yes 100mg QD Take 100 [...] QD Take 81 mg Meth franny (ECOTRIN) -[address] 81 MG 13:45: daily. Hospita enteric 59 l coated tablet insulin Yes 10U QD Inject 10 Metho di degludec 3-[address] (Tresiba 13:45: under the Hosp korin FlexTouch 59 skin l U-100) 100 nightly. unit/mL (3 mL) insulin pen metoprolol Yes 25mg Q.5D Take 25 mg M ethodi succinate [address] XL 13:45: (two) Hospita (TOPROL-XL) 59 times a l 25 mg 24 hr day. tablet rosuvastati Yes 20mg QD Take 20 mg Methodi n (CRESTOR) -[address] 20 mg 13:45: nightly. [...] Take 1 mg Me thodi (BUMEX) 1 -[address] MG tablet 13:45: daily. Hospit a 59 l traZODone 2020-0 Yes 100mg QD Take 100 Met hodi (DESYREL) 3-[address] 100 MG 13:45: mouth Hospita tablet 59 nightly. l ranolazine 2020-0 Yes 500mg Q.5D Take 500 Me thodi (RANEXA) 3-[address] 500 MG 12 13:45: mouth 2 Hospi ta hr ER 59 (two) l tablet times a day. isosorbide 0 Yes 30mg QD Take 30 mg M ethodi mononitrate -[address] (IMDUR) 30 13:45: daily. [...] Q.5D Take 25 mg M ethodi succinate - by mouth [address] XL 13:45: (two) [...] 13:45: daily. Hospit a 59 l traZODone 2020-0 Yes 100mg QD Take 100 Met hodi (DESYREL) 3-[address] 100 MG 13:45: mouth Hospita tablet 59 nightly. l ranolazine 0 Yes 500mg Q.5D Take 500 Me thodi (RANEXA) 3- mg by st 500 MG 12 13:45: mouth 2 Hospi ta hr ER 59 (two) l tablet times a day. isosorbide Yes 30mg QD Take 30 mg M ethodi mononitrate -[address] (IMDUR) 30 13:45: daily. Hospi ta MG 24 hr 59 l tablet aspirin Yes 81mg QD Take 81 mg Meth franny (ECOTRIN) 01-[address] 81 MG 13:45: daily. Hospita enteric 59 l coated tablet insulin Yes 10U QD Inject 10 Metho di degludec - Units st (Tresiba 13:45: under the Hosp korin FlexTouch 59 skin l U-100) 100 nightly. unit/mL (3 mL) insulin pen metoprolol Yes 25mg Q.5D Take 25 mg M ethodi succinate 01-[address] XL 13:45: (two) Hospita (TOPROL-XL) 59 times a l 25 mg 24 hr day. tablet rosuvastati Yes 20mg QD Take 20 mg Methodi n (CRESTOR) 01-[address] 20 mg 13:45: nightly. Hospita tablet 59 l clopidogreL Yes 75mg QD Take 75 mg Methodi (PLAVIX) 75 01-[address] mg tablet 13:45: daily. Hospit a 59 l omeprazole Yes 40mg QD Take 40 mg M ethodi (PriLOSEC) 01-[address] 40 MG 13:45: daily. Hospita capsule 59 l BUMETanide Yes 1mg QD Take 1 mg Me thodi (BUMEX) 1 01-[address] MG tablet 13:45: daily. Hospit a 59 l UNABLE TO 2020-0 Yes Memories Meth franny FIND 01-[address] 13:45: FenolTakin Hospita 57 g 2 with l every meal UNABLE TO 2020-0 Yes Memories Meth franny FIND - with st 13:45: FenolTakin Hospita 57 g 2 with l every meal UNABLE TO 2020-0 Yes Memories Meth franny FIND 01-[address] 13:45: FenolTakin Hospita 57 g [...] Yes Inject Ernst Degludec 07-12 into the College (TRESIBA 16:19: skin. of [place]) 55 Medicin e MELATONIN Yes Take by [facility] OR 07-12 mouth. Mcnary 16:19: of 55 Medicin e omeprazole Yes 40mg Take 40 mg [facility] (PRILOSEC) 07-12 by mouth. Gilda ege 40 MG 16:11: of capsule 33 Medicin e clopidogrel Yes 75mg Take 75 mg [facility] (PLAVIX) 75 07-12 by mouth. Col lege MG tablet 16:11: of 33 Medicin e losartan Yes 50mg Take 50 mg Harmon dylan (COZAAR) 25 07-12 by mouth. Col lege MG tablet 16:11: of 33 Medicin e metoprolol Yes 50mg Take 50 mg [facility] (LOPRESSOR) 19 by mouth. Col lege 50 MG 16:11: of tablet 33 Medicin e donepezil Yes 5mg Take 1 Tab Ba ylor (ARICEPT) 5 19 by mouth Gilda ege MG tablet 00:00: nightly. of 00 Medicin e donepezil Yes 10mg Take 1 Tab Ba ylor (ARICEPT) 8-19 by mouth Colleg e 10 MG 00:00: nightly. of tablet 00 Medicin e B Complex Yes Take by [facility] Vitamins (B 2-27 mouth. Colleg e COMPLEX 1 14:30: of OR) 04 Medicin e furosemide Yes 20mg Take 20 mg [facility] (LASIX) 20 01-20 by mouth Colle ge MG tablet 14:11: as needed. of 33 Medicin e bimatoprost Yes 1[drp] 1 Drop. [facility] (LUMIGAN) 01-20 College 0.01 % 14:11: of ophthalmic 33 Medicin solution e Rosuvastati Yes Take by Harmon dylan n Calcium 01-20 mouth. College (CRESTOR 14:11: of OR) 33 Medicin e donepezil 2018- No 5mg Take 1 Tab B aylor [...] Hospita 39 times a l day. clopidogrel Yes 75mg QD Take 75 mg Methodi [...] Hospita 39 times a l day. clopidogrel Yes 75mg QD Take 75 mg Methodi [...] 5-31 [place] [facility] 00:00: - [facility] 00 [facility] Ondansetron Ondansetron 0 No Ondansetro HCl 4 MG HCl 4 MG 5-31 n HCl 4 MG 00:00: 00 Ondansetron Ondansetron 0 No Ondansetro HCl 4 MG HCl 4 MG 5-31 n HCl 4 MG 00:00: 00 Ondansetron Ondansetron 0 No HCl 4 MG HCl 4 MG 5-31 00:00: 00 Ondansetron Ondansetron 2018-0 No Ondansetro HCl 4 MG HCl 4 MG 5-31 n HCl 4 MG 00:00: 00 Ondansetron Ondansetron 2018-0 No Ondansetro HCl 4 MG HCl 4 MG 5-31 n HCl 4 MG 00:00: 00 Ondansetron Ondansetron 2017-0 No Ondansetro HCl 4 MG HCl 4 MG 5-31 n HCl 4 MG 00:00: 00 Ondansetron Ondansetron 2018 No Ondansetro HCl 4 MG HCl 4 MG 5-31 n HCl 4 MG 00:00: 00 Clopidogrel Clopidogrel Yes Randell 1 tablet Common Bisulfate Bisulfate [facility]omeli [facility]ir [facility] Aspirin Aspirin Yes Randell 1 tablet Com mon L[place]eli [facility] BD Pen BD Pen Yes Randell USE Common Needle Mini Needle Mini Lomeli DIRECTED [facility] U/F U/F [facility] Tresiba Tresiba Yes Randell not Common FlexTouch FlexTouch Lomeli defined S [facility] Crestor Crestor Yes Randell 1 tablet Com mon Lomeli [facility] Lumigan Lumigan Yes Randell 1 drop Commo n Lomeli into both [facility] eyes [facility] Vitamin B Vitamin B Yes Randell not Com mon Complex-C Complex-C L[place] defined S [facility] Vitamin D-3 Vitamin D-3 Yes Randell 1 tablet Common Lomeli [facility] Melatonin Melatonin Yes Randell 1 tablet Common Lom[place] at bedtime [facility] as needed - CHI with food [facility] Furosemide Furosemide Yes Randell 1 tablet Common Lomeli [facility] Losartan Losartan Yes Randell 1 tablet C ommon Potassium Potassium [facility]eli Spir [facility] Isosorbide Isosorbide Yes Randell 1 tablet Common Mononitrate Mononitrate Lomeli in the Spirit ER ER morning [facility] Rosuvastati Rosuvastati Yes Randell TAKE 1 Common n Calcium n Calcium Lomeli TABLET BY [facility] MOUTH - CHI EVERY DAY [facility] Metoprolol Metoprolol Yes Randell 1 tablet Common Succinate Succinate Lomeli Spir it ER ER [facility] Omeprazole Omeprazole Yes Randell TAKE 1 Common [place] CAPSULE BY [facility] MOUTH - CHI EVERY DAY [facility] Metoprolol Metoprolol Yes Randell 1 tablet Common Succinate Succinate Lomeli Spir it ER ER [facility] Vitamin B Vitamin B No [...] 81 MG 81 MG t} 81 MG Tresiba Tresiba No QD Tresiba FlexTouch [...] BID Ranexa 500 MG MG t} MG Omeprazole Omeprazole No Omeprazole 40 MG 40 MG 40 MG Clopidogrel Clopidogrel No 1{table QD Clopidogre Bisulfate Bisulfate t} l 75 MG 75 MG Bisulfate 75 MG Melatonin 5 Melatonin 5 No 1{table QD Melatonin MG MG t_at_be 5 MG dtime_a s_neede d_with_ food} Immunizations Ordered Immunization Filled Immunization Date Status Commen ts Source Name Name Mayur Merchant 2021-11-06 Completed [facility] 14:15:00 - [facility] Mayur Merchant 2021-11-06 Completed [facility] 14:15:00 - [facility] Mayur Merchant 2021-11-06 Completed [facility] 14:15:00 - [facility] Mayur Merchant 2021-11-06 Completed [facility] 14:15:00 - [facility] Mayur Merchant 2021-11-06 Completed [facility] 14:15:00 - [facility] Mayur Merchant 2021-11-06 Completed [facility] 14:15:00 - [facility] Mayur Merchant 2021-11-06 Completed [facility] 14:15:00 - [facility] Shingrix Shingrix 2021-11-06 Completed [facility] 14:15:00 - [facility] Shingrix Shingrix 2021-11-06 Completed [facility] 14:15:00 - [facility] Shingrix Shingrix 2021-11-06 Completed [facility] 14:15:00 - [facility] Shingrix Shingrix 2021-11-06 Completed [facility] 14:15:00 - [facility] FluAD FluAD 2021-09-28 Completed [facility] 11:24:00 - [facility] FluAD FluAD 2021-09-28 Completed [facility] 11:24: - [facility] FluAD FluAD 2021-09-28 Completed [facility] 11:24: - [facility] FluAD FluAD 2021-09-28 Completed [facility] 11:24:00 - [facility] FluAD FluAD 2021-09-28 Completed [facility] 11:24:00 - [facility] FluAD FluAD 2021-09-28 Completed [facility] 11:24:00 - [facility] FluAD FluAD 2021-09-28 Completed [facility] 11:24:00 - [facility] FluAD FluAD 2021-09-28 Completed [facility] 11:24:00 - [facility] FluAD FluAD 2021-09-28 Completed [facility] 11:24:00 - [facility] FluAD FluAD 2021-09-28 Completed [facility] 11:24:00 - [facility] FluAD FluAD 2021-09-28 Completed [facility] 11:24:00 - [facility] FluAD FluAD 2021-09-28 Completed [facility] 11:24:00 - [facility] FluAD FluAD 2021-09-28 Completed [facility] 11:24: - [facility] FluAD FluAD 2021-09-28 Completed [facility] 11:24:00 - [facility] FluAD FluAD 2020-09-05 Completed [facility] 10:19:00 - [facility] FluAD FluAD 2020-09-05 Completed [facility] 10:19:00 - [facility] FluAD FluAD 2020-09-05 Completed [facility] 10:19:00 - [facility] FluAD FluAD 2020-09-05 Completed [facility] 10:19:00 - [facility] FluAD FluAD 2020-09-05 Completed [facility] 10:19:00 - [facility] FluAD FluAD 2020-09-05 Completed [facility] 10:19:00 - [facility] FluAD FluAD 2020-09-05 Completed [facility] 10:19:00 - [facility] FluAD FluAD 2020-09-05 Completed [facility] 10:19:00 - [facility] FluAD FluAD 2020-09-05 Completed [facility] 10:19:00 - [facility] FluAD FluAD 2020-09-05 Completed [facility] 10:19:00 - [facility] FluAD FluAD 2020-09-05 Completed [facility] 10:19:00 - [facility] FluAD FluAD 2020-09-05 Completed [facility] 10:19:00 - [facility] FluAD FluAD 2020-09-05 Completed [facility] 10:19:00 - [facility] FluAD FluAD 2020-09-05 Completed [facility] 10:19:00 - [facility] FluAD FluAD 2020-09-05 Completed [facility] 10:19:00 - [facility] FluAD FluAD 2020-09-05 Completed [facility] 10:19:00 - [facility] FluAD FluAD 2019-09-06 Completed [facility] 14:00:00 - [facility] FluAD FluAD 2019-09-06 Completed [facility] 14:00:00 - [facility] FluAD FluAD 2019-09-06 Completed [facility] 14:00:00 - [facility] FluAD FluAD 2019-09-06 Completed [facility] 14:00:00 - [facility] FluAD FluAD 2019-09-06 Completed [facility] 14:00:00 - [facility] FluAD FluAD 2019-09-06 Completed [facility] 14:00:00 - [facility] FluAD FluAD 2019-09-06 Completed [facility] 14:00:00 - [facility] FluAD FluAD 2019-09-06 Completed [facility] 14:00:00 - [facility] FluAD FluAD 2019-09-06 Completed [facility] 14:00:00 - [facility] FluAD FluAD 2019-09-06 Completed [facility] 14:00:00 - [facility] FluAD FluAD 2019-09-06 Completed [facility] 14:00:00 - [facility] FluAD FluAD 2019-09-06 Completed [facility] 14:00:00 - [facility] FluAD FluAD 2019-09-06 Completed [facility] 14:00:00 - [facility] FluAD FluAD 2019-09-06 Completed [facility] 14:00:00 - [facility] FluAD FluAD 2019-09-06 Completed [facility] 14:00:00 - [facility] FluAD FluAD 2019-09-06 Completed [facility] 14:00:00 - [facility] FluAD FluAD 2019-09-06 Completed [facility] 00:00:00 - [facility] Pneumovax (PPSV23) Pneumovax (PPSV23) 2018-09-15 Completed [facility] 11:17:00 - [facility] Pneumovax (PPSV23) Pneumovax (PPSV23) 2018-09-15 Completed [facility] 11:17:00 - [facility] Pneumovax (PPSV23) Pneumovax (PPSV23) 2018-09-15 Completed [facility] 11:17:00 - [facility] Pneumovax (PPSV23) Pneumovax (PPSV23) 2018-09-15 Completed [facility] 11:17:00 - [facility] Pneumovax (PPSV23) Pneumovax (PPSV23) 2018-09-15 Completed [facility] 11:17:00 - [facility] Pneumovax (PPSV23) Pneumovax (PPSV23) 2018-09-15 Completed [facility] 11:17:00 - [facility] Pneumovax (PPSV23) Pneumovax (PPSV23) 2018-09-15 Completed [facility] 11:17:00 - [facility] Pneumovax (PPSV23) Pneumovax (PPSV23) 2018-09-15 Completed [facility] 11:17:00 - [facility] Pneumovax (PPSV23) Pneumovax (PPSV23) 2018-09-15 Completed [facility] 11:17:00 - [facility] Pneumovax (PPSV23) Pneumovax (PPSV23) 2018-09-15 Completed [facility] 11:17:00 - [facility] Pneumovax (PPSV23) Pneumovax (PPSV23) 2018-09-15 Completed [facility] 11:17:00 - [facility] Pneumovax (PPSV23) Pneumovax (PPSV23) 2018-09-15 Completed [facility] 11:17:00 - [facility] Pneumovax (PPSV23) Pneumovax (PPSV23) 2018-09-15 Completed [facility] 11:17:00 - [facility] Pneumovax (PPSV23) Pneumovax (PPSV23) 2018-09-15 Completed [facility] 11:17:00 - [facility] Pneumovax (PPSV23) Pneumovax (PPSV23) 2018-09-15 Completed [facility] 11:17:00 - [facility] Pneumovax (PPSV23) Pneumovax (PPSV23) 2018-09-15 Completed [facility] 11:17:00 - [facility] FluAD FluAD 2018-09-15 Completed [facility] 11:16:00 - [facility] FluAD FluAD 2018-09-15 Completed [facility] 11:16:00 - [facility] FluAD FluAD 2018-09-15 Completed [facility] 11:16:00 - [facility] FluAD FluAD 2018-09-15 Completed [facility] 11:16:00 - [facility] FluAD FluAD 2018-09-15 Completed [facility] 11:16:00 - [facility] FluAD FluAD 2018-09-15 Completed [facility] 11:16:00 - [facility] FluAD FluAD 2018-09-15 Completed [facility] 11:16:00 - [facility] FluAD FluAD 2018-09-15 Completed Common [facility] 11:16:00 - [facility] FluAD 2018-09-15 Completed [facility] 11:16:00 - [facility] FluAD 2018-09-15 Completed [facility] 11:16:00 - [facility] FluAD 2018-09-15 Completed [facility] 11:16:00 - [facility] FluAD 2018-09-15 Completed [facility] 11:16:00 - [facility] FluAD 2018-09-15 Completed [facility] 11:16:[facility] - [facility] FluAD 2018-09-15 Completed [facility] 11:16:[facility] - [facility] FluAD 2018-09-15 Completed [facility] 11:16:00 - [facility] FluAD 2018-09-15 Completed [facility] 11:16:00 - [facility] Vital Signs Vital Name Observation Time Observation Value Comments Source Systolic blood 2022-11-17 18:30:00 104 mm[Hg] Univer sity of pressure [facility] Diastolic blood 2022-11-17 18:30:00 79 mm[Hg] Unive rsity of [facility] Heart rate 2022-11-17 18:30:00 71 /min [facility] Respiratory rate 2022-11-17 18:30:00 18 /min [facility] Oxygen saturation in 2022-11-17 18:30:00 99 /min [facility] Arterial blood by [facility] Pulse oximetry Branch Body temperature 2022-11-17 17:04:00 36.89 Emmanuelle [facility] Body weight 2022-11-17 17:04:00 61.236 kg [facility] height 2022-04-18 14:50:00 68 [in_i] [facility] weight 2022-04-18 14:50:00 140.2 [lb_av] [facility] temperature 2022-04-18 14:50:00 98.4 [degF] [facility] bmi 2022-04-18 14:50:00 21.32 kg/m2 [facility] oximetry 2022-04-18 14:50:00 98 % [facility] - [facility] respiratory rate 2022-04-18 14:50:00 18 /min Comm on [facility] blood pressure 2022-04-18 14:50:00 134 mm[Hg] [facility] - systolic [facility] blood pressure 2022-04-18 14:50:00 65 mm[Hg] [facility] - diastolic [facility] temperature 2022-03-14 15:40:00 98.2 [degF] Common S pirit [facility] bmi 2022-03-14 15:40:00 20.66 kg/m2 [facility] oximetry 2022-03-14 15:40:00 99 % [facility] respiratory rate 2022-03-14 15:40:00 18 /min Comm on [facility] blood pressure 2022-03-14 15:40:00 135 mm[Hg] [facility] - systolic [facility] blood pressure 2022-03-14 15:40:00 67 mm[Hg] [facility] - diastolic [facility] height 2022-03-14 15:40:00 68 [in_i] [facility] weight 2022-03-14 15:40:00 135.9 [lb_av] Common [facility] height 2021-12-26 13:00:00 68 [in_i] [facility] weight 2021-12-26 13:00:00 137.7 [lb_av] [facility] temperature 2021-12-26 13:00:00 97.0 [degF] [facility] - [facility] bmi 2021-12-26 13:00:00 20.93 kg/m2 [facility] - [facility] oximetry 2021-12-26 13:00:00 99 % [facility] respiratory rate 2021-12-26 13:00:00 18 /min Comm on [facility] blood pressure 2021-12-26 13:00:00 132 mm[Hg] Common [facility] - systolic [facility] blood pressure 2021-12-26 13:00:00 67 mm[Hg] Common [facility] - diastolic [facility] HEIGHT 2021-11-02 13:57:00 172.7 cm WEIGHT 2021-11-02 13:57:00 64.864 kg HEIGHT 2021-11-02 13:57:00 172.7 cm WEIGHT 2021-11-02 13:57:00 64.864 kg height 2021-08-31 10:20:00 68 [in_i] [facility] weight 2021-08-31 10:20:00 131 [lb_av] [facility] temperature 2021-08-31 10:20:00 97.5 [degF] [facility] bmi 2021-08-31 10:20:00 19.92 kg/m2 Common [facility] blood pressure 2021-08-31 10:20:00 121 mm[Hg] Common [facility] - systolic [facility] blood pressure 2021-08-31 10:20:00 70 mm[Hg] Common [facility] - diastolic [facility] height 2021-05-25 08:20:00 68 [in_i] Common [facility] weight 2021-05-25 08:20:00 139.2 [lb_av] Common [facility] temperature 2021-05-25 08:20:00 97.9 [degF] Common [facility] bmi 2021-05-25 08:20:00 21.16 kg/m2 [facility] oximetry 2021-05-25 08:20:00 98 % [facility] respiratory rate 2021-05-25 08:20:00 16 /min Comm on [facility] blood pressure 2021-05-25 08:20:00 117 mm[Hg] [facility] - systolic [facility] blood pressure 2021-05-25 08:20:00 56 mm[Hg] [facility] - diastolic [facility] WEIGHT 2020-12-17 04:37:00 64.184 kg HEIGHT 2020-12-14 13:33:00 172.7 cm WEIGHT 2020-12-14 13:33:00 65.772 kg WEIGHT 2020-12-17 04:37:00 64.184 kg HEIGHT 2020-12-14 13:33:00 172.7 cm WEIGHT 2020-12-14 13:33:00 65.772 kg Systolic blood 2019-07-12 16:09:00 136 mm[Hg] [facility] pressure Medicine Diastolic blood 2019-07-12 16:09:00 65 mm[Hg] [facility] pressure Medicine Heart rate 2019-07-12 16:09:00 60 /min [facility] Medicine Body height 2019-07-12 16:06:00 172.7 cm [facility] Body weight 2019-07-12 16:06:00 65.318 [facility] BMI 2019-07-12 16:06:00 21.90 kg/m2 [facility] Systolic blood 2019-07-12 16:09:00 136 mm[Hg] [facility] pressure Medicine Diastolic blood 2019-07-12 16:09:00 65 mm[Hg] [facility] Medicine Heart rate 2019-07-12 16:09:00 60 /min [facility] Body height 2019-07-12 16:06:00 172.7 cm [facility] Body weight 2019-07-12 16:06:00 65.318 kg [facility] BMI 2019-07-12 16:06:00 21.90 kg/m2 [facility] Procedures Procedure Date / Time Performing Clinician Source Performed CBC WITH DIFF 2022-11-17 17:41:00 Atilio Byers [facility] PROTHROMBIN TIME / INR 2022-11-17 17:41:00 Atilio Byers [facility] ACTIVATED PARTIAL THRMPLAS 2022-11-17 17:41:00 Atilio Byers [facility] NOTICE OF PRIVACY 2022-11-17 17:01:38 Doctor Unassigned, [facility] PRACTICES [facility] CONSENT/REFUSAL FOR 2022-11-17 17:00:19 Doctor Unassharper, [facility] DIAGNOSIS AND TREATMENT [facility] XR CHEST 2 VW 2022-09-06 16:50:45 Osito Cruz [facility] NOTICE OF BILLING 2022-09-06 16:32:25 Doctor Unassigned, [facility] PRACTICES FOR MEDICARE [facility] PATIENTS [facility] PATIENT FINANCIAL 2022-09-06 16:31:57 Doctor Unassigned, [facility] POLICY [facility] NO SHOW OR MISSED 2022-09-06 16:31:43 Doctor Thiago, [facility] APPOINTMENT POLICY [facility] ACKNOWLEDGEMENT CONSENT/REFUSAL FOR 2022-09-06 16:31:24 Doctor Unassharper, [facility] DIAGNOSIS AND TREATMENT [facility] ASSIGNMENT OF BENEFITS 2022-09-06 16:31:09 Doctor Thiago, [facility] Plan of Care Planned Activity Planned Date Details Comments Source Future Scheduled 2023-07-[address] [facility] Test 00:00:00 (Season Ended) [code = Medic tx Center INFLUENZA VACCINE (Season Ended)] Future Scheduled 2023-02-26 SHINGLES VACCINES (1 [facility] Test 23:43:15 of 2) [code = SHINGLES VACCINES (1 of 2)] Future Scheduled 2023-02-26 65+ [facility]AL [facility] 23:43:15 VACCINE (2 - PCV) [code = 65+ PNEUMOCOCCAL VACCINE (2 - PCV)] Future Scheduled 2023-02-26 INFLUENZA VACCINE [facility] Test 23:43:15 [code = INFLUENZA VACCINE] Future Scheduled 2023-02-26 COVID-19 VACCINE (#1) [facility] Test 23:43:15 [code = COVID-19 VACCINE (#1)] Future Scheduled 2023-02-26 DIABETES: RETINAL EYE [facility] Test 23:43:15 EXAM [code = DIABETES: RETINAL EYE EXAM] Future Scheduled 2023-02-26 DIABETIC FOOT EXAM [facility] Test 23:43:15 [code = DIABETIC FOOT EXAM] Future Scheduled 2023-02-26 URINE MICROALBUMIN [facility] Test 23:43:15 [code = URINE MICROALBUMIN] Future Scheduled 2023-01-15 COVID-19 VACCINE (#1) Me [...] Future Scheduled 2023-01-15 SHINGLES VACCINES ([facility] 16:59:12 of 2) [code = [...] (#1)] Future Scheduled MEDICARE AWV [code = [facility] MEDICARE AWV] Medicine Future Scheduled TETANUS SHOT (ADULT) [facility] [code = TETANUS SHOT Medicin e (ADULT)] Future Scheduled FALL SCREEN [code = [facility] Test FALL SCREEN] Medicine Future Scheduled P[facility]OVAX >=65 [facility] [code = Medicine PNEUMOVAX >=65 (PPSV23)] Future Scheduled PREVNAR >= 65 (PCV13) [facility] Test [code = PREVNAR >= 65 Medici ne (PCV13)] Future Scheduled FLU VACCINE > 6 MONTHS B [facility] Test [code = FLU VACCINE > Medici ne 6 MONTHS] Encounters Start End Encounter Admission Attending Care Care Encounter Source Date/Time Date/Time Type Type Clinicians Facility Department ID 2021-12-19 Outpatient Lomeli, [facility] [id number] Common 14:25:29 Randell 22133 [facility] 2021-12-19 [facility] [id number] Common 13:36:19 Randell 55860 [facility] 2021-12-19 [facility] [id number] Common 13:12:39 Randell 94600 [facility] 2021-12-19 [facility] [id number] Common 12:25:20 Randell 43469 [facility] 2021-12-19 [facility] [id number] Common 12:24:42 Randell 94892 [facility] 2021-12-19 [facility] [id number] Common 12:16:57 Randell 96116 [facility] 2021-12-19 [facility] [id number] Common 12:09:08 Randell 60158 [facility] 2021-12-19 [facility] [id number] Common 12:08:24 Randell 43129 [facility] 2021-12-19 [facility] [id number] Common 12:06:02 Randell 54616 [facility] 2021-12-19 Outpatient Lomeli, [facility] Common 12:04:58 Randell 36066 [facility] 2021-12-19 [facility] [id number] Common 11:48:11 Randell 59671 [facility] 2021-12-19 Out[facility]eli, [facility] Common 11:46:53 Randell 28734 [facility] 2021-12-19 Outpatient [facility]omeli, [facility] Common 11:44:59 Randell 50415 [facility] 2021-12-19 Outpatient Lomeli, [facility] [id number] Common 11:38:59 Randell 33696 [facility] 2021-12-19 Outpatient Lomeli, [facility] Common 11:27:13 Randell 14603 [facility] 2021-12-19 Outpatient Lomeli, [facility] Common 11:25:55 Randell 54722 [facility] 2021-12-19 [facility] Common 11:21:49 Randell 96608 [facility] 2021-12-19 [facility] Common 11:19:00 Randell 07255 [facility] 2022-11-17 2022-11-17 [id number] Univers 11:05:00 12:43:00 ATILIO antonio [facility] 2022-11-17 2022-11-17 [facility] [id number] Univers 11:05:00 12:43:00 Atilio HANNA [id number] i Jerome [id number] [facility] [id number] [place] [address] Branch 2022-09-06 2022-09-06 Outpatient R NANCY [facility] [id number] Univers 11:35:08 23:59:00 OSITO ity [facility] 2022-09-06 2022-09-06 [facility] [id number] Univers 11:31:04 11:34:00 Encounter Osito HANNA [id number] [facility] [id number] [facility] [id number] [place] [address] Branch 2022-09-06 2022-09-06 [facility] [id number] Univers 00:00:00 00:00:00 OSITO arvizuy [facility] 2022-06-04 2022-06-04 Outpatient [facility] 120 [place] 02:33:00 02:33:00 [place] [id number] [facility] Program 2022-05-22 2022-05-22 (TEL) STLMLC STLMLC [id number] Co mmon 00:00:00 00:00:00 [facility] 2022-04-29 2022-04-29 (TEL) STLMLC STLMLC [id number] Co mmon 00:00:00 00:00:00 [facility] 2022-04-18 2022-04-18 OFFICE STLMLC STLMLC [id number] Co mmon 00:00:00 00:00:00 VISIT [facility] ESTAB PT - CHI LEVEL 4 [facility] 2022-03-14 2022-03-14 (TEL) STLMLC STLMLC [id number] Co mmon 00:00:00 00:00:00 [facility] 2022-03-14 2022-03-14 OFFICE STLMLC STLMLC [id number] Co mmon 00:00:00 00:00:00 VISIT EST Spir it PT LEVEL 3 - [facility] 2022-03-12 2022-03-12 (TEL) STLMLC STLMLC [id number] Co mmon 00:00:00 00:00:00 [facility] 2022-01-21 2022-01-21 (TEL) STLMLC STLMLC [id number] Co mmon 00:00:00 00:00:00 [facility] 2021-12-26 2021-12-26 (WELLNESS) STLMLC STLMLC [id number] Common 00:00:00 00:00:00 Wellness Spiri t [facility] 2021-12-21 2021-12-21 (TEL) STLMLC STLMLC [id number] Co mmon 00:00:00 00:00:00 [facility] 2021-12-20 2021-12-20 (TEL) STLMLC STLMLC [id number] Co mmon 00:00:00 00:00:00 [facility] 2021-12-10 2021-12-10 Outpatient KD Antonio, [facility] DAYS [id number] [facility] 00:30:00 00:30:[address] [place] [address] 2021-12-06 2021-12-06 Outpatient UNKNOWN HCACL LABO [id number] [facility] 17:44:00 17:44:00 14 [facility] 2021-11-06 2021-11-06 (INJ) STLMLC STLMLC [id number] Co mmon 00:00:00 00:00:00 Injection Spir [facility] 2021-11-05 2021-11-05 (TEL) STLMLC STLMLC [id number] Co mmon 00:00:00 00:00:00 [facility] 2021-11-02 2021-11-04 Inpatient ER BLADIMIR BARROS [facility] Emergency [id number] SLE 14:01:00 13:27:00 2021-11-02 2021-11-02 Outpatient [facility] [place] [id number] [facility] 00:00:00 23:59:00 Wendyin e 2021-10-31 2021-10-31 (TEL) STLMLC STLMLC [id number] Co mmon 00:00:00 00:00:00 [facility] 2021-09-28 2021-09-28 (INJ) STLMLC STLMLC [id number] Co mmon 00:00:00 00:00:00 Injection Spir [facility] 2021-08-31 2021-08-31 OFFICE STLMLC STLMLC [id number] Co mmon 00:00:00 00:00:00 VISIT [facility] PT - [facility] LEVEL 4 [facility] 2021-05-25 2021-05-25 OFFICE STLMLC STLMLC [id number] Co mmon 00:00:00 00:00:00 VISIT [facility] PT [facility] 4 [facility] 2021-05-16 2021-05-16 Outpatient STLMLC STLMLC [id number] Common 00:00:00 00:00:00 [facility] 2021-05-02 2021-05-02 Outpatient STLMLC STLMLC [id number] Common 00:00:00 00:00:00 [facility] 2021-05-01 2021-05-01 Outpatient STLMLC STLMLC [id number] Common 00:00:00 00:00:00 [facility] 2021-04-20 2021-04-20 Outpatient STLMLC STLMLC [id number] Common 00:00:00 00:00:00 [facility] 2021-04-18 2021-04-18 Outpatient STLMLC STLMLC [id number] Common 00:00:00 00:00:00 [facility] 2021-02-27 2021-02-27 Outpatient STLMLC STLMLC [id number] Common 00:00:00 00:00:00 [facility] 2021-02-13 2021-02-13 Outpatient STLMLC STLMLC [id number] Common 00:00:00 00:00:00 [facility] 2021-02-05 2021-02-05 Outpatient STLMLC STLMLC [id number] Common 00:00:00 00:00:00 [facility] 2021-01-22 2021-01-22 Outpatient [facility] [id number] Colp 00:00:00 00:00:00 PRAKASH [address] 2021-01-17 2021-01-17 Outpatient [facility] [id number] Colp 00:00:00 00:00:00 PRAKASH [address] 2020-12-19 2020-12-19 Outpatient STLMLC STLMLC [id number] Common 00:00:00 00:00:00 [facility] 2020-12-18 2020-12-18 Outpatient STLMLC STLMLC [id number] Common 00:00:00 00:00:00 [facility] 2020-12-15 2020-12-15 Outpatient STLMLC STLMLC [id number] Common 00:00:00 00:00:00 [facility] 2020-12-14 2020-12-14 Emergency ER [facility] Emergency [id number] [facility] 13:10:00 13:10:2020-11-13 2020-11-13 Outpatient STLMLC STLMLC [id number] Common 00:00:00 00:00:00 [facility] 2020-10-30 2020-10-30 Outpatient STLMLC STLMLC [id number] Common 00:00:00 00:00:00 [facility] 2020-10-24 2020-10-24 Outpatient STLMLC STLMLC [id number] Common 00:00:00 00:00:00 [facility] 2020-10-16 2020-10-16 Outpatient STLMLC STLMLC [id number] Common 00:00:00 00:00:00 [facility] 2020-10-12 2020-10-12 Outpatient ELIU, MHSE MHSE [id number] MH 06:00:00 09:08:00 [facility] 2020-09-25 2020-09-25 Outpatient STLMLC STLMLC [id number] Common 00:00:00 00:00:00 [facility] 2020-09-18 2020-09-18 Outpatient STLMLC STLMLC [id number] Common 00:00:00 00:00:00 [facility] 2020-09-05 2020-09-05 Outpatient STLMLC STLMLC [id number] Common 00:00:00 00:00:00 [facility] 2020-08-11 2020-08-11 [facility] [id number] Common 08:30:00 08:30:[address] Drive [facility] 2020-08-03 2020-08-03 Outpatient [facility] [id number] Common 11:18:00 11:18:[address] Drive [facility] 2020-07-11 2020-07-11 Out[facility] [id number] Common 15:00:00 15:00:[address] Drive [facility] 2020-05-11 2020-05-11 [facility] [id number] Common 10:00:00 10:00:[address] Drive [facility] 2020-05-11 2020-05-11 [facility] [id number] Common 10:00:00 10:00:[address] Drive [facility] 2020-05-03 2020-05-03 [facility] [id number] Common 10:38:00 10:38:[address] Drive [facility] 2020-04-06 2020-04-06 Out[facility] [id number] Common 08:42:00 08:42:[address] [facility] [address] Spir it Road [facility] 2020-03-15 2020-03-15 [facility] [id number] Common 08:38:00 08:38:[address] Drive [facility] 2019-11-15 2019-11-15 [facility] [id number] Common 13:51:00 13:51:[address] Drive [facility] 2019-11-11 2019-11-11 [facility] [id number] Common 08:30:00 08:30:[address] Drive [facility] 2019-11-05 2019-11-05 [facility] [id number] Common 15:43:00 15:43:[address] Drive [facility] 2019-10-19 2019-10-19 Out[facility] [id number] Common 11:04:00 11:04:[address] Drive [facility] 2019-09-06 2019-09-06 Out[facility] [id number] Common 13:45:00 13:45:[address] Drive [facility] 2019-08-05 2019-08-05 Out[facility] [id number] Common 13:45:00 13:45:[address] Drive [facility] 2019-07-12 2019-07-12 Office TyJulia ENMA [id number] [facility] 11:01:23 11:49:13 Visit AMBULATOR [id number] College Y [id number] 2019-07-12 2019-07-12 Office Julia Ty [id number] 11:01:23 11:49:13 Visit AMBULATOR [id number] Y [id number] [facility] 2019-06-11 2019-06-11 [facility] [id number] Common 10:30:00 10:30:[address] Drive [facility] 2019-05-31 2019-05-31 Outpatient [facility] [id number] Common 14:01:00 14:01:[address] Drive [facility] 2019-05-21 2019-05-21 Out[facility] [id number] Common 13:23:00 13:23:[address] Drive [facility] 2019-05-11 2019-05-11 [facility] [id number] Common 09:44:00 09:44:[address] Drive [facility] 2019-03-16 2019-03-16 Out[facility] [id number] Common 10:45:00 10:45:[address] Drive [facility] 2019-02-18 2019-02-18 Out[facility] [id number] Common 09:05:00 09:05:[address] Drive [facility] 2019-01-08 2019-01-08 Out[facility] [id number] Common 14:40:00 14:40:[address] Drive [facility] 2018-12-16 2018-12-16 Out[facility] [id number] Common 14:45:00 14:45:[address] [facility] 2018-11-30 2018-11-30 Out[facility] [id number] Common 09:04:00 09:04:[address] Drive [facility] 2018-11-25 2018-11-25 Outpatient [facility] [id number] Common 08:37:00 08:37:[address] Drive [facility] 2018-09-08 2018-09-08 Out[facility] [id number] Common 11:38:00 11:38:[address] Drive [facility] 2018-07-28 2018-07-28 Out[facility] [id number] Common 13:59:00 13:59:[address] Drive [facility] 2018-07-20 2018-07-20 Out[facility] [id number] Common 11:52:00 11:52:[address] Drive [facility] 2018-07-08 2018-07-08 Out[facility] [id number] Common 09:26:00 09:26:[address] Drive [facility] 2018-07-07 2018-07-07 [facility] [id number] Common 10:35:00 10:35:[address] [facility] 2018-06-29 2018-06-29 Out[facility] [id number] Common 09:15:00 09:15:[address] [facility] 2018-06-23 2018-06-23 Outpatient [facility] [id number] Common 10:28:00 10:28:[address] Drive [facility] 2018-05-21 2018-05-21 Outpatient [facility] [id number] Common 08:21:00 08:21:[address] Drive [facility] 2018-05-20 2018-05-20 Outpatient [facility] [id number] Common 08:00:00 08:00:[address] Drive [facility] 2018-05-19 2018-05-19 Outpatient [facility] [id number] Common 10:26:00 10:26:[address] Drive [facility] 2018-05-09 2018-05-09 Outpatient [facility] [facility] [facility] [id number] Common 10:46:00 10:46:[address] [facility] 2018-04-24 2018-04-24 Outpatient [facility] 14 [id number] Common 11:50:00 11:50:[address] [facility] 2018-04-23 2018-04-23 [facility] 14 [id number] Common 13:00:00 13:00:[address] [facility] 2018-04-06 2018-04-06 [facility] 12 [id number] Common 10:00:00 10:00:[address] [facility] 2018-03-30 2018-03-30 [facility] 13 [id number] Common 16:08:00 16:08:[address] [facility] 2018-03-12 2018-03-12 Outpatient [place] 13 [id number] Common 12:11:00 12:11:[address] [facility] 2018-02-13 2018-02-13 Outpatient [place] 13 [id number] Common 15:10:00 15:10:[address] [facility] 2018-02-11 2018-02-11 Outpatient [place] [facility] 13 [id number] Common 11:00:00 11:00:[address] [facility] 2018-02-09 2018-02-09 Outpatient [place] 13 [id number] Common 14:45:00 14:45:[address] [facility] 2008-02-04 2008-02-04 Outpatient R [facility] [id number] 00:00:00 16:52:01 2 [facility] Results Test Description Test Time [...] . ELVIN (test code = ELVIN) The [facility] patient population mean normal value for aPTT is 30 seconds. Lab Interpretation (test Normal code = 76108-1) [facility] / [id number] 17:58:18 Test Item Value Reference Range Interpretation Comments PROTIME PATIENT (test See_Comment [Auto mated message] code = 5964-2) The system [employer] generated this result transmitted ref erence range: 12.0 - 1 4.7 Seconds. The re ference range was not u sed to interpret this result as normal/abnor mal. INR (test code = 6301-6) Nor mal INR <1.1; Warfarin Therap eutic range 2.0 to 3. 0 or 2.5 to 3.5, dep ending upon the indica tions. Lab Interpretation (test Normal code = 45895-6) [facility] WITH [id number] 17:49:59 Test Item Value Reference Range Interpretation [...] RDW-SD (test code = 40.6 fL 38.5-51.6 75274-4) RDW-CV (test code = 11.8 % 12.1-15.4 L 788-0) PLT (test code = See_Comment [Automated 777-3) message] The sy stem which generated this result transmitted reference range : 150 - 328 10*3/ ?L. The reference r frantz was not used to interpret this result as normal/abnormal . MPV (test code = 9.6 fL 9.8-13.0 L 96538-7) NRBC/100 WBC (test See_Comment [Automat ed code = 4300028616) message] The system which generated this result transmitted reference range : 0.0 - 10.0 /100 WBCs. The refer ence range was not u sed to interpret th is result as normal/abnormal . NRBC x10^3 (test code See_Comment [Auto mated = 7982841170) message] The s ystem which generated this result transmitted reference range : 10*3/?L. The reference range was not used to interpret this result as normal/abnormal . GRAN MAT (NEUT) % 66.0 % (test code = 770-8) IMM GRAN % (test code 0.30 % = 5218033356) LYMPH % (test code = 19.7 % 736-9) MONO % (test code = 8.3 % 5905-5) EOS % (test code = 5.0 % 713-8) BASO % (test code = 0.7 % 706-2) GRAN MAT x10^3(ANC) 4.81 10*3/uL 1.99-6.95 (test code = 1496254896) IMM GRAN x10^3 (test 0.00-0.06 code = 1221253584) LYMPH x10^3 (test code 1.43 10*3/uL 1.09-3.23 = 731-0) MONO x10^3 (test code 0.60 10*3/uL 0.36-1.02 = 742-7) EOS x10^3 (test code = 0.36 10*3/uL 0.06-0.53 711-2) BASO x10^3 (test code 0.05 10*3/uL 0.01-0.09 = 704-7) Lab Interpretation Abnormal (test code = 86148-5) [facility] 13:47:00 Test Item Value Reference Range Interpretation Comments GLUBED (test code = GLUBED) 104 MG/DL 70-105 N [id number] 09:13:00 Test Item Value Reference Range Interpretation Comments GLUBED (test code = GLUBED) 92 MG/DL 70-105 N Novel Coronavirus 2018 [id number] 10:25:00 Test Item Value Reference Range Interpretation [...] det ection of nucleic acids f rom gzoJVUT-HaX-1 v irus and diagnosis of SA RS-CoV-2 virusinfection. It is an Emergency Use Authorization ( EUA) testauthorized by the U.S. FDA. First test? UnknownEmployed in Healthcare? UnknownSymptomatic as defined by CDC? UnknownHospitalizeddue to COVID? UnknownIn ICU due to COVID? UnknownResident in a congregate care setting? Unknown? NoAge at collection: EnriqueRustykd Coronavirus 2019 [id number] 10:24:00 Test Item Value Reference Range Interpretation [...] det ection of nucleic acids f rom qlmVQEW-UjK-4 v irus and diagnosis of SA RS-CoV-2 virusinfection. It is an Emergency Use Authorization ( EUA) testauthorized by the U.S. FDA. First test? UnknownEmployed in Healthcare? UnknownSymptomatic as defined by CDC? UnknownHospitalizeddue to COVID? UnknownIn ICU due to COVID? UnknownResident in a congregate care setting? Unknown? NoAge at collection: YCOMPREHENSIVE METABOLIC [id number] 15:29:00 Test Item Value Reference Range Interpretation [...] Feb code = ALKP) 2020 CBC W/AUTO [id number] 15:04:00 Test Item Value Reference Range Interpretation [...] BA#) 0.04 x10 3/uL 0.0-0.20 N POCT-GLUCOSE [id number] 08:39:09 Test Item Value Reference Range Interpretation Comments POC-GLUCOSE METER 128 mg/dL 70-110 H : Notified RN/MD: (NEFTALI) (test code = TESTED AT [facility] 7832 5343) [facility], [address]: Napping Machine Operator/Techni geraldo ID = [id number] for Gilbert (contract)Jorge L [facility] BASIC METABOLIC [id number] 08:35:28 Test Item Value Reference Range Interpretation [...] S NOT APPLICABLE FOR DIALYSIS PATIEN TS. Napping Machine Operator ID - VELMA WCBC W/PLT COUNT & AUTO [id number] 06:01:57 Test Item Value Reference Range Interpretation [...] PERCENT (BEAKER) (test code = 2801) POCT-GLUCOSE [id number] 20:35:08 Test Item Value Reference Range Interpretation Comments POC-GLUCOSE METER 194 mg/dL 70-110 H : TESTED A T [facility] 6720 (BEAKER) (test code = [facility], 153) [address]: Napping Machine Operator/Techni geraldo ID = [id number] for CR ISEMANUEL TIA POCT-GLUCOSE [id number] 17:47:33 Test Item Value Reference Range Interpretation Comments POC-GLUCOSE METER 166 mg/dL 70-110 H : TESTED A T [facility] 6720 (BEAKER) (test code = [facility], 153) [address]: Napping Machine Operator/Techni geraldo ID = [id number] for WI LLIS, MICKEY POCT-GLUCOSE [id number] 13:13:06 Test Item Value Reference Range Interpretation Comments POC-GLUCOSE METER 121 mg/dL 70-110 H : TESTED A T [facility] 6720 (BEAKER) (test code = [facility], 153) [address]: Napping Machine Operator/Techni geraldo ID = [id number] for WI LLIS, MICKEY POCT-GLUCOSE [id number] 08:54:04 Test Item Value Reference Range Interpretation Comments POC-GLUCOSE METER 106 mg/dL 70-110 : TESTED A T [facility] 6720 (BEAKER) (test code = [facility], 153) [address]: Napping Machine Operator/Techni geraldo ID = [id number] for WI LLIS, MICKEY CBC W/PLT COUNT & AUTO [id number] 07:33:32 Test Item Value Reference Range Interpretation [...] (BEAKER) (test code = 2801) BASIC METABOLIC [id number] 06:54:12 Test Item Value Reference Range Interpretation Comments SODIUM (BEAKER) 136 meq/L 136-145 (test code = 381) POTASSIUM (BEAKER) 3.9 meq/L 3.5-5.1 (test code = 379) CHLORIDE (BEAKER) 106 meq/L 98-107 (test code = 382) CO2 (BEAKER) (test 25 meq/L 22-29 code = 355) BLOOD UREA NITROGEN 19 mg/dL 7-21 (BEAKER) (test code = 354) CREATININE (MAGALIEAKER) 1.01 mg/dL 0.57-1.25 (test code = 358) GLUCOSE RANDOM 131 mg/dL 70-105 H (MAGALIEAKER) (test code = 652) CALCIUM (MAGALIEAKER) 8.9 mg/dL 8.4-10.2 (test code = 697) EGFR (NEFTALI) (test 71 mL/min/1.73 ESTIMA NAOMIE GFR IS code = 1092) sq m NOT ACCURATE CREATININE CLEARANCE IN PREDICTING GLOMERULAR FILTRATION RATE . ESTIMATED GFR I S NOT APPLICABLE FOR DIALYSIS PATIEN TS. Napping Machine Operator ID - CARINA MPOCT-GLUCOSE [id number] 01:25:30 Test Item Value Reference Range Interpretation Comments POC-GLUCOSE METER 159 mg/dL 70-110 H : TESTED A T [facility] 6720 (NEFTALI) (test code = [place], 1538) [address]: Napping Machine Operator/Techni geraldo ID = [id number] for Vi lla (contract), Cam a CT, BRAIN, WITHOUT [id number] 20:21:00Unlisted Reason for Exam - Click Yes and Enter Reason Below->No [facility] 1940 Sex: MFINAL [...] temporal occipital lobe in the MCA and WHITE SPOOLER distributions. Small focus of encephalomalacia in the [...] recommended for further characterization. Signed: Roslyn Campuzano Verified Date/Time: 11/02/2021 20:21:46 SARS-COV2/RT-PCR ([facility])2021-11-02 17:14:44 Test Item Value Reference Range Interpretation Comments SARS-COV2/RT-PCR Negative Negative The SARS-Co V-2 target (test code = nucleic acids a re not 1006033) detected in thi s specimen. Negative result [...] revoked sooner. Fact Sheet for Healthcare Providers: https://www.Cupple m/Documents/Xpert%20Xpress%20SARS%20CoV-2/Fact%20Sheets/302-3802%52RKTZ-SSG-4%20 HEALTHCARE%20PROVIDERS%20FACT%20SHEET.pdf Fact Sheet for Healthcare Patients: https://www.AmeriWorks/Documents/Xpert%20Xp ress%20SARS%20CoV-2/Fact%20Sheets/302-3801%46GQJP-HLG-8%20PATIENT%20FACT%20SHEET .pdfHIGH SENSITIVITY TROPONIN [id number] 16:26:23 Test Item Value Reference Range Interpretation Comments HIGH SENSITIVITY 5 pg/ml See_Comment [Automated message] TROPONIN I (test code = The system which 8871100) generated this result transmitted ref erence range: <=35. Th e reference range was not used to interpr et this result as normal/abnormal . Napping Machine Operator ID - ZOHREH GThe EXPLOSIVES OPERATOR STAT High Sensitivity Troponin-I results should be used in conjunction with other diagnostic information such as ECG, clinical observations and information, and patient symptoms to aid in the diagnosis of OR.BASIC METABOLIC [id number] 16:18:56 Test Item Value Reference Range Interpretation [...] S NOT APPLICABLE FOR DIALYSIS PATIEN TS. Napping Machine Operator ID - ZOHREH GCBC W/PLT COUNT & AUTO [id number] 15:59:35 Test Item Value Reference Range Interpretation [...] = 2801) RAD, CHEST, 1 VIEW, NON [id number] 14:38:00Reason for exam:- >DIZZINESSShould this be performed at the bedside?->Yes [facility] 1940 Sex: MFINAL REPORT INDICATION: DIZZINESS COMPARISON: December 14, 2020 TECHNIQUE: Single frontal view of the chest. FINDINGS: Lungs and pleura: Clear lungs. No effusion.Heart and mediastinum: Normal heart size. Stable surgical changes. Stable pacer apparatus.Osseous structures: No acute abnormality.Other: None. IMPRESSION: No acute intrathoracic abnormality. Signed: JR Newman Robert MDReport Verified Date/Time: 11/02/2021 14:38:09 Reading Location: [facility] Radiology Reading Room POCT-GLUCOSE [id number] 08:41:00 Test Item Value Reference Range Interpretation Comments POC-GLUCOSE METER 139 mg/dL 70-110 H : TESTED A T [facility] 6720 (BEAKER) (test code = [place], 1538) [address]: Napping Machine Operator/Techni geraldo ID = [id number] for ANAM COHEN BASIC METABOLIC [id number] 06:25:00 Test Item Value Reference Range Interpretation [...] 1092) DATA TO CALCULA TE ESTIMATED GFR. Napping Machine Operator ID - EDASICBC (HEMOGRAM ONLY)2020-12-17 05:39:00 [...] 0-0 (BEAKER) (test code = 413) POCT-GLUCOSE [id number] 22:13:00 Test Item Value Reference Range Interpretation Comments POC-GLUCOSE METER 119 mg/dL 70-110 H : TESTED A T [facility] 6720 (BEAKER) (test code = [facility], 1538) [address]: Napping Machine Operator/Techni geraldo ID = [id number] for Re yes, Sairy POCT-GLUCOSE [id number] 17:36:00 Test Item Value Reference Range Interpretation Comments POC-GLUCOSE METER 251 mg/dL 70-110 H : TESTED A T [facility] 6720 (BEAKER) (test code = [facility], 1538) [address]: Napping Machine Operator/Techni geraldo ID = [id number] for SULMA HN, ANAM VITAMIN D, [id number]-[id number] 09:24:00 Test Item Value Reference Range Interpretation Comments VITAMIN D 25-OH (BEAKER) (test 21.5 ng/mL 6.6-49.9 code = 2764) Effective 09/03/2017: Reference Range ChangeNew: 6.6-49.9 ng/mL Previous: 13.0- 47.8 ng/mLRecommendedVitamin D Target Range: 30.0-40.0 ng/mLOperator ID - CARINA Escalante POCT-GLUCOSE [id number] 07:53:00 Test Item Value Reference Range Interpretation Comments POC-GLUCOSE METER 180 mg/dL 70-110 H : TESTED A T [facility] 6720 (BEAKER) (test code = [facility], 1538) [address]: Napping Machine Operator/Techni geraldo ID = [id number] for SULMA HN, ANAM TSH/FREE T4 IF [id number] 06:58:00 Test Item Value Reference Range Interpretation Comments THYROID STIMULATING HORMONE 1.669 uIU/mL 0.350-4.940 (BEAKER) (test code = 772) Napping Machine Operator ID - ADMINVITAMIN B12 AND [id number] 06:58:00 Test Item Value Reference Range Interpretation Comments VITAMIN B12 (BEAKER) (test code = 811 pg/mL 213816 044) FOLATE (BEAKER) (test code = 362) 15.60 ng/mL >=7.00 Napping Machine Operator ID - ADMINBASIC METABOLIC [id number] 06:21:00 Test Item Value Reference Range Interpretation [...] 1092) DATA TO CALCULA TE ESTIMATED GFR. Napping Machine Operator ID - ADMINCBC (HEMOGRAM ONLY)2020-12-16 05:30:00 [...] 0-0 (BEAKER) (test code = 413) POCT-GLUCOSE [id number] 21:44:00 Test Item Value Reference Range Interpretation Comments POC-GLUCOSE METER 295 mg/dL 70-110 H : TESTED A T [facility] 6720 (BEAKER) (test code [facility], = 1538) [address]: Napping Machine Operator/Techni geraldo ID = [id number] for Drea Bragg POCT-GLUCOSE [id number] 17:47:00 Test Item Value Reference Range Interpretation Comments POC-GLUCOSE METER 276 mg/dL 70-110 H : TESTED A T [facility] 6720 (BEAKER) (test code = ROYAL Olivera [facility], 1538) [address]: Napping Machine Operator/Techni geraldo ID = [id number] for Kristina Ayala PET/CT, CARDIAC PERF REST AND [id number] 16:04:00Reason for exam:- >GENERALIZED WEAKNESS, NOT ASSOCIATED WITH EXTREMITIESReason for exam:->DIZZINESSReason for exam:->CHEST PAIN [facility] : 1940 Sex: MAddendum BeginsREPORT STATUS:A 2. Abnormal myocardial perfusion. There is a large partially reversible perfusion defect involving the apex, apical inferior and basal anterolateral as well as basal inferolateral segments. Signed: Preston Hicks MDReport Verified Date/Time: 12/15/2020 16:04:49 Reading Location: [facility] 3rd Flr P327B Nuc Med Reading RoomAddendum EndsFINAL REPORT PROCEDURE: MYOCARDIAL PERFUSION PET/CT IMAGING (Rest/Stress)CPT CODE: 37981 INDICATION: Evaluatechest pain CARDIOVASCULAR PROFILE:CAD History: Known CADSymptoms: Chest painRisk Factors: Diabetes, h ypertension, hyperlipidemia, strokeBMI: 22.1Medications: Crestor, Plavix, metoprolol STRESS PROTOCOL:Pharmacologic stress was achieved with a 10-second intravenous infusion of regadenoson 0.4 mg. The radiopharmaceutical was administered 30 seconds after the start of the regadenoson infusion. IMAGING FL OTOCOL:Limited low-dose CT imaging was performed for [...] Hicks Verified Date/Time: 12/15/2020 15:38:59 Reading Location: [address] P327B [facility] Med Reading Room Electronically signed by: Mack GARCIA 12/15/2020 04:04 PMPOCT-GLUCOSE [id number] 13:05:00 Test Item Value Reference Range Interpretation Comments POC-GLUCOSE METER 232 mg/dL 70-110 H : [facility] (test code = ROYAL Olivera [facility], 1538) [address]: Napping Machine Operator/Techni geraldo ID = [id number] for Kristina Ayala POCT-GLUCOSE [id number] 08:26:00 Test Item Value Reference Range Interpretation Comments POC-GLUCOSE METER 155 mg/dL 70-110 H : TESTED A T [facility] 6720 (BEAKER) (test code = ROYAL Olivera [facility], 1538) [address]: Napping Machine Operator/Techni geraldo ID = [id number] for SELENE ARRINGTON HEMOGLOBIN [id number] 08:15:00 Test Item Value Reference Range Interpretation Comments HEMOGLOBIN A1C (BEAKER) (test code = 9.0 % 4.3-6.1 H 368) SARS-COV2/RT-PCR ([facility])2020-12-15 07:09:00 Test Item Value Reference Range Interpretation Comments SARS-COV2/RT-PCR (test Negative Not Detected, Negative, code = 5206136) See external report for linked test SARS-COV-2 PERFORMING [facility] (test code = 0187713) Negative result for this test determines that [...] the Mancia SARS-CoV-2 assay.Fact Sheet for Healthcare Providers:https://www.Understory.Track/do/RT_SAR W-UbA-7_UWD_Wvtp_Cipph_98-927211.pdfFact Sheet for Healthcare Patients:https://www.Altacor/s al/SR_XEGU-UlU-4_Xedhecr_Qyyt_Jqjgv_ED_95-739866I7.pdfPerforming Laboratory:[address] [address] BASIC METABOLIC [id number] 05:58:00 Test Item Value Reference Range Interpretation [...] 1092) DATA TO CALCULA TE ESTIMATED GFR. Napping Machine Operator ID - PIAYA LLIPID [id number] 05:56:00 Test Item Value Reference Range Interpretation [...] Borderline 130-159 High 160-189 Very High >=190 Napping Machine Operator ROCKY Eve RYDERDEIDRE LHEPATIC FUNCTION [id number] 05:56:00 Test Item Value Reference Range Interpretation [...] (test code = 12 U/L 6-55 347) Napping Machine Operator ID - RYDERDEIDRE LTROPONIN [id number] 05:19:00 Test Item Value Reference Range Interpretation [...] failure, acidosis, acute neurological disease, and persistent tachyarrhythmia.Napping Machine Operator ID - RYDERDEIDRE LCBC (HEMOGRAM ONLY) 2020-12-15 04:55:00 Test Item [...] 0-0 (BEAKER) (test code = 413) TROPONIN [id number] 23:58:00 Test Item Value Reference Range Interpretation [...] failure, acidosis, acute neurological disease, and persistent tachyarrhythmia.Napping Machine Operator ID - PIAYA LPOCT-GLUCOSE METER 2020-12-14 20:52:00 Test Item Value Reference Range Interpretation Comments POC-GLUCOSE METER 312 mg/dL 70-110 H : TESTED A T [facility] 6720 (BEAKER) (test code = [place], 1538) [address]: Napping Machine Operator/Techni geraldo ID = [id number] for FABIO MARIN B-TYPE NATRIURETIC FACTOR (BNP)2020-12-14 15:03:00 Test Item Value Reference Range Interpretation Comments B-TYPE NATRIURETIC PEPTIDE (BEAKER) 128 pg/mL 0-100 H (test code = 700) Napping Machine Operator ID - CARINA MTROPONIN [id number] 15:02:00 Test Item Value Reference Range Interpretation [...] failure, acidosis, acute neurological disease, and persistent tachyarrhythmia.Napping Machine Operator ID - CARINA MBASIC METABOLIC [id number] 14:56:00 Test Item Value Reference Range Interpretation [...] 1092) DATA TO CALCULA TE ESTIMATED GFR. Napping Machine Operator ID - CARINA MPT/[id number] 14:40:00 Test Item Value Reference Range Interpretation [...] mechanical heart valves.CBC W/PLT COUNT & AUTO [id number] 14:35:00 Test Item Value Reference Range Interpretation [...] (test code = 2801) RAD, CHEST, 2 [id number] 13:56:00Reason for exam:->chest pain [facility] : 1940 Sex: MFINAL REPORT RAD, CHEST, 2 VIEWS INDICATION: chest pain COMPARISON: None FINDINGS: Portable frontal view of the chest. IMPRESSION: Support Lines: Pacer device. Lungs and pleura: Lungs are clear No pneumothorax.Heart and mediastinum: Normal contours.Additional findings: None. Signed: Herminia [place] Verified Date/Time: 12/14/2020 13:56:48 Reading Location: [facility] RadiologyReading Room Notes Date/Time Note Provider Source 2021-12-10 09:37:00-00:00 [id number] [facility] [address] [place] [address] PATIENT NAME: JULIANA BALLARD ADMIT DATE: ACCOUNT NO: [id number] ROOM NO: AGE: 81 REPORT TYPE: eELECTROCARDIOGRAM SEX: M ADMITTING PHYSICIAN: ATTENDING PHYSICIAN: Prakash Antonio MD Order: [id number] Test Reason : S/P ablation Test Date/Time Stamp: FriDec 10 2021 09:37:52 Blood Pressure : / mmHG Vent. Rate : 060 BPM Atrial Rate : 060 BPM P-R Int : 186 ms QRS Dur : 178 ms QT Int : 512 ms P-R-T Axes : 084 -83 104 degree s QTc Int : 512 ms AV dual-paced rhythm Abnormal ECG No previous ECGs available Confirmed by BALBIR LYNCH MD ([id number]) on 12/11/19 5:54:29 PM Referred By: Prakash Antonio Confirmed by:BALBIR TORRES MD Electronically Signed by Balbir Lynch MD on at 1038 PATIENT NAME: JULIANA BALLARD ACCOUNT #: [id number]
[2023-04-23 11:03] LABS: Absolute Lymphocytes (CBC) 1.3 K/uL (0.7-4.9); Hematocrit 35.7 % (39.6-49.0); Lymphocytes % 27.2 % (15.3-44.8); RBC Red Blood Cell Count 3.76 M/uL (4.33-5.43)
[2023-04-23 11:17] LABS: Albumin 3.8 g/dL (3.4-5.0); Bilirubin Total 0.6 mg/dL (0.2-1.0); Potassium 4.1 mEq/L (3.5-5.1); Protein, Total 7.5 g/dL (6.4-8.2)
--- NOTE | 2023-04-23 11:38 | RAD REPORT ---
EXAM DESCRIPTION: Razia Single View04/23/2023 10:26 am CLINICAL HISTORY: Abdominal pain COMPARISON: 2021 FINDINGS: Small vague opacity left upper lobe. The remainder of the lungs appear clear of acute infiltrate. The heart is normal size. Postsurgical changes involve the chest. Pacemaker leads place IMPRESSION: Small vague opacity left upper lobe may represent calcified cartilage first anterior lef t rib, infiltrate or nodule.
--- NOTE | 2023-04-23 11:42 | RAD REPORT ---
EXAM DESCRIPTION: CT - Abdomen Pelvis W Contrast - 04/23/2023 11:34 am CLINICAL HISTORY: Abdominal pain/vomiting COMPARISON: 2020 TECHNIQUE: Computed axial tomography of the abdomen pelvis was obtained. 70 cc Isovue-300 was admini stered intravenously. Oral contrast was not requested which limits evaluation of bowel and appendix All CT scans are performed using dose optimization technique as appropriate and may include automated exposure control or mA/KV adjustment according to patient size. FINDINGS: The liver, spleen, pancreas, adrenal and kidneys appear unremarkable. There is no evidence of diverticulitis. A normal appendix Multiple gallstones. Gallbladder wall not thickened. Duodenal diverticulum. Small to moderate inguinal hernias contain no fat Mild bladder wall thickening IMPRESSION: Cholelithiasis without evidence cholecystitis Mild bladder wall thickening may indicate inflammation
[2023-04-23] MEDS ORDERED: NA CHLORIDE 0.9% 500 ML ONE (11:54)
[2023-04-23] MEDS ORDERED: ONDANSETRON 4 MG/2 ML VIAL ONE (11:54)
[2023-04-23] MEDS ORDERED: PANTOPRAZOLE 40 MG INJ ONE (11:54)
[2023-04-23 13:43] LABS: Specific Gravity > 1.030 (1.005-1.030); Urine Bilirubin NEGATIVE (Negative); Urine Blood Negative (Negative); Urine Clarity Clear (Clear); Urine Color Colorless (Yellow); Urine Glucose TRACE (Negative); Urine Protein NEGATIVE (Negative); Urine Urobilinogen Normal (Normal); Urine pH 6.5 (5.0-7.0)
--- NOTE | 2023-04-23 13:57 | EDPHYS ---
Physician Documentation [facility] Name: Sandoval Hoffman Jr Age: 83 yrs Sex: Male : 1940 Arrival Date: 04/23/2023 Time: 09:40 Bed 9 Private MD: Tomer Arizmendi ED Physician Jose Galvin HPI: 04/23 09:57 This 83 yrs old Male presents to ER via Unassigned with complaints of Vomiting.bs3 09:57 Patient with a history of borderline hypertension slightly elevated glucose status post bs3 pacemaker presents with vomiting for 3 days decreased oral intake he has associated constipation with very hard stools no fevers or chills no chest pain or shortness of breath his daughter reports that the vomit was brown with possible trace bits of red in it but no black tarry stools and no bright red blood in the vomit she is concerned because he often gets dehydrated and therefore they came in today has not tried anything for this last colonoscopy was 2 years ago. Historical: - Allergies: 10:11 NKDA; iw 10:11 shrimp; iw - PMHx: 10:11 Alzheimer's disease; CVA; Diabetes - NIDDM; GERD; heart disease; Hypertension; iw - PSHx: 10:11 Heart Stents; open heart; Skin grafting; pacemaker; iw - Immunization history:: Adult Immunizations unknown. - Social history:: Smoking status: unknown. ROS: 09:57 Constitutional: Negative for fever, chills bs3 09:57 All other systems are negative. Exam: 09:57 Constitutional: This is a well developed, well nourished patient who is awake, alert, bs3 and in no acute distress. Head/Face: Normocephalic, atraumatic. Eyes: Pupils equal round and reactive to light, extra-ocular motions intact. Lids and lashes normal. ENT: mmm, no posterior phyarngeal erythema Neck: Trachea midline, no thyromegaly, no neck stiffness Chest/axilla: Normal chest wall appearance and motion. Nontender with no deformity. No lesions are appreciated. Cardiovascular: Regular rate and rhythm with a normal S1 and S2. symmetric pulses in upper extremities Respiratory: Lungs have equal breath sounds bilaterally, clear to auscultation, no respiratory distress Abdomen/GI: soft, slightly distended, no focal tenderness MS/ Extremity: Pulses equal, no cyanosis. Neurovascular intact. Full, normal range of motion. Neuro: Awake and alert, GCS 15, oriented to person, place, time, and situation. Cranial nerves II-XII grossly intact. Motor strength 5/5 in all extremities. Sensory grossly intact. Psych: Awake, alert, with orientation to person, place and time. Behavior, mood, and affect are within normal limits. Vital Signs: 10:10 BP 120 / 49; Pulse 65; Resp 16; Temp 99.1; Pulse Ox 100% ; iw 12:16 BP 140 / 59; Pulse 61; Resp 16; Pulse Ox 98% on R/A; iw MDM: 09:46 Patient medically screened. bs3 09:57 Differential diagnosis: gastritis, pancreatitis, viral gastroenteritis, bs3 gastroenteritis, possible obstruction. Data reviewed: vital signs, nurses notes. ED course: We will check labs we will hydrate will do CT to rule out obstruction we will do serial exams I considered an upper GI bleed but the vomit is not red he likely has a possible Nadeen-Geller tear if there is truly blood in the vomit will observe here we will check a hemoglobin. 13:56 ED course: Labs negative for acute pathology patient reassessed and feeling much better bs3 here he wrist "requesting to go home will discharge home. 04/23 09:56 Order name: CBC with Diff; Complete Time: 12:27 bs3 04/23 09:56 Order name: Comprehensive Metabolic Panel; Complete Time: 12:27 bs3 04/23 09:56 Order name: Lipase; Complete Time: 12:27 bs3 04/23 12:28 Order name: Urinalysis w/ reflexes; Complete Time: 13:45 bs3 04/23 09:56 Order name: CT Abd/Pelvis - IV Contrast Only; Complete Time: 12:27 bs3 04/23 09:56 Order name: Chest Single View XRAY; Complete Time: 12:27 bs3 04/23 09:56 Order name: EKG - Nurse/Tech; Complete Time: 10:39 bs3 Administered Medications: 12:15 Drug: NS 0.9% IV 500 ml Route: IV; Rate: 1 bolus; Site: right antecubital; iw 13:00 Follow up: IV Status: Completed infusion iw 12:15 Drug: Ondansetron IVP 4 mg Route: IVP; Site: right antecubital; iw 12:30 Follow up: Response: No adverse reaction iw 12:15 Drug: Pantoprazole IVP 40 mg Route: IVP; Site: right antecubital; iw 12:30 Follow up: Response: No adverse reaction iw Disposition Summary: 04/23/23 13:57 Discharge Ordered Location: Home bs3 Problem: new bs3 Symptoms: have improved bs3 Condition: Stable bs3 Diagnosis - Vomiting bs3 Followup: bs3 - With: Private Physician - When: 1 week - Reason: Re-evaluation by your physician Discharge Instructions: - Discharge Summary Sheet bs3 - Vomiting, Adult bs3 Forms: - Medication Reconciliation Form bs3 - Thank You Letter bs3 - Antibiotic Education bs3 - Prescription Opioid Use bs3 Prescriptions: - ondansetron 8 mg Oral tablet,disintegrating - take 1 tablet by ORAL route every 8 hours; 12 tablet; Refills: 0, Product bs3 Selection Permitted Signatures: Dispatcher [employer] Griselda Crawley RN RN iw Jose Galvin MD MD bs3
--- NOTE | 2023-04-23 13:57 | ER ---
Nurse's Notes [facility] Name: Sandoval Hoffman Jr Age: 83 yrs Sex: Male : 1940 Arrival Date: 04/23/2023 Time: 09:40 Bed 9 Private MD: Tomer Arizmendi Diagnosis: Vomiting Presentation: 04/23 10:10 Chief complaint: Patient's son or daughter states: 2 days of vomiting , looked brownish iw red at the top. Coronavirus screen: At this time, the client does not indicate any symptoms associated with coronavirus-19. Ebola Screen: Patient negative for fever greater than or equal to 101.5 degrees Fahrenheit, and additional compatible Ebola Virus Disease symptoms Patient denies exposure to infectious person. Patient denies travel to an Ebola-affected area in the 21 days before illness onset. No symptoms or risks identified at this time. Initial Sepsis Screen: Does the patient meet any 2 criteria? No. Patient's initial sepsis screen is negative. Does the patient have a suspected source of infection? No. Patient's initial sepsis screen is negative. Risk Assessment: Do you want to hurt yourself or someone else? Patient reports no desire to harm self or others. Onset of symptoms was April 22, 2023. 10:10 Method Of Arrival: Wheelchair iw 10:10 Acuity: FORREST 3 iw Triage Assessment: 12:15 General: Behavior is calm, cooperative. iw 14:20 General: Appears in no apparent distress. iw 14:20 GI: Reports nausea. iw Historical: - Allergies: 10:11 NKDA; iw 10:11 shrimp; iw - PMHx: 10:11 Alzheimer's disease; CVA; Diabetes - NIDDM; GERD; heart disease; Hypertension; iw - PSHx: 10:11 Heart Stents; open heart; Skin grafting; pacemaker; iw - Immunization history:: Adult Immunizations unknown. - Social history:: Smoking status: unknown. Screenin:19 [facility] ED Fall Risk Assessment (Adult) History of falling in the last 3 months, iw including since admission. Abuse screen: Denies threats or abuse. Denies injuries from another. Nutritional screening: No deficits noted. Tuberculosis screening: No symptoms or risk factors identified. Assessment: 12:15 General: Appears in no apparent distress. Behavior is calm, cooperative. Pain: Denies iw pain. Neuro: Level of Consciousness is awake, alert, obeys commands, Oriented to person, place. Cardiovascular: Patient's skin is warm and dry. Respiratory: Respiratory effort is even, unlabored, Respiratory pattern is regular. GI: Abdomen is. Derm: Skin is intact, is healthy with good turgor. Musculoskeletal: Range of motion: intact in all extremities. 14:19 Reassessment: Patient appears in no apparent distress at this time. Patient and/or iw family updated on plan of care and expected duration. Pain level reassessed. Patient is alert, oriented x 3, equal unlabored respirations, skin warm/dry/pink. Vital Signs: 10:10 BP 120 / 49; Pulse 65; Resp 16; Temp 99.1; Pulse Ox 100% ; iw 12:16 BP 140 / 59; Pulse 61; Resp 16; Pulse Ox 98% on R/A; iw ED Course: 09:46 Patient arrived in ED. im 09:46 Tomer Arizmendi DO is Private Physician. im 09:46 Jose Galvin MD is Attending Physician. bs3 10:11 Triage completed. iw 10:12 Arm band placed on. iw 10:28 Chest Single View XRAY In Process Unspecified. EDMS 10:39 Lipase Sent. bc6 10:39 Comprehensive Metabolic Panel Sent. bc6 10:40 CBC with Diff Sent. bc6 10:40 Inserted saline lock: 20 gauge in right antecubital area, using aseptic technique. bc6 11:35 CT Abd/Pelvis - IV Contrast Only In Process Unspecified. EDMS 12:15 Griselda Abreu, RN is Primary Nurse. iw 14:19 Patient has correct armband on for positive identification. iw 14:19 No provider procedures requiring assistance completed. IV discontinued, intact, iw bleeding controlled, No redness/swelling at site. Pressure dressing applied. Administered Medications: 12:15 Drug: NS 0.9% IV 500 ml Route: IV; Rate: 1 bolus; Site: right antecubital; iw 13:00 Follow up: IV Status: Completed infusion iw 12:15 Drug: Ondansetron IVP 4 mg Route: IVP; Site: right antecubital; iw 12:30 Follow up: Response: No adverse reaction iw 12:15 Drug: Pantoprazole IVP 40 mg Route: IVP; Site: right antecubital; iw 12:30 Follow up: Response: No adverse reaction iw Medication: 14:20 VIS not applicable for this client. iw Outcome: 13:57 Discharge ordered by bs3 14:19 Discharged to home ambulatory, with family. iw 14:19 Condition: good 14:19 Discharge instructions given to patient, family, Instructed on discharge instructions, follow up and referral plans. Demonstrated understanding of instructions, follow-up care, Prescriptions given X 1. 14:20 Patient left the ED. iw Signatures: Dispatcher [employer] Griselda Crawley RN RN iw Jose Galvin MD MD bs3 Breonna Mosquera 6 Mattie Quintana Corrections: (The following items were deleted from the chart) 10:12 10:10 Pulse 65bpm; Resp 16bpm; Pulse Ox 100%; Temp 99.1F; iw iw
[2023-04-23 14:50] VITALS: BP 140/59; O2SAT 98
[2023-04-23 14:51] VITALS: TEMP 99.1
--- NOTE | 2023-04-24 12:10 | EKG ---
Test Date: 2023-04-23 Test Time: 10:44:56 Material Man: MATA MEASUREMENT RESULTS: Intervals: Rate: 63 WV: 156 QRSD: 164 QT: 466 QTc: 476 [place]: P: 67 WV: 156 QRS: 265 T: 37 INTERPRETIVE STATEMENTS: Normal sinus rhythm Nonspecific intraventricular block Inferior infarct, age undetermined Abnormal ECG Compared to ECG 07/28/2015 16:30:08 Myocardial infarct finding now present Sinus bradycardia no longer present First degree AV block no longer present Left-axis deviation no longer present Right bundle-branch block no longer present Electronically Signed On 04-24-23 12:06:13 CDT by Babak Simons
== END 2023-04-23 14:20 | disposition home or self-care (01) ==
LOC: ER 09:40
DX: R11.10 Vomiting, unspecified (principal); G30.9 Alzheimer's disease, unspecified; F02.80 Dementia in other diseases classified elsewhere, unspecified severity, without behavioral disturbance, psychotic disturbance, mood disturbance, and anxiety; I10 Essential (primary) hypertension; E11.9 Type 2 diabetes mellitus without complications; Z95.0 Presence of cardiac pacemaker; Z95.818 Presence of other cardiac implants and grafts; Z91.013 Allergy to seafood
CPT/HCPCS: 96361; 93005; 85025; 36415; 81003; 83690; 80053; 74177; 71045; 96375; 96374; 99284; Q9967; C9113; J2405; J7040

== ENCOUNTER 2023-06-24 13:51 | Emergency (ER) | payer OTHER ==
--- OUTSIDE RECORDS SUMMARY | 2023-06-24 14:00 | XMS REPORT | Continuity of Care Document ---
:1940 Author Organization [facility] t Address [address] [place] [address] [place] [id number] Care Team Providers Name Role Phone DEREK LOMELI Primary Care Physician Unavailable Derek Lomeli Attending Clinician Unavailable BRISEYDA ELDRIDGE Attending Clinician Unavailable ATILIO BYERS Attending Clinician Unavailable Atilio Byers MD Attending Clinician OSITO CRUZ Attending Clinician Unavailable Osito Cruz DO Attending Clinician ADRIANA Attending Clinician Unavailable Prakash Antonio Attending Clinician Unavailable UNKNOWN Attending Clinician Unavailable BLADIMIR BARROS Attending Clinician Unavailable TYRELL TELLEZ Attending Clinician Unavailable PRAKASH ANTONIO Attending Clinician Unavailable PIERRE VILLELA Attending Clinician Unavailable SHAMA NOWAK Attending Clinician Unavailable ADRIANA Admitting Clinician Unavailable Derek Lomeli Admitting Clinician Unavailable BLADIMIR BARROS Admitting Clinician Unavailable PRAKASH ANTONIO Admitting Clinician Unavailable SHARIF BAIN Admitting Clinician Unavailable Payers Payer Name Policy Type Policy Number Effective Date Expiration Date Leo GIL MEDICARE [id number] 2023 00:00:00 MEDICAID OF [id number] 2020 [place] 00:[place]:00 WELLCARE DUAL [id number] 2022 ACCESS OPEN PPO 00:00:00 MEDICAID [place] [id number] 2022 [place] 00:00:00 [facility] Dual 53 [id number] 2022 Common Complete MCR 00:00:[address] [facility] MEDICAID MC [id number] 2020 Common 00:00:00 [place] [address] [id number] [place] [id number] Common HEALTHCARE [facility] MEDICAID MC [id number] 2020 Common 00:00:00 [place] [address] [id number] Common HEALTHCARE [facility] MEDICAID MC [id number] 2020 Common 00:00:00 [facility] Problems Condition Condition Condition Status Onset Resolution Last Treating Co mments Source Name Details Category Date Date Treatment Clinician Date Dizziness Dizziness Disease Active 2020-11 [facility] 2 [facility] 00:00: Medical 00 Center Status Status Disease [...] Disease Active Met hodi implantabl implantabl 01-22 [facility] e e 00:00: Hospita cardiovert cardiovert 00 l er-defibri er-defibri llator in llator in situ situ Left-sided Left-sided Disease Active C [facility] chest pain chest pain - Jacqueline kes 00:00: Medical 00 Center Other Other Disease Active Methodi fatigue fatigue 06-02 00:00: Hospita 00 l Lung Lung Disease Active Methodi nodule nodule 06-02 00:00: Hospita 00 l History of H/O: CVA Problem Com fri cerebrovas (cerebrova Sp oralia cular scular - CHI accident accident) [facility] residual Medical deficits Center [id number] History of Problem Co mmon fall Spirit [facility] Arterioscl Arterioscl Problem C ommon erosis erosis [facility] Gastro-eso Gastro-eso Problem C ommon phageal phageal Spirit reflux reflux - CHI disease disease [facility] esophagiti esophagiti Me dical s [place] 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, Spirit emia mixed [facility] Peripheral Venous Problem Commo n venous insufficie Spirit insufficie ncy - CHI ncy [facility] Type II Diabetes Problem Common diabetes type 2, Spirit mellitus controlled - CH I well [facility] [id number] Alzheimer' Problem Com fris Spirit disease, - CHI unspecifie [facility] [id number] Dementia Problem Comm on in other Spirit diseases - CHI classified [facility] without Medical behavioral Center disturbanc e Non-neopla Nevus, Problem Commo n stic nevus non-neopla Sp oralia stic [facility] Pain in Pain in Problem Common wrist left wrist Spirit - [facility] [id number] 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 [facility] [id number] Generalize Problem Com fri d weakness [facility] [id number] Lung Problem Common nodule, Spirit solitary [facility] [id number] Anemia, Problem Commo n unspecifie Spirit d type - [facility] [id number] Dementia Problem Commo n without Spirit behavioral - CHI disturbanc [facility] unspecifie Medica l d dementia Center type [id number] Constipati Problem Com mon on, Spirit unspecifie - CHI d constipati [facility] on type Medical [place] [id number] Type 2 Problem Common diabetes Spirit mellitus - 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 of Center saxman heart with unstable angina pectoris [id number] Subclinica Problem Com mon l Spirit hypothyroi - CHI dism [facility] Essential Benign Problem Common hypertensi essential Spi rit on HTN - [facility] Pain in Pain in Problem Common limb left hand [facility] - [facility] 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 - CHI , single major St episode depressive [facility] disorder Medical without Center prior episode [id number] Primary Problem Common insomnia [facility] [id number] Paresthesi Problem Com mon a of skin [facility] [id number] Vascular Problem Com mon [id number] Spirit without - CHI behavioral [facility] Allergies, Adverse Reactions, Alerts Allergy Allergy Status Severity Reaction(s) Onset Inactive Treating Comm ents Source Name Type Date Date Clinician No Known DA Active U [facility] Allergie 12-06 [facility] 00:00: Health 00 [facility] NEOSPORI DA Active U RASH [facility] N OINT. 12-06 [place] 00:00: [address] [facility] NO KNOWN Allergy Active [facility] NO KNOWN Drug Active Univers ALLERGIE Class ity of [facility] Family History Family Member Diagnosis Comments Start Date Stop Date Source [facility] mother [facility] Social History Social Habit Start Date Stop Date Quantity Comments Source History of Tobacco Common Spirit - Use [facility] Gender identity [facility] Sexual orientation [facility] ist Hospital History SDOH [facility] Std Drinks Hospit al History SDOH [facility] Binge Hospital History of Social 2023-01-28 2023-01-[address] function 00:00:00 00:00:00 Hospital Exposure to 2022-11-07 2022-11-17 Not sure [facility] SARS-CoV-2 (event) 00:00:00 11:09:[address] [facility] Alcohol intake 2021-04-12 2021-04-12 Lifetime [facility] 00:00:00 00:00:00 non-drinker Hospital (finding) History SDOH 2021-01-22 2021-01-22 1 [facility] Alcohol Frequency 00:00:00 00:00:00 Hospita l Tobacco use and 2020-12-14 2020-12-[address] [facility] exposure 00:00:00 00:00:00 tobacco non-user Medical Center Sex Assigned At [birth year] [facility] 00:00:00 00:00:00 Hospital Smoking Status Start Date Stop Date Source Tobacco smoking University [facility] xas consumption unknown Medical Bran ch Never Smoker Common Spirit - [facility] Ce nter Ex-smoker 2021-01-22 00:00:00 2021-01-22 [facility] spital 00:00:00 Medications Ordered Filled Start Stop Current Ordering Indication Dosage Frequency Signature Comments Components Source Medication Medication Date Date Medication? Clinician (SIG) Name Name insulin 2021-11 Yes 8U inject 8 Univer s degludec 2-25 Units ity of (TRESIBA 12:41: under the [place] U-100 27 skin at Medical INSULIN DC) bedtime. Bran ch rosuvastati 2021-11 Yes 20mg Take 20 mg Univers n 20 mg 2-25 by mouth ity of tablet 12:41: at [place] [address] bedtime. Medical Branch omeprazole 2021-11 Yes 40mg Take 40 mg U nivers 40 mg 2-25 by mouth ity of capsule 12:41: in the [place] [address] morning. Medical Branch aspirin 81 2021-11 Yes 81mg Take 81 mg U nivers mg Cap 2-25 by mouth ity of 12:41: daily. [place] [address] Medical Branch bimatoprost 2021-11 Yes 1[drp] Place [...] metFORMIN HCl ER 500 HCl ER 500 6- t_with_ HCl ER 500 MG MG 00:00: evening MG 00 _meal} metFORMIN metFORMIN No 1{table QD metFORMIN HCl ER 500 HCl ER 500 6- t_with_ HCl ER 500 MG MG 00:00: evening MG 00 _meal} metFORMIN metFORMIN No 1{table QD metFORMIN HCl ER 500 HCl ER 500 6- t_with_ HCl ER 500 MG MG 00:00: evening MG 00 _meal} rosuvastati 2020-11 Yes 20mg QD Take [address] n (CRESTOR) 2-12 by mouth Luke s 20 MG 13:27: daily. Medical tablet 11 [place] omeprazole 2020-11 Yes 40mg QD Take [address] (PriLOSEC) 2-12 by mouth Lukes 40 MG 13:27: daily. Medical capsule 11 [place] insulin 2020-11 Yes diabetes 10U Inject [address] degludec 2-12 mellitus Units Lukes (TRESIBA 13:27: subcutaneo Med ical U-100 11 [facility]. [place] INSULIN SUBQ) aspirin 81 2020-11 Yes 81mg QD Take [address] MG EC 2-12 by mouth [facility]ukes tablet 13:27: daily. Medical 11 Center SITagliptin 2020-11 Yes 50mg QD Take [address] (JANUVIA) 2-12 by mouth Lukes 50 MG 13:27: daily. 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 rosuvastati 2020-11 Yes 20mg QD Take [address] n (CRESTOR) 2-12 by mouth Luke s 20 MG 13:27: daily. Medical tablet 11 [place] omeprazole 2021-1 Yes 40mg QD Take [address] (PriLOSEC) 2-12 by mouth Lukes 40 MG 13:27: daily. Medical capsule 11 Center insulin 2020-11 Yes diabetes 10U Inject [address] degludec 2-12 mellitus Units Lukes (TRESIBA 13:27: subcutaneo Med ical U-100 11 us. Center INSULIN SUBQ) aspirin 81 2020-11 Yes [...] (TRESIBA 13:27: subcutaneo Med ical U-100 11 [facility]. Center INSULIN SUBQ) aspirin 81 2020-11 Yes [...] Take 1 mg Me thodi (BUMEX) 1 - by mouth st MG tablet 13:45: daily. [...] MG 24 hr 59 l tablet aspirin 2020-0 Yes 81mg QD Take 81 mg Meth franny (ECOTRIN) 3-[address] 81 MG 13:45: daily. Hospita enteric 59 l coated tablet insulin 0 Yes 10U QD Inject 10 Metho di [...] 13:45: daily. Hospit a 59 l omeprazole 2020-0 Yes 40mg QD Take 40 mg M [...] MG 24 hr 59 l tablet aspirin 2020-0 Yes 81mg QD Take 81 mg Meth franny (ECOTRIN) -[address] 81 MG 13:45: daily. Hospita enteric 59 l coated tablet insulin 0 Yes 10U QD Inject 10 Metho di degludec 3-[address] (Tresiba 13:45: under the Hosp korin FlexTouch 59 skin l U-100) 100 nightly. unit/mL (3 mL) insulin pen metoprolol Yes 25mg Q.5D Take 25 mg M ethodi succinate - by mouth [address] st XL 13:45: (two) Hospita (TOPROL-XL) 59 times a l 25 mg 24 hr day. tablet rosuvastati 2021-0 Yes 20mg QD Take 20 mg Methodi n (CRESTOR) 3-[address] 20 mg 13:45: nightly. Hospita tablet 59 l clopidogreL 0 Yes 75mg QD Take 75 mg Methodi (PLAVIX) 75 -[address] mg tablet 13:45: daily. Hospit a 59 l omeprazole 2020-0 Yes 40mg QD Take 40 mg M [...] QD Take 75 mg Methodi (PLAVIX) [address] mg tablet 13:45: daily. Hospit a 59 l omeprazole Yes 40mg QD Take 40 mg M ethodi (PriLOSEC) -[address] 40 MG 13:45: daily. Hospita capsule 59 l BUMETanide Yes 1mg QD Take 1 mg Me thodi (BUMEX) 1 01-[address] MG tablet 13:45: daily. Hospit a 59 l traZODone Yes 100mg QD Take 100 Met hodi [...] UNABLE TO Yes Memories Meth franny FIND 01-22 with [...] tablet mouth 2 (two) times daily. metoprolol 0 Yes 25mg Q.5D Take 0.[address] tartrate 1-24 tablets Lukes (LOPRESSOR) 00:00: (25 mg Medi kaylen 50 MG 00 total) by Center tablet mouth 2 (two) times daily. metoprolol 0 Yes 25mg Q.5D Take 0.[address] tartrate 1-24 tablets [facility]ukes (LOPRESSOR) 00:00: (25 mg Medi kaylen 50 MG 00 total) by Center tablet mouth 2 (two) times daily. omeprazole 2019-0 Yes 40mg QD Take 40 [...] (two) l packet times a day. metoprolol 0 Yes 50mg Q.5D Take 50 mg M ethodi tartrate 1-[address] (LOPRESSOR) 14:21: (two) Hospi ta 50 mg 39 times a l tablet day. furosemide 2018-0 Yes 20mg Q.5D Take 20 mg M [...] 5-31 [place] Spirit 00:00: - CHI 00 [facility] Ondansetron Ondansetron No Ondansetro HCl 4 [...] Derek 1 tablet Common Bisulfate Bisulfate Lomeli Spir it [facility] Aspirin Aspirin Yes Derek 1 tablet Com mon Lomeli [facility] BD Pen BD Pen Yes Derek USE Common Needle Mini Needle Mini Lomeli DIRECTED Spirit U/F U/F - [facility] Tresiba Tresiba Yes Derek not Common FlexTouch FlexTouch Lomeli defined [facility] Crestor Crestor Yes Derek 1 tablet Com mon Lomeli [facility] Lumigan Lumigan Yes Derek 1 drop Commo n Lomeli into both [facility] eyes [facility] Vitamin B Vitamin B Yes Derek not Com mon Complex-C Complex-C Lomeli defined [facility] Vitamin D-3 Vitamin D-3 Yes Derek 1 tablet Common Lomeli [facility] Melatonin Melatonin Yes Derek 1 tablet Common Lomeli at bedtime [facility] as needed [facility] with food [facility] Furosemide Furosemide Yes Derek 1 tablet Common Lomeli Spirit [facility] Losartan Losartan Yes Derek 1 tablet C ommon Potassium Potassium Lomeli Spir it [facility] Isosorbide Isosorbide Yes Derek 1 tablet Common Mononitrate Mononitrate Lomeli in the Spirit ER ER morning [facility] Rosuvastati Rosuvastati Yes Derek TAKE 1 Common n Calcium n Calcium Lomeli TABLET BY Spirit MOUTH - CHI EVERY DAY [facility] Metoprolol Metoprolol Yes Derek 1 tablet Common Succinate Succinate Lomeli Spir it ER ER [facility] Omeprazole Omeprazole Yes Derek TAKE 1 Common Lomeli CAPSULE BY [facility] MOUTH - [facility] EVERY DAY [facility] Metoprolol Metoprolol Yes Derek 1 tablet Common Succinate Succinate Lomeli Spir it ER [facility] Vitamin B Vitamin B No Vitamin [...] t_at_be 5 MG dtime_a s_neede d_with_ food} Brianna Mullinsuvia No Harpreetuvia Crestor 20 Crestor 20 No 1{table QD [...] t_at_be 5 MG dtime_a s_neede d_with_ food} Brianna Reed No Brianna Ranexa 500 Ranexa 500 No 1{table BID [...] Merchant 2021-11-06 Completed [facility] 14:15:00 - [facility] Shingrix Shingrix 2021-11-06 Completed Common [facility] 14:15:00 - [facility] Shingrix Shingrix 2021-11-06 Completed Common [facility] 14:15:00 - [facility] Shingrix Shingrix 2021-11-06 Completed Common [facility] 14:15:00 - [facility] Shingrix Shingrix 2021-11-06 Completed Common [facility] 14:15:00 - [facility] Shingrix Shingrix 2021-11-06 Completed Common [facility] 14:15:00 - [facility] Shingrix Shingrix 2021-11-06 Completed Common [facility] 14:15:00 - [facility] Shingrix Shingrix 2021-11-06 Completed Common [facility] 14:15:00 - [facility] Shingrix Shingrix 2021-11-06 Completed Common [facility] 14:15:00 - [facility] Shingrix Shingrix 2021-11-06 Completed Common [facility] 14:15:00 - [facility] Shingrix Shingrix 2021-11-06 Completed [facility] 14:15:00 - [facility] FluAD FluAD 2021-09-28 Completed [facility] 11:24:00 - [facility] FluAD FluAD 2021-09-28 Completed [facility] 11:24:00 - [facility] FluAD FluAD 2021-09-28 Completed [facility] 11:24:00 - [facility] FluAD FluAD 2021-09-28 Completed [facility] 11:24:00 - [facility] FluAD FluAD 2021-09-28 Completed [facility] 11:24:00 - [facility] FluAD FluAD 2021-09-28 Completed [facility] 11:24:00 - [facility] FluAD FluAD 2021-09-28 Completed [facility] 11:24:00 - [facility] FluAD FluAD 2021-09-28 Completed [facility] 11::00 - [facility] FluAD FluAD 2021-09-28 Completed [facility] 11:: - [facility] FluAD FluAD 2021-09-28 Completed [facility] 11::00 - [facility] FluAD FluAD 2021-09-28 Completed [facility] 11:: - [facility] FluAD FluAD 2021-09-28 Completed [facility] 11::00 - [facility] FluAD FluAD 2021-09-28 Completed [facility] 11:: - [facility] FluAD FluAD 2021-09-28 Completed [facility] 11:: - [facility] FluAD FluAD 2020-09-05 Completed [facility] 10:19:00 - [facility] FluAD FluAD 2020-09-05 Completed [facility] 10:19:00 - [facility] FluAD FluAD 2020-09-05 Completed [facility] 10:19:00 - [facility] FluAD FluAD 2020-09-05 Completed [facility] 10:19:00 - [facility] FluAD FluAD 2020-09-05 Completed [facility] 10:19:00 - [facility] FluAD FluAD 2020-09-05 Completed [facility] 10:19:00 - [facility] FluAD FluAD 2020-09-05 Completed [facility] 10:19:00 - [facility] FluAD FluAD 2020-09-05 Completed [facility] 10:19:00 - [facility] FluAD FluAD 2020-09-05 Completed [facility] 10:19:00 - [facility] FluAD FluAD 2020-09-05 Completed [facility] 10:19:00 - [facility] FluAD FluAD 2020-09-05 Completed [facility] 10:19:00 - [facility] FluAD FluAD 2020-09-05 Completed [facility] 10:19:00 - [facility] FluAD FluAD 2020-09-05 Completed [facility] 10:19:00 - [facility] FluAD FluAD 2020-09-05 Completed [facility] 10:19:00 - [facility] FluAD FluAD 2020-09-05 Completed [facility] 10:19:00 - [facility] FluAD FluAD 2020-09-05 Completed [facility] 10:19:00 - [facility] FluAD FluAD 2019-09-06 Completed [facility] 14:00:00 - [facility] FluAD FluAD 2019-09-06 Completed [facility] 14:00:00 - [facility] FluAD FluAD 2019-09-06 Completed [facility] 14:00:00 - [facility] FluAD FluAD 2019-09-06 Completed [facility] 14:00:00 - [facility] FluAD FluAD 2019-09-06 Completed [facility] 14:00:00 - [facility] FluAD FluAD 2019-09-06 Completed [facility] 14:00:00 - [facility] FluAD FluAD 2019-09-06 Completed [facility] 14:00:00 - [facility] FluAD FluAD 2019-09-06 Completed [facility] 14:00:00 - [facility] FluAD FluAD 2019-09-06 Completed [facility] 14:00:00 - [facility] FluAD FluAD 2019-09-06 Completed [facility] 14:00:00 - [facility] FluAD FluAD 2019-09-06 Completed [facility] 14:00:00 - [facility] FluAD FluAD 2019-09-06 Completed [facility] 14:00:00 - [facility] FluAD FluAD 2019-09-06 Completed [facility] 14:00:00 - [facility] FluAD FluAD 2019-09-06 Completed [facility] 14:00:00 - [facility] FluAD FluAD 2019-09-06 Completed [facility] 14:00:00 - [facility] FluAD FluAD 2019-09-06 Completed [facility] 14:00:00 - [facility] FluAD FluAD 2019-09-06 Completed [facility] 00:00:00 - [facility] Pneumovax (PPSV23) Pneumovax (PPSV23) 2018-09-15 Completed [facility] 11:17:00 [facility] Pneumovax (PPSV23) Pneumovax (PPSV23) 2018-09-15 Completed [facility] 11:17:00 [facility] Pneumovax (PPSV23) Pneumovax (PPSV23) 2018-09-15 Completed [facility] 11:17:00 - [facility] Pneumovax (PPSV23) Pneumovax (PPSV23) 2018-09-15 Completed [facility] 11:17:00 [facility] Pneumovax (PPSV23) Pneumovax (PPSV23) 2018-09-15 Completed [facility] 11:17:00 [facility] Pneumovax (PPSV23) Pneumovax (PPSV23) 2018-09-15 Completed [facility] 11:17:00 - [facility] Pneumovax (PPSV23) Pneumovax (PPSV23) 2018-09-15 Completed [facility] 11:17:00 - [facility] Pneumovax (PPSV23) Pneumovax (PPSV23) 2018-09-15 Completed [facility] 11:17:00 [facility] Pneumovax (PPSV23) Pneumovax (PPSV23) 2018-09-15 Completed [facility] 11:17:00 [facility] Pneumovax (PPSV23) Pneumovax (PPSV23) 2018-09-15 Completed [facility] 11:17:00 [facility] Pneumovax (PPSV23) Pneumovax (PPSV23) 2018-09-15 Completed [facility] 11:17:00 [facility] Pneumovax (PPSV23) Pneumovax (PPSV23) 2018-09-15 Completed [facility] 11:17:00 [facility] Pneumovax (PPSV23) Pneumovax (PPSV23) 2018-09-15 Completed [facility] 11:17:00 [facility] Pneumovax (PPSV23) Pneumovax (PPSV23) 2018-09-15 Completed [facility] 11:17:00 - [facility] Pneumovax (PPSV23) Pneumovax (PPSV23) 2018-09-15 Completed [facility] 11:17:00 - [facility] Pneumovax (PPSV23) Pneumovax (PPSV23) 2018-09-15 Completed [facility] 11:17:00 - [facility] FluAD FluAD 2018-09-15 Completed [facility] 11:16:00 - [facility] FluAD FluAD 2018-09-15 Completed [facility] 11:16:00 - [facility] FluAD FluAD 2018-09-15 Completed [facility] 11:16:00 - [facility] FluAD FluAD 2018-09-15 Completed [facility] 11:16:00 - [facility] FluAD FluAD 2018-09-15 Completed [facility] 11:16:00 - [facility] FluAD FluAD 2018-09-15 Completed [facility] 11:16:00 - [facility] FluAD FluAD 2018-09-15 Completed [facility] 11:16:00 - [facility] FluAD FluAD 2018-09-15 Completed [facility] 11:16:00 - [facility] FluAD FluAD 2018-09-15 Completed [facility] 11:16:00 - [facility] FluAD FluAD 2018-09-15 Completed [facility] 11:16:00 - [facility] FluAD FluAD 2018-09-15 Completed [facility] 11:16:00 - [facility] FluAD FluAD 2018-09-15 Completed [facility] 11:16:00 - [facility] FluAD FluAD 2018-09-15 Completed [facility] 11:16:00 - [facility] FluAD FluAD 2018-09-15 Completed [facility] 11:16:00 - [facility] FluAD FluAD 2018-09-15 Completed [facility] 11:16:00 - [facility] FluAD FluAD 2018-09-15 Completed [facility] 11:16:00 - [facility] Vital Signs Vital Name Observation Time Observation Value Comments Source WEIGHT 2023-06-22 15:24:00 64.864 kg WEIGHT 2023-06-22 15:24:00 64.864 kg Systolic blood 2022-11-17 18:30:00 104 mm[Hg] Univer sity of pressure [facility] Diastolic blood 2022-11-17 18:30:00 79 mm[Hg] Unive rsity of [facility] Heart rate 2022-11-17 18:30:00 71 /min [facility] Respiratory rate 2022-11-17 18:30:00 18 /min [facility] saturation in 2022-11-17 18:30:00 99 /min [facility] Arterial blood by [facility] Pulse oximetry [facility] temperature 2022-11-17 17:04:00 36.89 Emmanuelle [facility] Body weight 2022-11-17 17:04:00 61.236 kg [facility] height 2022-04-18 14:50:00 68 [in_i] [facility] weight 2022-04-18 14:50:00 140.2 [lb_av] [facility] temperature 2022-04-18 14:50:00 98.4 [degF] Common [facility] bmi 2022-04-18 14:50:00 21.32 kg/m2 [facility] oximetry 2022-04-18 14:50:00 98 % [facility] respiratory rate 2022-04-18 14:50:00 18 /min Comm on [facility] blood pressure 2022-04-18 14:50:00 134 mm[Hg] Common [facility] - systolic [facility] blood pressure 2022-04-18 14:50:00 65 mm[Hg] Common [facility] - diastolic [facility] height 2022-03-14 15:40:00 68 [in_i] Common [facility] weight 2022-03-14 15:40:00 135.9 [lb_av] [facility] temperature 2022-03-14 15:40:00 98.2 [degF] Common [facility] bmi 2022-03-14 15:40:00 20.66 kg/m2 [facility] oximetry 2022-03-14 15:40:00 99 % [facility] respiratory rate 2022-03-14 15:40:00 18 /min Comm on [facility] blood pressure 2022-03-14 15:40:00 135 mm[Hg] Common [facility] - systolic [facility] blood pressure 2022-03-14 15:40:00 67 mm[Hg] Common [facility] - diastolic [facility] height 2021-12-26 13:00:00 68 [in_i] Common [facility] weight 2021-12-26 13:00:00 137.7 [lb_av] [facility] temperature 2021-12-26 13:00:00 97.0 [degF] [facility] bmi 2021-12-26 13:00:00 20.93 kg/m2 [facility] oximetry 2021-12-26 13:00:00 99 % [facility] respiratory rate 2021-12-26 13:00:00 18 /min Comm on [facility] blood pressure 2021-12-26 13:00:00 132 mm[Hg] [facility] [place] [place] systolic [facility] blood pressure 2021-12-26 13:00:00 67 mm[Hg] Common [facility] - diastolic [facility] HEIGHT 2021-11-02 13:57:00 172.7 cm WEIGHT 2021-11-02 13:57:00 64.864 kg HEIGHT 2021-11-02 13:57:00 172.7 cm WEIGHT 2021-11-02 13:57:00 64.864 kg height 2021-08-31 10:20:00 68 [in_i] [facility] weight 2021-08-31 10:20:00 131 [lb_av] [facility] temperature 2021-08-31 10:20:00 97.5 [degF] Common S [facility] - [facility] bmi 2021-08-31 10:20:00 19.92 kg/m2 Common S [facility] - [facility] blood pressure 2021-08-31 10:20:00 121 mm[Hg] Common [facility] - [facility] blood pressure 2021-08-31 10:20:00 70 mm[Hg] Common [facility] - diastolic [facility] height 2021-05-25 08:20:00 68 [in_i] [facility] weight 2021-05-25 08:20:00 139.2 [lb_av] Common [facility] temperature 2021-05-25 08:20:00 97.9 [degF] Common S [facility] bmi 2021-05-25 08:20:00 21.16 kg/m2 [facility] oximetry 2021-05-25 08:20:00 98 % [facility] respiratory rate 2021-05-25 08:20:00 16 /min Comm on [facility] blood pressure 2021-05-25 08:20:00 117 mm[Hg] Common [facility] - systolic [facility] blood pressure 2021-05-25 08:20:00 56 mm[Hg] Common [facility] diastolic [facility] WEIGHT 2020-12-17 04:37:00 64.184 kg HEIGHT 2020-12-14 13:33:00 172.7 cm WEIGHT 2020-12-14 13:33:00 65.772 kg WEIGHT 2020-12-17 04:37:00 64.184 kg HEIGHT 2020-12-14 13:33:00 172.7 cm WEIGHT 2020-12-14 13:33:00 65.772 kg Procedures Procedure Date / Time Performing Clinician Source Performed CBC WITH DIFF 2022-11-17 17:41:[address] [facility] PROTHROMBIN TIME / INR 2022-11-17 17:41:00 Atilio Byers [facility] ACTIVATED PARTIAL THRMPLAS 2022-11-17 17:41:00 Atilio Byers [facility] NOTICE OF PRIVACY 2022-11-17 17:01:38 Doctor Unassigned, [facility] PRACTICES [facility] CONSENT/REFUSAL FOR 2022-11-17 17:00:19 Doctor Thiago [facility] DIAGNOSIS AND TREATMENT [facility] XR CHEST 2 VW 2022-09-06 16:50:45 Osito Cruz [facility] NOTICE OF BILLING 2022-09-06 16:32:25 Doctor Unassigned, [facility] PRACTICES FOR MEDICARE [facility] PATIENTS [facility] PATIENT FINANCIAL 2022-09-06 16:31:57 Doctor Unassigned, [facility] POLICY [facility] NO SHOW OR MISSED 2022-09-06 16:31:43 Doctor Thiago, [facility] APPOINTMENT POLICY [facility] ACKNOWLEDGEMENT CONSENT/REFUSAL FOR 2022-09-06 16:31:24 Doctor Thiago [facility] DIAGNOSIS AND TREATMENT [facility] ASSIGNMENT OF BENEFITS 2022-09-06 16:31:09 Doctor Thiago, [facility] Plan of Care Planned Activity Planned Date Details Comments Source Future Scheduled 2023-07-25 INFLUENZA VACCINE [facility] Test 00:00:00 (Season Ended) [code = [facility] INFLUENZA VACCINE (Season Ended)] Future Scheduled 2023-06-24 COVID-19 VACCINE (#1) [facility] Test 13:54:01 [code = COVID-19 VACCINE (#1)] Future Scheduled 2023-06-24 DIABETES: RETINAL EYE [facility] Test 13:54:01 EXAM [code = DIABETES: RETINAL EYE EXAM] Future Scheduled 2023-06-24 DIABETIC FOOT EXAM [facility] Test 13:54:01 [code = DIABETIC FOOT EXAM] Future Scheduled 2023-06-24 URINE MICROALBUMIN [facility] Test 13:54:01 [code = URINE MICROALBUMIN] Future Scheduled 2023-06-24 SHINGLES VACCINES (1 Met [facility] Test 13:54:01 of 2) [code = SHINGLES VACCINES (1 of 2)] Future Scheduled 2023-06-24 65+ PNEUMOCOCCAL [facility] Test 13:54:01 VACCINE (2 - PCV) [code = 65+ PNEUMOCOCCAL VACCINE (2 - PCV)] Future Scheduled 2023-06-24 INFLUENZA VACCINE [facility] Test 13:54:01 [code = INFLUENZA VACCINE] Future Scheduled 2023-02-26 SHINGLES [facility]ACCINES ([facility] Test 23:43:15 of 2) [code = SHINGLES VACCINES (1 of 2)] Future Scheduled 2023-02-26 65+ [facility]UMOCOCCAL [facility] Test 23:43:15 VACCINE (2 - PCV) [code = 65+ PNEUMOCOCCAL VACCINE (2 - PCV)] Future Scheduled 2023-02-26 INFLUENZA VACCINE [facility] Test 23:43:15 [code = INFLUENZA VACCINE] Future Scheduled 2023-02-26 COVID-19 VACCINE (#1) [facility] Test 23:43:15 [code = COVID-19 VACCINE (#1)] Future Scheduled 2023-02-26 DIABETES: RETINAL EYE [facility] Test 23:43:15 EXAM [code = DIABETES: [...] Future Scheduled 2023-01-15 COVID-19 VACCINE (#1) Me [facility] Test 16:59:12 [code = COVID-19 VACCINE (#1)] Future Scheduled 2023-01-15 DIABETES: RETINAL EYE [facility] Test 16:59:12 EXAM [code = DIABETES: RETINAL EYE EXAM] Future Scheduled 2023-01-15 DIABETIC FOOT EXAM [facility] Test 16:59:12 [code = DIABETIC FOOT EXAM] Future Scheduled 2023-01-15 URINE MICROALBUMIN [facility] Test 16:59:12 [code = URINE MICROALBUMIN] Future Scheduled 2023-01-15 SHINGLES VACCINES (1 Met [facility] Test 16:59:12 of 2) [code = SHINGLES VACCINES (1 of 2)] Future Scheduled 2023-01-15 65+ PNEUMOCOCCAL [facility] Test 16:59:12 VACCINE (2 - PCV) [code = 65+ PNEUMOCOCCAL VACCINE (2 - PCV)] Future Scheduled 2023-01-15 INFLUENZA VACCINE Method [facility] Test 16:59:12 [code = INFLUENZA VACCINE] [...] = COVID-[address] VACCINE (#1)] Encounters Start End Encounter Admission Attending Care Care Encounter Source Date/Time Date/Time Type Type Clinicians Facility Department ID 2021-12-19 [facility] Common 14:25:29 Derek [id number] [facility] 2021-12-19 [facility] [id number] Common 13:36:19 Derek [id number] [facility] 2021-12-19 [facility] Common 13:12:39 Derek [id number] [facility] 2021-12-19 [facility] [id number] Common 12:25:20 Derek [id number] [facility] 2021-12-19 [facility] [id number] Common 12:24:42 Derek [id number] [facility] 2021-12-19 [facility] [id number] Common 12:16:57 Derek [id number] [facility] 2021-12-19 [facility] [id number] Common 12:09:08 Derek [id number] [facility] 2021-12-19 [facility] [id number] Common 12:08:24 Derek [id number] [facility] 2021-12-19 Outpatient Lomeli, [facility] Common 12:06:02 Derek [id number] [facility] 2021-12-19 Outpatient [facility]eli, [facility] Common 12:04:58 Derek [id number] [facility] 2021-12-19 Outpatient Lomeli, [facility] Common 11:48:11 Derek [id number] [facility] 2021-12-19 Outpatient Lomeli, [facility] Common 11:46:53 Derek [id number] [facility] 2021-12-19 Outpatient Lomeli, [facility]LC [facility] Common 11:44:59 Derek [id number] [facility] 2021-12-19 [facility] Common 11:38:59 Derek [id number] [facility] 2021-12-19 [facility] Common 11:27:13 Derek [id number] [facility] 2021-12-19 [facility] Common 11:25:55 Derek [id number] [facility] 2021-12-19 [facility], [facility] Common 11:21:49 Derek [id number] [facility] 2021-12-19 Outpatient Lomeli, [facility]LC [facility] Common 11:19:00 Derek [id number] [facility] 2023-06-22 2023-06-23 Emergency ER SURLES, [facility] Emergency [id number] SLE 15:27:00 00:57:00 BRISEYDA 2023-06-22 2023-06-22 Emergency ER SURLES, [facility] [id number] SLE 18:11:53 18:11:53 BRISEYDA 2022-11-17 2022-11-17 Emergency X BYERS, [facility] [id number] Univers 11:05:00 12:43:00 ATILIO antonio [facility] 2022-11-17 2022-11-17 [facility] [id number] Univers 11:05:00 12:43:00 Atilio HANNA [id number] i ty [facility] [id number] [facility] [id number] [facility] [address] 2022-09-06 2022-09-06 [facility] [id number] Univers 11:35:08 23:59:00 OSITO antonio [facility] 2022-09-06 2022-09-06 [facility] [id number] Univers 11:31:04 11:34:00 Encounter Osito Wilfrido HANNA [id number] ity [facility] [id number] [facility] [id number] [facility] [address] 2022-09-06 2022-09-06 [facility]patient [facility] [id number] Univers 00:00:00 00:00:00 OSITO [facility] 2022-06-04 2022-06-04 Outpatient TAI MENDEZ [facility] 120 [place] 02:33:00 02:33:00 [place] [id number] [facility] Program 2022-05-22 2022-05-22 (TEL) STLMLC ST[facility] [id number] Co mmon 00:00:00 00:00:00 [facility] 2022-04-29 2022-04-29 (TEL) STLMLC STLMLC [id number] Co mmon 00:00:00 00:00:00 [facility] 2022-04-18 2022-04-18 OFFICE STLMLC STLMLC [id number] Co mmon 00:00:00 00:00:00 VISIT [facility] PT - CHI LEVEL 4 [facility] 2022-03-14 2022-03-14 (TEL) STLMLC STLMLC [id number] Co mmon 00:00:00 00:00:00 [facility] 2022-03-14 2022-03-14 OFFICE STLMLC STLMLC [id number] Co mmon 00:00:00 00:00:00 VISIT EST Spir it PT LEVEL 3 - [facility] 2022-03-12 2022-03-12 (TEL) STLMLC STLMLC [id number] Co mmon 00:00:00 00:00:00 [facility] 2022-01-21 2022-01-21 (TEL) STLMLC STLMLC [id number] Co mmon 00:00:00 00:00:00 [facility] 2021-12-26 2021-12-26 (WELLNESS) STLMLC STLMLC [id number] Common 00:00:00 00:00:00 Wellness Spiri t Visit [facility] 2021-12-21 2021-12-21 (TEL) STLMLC STLMLC [id number] Co mmon 00:00:00 00:00:00 [facility] 2021-12-20 2021-12-20 (TEL) STLMLC STLMLC [id number] Co mmon 00:00:00 00:00:00 [facility] 2021-12-10 2021-12-10 Outpatient DORA Antonio, [facility] [id number] [facility] 00:30:00 00:30:00 Prakash Harrison [facility] 2021-12-06 2021-12-06 Outpatient UNKNOWN HCACL LABO [id number] [facility] 17:44:00 17:44:00 14 [facility] 2021-11-06 2021-11-06 (INJ) STLMLC STLMLC [id number] Co mmon 00:00:00 00:00:00 Injection Spir it [facility] 2021-11-05 2021-11-05 (TEL) STLMLC STLMLC [id number] Co mmon 00:00:00 00:00:00 [facility] 2021-11-02 2021-11-04 Inpatient ER BLADIMIR BARROS [facility] Emergency [id number] SLE 14:01:00 13:27:00 2021-10-31 2021-10-31 (TEL) STLMLC STLMLC [id number] Co mmon 00:00:00 00:00:00 [facility] 2021-09-28 2021-09-28 (INJ) STLMLC STLMLC [id number] Co mmon 00:00:00 00:00:00 Injection Spir [facility] 2021-08-31 2021-08-31 OFFICE STLMLC STLMLC [id number] Co mmon 00:00:00 00:00:00 VISIT [facility] PT - CHI LEVEL 4 [facility] 2021-05-25 2021-05-25 OFFICE STLMLC STLMLC [id number] Co mmon 00:00:00 00:00:00 VISIT [facility] PT - [facility] 4 [facility] 2021-05-16 2021-05-16 Outpatient STLMLC STLMLC [id number] Common 00:00:00 00:00:00 [facility] 2021-05-02 2021-05-02 Outpatient STLMLC STLMLC [id number] Common 00:00:00 00:00:00 [facility] 2021-05-01 2021-05-01 Outpatient STLMLC STLMLC [id number] Common 00:00:00 00:00:00 [facility] 2021-04-20 2021-04-20 Outpatient STLMLC STLMLC [id number] Common 00:00:00 00:00:00 [facility] 2021-04-18 2021-04-18 Outpatient STLMLC STLMLC [id number] Common 00:00:00 00:00:00 [facility] 2021-02-27 2021-02-27 Outpatient STLMLC STLMLC [id number] Common 00:00:00 00:00:00 [facility] 2021-02-13 2021-02-13 Outpatient STLMLC STLMLC [id number] Common 00:00:00 00:00:00 [facility] 2021-02-05 2021-02-05 Outpatient STLMLC STLMLC [id number] Common 00:00:00 00:00:00 [facility] 2021-01-22 2021-01-22 [facility] [id number] [place] 00:00:00 00:00:00 PRAKASH [address] 2021-01-17 2021-01-17 Outpatient [facility] [id number] [place] 00:00:00 00:00:00 PRAKASH [address] 2020-12-19 2020-12-19 Outpatient STLMLC STLMLC [id number] Common 00:00:00 00:00:00 [facility] 2020-12-18 2020-12-18 Outpatient STLMLC STLMLC [id number] Common 00:00:00 00:00:00 [facility] 2020-12-15 2020-12-15 Outpatient STLMLC STLMLC [id number] Common 00:00:00 00:00:00 [facility] 2020-12-14 2020-12-14 Emergency ER [facility] Emergency [id number] [facility] 13:10:00 13:10:00 2020-11-13 2020-11-13 Outpatient STLMLC STLMLC [id number] Common 00:00:00 00:00:00 [facility] 2020-10-30 2020-10-30 Outpatient STLMLC STLMLC [id number] Common 00:00:00 00:00:00 [facility] 2020-10-24 2020-10-24 Outpatient STLMLC STLMLC [id number] Common 00:00:00 00:00:00 [facility] 2020-10-16 2020-10-16 Outpatient STLMLC STLMLC [id number] Common 00:00:00 00:00:00 [facility] 2020-10-12 2020-10-12 Outpatient ELIU, BRIANNESE MHSE [id number] MH 06:00:00 09:08:00 SHAMA antony [facility] 2020-09-25 2020-09-25 Outpatient STLMLC STLMLC [id number] Common 00:00:00 00:00:00 [facility] 2020-09-18 2020-09-18 Outpatient STLMLC STLMLC [id number] Common 00:00:00 00:00:00 [facility] 2020-09-05 2020-09-05 Outpatient STLMLC STLMLC [id number] Common 00:00:00 00:00:00 [facility] 2020-08-11 2020-08-11 [facility] [id number] Common 08:30:00 08:30:00 [place] [address] [facility] 2020-08-03 2020-08-03 Out[facility] [id number] Common 11:18:00 11:18:00 [place] [address] [facility] 2020-07-11 2020-07-11 Out[facility] [id number] Common 15:00:00 15:00:00 [place] [address] [facility] 2020-05-11 2020-05-11 Outpatient [facility] [id number] Common 10:00:00 10:00:00 [place] [address] [facility] 2020-05-11 2020-05-11 Outpatient [facility] [id number] Common 10:00:00 10:00:00 [place] [address] [facility] 2020-05-03 2020-05-03 Out[facility] [id number] Common 10:38:00 10:38:00 [place] [address] [facility] 2020-04-06 2020-04-06 Out[facility] [id number] Common 08:42:00 08:42:[address] [facility] [address] [facility] 2020-03-15 2020-03-15 Out[facility] [id number] Common 08:38:00 08:38:00 [place] [address] [facility] 2019-11-15 2019-11-15 Outpatient [facility] [id number] Common 13:51:00 13:51:00 [place] [address] [facility] 2019-11-11 2019-11-11 Out[facility] [id number] Common 08:30:00 08:30:00 [place] [address] [facility] 2019-11-05 2019-11-05 Out[facility] [id number] Common 15:43:00 15:43:00 [place] [address] [facility] 2019-10-19 2019-10-19 Out[facility] [id number] Common 11:04:00 11:04:00 [place] [address] [facility] 2019-09-06 2019-09-06 Outpatient [facility] [id number] Common 13:45:00 13:45:00 [place] [address] [facility] 2019-08-05 2019-08-05 Outpatient [facility] [id number] Common 13:45:00 13:45:00 [place] [address] [facility] 2019-06-11 2019-06-11 Outpatient [facility] [id number] Common 10:30:00 10:30:00 [place] [address] [facility] 2019-05-31 2019-05-31 Outpatient [facility] [id number] Common 14:01:00 14:01:00 [place] [address] [facility] 2019-05-21 2019-05-21 Outpatient [facility] [id number] Common 13:23:00 13:23:00 [place] [address] [facility] 2019-05-11 2019-05-11 Outpatient [facility] [id number] Common 09:44:00 09:44:00 [place] [address] [facility] 2019-03-16 2019-03-16 Out[facility] [id number] Common 10:45:00 10:45:00 [place] [address] [facility] 2019-02-18 2019-02-18 Outpatient [facility] [id number] Common 09:05:00 09:05:00 [place] [address] [facility] 2019-01-08 2019-01-08 Outpatient [facility] [id number] Common 14:40:00 14:40:00 [place] [address] [facility] 2018-12-16 2018-12-16 Out[facility] [id number] Common 14:45:00 14:45:00 [place] [address] [facility] 2018-11-30 2018-11-30 Out[facility] [id number] Common 09:04:00 09:04:00 [place] [address] [facility] 2018-11-25 2018-11-25 Outpatient [facility] [id number] Common 08:37:00 08:37:00 [place] [address] [facility] 2018-09-08 2018-09-08 Outpatient [facility] [id number] Common 11:38:00 11:38:00 [place] [address] [facility] 2018-07-28 2018-07-28 Outpatient [facility] [id number] Common 13:59:00 13:59:00 [place] [address] [facility] 2018-07-20 2018-07-20 Outpatient [facility] [id number] Common 11:52:00 11:52:00 [place] [address] [facility] 2018-07-08 2018-07-08 Outpatient [facility] [id number] Common 09:26:00 09:26:00 [place] [address] [facility] 2018-07-07 2018-07-07 Outpatient [facility] [id number] Common 10:35:00 10:35:00 [place] [address] [facility] 2018-06-29 2018-06-29 Outpatient [facility] [id number] Common 09:15:00 09:15:00 [place] [address] [facility] 2018-06-23 2018-06-23 Outpatient [facility] [id number] Common 10:28:00 10:28:00 [place] [address] [facility] 2018-05-21 2018-05-21 Outpatient [facility] [id number] Common 08:21:00 08:21:00 [place] [address] [facility] 2018-05-20 2018-05-20 Outpatient [facility] [id number] Common 08:00:00 08:00:00 [place] [address] [facility] 2018-05-19 2018-05-19 Outpatient [facility] [id number] Common 10:26:00 10:26:00 [place] [address] [facility] 2018-05-09 2018-05-09 Outpatient [facility] [id number] Common 10:46:00 10:46:00 [place] [address] [facility] 2018-04-24 2018-04-24 Outpatient [facility] [id number] Common 11:50:00 11:50:00 [place] [address] [facility] 2018-04-23 2018-04-23 Outpatient [facility] [id number] Common 13:00:00 13:00:00 [place] [address] [facility] 2018-04-06 2018-04-06 Outpatient [facility] [id number] Common 10:00:00 10:00:00 [place] [address] [facility] 2018-03-30 2018-03-30 Outpatient [facility] [id number] Common 16:08:00 16:08:00 [place] [address] [facility] 2018-03-12 2018-03-12 Outpatient [facility] [id number] Common 12:11:00 12:11:00 [place] [address] [facility] 2018-02-13 2018-02-13 Outpatient Mark Anaya [id number] Common 15:10:00 15:10:00 [place] [address] [facility] 2018-02-11 2018-02-11 Outpatient Mark Anaya [id number] Common 11:00:00 11:00:00 [place] [address] [facility] 2018-02-09 2018-02-09 Outpatient Mark Anaya [id number] Common 14:45:00 14:45:00 [place] [address] [facility] 2008-02-04 2008-02-04 Outpatient R [facility] [id number] Univers 00:00:00 16:52:01 2 [facility] Results Test Description Test Time Test Comments Results Result Comments Source B-TYPE NATRIURETIC FACTOR (BNP) 2023-06-22 20:00:34 Test Item Value Reference Range Interpretation Comme nts B-TYPE NATRIURETIC PEPTIDE (BEAKER) (test code = 700) 79 pg/mL 0-100 Lead Software Developer ID - ADMINHIGH SENSITIVITY TROPONIN [id number] 20:00:12 Test Item Value Reference Range Interpretation Comments HIGH SENSITIVITY TROPONIN I (test 4 pg/ml <=35 code = 5365401) Lead Software Developer ID - ADMINThe ROLL ICER MACHINE STAT High Sensitivity Troponin-I results should be used in conjunction with other diagnostic information such as ECG, clinical observations and information, and patientsymptoms to aid in the diagnosis of SD. COMPREHENSIVE METABOLIC [id number] 19:53:41 Test Item Value Reference Range Interpretation Comments TOTAL PROTEIN 7.2 gm/dL 6.0-8.3 (BEAKER) (test code = 770) ALBUMIN (BEAKER) 4.0 g/dL 3.5-5.0 (test code = 1145) ALKALINE 85 U/L 40-150 PHOSPHATASE (BEAKER) (test code = 346) BILIRUBIN TOTAL 0.4 mg/dL 0.2-1.2 (BEAKER) (test code = 377) SODIUM (BEAKER) 133 meq/L 136-145 L (test code = 381) POTASSIUM (BEAKER) 4.1 meq/L 3.5-5.1 (test code = 379) CHLORIDE (BEAKER) 102 meq/L 98-107 (test code = 382) CO2 (BEAKER) (test 23 meq/L 22-29 code = 355) BLOOD UREA 25 mg/dL 7-21 H NITROGEN (BEAKER) (test code = 354) CREATININE 1.08 mg/dL 0.57-1.25 (BEAKER) (test code = 358) GLUCOSE RANDOM 294 mg/dL 70-105 H (BEAKER) (test code = 652) CALCIUM (BEAKER) 9.6 mg/dL 8.4-10.2 (test code = 697) AST (SGOT) 18 U/L 5-34 (BEAKER) (test code = 353) ALT (SGPT) 13 U/L 6-55 (BEAKER) (test code = 347) EGFR (BEAKER) 69 Interpretatio n of eGFR (test code = 1092) mL/min/1.[address] age Description sq m Result G1 Nadiya l or high >=90 G2 Mildly decreased 60-89 G3a Mildl y to moderately 45-5 9 G3b Moderately to s everely 30-44 G4 Severl y decreased 15-29 G5 Kidney failure <15Reported eGF R is based on the CKD-EPI 2020 equation that d oes not use a race coefficientEsti mated GFR is not as accur ate as Creatinine Micheline chauncey in predicting glom erular filtration rate . Estimated GFR is not appl icable for dialysis patien ts Lead Software Developer ID - ADMINCBC W/PLT COUNT & AUTO [id number] 19:29:02 Test Item Value Reference Range Interpretation Comments WHITE BLOOD CELL COUNT (BEAKER) 5.4 K/ L 3.5-10.5 (test code = 775) RED BLOOD CELL COUNT (BEAKER) 3.52 M/ L 4.63-6.08 L (test code = 761) HEMOGLOBIN (BEAKER) (test code = 11.4 GM/DL 13.7-17.5 L 410) HEMATOCRIT (BEAKER) (test code = 33.3 % 40.1-51.0 L 411) MEAN CORPUSCULAR VOLUME (BEAKER) 95 fL 79-92 H (test code = 753) MEAN CORPUSCULAR HEMOGLOBIN 32.4 pg 25.7-32.2 H (BEAKER) (test code = 751) MEAN CORPUSCULAR HEMOGLOBIN CONC 34.2 GM/DL 32.3-36.5 (BEAKER) (test code = 752) RED CELL DISTRIBUTION WIDTH 12.5 % 11.6-14.4 (BEAKER) (test code = 412) PLATELET COUNT (BEAKER) (test 162 K/CU MM 150-450 code = 756) MEAN PLATELET VOLUME (BEAKER) 10.1 fL 9.4-12.4 (test code = 754) NUCLEATED RED BLOOD CELLS 0 /100 WBC 0-0 (BEAKER) (test code = 413) NEUTROPHILS RELATIVE PERCENT 60 % (BEAKER) (test code = 429) LYMPHOCYTES RELATIVE PERCENT 26 % (BEAKER) (test code = 430) MONOCYTES RELATIVE PERCENT 8 % (BEAKER) (test code = 431) EOSINOPHILS RELATIVE PERCENT 4 % (BEAKER) (test code = 432) BASOPHILS RELATIVE PERCENT 1 % (BEAKER) (test code = 437) NEUTROPHILS ABSOLUTE COUNT 3.26 K/ L 1.78-5.38 (BEAKER) (test code = 670) LYMPHOCYTES ABSOLUTE COUNT 1.42 K/ L 1.32-3.57 (BEAKER) (test code = 414) MONOCYTES ABSOLUTE COUNT (BEAKER) 0.45 K/ L 0.30-0.82 (test code = 415) EOSINOPHILS ABSOLUTE COUNT 0.22 K/ L 0.04-0.54 (BEAKER) (test code = 416) BASOPHILS ABSOLUTE COUNT (BEAKER) 0.04 K/ L 0.01-0.08 (test code = 417) IMMATURE GRANULOCYTES-RELATIVE 0.20 % 0.00-1.00 PERCENT (BEAKER) (test code = 2801) XR CHEST 2 [id number] 19:09:15 [facility] 1940 Sex: MTECHNIQUE: Frontal and lateral views of the chest.INDICATION: CHEST PAINGENERALIZED WEAKNESS, NOT ASSOCIATEDWITH EXTREMITIESCOMPARISON: 11/02/2021FINDINGS:LINES/TUBES: None.LUNGS: The lungs are well inflated and clear. No consolidation orpulmonary edema.PLEURA: No pleural effusion or pneumothorax.HEART AND MEDIASTINUM: The cardiomediastinal contour stable.Atherosclerotic calcifications are present within the arch of the aorta.Prior median sternotomy. Dual chamber pacer/ICD device with electrodesprojecting over the right atrium and right ventricle, as before.SOFT TISSUES AND BONES: Unremarkable.IMPRESSION:No acute cardiopulmonary process.Electronically Signed By: Mikal Beckman06/22/2023 19:11 CDTWork station Name: [id number] DENA BARRERA [id number] 18:00:19 Test Item Value Reference Range Interpretation Comments APTT Patient (test See_Comment [Automat ed code = 3173-2) message] The system which generated this result transmitted reference range : 23 - 38 Seconds . The reference range was not used to interpr et this result as normal/abnormal . ELVIN (test code = ELVIN) The [facility] patient population mean normal value for aPTT is 30 seconds. Lab Interpretation Normal (test code = 06021-7) [facility]PROTHROM[facility] / [id number] 17:58:18 Test Item Value Reference Range Interpretation [...] tions. Lab Interpretation (test Normal code = 81228-2) [facility] PasoCBC WITH [id number] 17:49:59 Test Item Value Reference Range Interpretation [...] RDW-SD (test code = 40.6 fL 38.5-51.6 09300-3) RDW-CV (test code = 11.8 % 12.1-15.4 L 788-0) PLT (test code = See_Comment [Automated 777-3) message] The sy stem which generated this result transmitted reference range : 150 - 328 10*3/ ?L. The reference r frantz was not used to interpret this result as normal/abnormal . MPV (test code = 9.6 fL 9.8-13.0 L 46589-6) NRBC/100 WBC (test See_Comment [Automat ed code = 6810938932) message] The system which generated this result transmitted reference range : 0.0 - 10.0 /100 WBCs. The refer ence range was not u sed to interpret th is result as normal/abnormal . NRBC x10^3 (test code See_Comment [Auto mated = 0995116154) message] The s ystem which generated this result transmitted reference range : 10*3/?L. The reference range was not used to interpret this result as normal/abnormal . GRAN MAT (NEUT) % 66.0 % (test code = 770-8) IMM GRAN % (test code 0.30 % = 2669148989) LYMPH % (test code = 19.7 % 736-9) MONO % (test code = 8.3 % 5905-5) EOS % (test code = 5.0 % 713-8) BASO % (test code = 0.7 % 706-2) GRAN MAT x10^3(ANC) 4.81 10*3/uL 1.99-6.95 (test code = 9296120587) IMM GRAN x10^3 (test 0.00-0.06 code = 3382396725) LYMPH x10^3 (test code 1.43 10*3/uL 1.09-3.23 = 731-0) MONO x10^3 (test code 0.60 10*3/uL 0.36-1.02 = 742-7) EOS x10^3 (test code = 0.36 10*3/uL 0.06-0.53 711-2) BASO x10^3 (test code 0.05 10*3/uL 0.01-0.09 = 704-7) Lab Interpretation Abnormal (test code = 50055-9) [facility] PasoGLUBED2022-01-17 13:47:00 Test Item Value Reference Range Interpretation Comments GLUBED (test code = GLUBED) 104 MG/DL 70-105 N [id number] 09:13:00 Test Item Value Reference Range Interpretation Comments GLUBED (test code = GLUBED) 92 MG/DL 70-105 N Novel Coronavirus 2018 [id number] 10:25:00 Test Item Value Reference Range Interpretation [...] det ection of nucleic acids f rom qkaJHXS-InV-5 v irus and diagnosis of SA RS-CoV-2 virusinfection. It is an Emergency Use Authorization ( EUA) testauthorized by the U.S. FDA. First test? UnknownEmployed in Healthcare? UnknownSymptomatic as defined by CDC? UnknownHospitalizeddue to COVID? UnknownIn ICU due to COVID? UnknownResident in a congregate care setting? Unknown? NoAge at collection: Kacie Coronavirus 2019 [id number] 10:24:00 Test Item Value Reference Range Interpretation [...] det ection of nucleic acids f rom rplWIMI-JiM-6 v irus and diagnosis of SA RS-CoV-2 virusinfection. It is an Emergency Use Authorization ( EUA) testauthorized by the U.S. FDA. First test? UnknownEmployed in Healthcare? UnknownSymptomatic as defined by CDC? UnknownHospitalizeddue to COVID? UnknownIn ICU due to COVID? UnknownResident in a congregate care setting? Unknown? NoAge at collection: YCOMPREHENSIVE METABOLIC [id number] 15:29:00 Test Item Value Reference Range Interpretation [...] Feb code = ALKP) 2020 CBC W/AUTO [id number] 15:04:00 Test Item Value Reference Range Interpretation [...] BA#) 0.04 x10 3/uL 0.0-0.20 N POCT-GLUCOSE [id number] 08:39:09 Test Item Value Reference Range Interpretation Comments POC-GLUCOSE METER 128 mg/dL 70-110 H : Notified RN/MD: (BEAKER) (test code = TESTED AT [facility] 5515 9645) [place] [facility], [address]: Lead Software Developer/Techni geraldo ID = [id number] for Gilbert (contract)Jorge L BASIC METABOLIC [id number] 08:35:28 Test Item Value Reference Range Interpretation [...] S NOT APPLICABLE FOR DIALYSIS PATIEN TS. Lead Software Developer ID - VELMA WCBC W/PLT COUNT & AUTO [id number] 06:01:57 Test Item Value Reference Range Interpretation [...] PERCENT (BEAKER) (test code = 2801) POCT-GLUCOSE [id number] 20:35:08 Test Item Value Reference Range Interpretation Comments POC-GLUCOSE METER 194 mg/dL 70-110 H : TESTED A T [facility] 6720 (BEAKER) (test code = [place], 1538) [address]: Lead Software Developer/Techni geraldo ID = [id number] for CR ISEMANUEL, TIA POCT-GLUCOSE [id number] 17:47:33 Test Item Value Reference Range Interpretation Comments POC-GLUCOSE METER 166 mg/dL 70-110 H : TESTED A T [facility] 6720 (BEAKER) (test code = [facility], 1538) [address]: Lead Software Developer/Techni geraldo ID = [id number] for WI LLIS, MICKEY POCT-GLUCOSE [id number] 13:13:06 Test Item Value Reference Range Interpretation Comments POC-GLUCOSE METER 121 mg/dL 70-110 H : TESTED A T [facility] 6720 (BEAKER) (test code = [facility], 1538) [address]: Lead Software Developer/Techni geraldo ID = [id number] for [place] LLIS, MICKEY POCT-GLUCOSE [id number] 08:54:04 Test Item Value Reference Range Interpretation Comments POC-GLUCOSE METER 106 mg/dL 70-110 : TESTED A T [facility] 6720 (BEAKER) (test code = [facility], 1538) [address]: Lead Software Developer/Techni geraldo ID = [id number] for WI LLIS, MICKEY CBC W/PLT COUNT & AUTO [id number] 07:33:32 Test Item Value Reference Range Interpretation [...] (BEAKER) (test code = 2801) BASIC METABOLIC [id number] 06:54:12 Test Item Value Reference Range Interpretation [...] S NOT APPLICABLE FOR DIALYSIS PATIEN TS. Lead Software Developer ID - CARINA MPOCT-GLUCOSE [id number] 01:25:30 Test Item Value Reference Range Interpretation Comments POC-GLUCOSE METER 159 mg/dL 70-110 H : TESTED A T 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 Small focus of encephalomalacia in the [...] is recommended for further characterization. Signed: Roslyn Campuzanoepelenita Verified Date/Time: 11/02/2021 20:21:46 SARS-COV2/RT-PCR ([facility])2021-11-02 17:14:44 Test Item Value Reference Range Interpretation Comments SARS-COV2/RT-PCR Negative Negative The SARS-Co V-2 target (test code = nucleic acids a re not 8730095) detected in thi s specimen. Negative result [...] revoked sooner. Fact Sheet for Healthcare Providers: https://www.cepheid.co m/Documents/Xpert%20Xpress%20SARS%20CoV-2/Fact%20Sheets/302-3802%55IEXG-VKR-0%20 HEALTHCARE%20PROVIDERS%20FACT%20SHEET.pdf Fact Sheet for Healthcare Patients: https://www.Priztag/Documents/Xpert%20Xp ress%20SARS%20CoV-2/Fact%20Sheets/302-3801%57UNIH-KFW-8%20PATIENT%20FACT%20SHEET .pdfHIGH SENSITIVITY TROPONIN [id number] 16:26:23 Test Item Value Reference Range Interpretation Comments HIGH SENSITIVITY 5 pg/ml See_Comment [Automated message] TROPONIN I (test code = The system which 1584838) generated this result transmitted ref erence range: <=35. Th e reference range was not used to interpr et this result as normal/abnormal . Lead Software Developer ID - ZOHREH GThe ROLL ICER MACHINE STAT High Sensitivity Troponin-I results should be used in conjunction with other diagnostic information such as ECG, clinical observations and information, and patient symptoms to aid in the diagnosis of SD.BASIC METABOLIC [id number] 16:18:56 Test Item Value Reference Range Interpretation [...] S NOT APPLICABLE FOR DIALYSIS PATIEN TS. Lead Software Developer ID - ZOHREH GCBC W/PLT COUNT & AUTO [id number] 15:59:35 Test Item Value Reference Range Interpretation [...] = 2801) RAD, CHEST, 1 VIEW, NON [id number] 14:38:00Reason for exam:- >DIZZINESSShould this be performed at the bedside?->Yes [facility] 1940 Sex: MFINAL REPORT INDICATION: DIZZINESS COMPARISON: December 14, 2020 TECHNIQUE: Single frontal view of the chest. FINDINGS: Lungs and pleura: Clear lungs. No effusion.Heart and mediastinum: Normal heart size. Stable surgical changes. Stable pacer apparatus.Osseous structures: No acute abnormality.Other: None. IMPRESSION: No acute intrathoracic abnormality. Signed: JR Nemwan Robert MDReport Verified Date/Time: 11/02/2021 14:38:09 Reading Location: [facility] Radiology Reading Room POCT-GLUCOSE [id number] 08:41:00 Test Item Value Reference Range Interpretation Comments POC-GLUCOSE METER 139 mg/dL 70-110 H : TESTED A T [facility] 6720 (BEAKER) (test code = MARIA EMARCOS [place], 1538) [address]: Lead Software Developer/Techni geraldo ID = [id number] for SULMA KEVINANAM BASIC METABOLIC [id number] 06:25:00 Test Item Value Reference Range Interpretation [...] 1092) DATA TO CALCULA TE ESTIMATED GFR. Lead Software Developer ID - EDASICBC (HEMOGRAM ONLY)2020-12-17 05:39:00 Test [...] 0-0 (BEAKER) (test code = 413) POCT-GLUCOSE [id number] 22:13:00 Test Item Value Reference Range Interpretation Comments POC-GLUCOSE METER 119 mg/dL 70-110 H : TESTED Gera Hinton [facility] 6720 (BEAKER) (test code = [facility] Jarod [facility], 1538) [address]: Lead Software Developer/Techni geraldo ID = [id number] for Nuria Cisse POCT-GLUCOSE [id number] 17:36:00 Test Item Value Reference Range Interpretation Comments POC-GLUCOSE METER 251 mg/dL 70-110 H : TESTED A T [facility] 6720 (BEAKER) (test code = [facility], 1538) [address]: Lead Software Developer/Techni geraldo ID = [id number] for SULMA HN, ANAM VITAMIN D, 65-[id number] 09:24:00 Test Item Value Reference Range Interpretation Comments VITAMIN D 25-OH (BEAKER) (test 21.5 ng/mL 6.6-49.9 code = 2764) Effective 09/03/2017: Reference Range ChangeNew: 6.6-49.9 ng/mL Previous: 13.0- 47.8 ng/mLRecommendedVitamin D Target Range: 30.0-40.0 ng/mLOperator ID - CARINA M POCT-GLUCOSE [id number] 07:53:00 Test Item Value Reference Range Interpretation Comments POC-GLUCOSE METER 180 mg/dL 70-110 H : TESTED A T [facility] 6720 (BEAKER) (test code = [facility], 1538) [address]: Lead Software Developer/Techni geraldo ID = [id number] for SULMA BROWN, ANAM TSH/FREE T4 IF [id number] 06:58:00 Test Item Value Reference Range Interpretation Comments THYROID STIMULATING HORMONE 1.669 uIU/mL 0.350-4.940 (BEAKER) (test code = 772) Lead Software Developer ID - ADMINVITAMIN B12 AND [id number] 06:58:00 Test Item Value Reference Range Interpretation Comments VITAMIN B12 (BEAKER) (test code = 811 pg/mL 213816 774) FOLATE (BEAKER) (test code = 362) 15.60 ng/mL >=7.00 Lead Software Developer ID - ADMINBASIC METABOLIC [id number] 06:21:00 Test Item Value Reference Range Interpretation [...] 1092) DATA TO CALCULA TE ESTIMATED GFR. Lead Software Developer ID - ADMINCBC (HEMOGRAM ONLY)2020-12-16 05:30:00 Test [...] 0-0 (BEAKER) (test code = 413) POCT-GLUCOSE [id number] 21:44:00 Test Item Value Reference Range Interpretation Comments POC-GLUCOSE METER 295 mg/dL 70-110 H : TESTED A T [facility] 6720 (Litbloc) (test code [facility], = 1538) [address]: Lead Software Developer/Techni geraldo ID = [id number] for Drea Bragg POCT-GLUCOSE [id number] 17:47:00 Test Item Value Reference Range Interpretation Comments POC-GLUCOSE METER 276 mg/dL 70-110 H : [facility] T [facility] 6720 [facility] (test code = ROYAL Olivera [facility], 1538) [address]: Lead Software Developer/Techni geraldo ID = [id number] for Kristina Ayala PET/CT, CARDIAC PERF REST AND [id number] 16:04:00Reason for exam:- >GENERALIZED WEAKNESS, NOT ASSOCIATED WITH EXTREMITIESReason for exam:->DIZZINESSReason for exam:->CHEST PAIN [facility] : 1940 Sex: MAddendum BeginsREPORT STATUS:A 2. Abnormal myocardial perfusion. There is a large partially reversible perfusion defect involving the apex, apical inferior and basal anterolateral as well as basal inferolateral segments. Signed: Preston Hicks MDReport Verified Date/Time: 12/15/2020 16:04:49 Reading Location: [address] Reading RoomAddendum EndsFINAL REPORT PROCEDURE: MYOCARDIAL PERFUSION PET/CT IMAGING (Rest/Stress)CPT CODE: 38396 INDICATION: Evaluatechest pain CARDIOVASCULAR PROFILE:CAD History: Known CADSymptoms: Chest painRisk Factors: Diabetes, h ypertension, hyperlipidemia, strokeBMI: 22.1Medications: Crestor, Plavix, metoprolol STRESS PROTOCOL:Pharmacologic stress was achieved with a 10-second intravenous infusion of regadenoson 0.4 mg. The radiopharmaceutical was administered 30 seconds after the start of the regadenoson infusion. IMAGING DE OTOCOL:Limited low-dose CT imaging was performed for [...] MDReport Verified Date/Time: 12/15/2020 15:38:59 Reading Location: [address] Reading Room Electronically signed by: Mack GARCIA 12/15/2020 04:04 PMPOCT-GLUCOSE [id number] 13:05:00 Test Item Value Reference Range Interpretation Comments POC-GLUCOSE METER 232 mg/dL 70-110 H : TESTED A T [facility] 6720 (BEHOLLIE) (test code = [place], 1538) [address]: Lead Software Developer/Techni geraldo ID = [id number] for Kristina Ayala POCT-GLUCOSE [id number] 08:26:00 Test Item Value Reference Range Interpretation Comments POC-GLUCOSE METER 155 mg/dL 70-110 H : TESTED A T [facility] 6720 (BEHOLLIE) (test code = ROYAL Olivera [facility], 1538) [address]: Lead Software Developer/Techni geraldo ID = [id number] for SELENE ARRINGTON HEMOGLOBIN [id number] 08:15:00 Test Item Value Reference Range Interpretation Comments HEMOGLOBIN A1C (NEFTALI) (test code = 9.0 % 4.3-6.1 H 368) SARS-COV2/RT-PCR ([facility])2020-12-15 07:09:00 Test Item Value Reference Range Interpretation Comments SARS-COV2/RT-PCR (test Negative Not Detected, Negative, code = 1991467) See external report for linked test SARS-COV-2 PERFORMING LAB [facility] (test code = 3937013) Negative result for this test determines that [...] the Mancia SARS-CoV-2 assay.Fact Sheet for Healthcare Providers:https://www.[employer].Piper/do/RT_SAR P-KxY-6_VVB_Noha_Xfbqm_38-002165.pdfFact Sheet for Healthcare Patients:https://www.[employer].Piper/s al/TO_KCUD-DwV-2_Nkfryrn_Yvyv_Jrcjn_CB_73-210635X3.pdfPerforming Laboratory:[place] [address] [place] [address] BASIC METABOLIC [id number] 05:58:00 Test Item Value Reference Range Interpretation [...] 1092) DATA TO CALCULA TE ESTIMATED GFR. Lead Software Developer ID - PIAYA LLIPID [id number] 05:56:00 Test Item Value Reference Range Interpretation [...] Borderline 130-159 High 160-189 Very High >=190 Lead Software Developer ID Eve SYED LHEPATIC FUNCTION [id number] 05:56:00 Test Item Value Reference Range Interpretation [...] (test code = 12 U/L 6-55 347) Lead Software Developer ID - KUNAL LTROPONIN [id number] 05:19:00 Test Item Value Reference Range Interpretation [...] failure, acidosis, acute neurological disease, and persistent tachyarrhythmia.Lead Software Developer ID - KUNAL LCBC (HEMOGRAM ONLY) 2020-12-15 04:55:00 Test Item [...] 0-0 (BEAKER) (test code = 413) TROPONIN [id number] 23:58:00 Test Item Value Reference Range Interpretation [...] failure, acidosis, acute neurological disease, and persistent tachyarrhythmia.Lead Software Developer ID - PIAYA LPOCT-GLUCOSE METER 2020-12-14 20:52:00 Test Item Value Reference Range Interpretation Comments POC-GLUCOSE METER 312 mg/dL 70-110 H : TESTED A T [facility] 6720 (BEAKER) (test code = [place], 1538) [address]: Lead Software Developer/Techni geraldo ID = [id number] for FABIO MARIN B-TYPE NATRIURETIC FACTOR (BNP)2020-12-14 15:03:00 Test Item Value Reference Range Interpretation Comments B-TYPE NATRIURETIC PEPTIDE (BEAKER) 128 pg/mL 0-100 H (test code = 700) Lead Software Developer ID - CARINA MTROPONIN [id number] 15:02:00 Test Item Value Reference Range Interpretation [...] failure, acidosis, acute neurological disease, and persistent tachyarrhythmia.Lead Software Developer ID - CARINA MBASIC METABOLIC [id number] 14:56:00 Test Item Value Reference Range Interpretation [...] 1092) DATA TO CALCULA TE ESTIMATED GFR. Lead Software Developer ID - CARINA MPT/[id number] 14:40:00 Test Item Value Reference Range Interpretation [...] mechanical heart valves.CBC W/PLT COUNT & AUTO [id number] 14:35:00 Test Item Value Reference Range Interpretation [...] (test code = 2801) RAD, CHEST, 2 [id number] 13:56:00Reason for exam:->chest pain [facility] : 1940 Sex: MFINAL REPORT RAD, CHEST, 2 VIEWS INDICATION: chest pain COMPARISON: None FINDINGS: Portable frontal view of the chest. IMPRESSION: Support Lines: Pacer device. Lungs and pleura: Lungs are clear No pneumothorax.Heart and mediastinum: Normal contours.Additional findings: None. Signed: Herminia Bonds Verified Date/Time: 12/14/2020 13:56:48 Reading Location: [facility] RadiologyReading Room Notes Date/Time Note Provider Source 2021-12-10 09:37:00-00:00 [id number] [address] PATIENT NAME: JULIANA BALLARD ADMIT DATE: ACCOUNT NO: [id number] ROOM NO: AGE: 81 REPORT TYPE: eELECTROCARDIOGRAM SEX: M ADMITTING PHYSICIAN: ATTENDING PHYSICIAN: Prakash Antonio MD Order: [id number] Test Reason : S/P ablation Test Date/Time [...] ECGs available Confirmed by BALBIR LYNCH MD ([id number]) on 12/11/19 5:54:29 PM Referred By: Prakash Antonio Confirmed by:BALBIR LYNCH MD Electronically Signed by Balbir Lynch MD on at 8597 PATIENT NAME: JULIANA BALLARD ACCOUNT #: [id number]
[2023-06-24 14:27] LABS: Absolute Lymphocytes (CBC) 1.4 K/uL (0.7-4.9); Hematocrit 35.4 % (39.6-49.0); Lymphocytes % 22.5 % (15.3-44.8); MCV 95.6 fL (80-100); MPV 8.1 fL (7.6-11.3); RBC Red Blood Cell Count 3.71 M/uL (4.33-5.43)
[2023-06-24 14:33] LABS: Protime INR 1.08
[2023-06-24] MEDS ORDERED: NA CHLORIDE 0.9% 1,000 ML ONE (14:37)
[2023-06-24 14:44] LABS: Albumin 3.7 g/dL (3.4-5.0); Bilirubin Direct 0.2 mg/dL (0-0.2); Bilirubin Indirect, Calculated 0.3 mg/dL (0.2-0.8); Bilirubin Total 0.5 mg/dL (0.2-1.0); Magnesium 2.2 mg/dL (1.6-2.4); Potassium 3.9 mEq/L (3.5-5.1); Protein, Total 7.3 g/dL (6.4-8.2); Troponin High Sensitivity 8.7 pg/mL (<58.9)
[2023-06-24 14:59] LABS: Calcium Oxalate Crystals- Ur Few /HPF (None Seen); Specific Gravity 1.025 (1.005-1.030); Urine Bacteria None Seen /HPF (<20); Urine Bilirubin NEGATIVE (Negative); Urine Blood Negative (Negative); Urine Clarity Clear (Clear); Urine Color Light-Yellow (Yellow); Urine Glucose 4+ (Over) (Negative); Urine Mucus Slight /HPF (None Seen); Urine Protein TRACE (Negative); Urine RBC <5 /HPF (None Seen); Urine Urobilinogen Normal (Normal)
--- NOTE | 2023-06-24 15:14 | RAD REPORT ---
EXAM DESCRIPTION: CT - Head Brain Wo Cont - 06/24/2023 3:00 pm CLINICAL HISTORY: Dizziness COMPARISON: 2021 TECHNIQUE: Computed axial tomography of the head was obtained. IV contrast was not requested. All CT scans are performed using dose optimization technique as appropriate and may include automated exposure control or mA/KV adjustment according to patient size. FINDINGS: An intracranial bleed is not seen The ventricles are normal in caliber No extra-axial fluid collection is noted. Left frontal and left occipital encephalomalacia unchanged Fluid within the sinuses/ mastoids is not seen. IMPRESSION: No acute intracranial abnormality is seen If patient's symptoms persist MRI of the brain would be recommended
--- NOTE | 2023-06-24 15:21 | RAD REPORT ---
EXAM DESCRIPTION: CT - Chest For Pe Angio - 06/24/2023 3:00 pm CLINICAL HISTORY: Chest pain COMPARISON: 2018 TECHNIQUE: Dynamically enhanced axial 3 mm thick images of the chest were obtained during administra tion of 100 mL Isovue 370 IV contrast. Coronal and oblique reconstruction images were generated and r eviewed. Exam utilizes a protocol for optimal evaluation of pulmonary arterial tree. Maximum intensity projections 3D imaging was utilized All CT scans are performed using dose optimization technique as appropriate and may include automated exposure control or mA/KV adjustment according to patient size. FINDINGS: A pulmonary embolus is not seen. A thoracic aortic aneurysm is not noted. A pleural effusion is not seen. A pericardial effusion is not seen. A lung consolidation is not present. Chronic appearing pulmonary opacities bilaterally. Small stable left upper lobe nodule benign Cholelithiasis IMPRESSION: Negative for a pulmonary embolism. Cholelithiasis
--- NOTE | 2023-06-24 15:37 | ER ---
Nurse's Notes [facility] Name: Sandoval Hoffman Jr Age: 83 yrs Sex: Male : 1940 Arrival Date: 06/24/2023 Time: 13:51 Bed 3 Private MD: Diagnosis: Chest pain, unspecified;Other cholelithiasis without obstruction;Dehydration;Hyperglycemia, unspecified Presentation: 06/24 14:07 Chief complaint: Patient's son or daughter states: pt has had chest pain onset Friday cm10 that woke him from his sleep. Daughter states that pt was seen at [facility] on Friday for the same issue but did not address the dizziness and confusion that he has had. Coronavirus screen: Client denies travel out of the [place] in the last 14 days. Ebola Screen: No symptoms or risks identified at this time. Initial Sepsis Screen: Does the patient meet any 2 criteria? No. Patient's initial sepsis screen is negative. Does the patient have a suspected source of infection? No. Patient's initial sepsis screen is negative. Risk Assessment: Do you want to hurt yourself or someone else? Patient reports no desire to harm self or others. Onset of symptoms was June 24, 2023. 14:07 Method Of Arrival: Wheelchair cm10 14:07 Acuity: FORREST 2 cm10 Historical: - Allergies: 14:06 NKDA; cm10 14:06 shrimp; cm10 - Home Meds: 14:09 Tresiba FlexTouch U-100 subcutaneous 6 units [Active]; rosuvastatin 20 mg oral tablet cm10 [Active]; omeprazole 40 mg Oral capsule,delayed release (e.c.) once [Active]; aspirin 81 mg oral tablet,chewable [Active]; Restasis ophthalmic (eye) [Active]; Januvia 100 mg oral tablet [Active]; Lactulose Oral [Active]; Lumigan ophthalmic (eye) [Active]; - PMHx: 14:06 Alzheimer's disease; CVA; Diabetes - NIDDM; GERD; heart disease; Hypertension; cm10 - PSHx: 14:06 Heart Stents; pacemaker; [employer]; open heart; Skin grafting; cm10 - Immunization history:: Adult Immunizations unknown. - Social history:: Smoking status: Patient denies any tobacco usage or history of. - Family history:: not pertinent. - Hospitalizations: : No recent hospitalization is reported. Screenin:00 [facility] ED Fall Risk Assessment (Adult) History of falling in the last 3 months, aa5 including since admission No falls in past 3 months (0 pts) Confusion or Disorientation Yes (5 pts) Intoxicated or Sedated No (0 pts) Impaired Gait Yes (1 pt) Mobility Assist Device Used Yes (1 pt) Altered Elimination No (0 pt) Score/Fall Risk Level 3 or more points = High Risk Oriented to surroundings, Maintained a safe environment, Educated pt \T\ family on fall prevention, incl call for assistance when getting out of bed, Utilized family, sitter, or virtual conservation specialist as indicated. Abuse screen: Denies threats or abuse. Nutritional screening: No deficits noted. Tuberculosis screening: No symptoms or risk factors identified. Assessment: 14:00 General: Appears comfortable, Behavior is calm, cooperative. Pain: Complains of pain in aa5 chest Pain currently is 0 out of 10 on a pain scale. Pain began 2-3 days ago. Is episodic. Neuro: Level of Consciousness is awake, alert, obeys commands, Oriented to person, place, situation, Reports intermittent dizziness with movement, currently denies dizziness. . Cardiovascular: Heart tones S1 S2 present Rhythm is regular. Respiratory: Airway is patent Respiratory effort is even, unlabored, Respiratory pattern is regular, symmetrical. GI: Patient currently denies diarrhea, nausea, vomiting, Parent/caregiver reports the patient having tolerance of food, tolerance of fluids. : No signs and/or symptoms were reported regarding the genitourinary system. EENT: No signs and/or symptoms were reported regarding the EENT system. Derm: Skin is pink, warm \T\ dry. Musculoskeletal: Range of motion: intact in all extremities. 14:32 Reassessment: Pt c/o chest pressure that lasted a few seconds. MD was notified. Pt's aa5 daughters notified that MD is aware. . 15:25 Reassessment: Dr. Brewer at bedside . aa5 Vital Signs: 14:07 BP 155 / 67; Pulse 69; Resp 18; Temp 98; Pulse Ox 98% on R/A; Pain 0/10; cm10 14:34 BP 130 / 68; Pulse 62; Resp 15 S; Pulse Ox 100% on R/A; aa5 14:07 Pain Scale: Adult cm10 ED Course: 13:53 Patient arrived in ED. rg4 13:58 Joseph Brewer MD is Attending Physician. rn 14:06 Kim Concepcion, RN is Primary Nurse. aa5 14:09 Triage completed. cm10 14:09 Arm band placed on Patient placed in an exam room, on a stretcher. cm10 14:10 Initial lab(s) drawn, by me, sent to lab. Inserted saline lock: 20 gauge in right aa5 forearm, using aseptic technique. Blood collected. 15:01 CT Head Brain wo Cont In Process Unspecified. EDMS 15:01 CT Chest For PE Angio In Process Unspecified. EDMS 15:28 Chest Single View XRAY In Process Unspecified. EDMS Administered Medications: 14:33 Drug: NS 0.9% IV 500 ml Route: IV; Rate: bolus; Site: right forearm; aa5 15:15 Follow up: IV Status: Completed infusion; IV Intake: 500ml aa5 15:20 Drug: NS 0.9% IV 500 ml Route: IV; Rate: bolus; Site: right forearm; aa5 16:19 Follow up: IV Status: Completed infusion; IV Intake: 500ml aa5 Intake: 15:15 IV: 500ml; Total: 500ml. aa5 16:19 IV: 500ml; Total: 1000ml. aa5 Outcome: 15:36 Discharge ordered by . rn 16:40 Patient left the ED. rn Signatures: Dispatcher [employer] EDMS Joseph Brewer MD MD rn Calderon, Audri, ENEDINA RN aa5 Diana Lynch rg4 Kanchan Leonard, ENEDINA RN 10 Corrections: (The following items were deleted from the chart) 15:27 14:00 Neuro: Level of Consciousness is awake, alert, obeys commands, Oriented to aa5 person, place, situation, aa5
--- NOTE | 2023-06-24 15:37 | EDPHYS ---
Physician Documentation [facility] Name: Sandoval Hoffman Jr Age: 83 yrs Sex: Male : 1940 Arrival Date: 06/24/2023 Time: 13:51 Bed 3 Private MD: ED Physician Joseph Brewer HPI: 06/24 14:27 This 83 yrs old Male presents to ER via Wheelchair with complaints of rn Weakness, Dizziness, Chest Pain. 14:27 The patient presents to the emergency department with weakness of the entire body, rn generalized weakness. Onset: The symptoms/episode began/occurred 4 day(s) ago. Associated signs and symptoms: Pertinent positives: dizziness, weakness, Pertinent negatives: fever, seizure, syncope. Severity of symptoms: At their worst the symptoms were moderate in the emergency department the symptoms are unchanged. The patient has not experienced similar symptoms in the past. The patient has been recently seen by a physician:. Daughter reports patient began to experience chest pain, dizziness, generalized weakness on Friday, seen on Friday at [facility] ER, discharged, and still doesn't feel well so came in. NO head injury. No fever. No vomiting/diarrhea. . Historical: - Allergies: 14:06 NKDA; cm10 14:06 shrimp; cm10 - Home Meds: 14:09 Tresiba FlexTouch U-100 subcutaneous 6 units [Active]; rosuvastatin 20 mg oral tablet cm10 [Active]; omeprazole 40 mg Oral capsule,delayed release (e.c.) once [Active]; aspirin 81 mg oral tablet,chewable [Active]; Restasis ophthalmic (eye) [Active]; Januvia 100 mg oral tablet [Active]; Lactulose Oral [Active]; Lumigan ophthalmic (eye) [Active]; - PMHx: 14:06 Alzheimer's disease; CVA; Diabetes - NIDDM; GERD; heart disease; Hypertension; cm10 - PSHx: 14:06 Heart Stents; pacemaker; [employer]; open heart; Skin grafting; cm10 - Immunization history:: Adult Immunizations unknown. - Social history:: Smoking status: Patient denies any tobacco usage or history of. - Family history:: not pertinent. - Hospitalizations: : No recent hospitalization is reported. ROS: 14:27 Constitutional: Negative for fever, chills, and weight loss, Cardiovascular: Negative rn for palpitations, and edema Respiratory: Negative for shortness of breath, cough, wheezing, and pleuritic chest pain Abdomen/GI: Negative for abdominal pain, diarrhea, and constipation, MS/Extremity: Negative for injury and deformity, Skin: Negative for injury, rash, and discoloration, Neuro: Negative for headache, numbness, tingling, and seizure. Exam: 14:27 Constitutional: This is a well developed, well nourished patient who is awake, alert, rn and in no acute distress. Head/Face: Normocephalic, atraumatic. ENT: dry MM Cardiovascular: Regular rate and rhythm. No pulse deficits. Respiratory: No increased work of breathing, no retractions or nasal flaring. Abdomen/GI: Soft, non-tender Skin: Warm, dry MS/ Extremity: Pulses equal, no cyanosis. Neuro: Awake and alert, GCS 15. Cranial nerves II-XII grossly intact. Motor strength 4/5 in all extremities. Sensory grossly intact Vital Signs: 14:07 BP 155 / 67; Pulse 69; Resp 18; Temp 98; Pulse Ox 98% on R/A; Pain 0/10; cm10 14:34 BP 130 / 68; Pulse 62; Resp 15 S; Pulse Ox 100% on R/A; aa5 14:07 Pain Scale: Adult cm10 MDM: 13:58 Patient medically screened. rn 15:35 Data reviewed: vital signs, nurses notes, lab test result(s), EKG, radiologic studies, rn CT scan, and as a result, I will discharge patient. Counseling: I had a detailed discussion with the patient and/or guardian regarding: the historical points, exam findings, and any diagnostic results supporting the discharge/admit diagnosis, lab results, radiology results, the need for outpatient follow up, to return to the emergency department if symptoms worsen or persist or if there are any questions or concerns that arise at home. Response to treatment: the patient's symptoms have mildly improved after treatment, and as a result, I will discharge patient. Special discussion: I discussed with the patient/guardian in detail that at this point there is no indication for admission to the hospital. It is understood, however, that if the symptoms persist or worsen the patient needs to return immediately for re-evaluation. Based on the history and exam findings, there is no indication for further emergent testing or inpatient evaluation. I discussed with the patient/guardian the need to see the device repair technician for further evaluation of the symptoms. I discussed with the patient/guardian the need to see the general surgeon for further evaluation of the symptoms. I discussed with the patient/guardian the need to see the primary care provider for further evaluation of the symptoms. ED course: No acute findings in workup, neg CT PE, second visit in a few days with neg workup, added ct head and ct chest and both neg for acute findings, possible cholelithiasis as cause. Recommend GI/surgery f/u and given return precautions. . 06/24 14:06 Order name: Basic Metabolic Panel; Complete Time: 14:54 rn 06/24 14:06 Order name: CBC with Diff; Complete Time: 14:54 rn 06/24 14:06 Order name: Hepatic Function; Complete Time: 14:54 rn 06/24 14:06 Order name: Magnesium; Complete Time: 14:54 rn 06/24 14:06 Order name: Protime (+inr); Complete Time: 14:54 rn 06/24 14:06 Order name: Ptt, Activated; Complete Time: 14:54 rn 06/24 14:06 Order name: Troponin High Sensitivity; Complete Time: 14:54 rn 06/24 14:06 Order name: Urinalysis w/ reflexes; Complete Time: 15:04 rn 06/24 14:06 Order name: SARS-COV-2 RT PCR; Complete Time: 15:34 rn 06/24 14:06 Order name: CT Head Brain wo Cont; Complete Time: 15:20 rn 06/24 14:06 Order name: Chest Single View XRAY; Complete Time: 16:20 rn 06/24 14:07 Order name: CT Chest For PE Angio; Complete Time: 15:27 rn 06/24 14:06 Order name: EKG; Complete Time: 14:07 rn 06/24 14:06 Order name: Cardiac monitoring; Complete Time: 14:16 rn 06/24 14:06 Order name: EKG - Nurse/Tech; Complete Time: 14:16 rn 06/24 14:06 Order name: IV Saline Lock; Complete Time: 14:16 06/24 14:06 Order name: Labs collected and sent; Complete Time: 14:16 06/24 14:06 Order name: O2 Per Protocol; Complete Time: 14:16 rn 06/24 14:06 Order name: O2 Sat Monitoring; Complete Time: 14:16 rn Administered Medications: 14:33 Drug: NS 0.9% IV 500 ml Route: IV; Rate: bolus; Site: right forearm; aa5 15:15 Follow up: IV Status: Completed infusion; IV Intake: 500ml aa5 15:20 Drug: NS 0.9% IV 500 ml Route: IV; Rate: bolus; Site: right forearm; aa5 16:19 Follow up: IV Status: Completed infusion; IV Intake: 500ml aa5 Disposition Summary: 06/24/23 15:36 Discharge Ordered Location: Home rn Problem: new rn Symptoms: have improved rn Condition: Stable rn Diagnosis - Chest pain, unspecified rn - Other cholelithiasis without obstruction rn - Dehydration rn - Hyperglycemia, unspecified rn Followup: rn - With: Private Physician - When: As needed - Reason: Recheck today's complaints, Re-evaluation by your physician Discharge Instructions: - Discharge Summary Sheet rn - Nonspecific Chest Pain, Adult rn - Dehydration, Adult rn - Cholelithiasis rn - Blood Glucose Monitoring, Adult rn Forms: - Medication Reconciliation Form rn - Thank You Letter rn - Antibiotic pattern assembler - Prescription Opioid Use rn - Patient Portal Instructions rn Signatures: Dispatcher [employer] Joseph Mcpherson MD MD rn Calderon, Audri, RN RN [email or web address] Kanchan Leonard, RN RN cm10
--- NOTE | 2023-06-24 16:12 | RAD REPORT ---
EXAM DESCRIPTION: [facility] Single View06/24/2023 3:27 pm CLINICAL HISTORY: Chest pain COMPARISON: March 2023 FINDINGS: The lungs appear clear of acute infiltrate. The heart is mildly enlarged. Postsurgical changes involve the chest. Pacemaker leads in place IMPRESSION: No acute abnormalities displayed
[2023-06-24 16:49] VITALS: TEMP 98
[2023-06-24 16:55] VITALS: BP 130/68; O2SAT 100
--- NOTE | 2023-06-25 17:35 | EKG ---
Test Date: 2023-06-24 Test Time: 14:09:36 Barge Master: LINNEA MEASUREMENT RESULTS: Intervals: Rate: 65 OR: 166 QRSD: 168 QT: 462 QTc: 480 [place]: P: 91 OR: 166 QRS: -79 T: 88 INTERPRETIVE STATEMENTS: V paced. Electronically Signed On 06-25-23 17:33:35 CDT by Oz Thomas
== END 2023-06-24 16:40 | disposition home or self-care (01) ==
LOC: ER 13:51
DX: R07.9 Chest pain, unspecified (principal); K80.80 Other cholelithiasis without obstruction; E86.0 Dehydration; E11.65 Type 2 diabetes mellitus with hyperglycemia; I10 Essential (primary) hypertension; G30.9 Alzheimer's disease, unspecified; F02.80 Dementia in other diseases classified elsewhere, unspecified severity, without behavioral disturbance, psychotic disturbance, mood disturbance, and anxiety; Z79.82 Long term (current) use of aspirin; Z91.013 Allergy to seafood
CPT/HCPCS: 85025; 81001; 80048; 36415; 83735; 85610; 80076; 85730; 84484; 87635; 70450; 71275; 71045; Q9967; J7030; 93005